=== PATIENT | female | born 1985 | race Caucasian/White ===

== ENCOUNTER 2018-01-21 13:37 | Inpatient (IN) | payer OTHER ==
[2018-01-21 13:52] VITALS: BMI 23.2
--- NOTE | 2018-01-21 16:41 | HP ---
CIWA Score Nausea/Vomitin-Mild Nausea/No Vomiting Muscle Tremors: 3 Anxiety: 2 Agitation: 2 Paroxysmal Sweats: 2 Orientation: 0-Oriented Tacttile Disturbances: 0-None Auditory Disturbances: 0-None Visual Disturbances: 0-None Headache: 2-Mild CIWA-Ar Total Score: 12 - Admission Criteria OASAS Guidelines: Admission for Medically Managed Detox: Requires at least one of the followin. CIWA greater than 12 2. Seizures within the past 24 hours 3. Delirium tremens within the past 24 hours 4. Hallucinations within the past 24 hours 5. Acute intervention needed for co occurring medical disorder 6. Acute intervention needed for co occurring psychiatric disorder 7. Severe withdrawal that cannot be handled at a lower level of care (continued vomiting, continued diarrhea, abnormal vital signs) requiring intravenous medication and/or fluids 8. Admission ROS [facility] Chief Complaint: here for alcohol detox Allergies/Adverse Reactions: Allergies Allergy/AdvReac Type Severity Reaction Status Date / Time amoxicillin Allergy Severe Swelling Verified 01/21/18 16:39 banana Allergy Severe Hives Verified 01/21/18 16:39 History of Present Illness: 32 yo with no medical problems here for treatment of alcohol use. Started using at the age of 17 but started using regularly since age 21. Has been drinking more over the years. But over the last few months has increased drinking to about 9 drinks a day but self decreased to 6 drinks over the last few weeks. Says she gets the shakes. LAst drink of alcohol yesterday. Pt states uses marijuana occasionally. Smokes 20 cigs/day DUR/ISTOP: shows no recent meds URine tox shows THC MAGALY- 0 - Ebola screening Have you traveled outside of the country in the last 21 days: No Have you had contact with anyone from an Ebola affected area: No Have you been sick,other than usual withdrawal symptoms: No Do you have a fever: No Patient History - Patient Medical History Hx Anemia: No Hx Asthma: No Hx Chronic Obstructive Pulmonary Disease (COPD): No Hx Cancer: No Hx Cardiac Disorders: No Hx Congestive Heart Failure: No Hx Hypertension: No Hx Hypercholesterolemia: No Hx Pacemaker: No HX Cerebrovascular Accident: No Hx Seizures: No Hx Dementia: No Hx Diabetes: No Hx Gastrointestinal Disorders: No Hx Liver Disease: No Hx Genitourinary Disorders: No Hx Sexually Transmitted Disorders: No Hx Renal Disease (ESRD): No Hx Thyroid Disease: No - Patient Surgical History Past Surgical History: Yes Hx Neurologic Surgery: No Hx Cataract Extraction: No Hx Cardiac Surgery: No Hx Lung Surgery: No Hx Breast Surgery: No Hx Breast Biopsy: No Hx Abdominal Surgery: No Hx Appendectomy: Yes Hx Cholecystectomy: No Hx Genitourinary Surgery: No Hx Section: No Hx Orthopedic Surgery: No Hx Hysterectomy: No Anesthesia Reaction: No - Reproductive History Last Menstrual Period: 01/21/18 Patient : No - Smoking Cessation Smoking history: Current every day smoker Have you smoked in the past 12 months: Yes Aproximately how many cigarettes per day: 20 Hx Chewing Tobacco Use: No Initiated information on smoking cessation: Yes 'Breaking Loose' booklet given: 01/21/18 - Substance & Tx. History Hx Alcohol Use: Yes Hx Substance Use: No Substance Use Type: Alcohol, Marijuana Hx Substance Use Treatment: No - Substances Abused Alcohol Route: Oral Frequency: Daily Amount used: 6-9 glasses of wine. Age of first use: 21 Date of Last Use: 01/20/18 Marijuana/Hashish Route: Smoking Frequency: 1-2 times per week Amount used: 2-3 puffs Age of first use: 16 Date of Last Use: 01/19/18 Family Disease History - Family Disease History Family History: Unremarkable (pt states she was adopted) Admission Physical Exam [facility] - Vital Signs Vital Signs: Vital Signs - 24 hr 01/21/18 13:43 Temperature 98.8 F Pulse Rate 97 H Respiratory 19 Rate Blood Pressure 157/99 - Physical General Appearance: Yes: Within Normal Limits HEENTM: Yes: Within Normal Limits, EOMI, PARAS Respiratory: Yes: Within Normal Limits, Chest Non-Tender, Lungs Clear, Normal Breath Sounds Neck: Yes: Within Normal Limits Breast: Yes: Breast Exam Deferred Abdominal: Yes: Within Normal Limits, Normal Bowel Sounds, Non Tender, Flat, Soft Genitourinary: Yes: Within Normal Limits Back: Yes: Within Normal Limits Musculoskeletal: Yes: Within Normal Limits Extremities: Yes: Within Normal Limits Neurological: Yes: Within Normal Limits Integumentary: Yes: Within Normal Limits Lymphatic: Yes: Within Normal Limits - Diagnostic (1) Alcohol use disorder Current Visit: Yes Status: Acute (2) Alcohol withdrawal Current Visit: Yes Status: Acute Cleared for Admission [facility] - Detox or Rehab [facility] Level of Care: Medically Managed Detox Regimen/Protocol: Librium BHS Breath Alcohol Content Breath Alcohol Content: 0 Urine Pregancy Test - Result Urine Test Results: Negative- NO Line Present (pt with menses) Urine Drug Screen - Results Drug Screen Negative: No Urine Drug Screen Results: THC-Marijuana
[2018-01-21] MEDS ORDERED: MAGNESIUM CITRATE 300 ML BOTTLE PO PRN (17:17)
[2018-01-21] MEDS ORDERED: MENTHOL/PHENOL 1 EACH UD MM PRN (17:17)
[2018-01-21] MEDS ORDERED: MAG HYDROX/AL HYDROX/SIMETH 30 ML UNIT-DOSE CUP PO PRN (17:17)
[2018-01-21] MEDS ORDERED: P-EPHED 60MG/TRIPROLIDI 2.5MG TABLET PO PRN (17:17)
[2018-01-21] MEDS ORDERED: LOPERAMIDE HCL 2 MG CAPSULE PO PRN (17:17)
[2018-01-21] MEDS ORDERED: MAGNESIUM HYDROX 2400MG/30ML ORAL SUSPENSION 30 ML CUP PO PRN (17:17)
[2018-01-21] MEDS ORDERED: guaiFENesin/D-METHORPHAN HB 10 ML UNIT-DOSE CUPS PO PRN (17:17)
[2018-01-21] MEDS ORDERED: IBUPROFEN 400 MG TABLET (FP) PO PRN (17:17)
[2018-01-21] MEDS ORDERED: ACETAMINOPHEN 325 MG TABLET (FP) PO PRN (17:17)
[2018-01-21] MEDS ORDERED: chlordiazePOXIDE HCL 25 MG CAPSULE PO ONE (17:30)
[2018-01-21] MEDS: THIAMINE HCL 100 MG TABLET (FP) PO SCH (22:10)
[2018-01-21] MEDS: MELATONIN 5 MG TABLETS PO PRN (22:10)
[2018-01-21] MEDS: chlordiazePOXIDE HCL 25 MG CAPSULE PO SCH (22:10)
[2018-01-21] MEDS: NICOTINE POLACRILEX 4 MG GUM BC PRN (22:13)
[2018-01-22] MEDS: chlordiazePOXIDE HCL 25 MG CAPSULE PO SCH ×4 (05:57→22:13)
[2018-01-22] MEDS: NICOTINE POLACRILEX 4 MG GUM BC PRN ×2 (06:24→09:19)
[2018-01-22] MEDS: hydrOXYzine PAMOATE 50 MG CAPSULE (FP) PO PRN ×2 (08:47→22:13)
[2018-01-22 10:13] LABS: HEMOGLOBIN 12.9 GM/dL (10.7-15.3); MEAN PLT VOLUME 9.2 fl (7.5-11.1); PLATELET COUNT 158 K/MM3 (134-434); RDW 12.7 % (11.6-15.6); WHITE BLOOD COUNT 3.9 K/mm3 (4.0-10.0)
[2018-01-22] MEDS: PRENATAL VITAMINS W/ FOLIC ACID TABLET (FP) PO SCH (10:19)
[2018-01-22] MEDS: NICOTINE 21 MG/24 HOURS TOPICAL PATCH TD SCH (10:19)
--- NOTE | 2018-01-22 10:19 | CONSULT ---
[facility] Psychiatric Consult - Data Date of interview: 01/22/18 Admission source: [facility] Identifying data: This is a 32 years old female with no psychiatric hospitalization history, with no medical problems is here for treatment of alcohol use. Reports Vistarill 50mg po prn q4 for anxiety. Denies psychiatric hospitalization historty, seeking for detoxc reporting withdrawal synptoms. Substance Abuse History: Smoking history: Current every day smoker. Have you smoked in the past 12 months: Yes. Aproximately how many cigarettes per day: 20. Hx Chewing Tobacco Use: No. Initiated information on smoking cessation: Yes. 'Breaking Loose' booklet given: 01/21/18. - Substance & Tx. History. Hx Alcohol Use: Yes. Hx Substance Use: No. Substance Use Type: Alcohol, Marijuana. Hx Substance Use Treatment: No. - Substances Abused. Alcohol. Route: Oral. Frequency: Daily. Amount used: 6-9 glasses of wine. Age of first use: 21. Date of Last Use: 01/20/18. Marijuana/Hashish. Route: Smoking. Frequency: 1-2 times per week. Amount used: 2-3 puffs. Age of first use: 16. Date of Last Use: 01/19/18 Medical History: Denies any significant medical issues Psychiatric History: Patient reportws nompsychiatric hospitalization history, denies suicidal anmd homicidal history, reports anxiety and agitation and asking for medications aid. Physical/Sexual Abuse/Trauma History: Denies Additional Comment: Vistarill 50mg po prn q4 for anxiety Mental Status Exam - Mental Status Exam Alert and Oriented to: Person Cognitive Function: Fair Patient Appearance: Unkempt Mood: Anxious Affect: Normal Range Patient Behavior: Cooperative Speech Pattern: Appropriate Voice Loudness: Mildly Loud Thought Process: Goal Oriented Thought Disorder: Being Controlled Hallucinations: Denies Suicidal Ideation: Denies Homicidal Ideation: Denies Insight/Judgement: Fair Sleep: Difficulty falling asleep Appetite: Weight loss Muscle strength/Tone: Mild Hypotonicity Gait/Station: Normal Additional Comments: Vistarill 50mg po prn q4 for anxiety Psychiatric Findings - Problem List ([place] 1, 2,3) (1) Alcohol-induced anxiety disorder Current Visit: Yes Status: Acute (2) Cannabis dependence Current Visit: Yes Status: Acute (3) Nicotine dependence Current Visit: Yes Status: Acute (4) Alcohol use disorder Current Visit: Yes Status: Acute (5) Alcohol withdrawal Current Visit: Yes Status: Acute - Initial Treatment Plan Initial Treatment Plan: Vistarill 50mg po prn q4 for anxiety
[2018-01-22 10:20] LABS: ALK PHOS 88 U/L (45-117); ANION GAP 12 MMOL/L (8-16); BILIRUBIN,TOTAL 0.7 mg/dL (0.2-1); BLOOD UREA NITROGEN 5 mg/dL (7-18); CALCIUM 9.5 mg/dL (8.5-10.1); CHLORIDE 98 mmol/L (98-107); CO2 28 mmol/L (21-32); CREATININE 0.5 mg/dL (0.55-1.3); GLUCOSE,RANDOM 109 mg/dL (74-106); SGOT/AST 61 U/L (15-37); SGPT/ALT 56 U/L (13-61); SODIUM 138 mmol/L (136-145); TOT PROT 7.8 g/dl (6.4-8.2)
[2018-01-22 10:20] LABS: URINE APPEARANCE SLCLOUDY; URINE BILIRUBIN NEGATIVE (<2.0 mg/dL); URINE COLOR YELLOW; URINE GLUCOSE (UA) NEGATIVE (NEGATIVE); URINE KETONE NEGATIVE (NEGATIVE); URINE LEUK ESTERASE TRACE (NEGATIVE); URINE NITRITE NEGATIVE (NEGATIVE); URINE PROTEIN NEGATIVE (NEGATIVE); URINE UROBILINOGEN NEGATIVE mg/dL (0.2-1.0)
[2018-01-22 10:33] LABS: EPI CELLS FEW /HPF (FEW); URINE BACTERIA RARE /hpf (NONE SEEN); URINE MUCUS RARE
--- NOTE | 2018-01-22 10:37 | CONSULT ---
[facility] Psychiatric Consult - Data Date of interview: 01/22/18 Admission source: [facility] Identifying data: This is Psychiatric Findings - Problem List ([place] 1, 2,3) (1) Alcohol-induced anxiety disorder Current Visit: Yes Status: Acute (2) Cannabis dependence Current Visit: Yes Status: Acute (3) Nicotine dependence Current Visit: Yes Status: Acute (4) Alcohol use disorder Current Visit: Yes Status: Acute (5) Alcohol withdrawal Current Visit: Yes Status: Acute
--- NOTE | 2018-01-22 11:37 | EKG ---
Test Reason : Blood Pressure : / mmHG Vent. Rate : 089 BPM Atrial Rate : 089 BPM P-R Int : 098 ms QRS Dur : 092 ms QT Int : 366 ms P-R-T Axes : 012 016 020 degrees QTc Int : 445 ms SINUS RHYTHM WITH SHORT DC NONSPECIFIC T WAVE ABNORMALITY ABNORMAL ECG NO PREVIOUS ECGS AVAILABLE Confirmed by DAIANA GROVER MD ([id number]) on 01/22/2018 11:37:06 AM Referred By: Confirmed By:DAIANA GROVER MD
--- NOTE | 2018-01-22 12:30 | PN ---
S CIWA - CIWA Score Nausea/Vomitin-No Nausea/No Vomiting Muscle Tremors: 3 Anxiety: 3 Agitation: 4-Moderately Restless Paroxysmal Sweats: 3 Orientation: 0-Oriented Tacttile Disturbances: 0-None Auditory Disturbances: 0-None Visual Disturbances: 0-None Headache: 0-None Present CIWA-Ar Total Score: 13 BHS Progress Note (SOAP) Subjective: anxiety sweats irritable agitation body aches Objective: 01/22/18 12:33 Vital Signs Temperature 97.7 F 01/22/18 10:07 Pulse Rate 100 H 01/22/18 10:07 Respiratory Rate 16 01/22/18 10:07 Blood Pressure 125/86 01/22/18 10:07 O2 Sat by Pulse Oximetry (%) Laboratory Tests 01/22/18 01/22/18 01/22/18 07:00 07:00 08:00 WBC 3.9 L RBC 3.90 Hgb 12.9 Hct 39.0 MCV 100.0 H MCH 33.0 MCHC 33.0 RDW 12.7 Plt Count 158 MPV 9.2 Sodium 138 Potassium 3.0 L Chloride 98 Carbon Dioxide 28 Anion Gap 12 BUN 5 L Creatinine 0.5 L Creat Clearance w eGFR > 60 Random Glucose 109 H Calcium 9.5 Total Bilirubin 0.7 AST 61 H ALT 56 Alkaline Phosphatase 88 Total Protein 7.8 Albumin 4.0 Urine Color Yellow Urine Appearance Slcloudy Urine pH 7.0 Ur Specific [place] 1.008 L Urine Protein Negative Urine Glucose (UA) Negative Urine Ketones Negative Urine Blood 3+ H Urine Nitrite Negative Urine Bilirubin Negative Urine Urobilinogen Negative Ur Leukocyte Esterase Trace Urine WBC (Auto) 6 Urine RBC (Auto) None Ur Epithelial Cells Few Urine Bacteria Rare Urine Mucus Rare aaox3 ambulating no acute distress Assessment: 01/22/18 12:33 withdrawal sx Plan: continue detox increase fluids
[2018-01-22] MEDS ORDERED: POTASSIUM CHLORIDE TABS 20 MEQ TABLET.ER (FP) PO ONE (15:50)
[2018-01-22] MEDS: MELATONIN 5 MG TABLETS PO PRN (22:13)
[2018-01-22] MEDS: THIAMINE HCL 100 MG TABLET (FP) PO SCH (22:13)
[2018-01-23] MEDS: chlordiazePOXIDE HCL 25 MG CAPSULE PO PRN ×2 (01:30→13:08)
[2018-01-23] MEDS: chlordiazePOXIDE HCL 25 MG CAPSULE PO SCH ×3 (06:07→17:26)
[2018-01-23] MEDS: NICOTINE POLACRILEX 4 MG GUM BC PRN ×2 (08:54→22:55)
[2018-01-23] MEDS: NICOTINE 21 MG/24 HOURS TOPICAL PATCH TD SCH (10:52)
[2018-01-23] MEDS: PRENATAL VITAMINS W/ FOLIC ACID TABLET (FP) PO SCH (10:52)
[2018-01-23] MEDS: POTASSIUM CHLORIDE TABS 20 MEQ TABLET.ER (FP) PO SCH (10:52)
--- NOTE | 2018-01-23 12:21 | PN ---
[facility] CIWA - CIWA Score Nausea/Vomitin-No Nausea/No Vomiting Muscle Tremors: 3 Anxiety: 3 Agitation: 3 Paroxysmal Sweats: 3 Orientation: 0-Oriented Tacttile Disturbances: 0-None Auditory Disturbances: 0-None Visual Disturbances: 0-None Headache: 0-None Present CIWA-Ar Total Score: 12 S Progress Note (SOAP) Subjective: anxiety shakes sweats irritable interrupted sleep Objective: 01/23/18 12:38 Vital Signs Temperature 97.9 F 01/23/18 09:40 Pulse Rate 134 H 01/23/18 09:40 Respiratory Rate 18 01/23/18 09:40 Blood Pressure 143/93 01/23/18 09:40 O2 Sat by Pulse Oximetry (%) Laboratory Tests 01/22/18 01/22/18 01/22/18 07:00 07:00 07:00 WBC 3.9 L RBC 3.90 Hgb 12.9 Hct 39.0 MCV 100.0 H MCH 33.0 MCHC 33.0 RDW 12.7 Plt Count 158 MPV 9.2 Sodium 138 Potassium 3.0 L Chloride 98 Carbon Dioxide 28 Anion Gap 12 BUN 5 L Creatinine 0.5 L Creat Clearance w eGFR > 60 Random Glucose 109 H Calcium 9.5 Total Bilirubin 0.7 AST 61 H ALT 56 Alkaline Phosphatase 88 Total Protein 7.8 Albumin 4.0 Urine Color Urine Appearance Urine pH Ur Specific [place] Urine Protein Urine Glucose (UA) Urine Ketones Urine Blood Urine Nitrite Urine Bilirubin Urine Urobilinogen Ur Leukocyte Esterase Urine WBC (Auto) Urine RBC (Auto) Ur Epithelial Cells Urine Bacteria Urine Mucus RPR Titer Nonreactive 01/22/18 08:00 WBC RBC Hgb Hct MCV MCH MCHC RDW Plt Count MPV Sodium Potassium Chloride Carbon Dioxide Anion Gap BUN Creatinine Creat Clearance w eGFR Random Glucose Calcium Total Bilirubin AST ALT Alkaline Phosphatase Total Protein Albumin Urine Color Yellow Urine Appearance Slcloudy Urine pH 7.0 Ur Specific [place] 1.008 L Urine Protein Negative Urine Glucose (UA) Negative Urine Ketones Negative Urine Blood 3+ H Urine Nitrite Negative Urine Bilirubin Negative Urine Urobilinogen Negative Ur Leukocyte Esterase Trace Urine WBC (Auto) 6 Urine RBC (Auto) None Ur Epithelial Cells Few Urine Bacteria Rare Urine Mucus Rare RPR Titer aaox3 ambulating no acute distress Assessment: 01/23/18 12:43 withdrawal sx Plan: continue detox increase fluids clonidine 0.1mg x one
[2018-01-23] MEDS ORDERED: cloNIDine HCL 0.1 MG TABLET PO ONE (12:35)
[2018-01-23] MEDS: hydrOXYzine PAMOATE 50 MG CAPSULE (FP) PO PRN ×3 (13:08→22:18)
[2018-01-23] MEDS: THIAMINE HCL 100 MG TABLET (FP) PO SCH (22:18)
[2018-01-23] MEDS: chlordiazePOXIDE 5 MG CAPSULE PO SCH (22:18)
[2018-01-23] MEDS: MELATONIN 5 MG TABLETS PO PRN (22:18)
[2018-01-24] MEDS: chlordiazePOXIDE 5 MG CAPSULE PO SCH ×3 (06:19→18:02)
[2018-01-24] MEDS: hydrOXYzine PAMOATE 50 MG CAPSULE (FP) PO PRN ×2 (09:52→21:10)
[2018-01-24] MEDS: PRENATAL VITAMINS W/ FOLIC ACID TABLET (FP) PO SCH (10:47)
[2018-01-24] MEDS: POTASSIUM CHLORIDE TABS 20 MEQ TABLET.ER (FP) PO SCH (10:47)
[2018-01-24] MEDS: NICOTINE 21 MG/24 HOURS TOPICAL PATCH TD SCH (10:48)
--- NOTE | 2018-01-24 12:37 | PN ---
BHS Progress Note (SOAP) Subjective: feeling much better little anxious i want to leave early tomorrow by 7am Objective: 01/24/18 12:36 Vital Signs Temperature 97.7 F 01/24/18 09:46 Pulse Rate 105 H 01/24/18 09:46 Respiratory Rate 16 01/24/18 09:46 Blood Pressure 120/83 01/24/18 09:46 O2 Sat by Pulse Oximetry (%) aaox3 ambulating no acute distress Assessment: 01/24/18 12:37 mild withdrawal sx Plan: continue detox increase fluids d/c in am at 7am as per pt request.
[2018-01-24] MEDS: NICOTINE POLACRILEX 4 MG GUM BC PRN ×3 (13:49→22:23)
[2018-01-24] MEDS: chlordiazePOXIDE HCL 25 MG CAPSULE PO PRN (15:33)
[2018-01-24] MEDS: chlordiazePOXIDE HCL 10 MG CAPSULE PO SCH (22:22)
[2018-01-24] MEDS: THIAMINE HCL 100 MG TABLET (FP) PO SCH (22:22)
[2018-01-24] MEDS: MELATONIN 5 MG TABLETS PO PRN (22:23)
[2018-01-25] MEDS: chlordiazePOXIDE HCL 10 MG CAPSULE PO SCH (05:29)
[2018-01-25 06:34] VITALS: BP 109/68; PULSE 74; TEMP 97.5
[2018-01-25] MEDS: hydrOXYzine PAMOATE 50 MG CAPSULE (FP) PO PRN (06:41)
== END 2018-01-25 06:53 | disposition home or self-care (01) | DRG 897 ==
LOC: YASAS 13:37 → Y6N 17:18
PROC: HZ2ZZZZ Detoxification Services for Substance Abuse Treatment (ICD-10-PCS; principal; 2018-01-21)
DX: F10.230 Alcohol dependence with withdrawal, uncomplicated (principal); F12.20 Cannabis dependence, uncomplicated; F17.210 Nicotine dependence, cigarettes, uncomplicated; F10.280 Alcohol dependence with alcohol-induced anxiety disorder
CPT/HCPCS: 36415; 80053; 81003; 81015; 85027; 86593; 93005; 93010; J0735

== ENCOUNTER 2018-04-14 14:22 | Inpatient (IN) | payer OTHER ==
--- NOTE | 2018-04-14 16:42 | HP ---
CIWA Score Nausea/Vomitin Muscle Tremors: 3 Anxiety: 3 Agitation: 2 Paroxysmal Sweats: 1-Minimal Palms Moist Orientation: 0-Oriented Tacttile Disturbances: 0-None Auditory Disturbances: 0-None Visual Disturbances: 0-None Headache: 1-Very Mild CIWA-Ar Total Score: 12 - Admission Criteria OASAS Guidelines: Admission for Medically Managed Detox: Requires at least one of the followin. CIWA greater than 12 2. Seizures within the past 24 hours 3. Delirium tremens within the past 24 hours 4. Hallucinations within the past 24 hours 5. Acute intervention needed for co occurring medical disorder 6. Acute intervention needed for co occurring psychiatric disorder 7. Severe withdrawal that cannot be handled at a lower level of care (continued vomiting, continued diarrhea, abnormal vital signs) requiring intravenous medication and/or fluids 8. Patient presents the following: CIWA greater than 12 Admission Criteria Met: Admission criteria met Admission ROS [facility] Chief Complaint: here for alcohol detox 32 yo with recent diagnosis of UTI- taking antibiotic for the last 3 days, and needs to complete the treatment. And no other medical problems here for treatment of alcohol use. Started using alcohol at the age of 17 but started using regularly since age 21. Has been drinking more over the years. Was last here 01/2018, says she relapsed a month of leaving here. Was going to AA meetings alcohol: 1 pint of whiskey day average, no h/p seizures/DT's Pt states uses marijuana occasionally. Smokes 20 cigs/day DUR/ISTOP: shows no recent meds URine tox shows THC, MET, BZO- last use of zanax a couple of weeks ago, denies MET use MAGALY- 0 Allergies/Adverse Reactions: Allergies Allergy/AdvReac Type Severity Reaction Status Date / Time amoxicillin Allergy Severe Swelling Verified 01/21/18 16:39 banana Allergy Severe Hives Verified 01/21/18 16:39 Exam Limitations: No Limitations - Ebola screening Have you traveled outside of the country in the last 21 days: No Have you had contact with anyone from an Ebola affected area: No Do you have a fever: No - Review of Systems Constitutional: No Symptoms Reported EENT: reports: No Symptoms Reported Respiratory: reports: No Symptoms reported Cardiac: reports: No Symptoms Reported GI: reports: No Symptoms Reported : reports: No Symptoms Reported, Testicular Pain Integumentary: reports: No Symptoms Reported Neuro: reports: No Symptoms reported Hematology: reports: No Symptoms Reported Psychiatric: reports: No Sypmtoms Reported Patient History - Patient Medical History Hx Anemia: No Hx Asthma: No Hx Chronic Obstructive Pulmonary Disease (COPD): No Hx Cancer: No Hx Cardiac Disorders: No Hx Congestive Heart Failure: No Hx Hypertension: No Hx Hypercholesterolemia: No Hx Pacemaker: No HX Cerebrovascular Accident: No Hx Seizures: No Hx Dementia: No Hx Diabetes: No Hx Gastrointestinal Disorders: No Hx Liver Disease: No Hx Genitourinary Disorders: No Hx Sexually Transmitted Disorders: No Hx Renal Disease (ESRD): No Hx Thyroid Disease: No Hx Depression: Yes Hx Suicide Attempt: No Hx Schizophrenia: No Other Medical History: anxiety - Patient Surgical History Past Surgical History: Yes Hx Neurologic Surgery: No Hx Cataract Extraction: No Hx Cardiac Surgery: No Hx Lung Surgery: No Hx Breast Surgery: No Hx Breast Biopsy: No Hx Abdominal Surgery: No Hx Appendectomy: Yes Hx Cholecystectomy: No Hx Genitourinary Surgery: No Hx Section: No Hx Orthopedic Surgery: No Hx Hysterectomy: No Anesthesia Reaction: No - PPD History Date: 01/23/18 PPD to be Administered?: No - Reproductive History Last Menstrual Period: 01/21/18 Patient : No - Smoking Cessation Smoking history: Current every day smoker Have you smoked in the past 12 months: Yes Aproximately how many cigarettes per day: 20 Hx Chewing Tobacco Use: No Initiated information on smoking cessation: Yes 'Breaking Loose' booklet given: 04/14/18 Family Disease History - Family Disease History Family History: Denies (pt does not know- she is adopted) Family Disease History: Other: Grandparent (is adopted), Father (is adopted), Mother (is adopted) Admission Physical Exam [facility] - Physical General Appearance: Yes: Within Normal Limits HEENTM: Yes: Within Normal Limits Respiratory: Yes: Within Normal Limits Neck: Yes: Within Normal Limits Cardiology: Yes: Within Normal Limits Abdominal: Yes: Within Normal Limits Genitourinary: Yes: Within Normal Limits Back: Yes: Within Normal Limits Musculoskeletal: Yes: Within Normal Limits Extremities: Yes: Within Normal Limits Neurological: Yes: Within Normal Limits Integumentary: Yes: Within Normal Limits Lymphatic: Yes: Within Normal Limits - Diagnostic (1) UTI (urinary tract infection) Current Visit: Yes Status: Acute (2) Alcohol-induced anxiety disorder Current Visit: No Status: Acute (3) Alcohol dependence with uncomplicated withdrawal Current Visit: No Status: Chronic (4) Cannabis dependence Current Visit: No Status: Chronic (5) Nicotine dependence Current Visit: No Status: Chronic Qualifiers: Nicotine product type: cigarettes Substance use status: uncomplicated Qualified Code(s): F17.210 - Nicotine dependence, cigarettes, uncomplicated BHS Breath Alcohol Content Breath Alcohol Content: 0
[2018-04-14] MEDS ORDERED: MENTHOL/PHENOL 1 EACH UD MM PRN (16:45)
[2018-04-14] MEDS ORDERED: MAG HYDROX/AL HYDROX/SIMETH 30 ML UNIT-DOSE CUP PO PRN (16:45)
[2018-04-14] MEDS ORDERED: MAGNESIUM CITRATE 300 ML BOTTLE PO PRN (16:45)
[2018-04-14] MEDS ORDERED: IBUPROFEN 400 MG TABLET (FP) PO PRN (16:45)
[2018-04-14] MEDS ORDERED: P-EPHED 60MG/TRIPROLIDI 2.5MG TABLET PO PRN (16:45)
[2018-04-14] MEDS ORDERED: MAGNESIUM HYDROX 2400MG/30ML ORAL SUSPENSION 30 ML CUP PO PRN (16:45)
[2018-04-14] MEDS ORDERED: LOPERAMIDE HCL 2 MG CAPSULE PO PRN (16:45)
[2018-04-14] MEDS ORDERED: ACETAMINOPHEN 325 MG TABLET (FP) PO PRN (16:45)
[2018-04-14] MEDS ORDERED: guaiFENesin/D-METHORPHAN HB 10 ML UNIT-DOSE CUPS PO PRN (16:45)
[2018-04-14 17:04] VITALS: BMI 23.0
[2018-04-14] MEDS ORDERED: chlordiazePOXIDE HCL 25 MG CAPSULE PO ONE (18:00)
[2018-04-14] MEDS: cloNIDine HCL 0.1 MG TABLET PO PRN (20:35)
[2018-04-14] MEDS: chlordiazePOXIDE HCL 25 MG CAPSULE PO SCH (22:22)
[2018-04-14] MEDS: SULFAMETHOXAZOLE/TRIMETHOPRIM 800MG/160MG D.S. TABLET PO SCH (22:22)
[2018-04-14] MEDS: MELATONIN 5 MG TABLETS PO PRN (22:22)
[2018-04-14] MEDS: THIAMINE HCL 100 MG TABLET (FP) PO SCH (22:22)
[2018-04-14] MEDS: NICOTINE POLACRILEX 4 MG GUM BC PRN (22:57)
[2018-04-15] MEDS: hydrOXYzine PAMOATE 50 MG CAPSULE (FP) PO PRN ×2 (02:31→17:12)
[2018-04-15] MEDS: chlordiazePOXIDE HCL 25 MG CAPSULE PO SCH ×4 (05:28→22:06)
[2018-04-15] MEDS ORDERED: COLLOIDAL OATMEAL 1 BAR EACH TP PRN (09:18)
--- NOTE | 2018-04-15 09:19 | PN ---
[facility]HS CIWA - CIWA Score Nausea/Vomitin-No Nausea/No Vomiting Muscle Tremors: 2 Anxiety: 4-Mod. Anxious/Guarded Agitation: 1-Slight > Activity Paroxysmal Sweats: 1-Minimal Palms Moist Orientation: 0-Oriented Tacttile Disturbances: 1-Very Mild Itch/Numbness Auditory Disturbances: 0-None Visual Disturbances: 0-None Headache: 1-Very Mild CIWA-Ar Total Score: 10 BHS Progress Note (SOAP) Subjective: tremor sweating anxiety itchy skin headache Objective: 04/15/18 09:23 Vital Signs Temperature 96.9 F L 04/15/18 06:16 Pulse Rate 102 H 04/15/18 06:16 Respiratory Rate 18 04/15/18 06:16 Blood Pressure 107/76 04/15/18 06:16 O2 Sat by Pulse Oximetry (%) lab pending Assessment: 04/15/18 09:24 alcohol withdrawal sx 04/15/18 09:25 dry skin Plan: continue alcohol detox regimen that the patient is doing well at the present time aveeno soap eucerin cream
[2018-04-15 10:17] LABS: ALBUMIN 4.2 g/dl (3.4-5.0); ALK PHOS 118 U/L (45-117); ANION GAP 9 MMOL/L (8-16); BLOOD UREA NITROGEN 8 mg/dL (7-18); CALCIUM 9.8 mg/dL (8.5-10.1); CHLORIDE 94 mmol/L (98-107); CO2 31 mmol/L (21-32); CREATININE 0.8 mg/dL (0.55-1.3); GLUCOSE,RANDOM 96 mg/dL (74-106); POTASSIUM 3.6 mmol/L (3.5-5.1); SGOT/AST 65 U/L (15-37); SGPT/ALT 44 U/L (13-61); SODIUM 133 mmol/L (136-145); TOT PROT 7.8 g/dl (6.4-8.2)
[2018-04-15] MEDS: SULFAMETHOXAZOLE/TRIMETHOPRIM 800MG/160MG D.S. TABLET PO SCH ×2 (10:21→22:06)
[2018-04-15] MEDS: MINERAL OIL/PETROLAT/WATER TOPICAL CREAM 454 GM JAR TP SCH (10:21)
[2018-04-15] MEDS: PRENATAL VITAMINS W/ FOLIC ACID TABLET (FP) PO SCH (10:21)
[2018-04-15] MEDS: NICOTINE POLACRILEX 4 MG GUM BC PRN ×3 (10:22→21:07)
[2018-04-15 10:23] LABS: HEMOGLOBIN 12.9 GM/dL (10.7-15.3); MCH 34.6 pg (25.7-33.7); MCHC 34.7 g/dl (32.0-36.0); MEAN CELL VOLUME 99.7 fl (80-96); MEAN PLT VOLUME 8.3 fl (7.5-11.1); PLATELET COUNT 188 K/MM3 (134-434); RBC 3.71 M/mm3 (3.60-5.2); WHITE BLOOD COUNT 3.9 K/mm3 (4.0-10.0)
[2018-04-15] MEDS: chlordiazePOXIDE HCL 25 MG CAPSULE PO PRN (12:44)
[2018-04-15] MEDS: cloNIDine HCL 0.1 MG TABLET PO PRN (17:12)
[2018-04-15] MEDS: THIAMINE HCL 100 MG TABLET (FP) PO SCH (22:06)
[2018-04-15] MEDS: MELATONIN 5 MG TABLETS PO PRN (22:06)
[2018-04-16] MEDS: chlordiazePOXIDE HCL 25 MG CAPSULE PO SCH ×3 (04:56→17:12)
[2018-04-16 09:49] LABS: URINE APPEARANCE CLEAR; URINE BILIRUBIN NEGATIVE (<2.0 mg/dL); URINE COLOR YELLOW; URINE GLUCOSE (UA) NEGATIVE (NEGATIVE); URINE KETONE NEGATIVE (NEGATIVE); URINE LEUK ESTERASE NEGATIVE (NEGATIVE); URINE NITRITE NEGATIVE (NEGATIVE); URINE PROTEIN NEGATIVE (NEGATIVE)
[2018-04-16] MEDS: SULFAMETHOXAZOLE/TRIMETHOPRIM 800MG/160MG D.S. TABLET PO SCH ×2 (10:12→22:02)
[2018-04-16] MEDS: PRENATAL VITAMINS W/ FOLIC ACID TABLET (FP) PO SCH (10:12)
[2018-04-16] MEDS: MINERAL OIL/PETROLAT/WATER TOPICAL CREAM 454 GM JAR TP SCH (10:13)
[2018-04-16] MEDS: chlordiazePOXIDE HCL 25 MG CAPSULE PO PRN ×2 (13:03→20:25)
[2018-04-16] MEDS: NICOTINE POLACRILEX 4 MG GUM BC PRN ×3 (13:04→22:06)
--- NOTE | 2018-04-16 15:12 | PN ---
S CIWA - CIWA Score Nausea/Vomitin-No Nausea/No Vomiting Muscle Tremors: 3 Anxiety: 1-Mildly Anxious Agitation: 0-Normal Activity Paroxysmal Sweats: 3 Orientation: 0-Oriented Tacttile Disturbances: 0-None Auditory Disturbances: 0-None Visual Disturbances: 3-Moderate Sensitivity Headache: 3-Moderate CIWA-Ar Total Score: 13 BHS Progress Note (SOAP) Subjective: Body Aches, Interrupted Sleep, Sweating, Tremors. Objective: PATIENT A & O X 3, OBSERVED AMBULATING ON UNIT. IN NO ACUTE DISTRESS. 04/16/18 15:13 Vital Signs Temperature 97.1 F L 04/16/18 13:34 Pulse Rate 117 H 04/16/18 13:34 Respiratory Rate 18 04/16/18 13:34 Blood Pressure 108/76 04/16/18 13:34 O2 Sat by Pulse Oximetry (%) Laboratory Tests 04/15/18 04/15/18 04/16/18 07:00 07:00 08:20 WBC 3.9 L RBC 3.71 Hgb 12.9 Hct 37.0 MCV 99.7 H MCH 34.6 H MCHC 34.7 RDW 13.0 Plt Count 188 MPV 8.3 Sodium 133 L Potassium 3.6 Chloride 94 L Carbon Dioxide 31 Anion Gap 9 BUN 8 Creatinine 0.8 Creat Clearance w eGFR > 60 Random Glucose 96 Calcium 9.8 Total Bilirubin 1.0 AST 65 H ALT 44 Alkaline Phosphatase 118 H Total Protein 7.8 Albumin 4.2 Urine Color Yellow Urine Appearance Clear Urine pH 6.0 Ur Specific [place] 1.014 Urine Protein Negative Urine Glucose (UA) Negative Urine Ketones Negative Urine Blood Negative Urine Nitrite Negative Urine Bilirubin Negative Urine Urobilinogen 2.0 H Ur Leukocyte Esterase Negative LABS NOTED. RPR RESULT PENDING. 04/16/18 15:14 Assessment: 04/16/18 15:13 WITHDRAWAL SYMPTOMS. Plan: CONTINUE DETOX. PRN FLEXERIL PO FOR BODY ACHES/ MUSCLE SPASMS.
[2018-04-16] MEDS: ARTIFICIAL TEARS (POLYVINYL ALCOHOL) OPTH DROPS OU PRN ×2 (17:14→22:05)
[2018-04-16] MEDS: CYCLOBENZAPRINE HCL 10 MG TABLET (FP) PO PRN (17:15)
[2018-04-16] MEDS: chlordiazePOXIDE 5 MG CAPSULE PO SCH (22:02)
[2018-04-16] MEDS: THIAMINE HCL 100 MG TABLET (FP) PO SCH (22:02)
[2018-04-16] MEDS: MELATONIN 5 MG TABLETS PO PRN (22:03)
[2018-04-16] MEDS: hydrOXYzine PAMOATE 50 MG CAPSULE (FP) PO PRN (23:46)
[2018-04-17] MEDS: chlordiazePOXIDE 5 MG CAPSULE PO SCH ×3 (06:01→17:44)
[2018-04-17] MEDS: SULFAMETHOXAZOLE/TRIMETHOPRIM 800MG/160MG D.S. TABLET PO SCH ×2 (10:38→22:16)
[2018-04-17] MEDS: PRENATAL VITAMINS W/ FOLIC ACID TABLET (FP) PO SCH (10:38)
--- NOTE | 2018-04-17 13:22 | PN ---
BHS Progress Note (SOAP) Subjective: Sweating, Interrupted Sleep, Fatigue. Objective: 04/17/18 13:25 Vital Signs Temperature 96.8 F L 04/17/18 09:19 Pulse Rate 75 04/17/18 09:19 Respiratory Rate 18 04/17/18 09:19 Blood Pressure 93/60 04/17/18 09:19 O2 Sat by Pulse Oximetry (%) Laboratory Tests 04/15/18 04/15/18 04/15/18 07:00 07:00 07:00 WBC 3.9 L RBC 3.71 Hgb 12.9 Hct 37.0 MCV 99.7 H MCH 34.6 H MCHC 34.7 RDW 13.0 Plt Count 188 MPV 8.3 Sodium 133 L Potassium 3.6 Chloride 94 L Carbon Dioxide 31 Anion Gap 9 BUN 8 Creatinine 0.8 Creat Clearance w eGFR > 60 Random Glucose 96 Calcium 9.8 Total Bilirubin 1.0 AST 65 H ALT 44 Alkaline Phosphatase 118 H Total Protein 7.8 Albumin 4.2 Urine Color Urine Appearance Urine pH Ur Specific [place] Urine Protein Urine Glucose (UA) Urine Ketones Urine Blood Urine Nitrite Urine Bilirubin Urine Urobilinogen Ur Leukocyte Esterase RPR Titer Nonreactive 04/16/18 08:20 WBC RBC Hgb Hct MCV MCH MCHC RDW Plt Count MPV Sodium Potassium Chloride Carbon Dioxide Anion Gap BUN Creatinine Creat Clearance w eGFR Random Glucose Calcium Total Bilirubin AST ALT Alkaline Phosphatase Total Protein Albumin Urine Color Yellow Urine Appearance Clear Urine pH 6.0 Ur Specific [place] 1.014 Urine Protein Negative Urine Glucose (UA) Negative Urine Ketones Negative Urine Blood Negative Urine Nitrite Negative Urine Bilirubin Negative Urine Urobilinogen 2.0 H Ur Leukocyte Esterase Negative RPR Titer LABS NOTED. Assessment: 04/17/18 13:25 WITHDRAWAL SYMPTOMS. Plan: CONTINUE DETOX. INCREASE DAILY PO FLUID INTAKE. PRN FLEXERIL FOR BODY ACHES / MUSCLE SPASMS.
[2018-04-17] MEDS: chlordiazePOXIDE HCL 25 MG CAPSULE PO PRN (13:26)
[2018-04-17] MEDS: MINERAL OIL/PETROLAT/WATER TOPICAL CREAM 454 GM JAR TP SCH (14:11)
[2018-04-17] MEDS: CYCLOBENZAPRINE HCL 10 MG TABLET (FP) PO PRN (17:49)
[2018-04-17] MEDS: hydrOXYzine PAMOATE 50 MG CAPSULE (FP) PO PRN ×2 (18:48→22:49)
[2018-04-17] MEDS: NICOTINE POLACRILEX 4 MG GUM BC PRN ×2 (19:57→22:20)
[2018-04-17] MEDS: THIAMINE HCL 100 MG TABLET (FP) PO SCH (22:16)
[2018-04-17] MEDS: ARTIFICIAL TEARS (POLYVINYL ALCOHOL) OPTH DROPS OU PRN (22:16)
[2018-04-17] MEDS: chlordiazePOXIDE HCL 10 MG CAPSULE PO SCH (22:16)
[2018-04-17] MEDS: MELATONIN 5 MG TABLETS PO PRN (22:17)
[2018-04-18] MEDS: CYCLOBENZAPRINE HCL 10 MG TABLET (FP) PO PRN ×2 (01:27→10:10)
[2018-04-18] MEDS: chlordiazePOXIDE HCL 10 MG CAPSULE PO SCH ×2 (05:28→10:09)
[2018-04-18] MEDS: ARTIFICIAL TEARS (POLYVINYL ALCOHOL) OPTH DROPS OU PRN (09:27)
[2018-04-18] MEDS: PRENATAL VITAMINS W/ FOLIC ACID TABLET (FP) PO SCH (10:09)
[2018-04-18] MEDS: SULFAMETHOXAZOLE/TRIMETHOPRIM 800MG/160MG D.S. TABLET PO SCH (10:09)
[2018-04-18 10:59] VITALS: BP 103/70; PULSE 96; TEMP 96
--- NOTE | 2018-04-18 18:41 | DS ---
[facility] Detox Discharge Summary Admission Date: 04/14/18 Discharge Date: 04/18/18 - History Present History: Alcohol Dependence, Cannabis Dependence Additional Comments: PATIENT WISHES TO ATTEND OUTPATIENT SUPPORT GROUP MEETINGS. REMAINDER OF ANTIBIOTIC (BACTRIM DS) THAT WAS STARTED FOR PATIENT FOR TREATMENT OF UTI PRIOR TO (AND CONTINUED DURING) DETOX ADMISSION GIVEN TO PATIENT TO TAKE WITH AT TIME OF DISCHARGE FROM DETOX UNIT. PATIENT ADVISED TO COMPLETE FULL COURSER OF REMAINDER OF ANTIBIOTIC. PATIENT VERBALIZED UNDERSTANDING OF RECOMMENDATION. PATIENT WAS DISCHARGED FROM DETOX UNIT IN STABLE MEDICAL CONDITION. Pertinent Past History: UTI, Nicotine Dependence, History of Depression, Anxiety. - Physical Exam Results Vital Signs: Vital Signs Temperature 96.0 F L 04/18/18 10:58 Pulse Rate 96 H 04/18/18 10:58 Respiratory Rate 18 04/18/18 10:58 Blood Pressure 103/70 04/18/18 10:58 O2 Sat by Pulse Oximetry (%) Pertinent Admission Physical Exam Findings: WITHDRAWAL SYMPTOMS. Laboratory Tests 04/15/18 04/15/18 04/15/18 07:00 07:00 07:00 WBC 3.9 L RBC 3.71 Hgb 12.9 Hct 37.0 MCV 99.7 H MCH 34.6 H MCHC 34.7 RDW 13.0 Plt Count 188 MPV 8.3 Sodium 133 L Potassium 3.6 Chloride 94 L Carbon Dioxide 31 Anion Gap 9 BUN 8 Creatinine 0.8 Creat Clearance w eGFR > 60 Random Glucose 96 Calcium 9.8 Total Bilirubin 1.0 AST 65 H ALT 44 Alkaline Phosphatase 118 H Total Protein 7.8 Albumin 4.2 Urine Color Urine Appearance Urine pH Ur Specific [place] Urine Protein Urine Glucose (UA) Urine Ketones Urine Blood Urine Nitrite Urine Bilirubin Urine Urobilinogen Ur Leukocyte Esterase RPR Titer Nonreactive 04/16/18 08:20 WBC RBC Hgb Hct MCV MCH MCHC RDW Plt Count MPV Sodium Potassium Chloride Carbon Dioxide Anion Gap BUN Creatinine Creat Clearance w eGFR Random Glucose Calcium Total Bilirubin AST ALT Alkaline Phosphatase Total Protein Albumin Urine Color Yellow Urine Appearance Clear Urine pH 6.0 Ur Specific [place] 1.014 Urine Protein Negative Urine Glucose (UA) Negative Urine Ketones Negative Urine Blood Negative Urine Nitrite Negative Urine Bilirubin Negative Urine Urobilinogen 2.0 H Ur Leukocyte Esterase Negative RPR Titer LABS NOTED. - Treatment Hospital Course: Detox Protocol Followed, Detoxed Safely, Responded well, Discharged Condition Good Patient has Accepted a Rehab Referral to: PATIENT DECLINED, REPORTS THAT SHE WILL ATTEND OUTPATIENT AA MEETINGS. - Medication Discharge Medications: Ambulatory Orders Sulfamethoxazole/Trimethoprim [Bactrim Ds -] 1 tab PO BID 04/14/18 - Diagnosis (1) Alcohol-induced anxiety disorder Status: Acute (2) UTI (urinary tract infection) Status: Acute Qualifiers: Urinary tract infection type: site unspecified Hematuria presence: without hematuria Qualified Code(s): N39.0 - Urinary tract infection, site not specified (3) Alcohol dependence with uncomplicated withdrawal Status: Acute (4) Cannabis dependence Status: Chronic (5) Nicotine dependence Status: Chronic Qualifiers: Nicotine product type: cigarettes Substance use status: uncomplicated Qualified Code(s): F17.210 - Nicotine dependence, cigarettes, uncomplicated - AMA Did Patient Leave Against Medical Advice: No
== END 2018-04-18 10:24 | disposition home or self-care (01) | DRG 775 ==
LOC: YASAS 14:22 → Y3N 17:37
PROVIDERS: ADMIT Neuromusculoskeletal Medicine & OMM; ATTEND Neuromusculoskeletal Medicine & OMM
PROC: HZ2ZZZZ Detoxification Services for Substance Abuse Treatment (ICD-10-PCS; principal; 2018-04-14)
DX: F10.230 Alcohol dependence with withdrawal, uncomplicated (principal); F10.280 Alcohol dependence with alcohol-induced anxiety disorder; F12.20 Cannabis dependence, uncomplicated; F17.210 Nicotine dependence, cigarettes, uncomplicated; N39.0 Urinary tract infection, site not specified; L98.8 Other specified disorders of the skin and subcutaneous tissue; Z88.1 Allergy status to other antibiotic agents
CPT/HCPCS: 36415; 80053; 81003; 85027; 86593; J0735

== ENCOUNTER 2018-08-29 11:59 | Emergency (ER) | payer OTHER ==
[2018-08-29] MEDS ORDERED: SODIUM CHLORIDE 1,000 ML IV STA ×2 (12:09→12:26)
[2018-08-29] MEDS ORDERED: METOCLOPRAMIDE HCL INJECTION 10 MG/2 ML VIAL IVPB ONE (12:09)
--- NOTE | 2018-08-29 12:09 | PDOC ---
History of Present Illness - General Chief Complaint: Nausea/Vomiting Stated Complaint: VOMITING SINCE YESTERDAy Time Seen by Provider: 08/29/18 12:06 History Source: Patient Exam Limitations: No Limitations - History of Present Illness Initial Comments: 08/29/18 12:25 Ms. Schuster is a 32 yo F who presents to the ER with a complaint of nausea and vomiting Pt states she has a h/o alcohol abuse (detox in January 2018 and Apr 2018) and anxiety Pt reports that she binge drank alcohol 3 days ago She awoke feeling well. She noted some epigastric soreness and took a few tums. Subsequent to that, she developed nausea and vomiting. She has been vomiting almost hourly Non bloody. non bilious No fevers or chills Pt had loose stools yesterday (non bloody, non mucoid) No recent antibiotic use no recent international travel no ill contacts The patient states she is unable to tolerate fluids (of note, pt recently dx with bacterial vaginosis, unable to tolerate clindamycin) PT denies abdominal pain except in the epigastrium 2/2 vomiting Pt denies headache PMH: denies PSH: Lap Appy Meds: denies ALL: Amoxicillin Social: h/o alcoholism, intermittent binge drinking, no drug use, occasional marijuanna (4 times in the last 3 months), 1/2 ppd ROS GENERAL/CONSTITUTIONAL: No: fever, chills, weakness, loss of appetite. HEAD, EYES, EARS, NOSE AND THROAT: No: change in vision, ear pain, discharge, sore throat, throat swelling. CARDIOVASCULAR: No: chest pain, lightheadedness, palpitations, syncope RESPIRATORY: No: cough, shortness of breath, wheezing, hemoptysis, stridor. GASTROINTESTINAL: Yes: nausea, vomiting, diarrhea, abdominal pain No:rectal bleeding, constipation. GENITOURINARY: No: dysuria, hematuria, frequency, urgency, flank pain. MUSCULOSKELETAL: No: back pain, neck pain, joint pain, muscle swelling or pain SKIN: No: lesions, pallor, rash or easy bruising. NEUROLOGIC: No: headache, vertigo, paresthesias, weakness ENDOCRINE: No: unexplained weight gain or loss HEMATOLOGIC/LYMPHATIC: No: anemia, easy bleeding, swelling nodes. PE: GENERAL: The patient is in no acute distress. HEAD: Normal EYES: PERRLA, EOMI, sclera anicteric, conjunctiva clear. ENT: Ears normal, nares patent, oropharynx clear without exudates. Dry mucous membranes. NECK: Normal range of motion, supple LUNGS: Breath sounds equal, clear to auscultation bilaterally. No wheezes, and no crackles. HEART: Tachycardiac, regular rhythm, normal S1 and S2 without murmur, rub or gallop. ABDOMEN: Soft, mild epigastric tenderness to palpation, No guarding, no rebound. No abdominal distention EXTREMITIES: Normal range of motion, no edema. Hands are mildly tremulous NEUROLOGICAL: Cranial nerves II through XII grossly intact. Normal speech. No focal neurological deficits. MUSCULOSKELETAL: Back non-tender to palpation, no CVA tenderness SKIN: Warm, Dry, normal turgor, no rashes or lesions noted. 08/29/18 12:34 08/29/18 13:15 Past History - Past Medical History Allergies/Adverse Reactions: Allergies Allergy/AdvReac Type Severity Reaction Status Date / Time amoxicillin Allergy Severe Swelling Verified 08/29/18 12:01 banana Allergy Severe Hives Verified 08/29/18 12:01 Home Medications: Ambulatory Orders Ondansetron HCl [Zofran] 4 mg PO BID PRN #10 tablet 08/29/18 Anemia: No Asthma: No Cancer: No Cardiac Disorders: No CVA: No COPD: No CHF: No Dementia: No Diabetes: No GI Disorders: No Disorders: No HTN: No Hypercholesterolemia: No Kidney Stones: No Liver Disease: No Seizures: No Thyroid Disease: No - Surgical History Abdominal Surgery: No Appendectomy: Yes Cardiac Surgery: No Cholecystectomy: No Lung Surgery: No Neurologic Surgery: No Orthopedic Surgery: No - Reproductive History PID: No - Suicide/Smoking/Psychosocial Hx Smoking History: Current every day smoker Have you smoked in the past 12 months: Yes Number of Cigarettes Smoked Daily: 20 'Breaking Loose' booklet given: 04/14/18 Hx Alcohol Use: Yes Drug/Substance Use Hx: No Substance Use Type: Alcohol, Marijuana Hx Substance Use Treatment: No ED Treatment Course - LABORATORY CBC & Chemistry Diagram: 08/29/18 12:31 08/29/18 12:31 Medical Decision Making - Medical Decision Making 08/29/18 13:14 pt presenting with nausea and now with 1 episode of diarrhea Pt appears dehydrated No fevers DD: gastritis, evolving gastroenteritis, pancreatitis, alcoholic gastrtis Pt is tachycardiac and mildly tremulous She denies h/o withdrawal seizure Does get a little tremulous when not drinking Pt states that she does not want to go to Detox at this time 08/29/18 13:19 Laboratory Tests 08/29/18 08/29/18 08/29/18 12:31 12:31 12:31 WBC 14.0 H Hgb 14.7 Hct 45.1 Plt Count 477 H BUN 17.0 Creatinine 1.4 H Total Bilirubin 2.6 H AST 41 H ALT 20 Alkaline Phosphatase 150 H Urine Nitrite Urine Bilirubin Ur Leukocyte Esterase Urine RBC Urine WBC Ur Transition Epith Cell Urine Bacteria Alcohol, Quantitative < 3.0 08/29/18 12:35 WBC Hgb Hct Plt Count BUN Creatinine Total Bilirubin AST ALT Alkaline Phosphatase Urine Nitrite Negative Urine Bilirubin 3+ H Ur Leukocyte Esterase Negative Urine RBC 40-60 Urine WBC 5-10 Ur Transition Epith Cell Many Urine Bacteria Moderate Alcohol, Quantitative 08/29/18 13:30 Will do US 08/29/18 14:10 Refused Zofran 08/29/18 14:49 Pt tolerating sips of water 08/29/18 15:28 Pt no longer vomiting Will discharge to home Will give Zofran Will give an additional dose of Librium Pt will need to go to [facility] for further management Pt told that Alcohol and Benzo withdrawal are life threatening and must be medically managed Pt understands this *DC/Admit/Observation/Transfer Diagnosis at time of Disposition: Vomiting Qualifiers: Vomiting type: unspecified Vomiting Intractability: non-intractable Nausea presence: without nausea Qualified Code(s): R11.11 - Vomiting without nausea - Discharge Dispostion Disposition: HOME Condition at time of disposition: Stable Decision to Admit order: No - Prescriptions Prescriptions: Ondansetron HCl [Zofran] 4 mg PO BID PRN #10 tablet PRN Reason: Nausea - Referrals Referrals: Kermit Cook MD [Primary Care Provider] - Kristian Hua MD [Staff Physician] - - Patient Instructions Printed Discharge Instructions: DI for Nausea -- Adult, DI for Vomiting -- Adult Additional Instructions: Ms Schuster Thank you for coming in to the ER today Please take anti nausea medications as prescribed Return to the ER for any other concerns or complaints Return to the emergency department immediately with ANY new, persistent or worsening symptoms. Continue any medications as previously prescribed by your physician. You should follow up with your primary doctor as soon as possible regarding today's emergency department visit. Please make sure your doctor reviews the results of your emergency evaluation. Thank you for coming to the [place] today for your care. It was a pleasure to see you today. Please note that your evaluation is INCOMPLETE until you follow-up with your doctor. - Post Discharge Activity
[2018-08-29 12:14] VITALS: BMI 23.3
[2018-08-29] MEDS ORDERED: FAMOTIDINE 20 MG/50 ML IVPB 20 MG/50 ML MG IVPB ONE ×2 (12:33→12:37)
[2018-08-29] MEDS ORDERED: chlordiazePOXIDE HCL 25 MG CAPSULE PO ONE ×2 (12:33→15:41)
[2018-08-29] MEDS ORDERED: METOCLOPRAMIDE HCL INJECTION 10 MG/2 ML VIAL ONE (12:38)
[2018-08-29 12:44] LABS: HCG,QUALITATIVE URINE Negative
[2018-08-29 12:55] LABS: HEMATOCRIT 45.1 % (32.4-45.2); HEMOGLOBIN 14.7 GM/dl (10.7-15.3); MCH 32.9 pg (25.7-33.7); MCHC 32.7 g/dl (32.0-36.0); MEAN CELL VOLUME 100.7 fl (80-96); PLATELET COUNT 477 K/MM3 (134-434); RBC 4.48 M/mm3 (3.60-5.2); RDW 13.4 % (11.6-15.6)
[2018-08-29 12:55] LABS: EPITHELIAL CELLS MANY /hpf
[2018-08-29 13:01] LABS: ALBUMIN 5.2 g/dl (3.4-5.0); BILIRUBIN,TOTAL 2.6 mg/dl (0.2-1); CALCIUM 9.7 mg/dl (8.5-10); CREATININE 1.4 mg/dl (0.55-1.3); POTASSIUM 4.7 mmol/L (3.5-5.1); TOT PROT 9.6 g/dl (6.4-8.2)
[2018-08-29] MEDS ORDERED: ONDANSETRON 4 MG/2 ML VIAL IVPUSH ONE (13:29)
[2018-08-29] MEDS ORDERED: chlordiazePOXIDE HCL 25 MG CAPSULE ONE ×2 (14:42→15:43)
[2018-08-29 14:43] LABS: PLATELET ESTIMATE ADEQUATE
[2018-08-29 15:27] VITALS: BP 128/95; PULSE 103; TEMP 98.4
== END 2018-08-29 15:46 | disposition home or self-care (01) ==
LOC: FER 11:59
PROC: 3E033GC Introduction of Other Therapeutic Substance into Peripheral Vein, Percutaneous Approach (ICD-10-PCS; principal; 2018-08-29)
PROC: 3E0337Z Introduction of Electrolytic and Water Balance Substance into Peripheral Vein, Percutaneous Approach (ICD-10-PCS; 2018-08-29)
PROC: 3E033GC Introduction of Other Therapeutic Substance into Peripheral Vein, Percutaneous Approach (ICD-10-PCS; 2018-08-29)
DX: R11.11 Vomiting without nausea (principal)
CPT/HCPCS: 36415; 80053; 80307; 81003; 81015; 82150; 83690; 84703; 85025; 87086; 96361; 96365; 96375; 99283-25; J7030

== ENCOUNTER 2018-12-26 20:20 | Emergency (ER) | payer OTHER ==
[2018-12-26 20:30] VITALS: TEMP 98.3; BMI 23.3
--- NOTE | 2018-12-26 20:39 | PDOC ---
History of Present Illness - General Chief Complaint: Substance Abuse Stated Complaint: ALCOHOL PROBLEM Time Seen by Provider: 12/26/18 20:38 Past History - Past Medical History Allergies/Adverse Reactions: Allergies Allergy/AdvReac Type Severity Reaction Status Date / Time amoxicillin Allergy Severe Swelling Verified 08/29/18 12:01 banana Allergy Severe Hives Verified 08/29/18 12:01 Home Medications: Ambulatory Orders NK [No Known Home Medication] 12/26/18 Anemia: No Asthma: No Cancer: No Cardiac Disorders: No CVA: No COPD: No CHF: No Dementia: No Diabetes: No GI Disorders: No Disorders: No HTN: No Hypercholesterolemia: No Kidney Stones: No Liver Disease: No Psychiatric Problems: Yes (ANXIETY) Seizures: No Thyroid Disease: No - Surgical History Abdominal Surgery: No Appendectomy: Yes Cardiac Surgery: No Cholecystectomy: No Lung Surgery: No Neurologic Surgery: No Orthopedic Surgery: No - Reproductive History PID: No - Psycho Social/Smoking Cessation Hx Smoking History: Current every day smoker Have you smoked in the past 12 months: Yes Number of Cigarettes Smoked Daily: 10 Information on smoking cessation initiated: Yes 'Breaking Loose' booklet given: 04/14/18 Hx Alcohol Use: Yes Drug/Substance Use Hx: No Substance Use Type: Alcohol, Marijuana Hx Substance Use Treatment: No *Physical Exam - Vital Signs Last Vital Signs Temp Pulse Resp BP Pulse Ox 98.3 F 107 H 16 159/109 H 99 12/26/18 20:24 12/26/18 20:24 12/26/18 20:24 12/26/18 20:24 12/26/18 20:24 Discharge - Discharge Information Condition: Stable - Follow up/Referral Referrals: Kermit Cook MD [Primary Care Provider] - - Patient Discharge Instructions - Post Discharge Activity
[2018-12-26] MEDS ORDERED: chlordiazePOXIDE HCL 25 MG CAPSULE PO ONE (21:02)
[2018-12-26] MEDS ORDERED: SODIUM CHLORIDE 1,000 ML IV STA (21:02)
--- NOTE | 2018-12-26 21:09 | PDOC ---
Documentation entered by Muna Wheat SCRIBE, acting as scribe for Steve Bolton MD. Steve Boateng MD: This documentation has been prepared by the Jarret brennan Nirvannie, SCRIBE, under my direction and personally reviewed by me in its entirety. I confirm that the documentation accurately reflects all work, treatment, procedures, and medical decision making performed by me. History of Present Illness - General Chief Complaint: Substance Abuse Stated Complaint: ALCOHOL PROBLEM Time Seen by Provider: 12/26/18 20:38 History Source: Patient Exam Limitations: No Limitations - History of Present Illness Initial Comments: 12/26/18 21:06 The patient is a 33 year old female, with a significant past medical history of elevated blood pressure (x2 years, not on medications), alcohol abuse (detox x2) and anxiety/depression, who presents to the emergency department with, elevated heart rate. As per patient, she went to a walk in clinic today to request detox and the provider to whom she has visited in the past found that she has elevated heart rate and advised her to report to the ED prior to going to detox. Patients last drink was at approximately 6:30pm, she has needed librium in the past for detox. Patient notes alcohol makes her feel better but , she is aware of how bad it is for her and is aware she has a problem. She denies any recent suicidal or homicidal ideation. She denies recent fevers, chills, headache or dizziness. She denies recent nausea, vomit, diarrhea or constipation. She denies recent dysuria, frequency, urgency or hematuria. She denies recent chest pain or shortness of breath. Allergies: Amoxicillin. Past surgical history: None reported. Social history: Smoker PPD. Alcohol abuse, 1pt/day. Familial History: Noncontributory. Primary Care Physician: Dr. Cook. 12/31/18 10:27 Alert and oriented well-developed malnourished no acute distress cooperative Afebrile, vital signs normal PERRLA 4 mm, fundi benign, ENT clear Neck supple without bruit mass or nodes Chest clear, full breath sounds bilaterally, no wheezes rales or rhonchi CV S1-S2 normal without murmur rub or gallop pulses full and symmetric no JVD or edema no bruits 100 and regular Abdomen nondistended. Bowel sounds normal. Soft without mass tenderness organomegaly. No CVAT Neurological C2 to 12 intact. Strength full and symmetric. No focal sensory or motor deficits. Gait stable and unimpaired. Cerebellar function intact. No asterixis. No palmar erythema. Reflexes 2+ symmetric, not hyperactive Impression: The patient with chronic alcohol abuse, has undergone detox several times in the past, has decided to again try to stop drinking. She plans to apply again to [facility] for admission and treatment. She appears stable at present without underlying medical conditions. Plan: Examination is normal. Baseline labs. Librium. Follow-up as directed detox facility. Signed out to Dr. Ballard at 7 PM pending laboratory results.. Past History - Past Medical History Allergies/Adverse Reactions: Allergies Allergy/AdvReac Type Severity Reaction Status Date / Time amoxicillin Allergy Severe Swelling Verified 08/29/18 12:01 banana Allergy Severe Hives Verified 08/29/18 12:01 Home Medications: Ambulatory Orders Chlordiazepoxide [Librium -] 50 mg PO Q6HPO PRN #8 capsule MDD 8 12/26/18 Anemia: No Asthma: No Cancer: No Cardiac Disorders: No CVA: No COPD: No CHF: No Dementia: No Diabetes: No GI Disorders: No Disorders: No HTN: No Hypercholesterolemia: No Kidney Stones: No Liver Disease: No Psychiatric Problems: Yes (ANXIETY) Seizures: No Thyroid Disease: No - Surgical History Abdominal Surgery: No Appendectomy: Yes Cardiac Surgery: No Cholecystectomy: No Lung Surgery: No Neurologic Surgery: No Orthopedic Surgery: No - Reproductive History PID: No - Psycho Social/Smoking Cessation Hx Smoking History: Current every day smoker Have you smoked in the past 12 months: Yes Number of Cigarettes Smoked Daily: 10 Information on smoking cessation initiated: Yes 'Breaking Loose' booklet given: 04/14/18 Hx Alcohol Use: Yes Drug/Substance Use Hx: No Substance Use Type: Alcohol, Marijuana Hx Substance Use Treatment: No Review of Systems - Review of Systems Able to Perform ROS?: Yes Comments:: 12/26/18 21:06 CONSTITUTIONAL: Absent: fever, no chills, no fatigue EYES: Absent: visual changes ENT: Absent: ear pain, no sore throat CARDIOVASCULAR: Present: Elevated HR. Absent: chest pain, no palpitations RESPIRATORY: Absent: cough, no SOB GI: Absent: abdominal pain, no nausea, no vomiting, no constipation, no diarrhea GENITOURINARY: Absent: dysuria, no frequency, no hematuria MUSKULOSKELETAL: Absent: back pain, no arthralgia, no myalgia SKIN: Absent: rash NEURO: Absent: headache All Other Systems: Reviewed and Negative *Physical Exam - Vital Signs Last Vital Signs Temp Pulse Resp BP Pulse Ox 98.3 F 107 H 16 159/109 H 99 12/26/18 20:24 12/26/18 20:24 12/26/18 20:24 12/26/18 20:24 12/26/18 20:24 ED Treatment Course - LABORATORY CBC & Chemistry Diagram: 12/26/18 21:10 12/26/18 21:10 Discharge - Discharge Information Problems reviewed: Yes Clinical Impression/Diagnosis: Alcohol abuse Condition: Stable Disposition: HOME - Admission No - Additional Discharge Information Prescriptions: Chlordiazepoxide [Librium -] 50 mg PO Q6HPO PRN #8 capsule MDD 8 PRN Reason: Withdrawal(Cont Subst) - Follow up/Referral Referrals: Kermit Cook MD [Primary Care Provider] - - Patient Discharge Instructions Patient Printed Discharge Instructions: DI for Alcohol Abuse Additional Instructions: Librium 50mg every 6 - 12 hours as needed drink plenty of fluids go to [facility] by 7:30-8:00 AM tomorrow(earlier the better ) return to ER as needed - Post Discharge Activity
[2018-12-26] MEDS ORDERED: chlordiazePOXIDE HCL 25 MG CAPSULE ONE (21:12)
--- NOTE | 2018-12-26 21:20 | PDOC ---
*Physical Exam - Vital Signs Last Vital Signs Temp Pulse Resp BP Pulse Ox 98.3 F 107 H 16 159/109 H 99 12/26/18 20:24 12/26/18 20:24 12/26/18 20:24 12/26/18 20:24 12/26/18 20:24 ED Treatment Course - LABORATORY CBC & Chemistry Diagram: 12/26/18 21:10 12/26/18 21:10 - Medications Given in the ED: ED Medications Discontinued Medications Generic Name Dose Route Start Last Admin Trade Name Alexa PRN Reason Stop Dose Admin Chlordiazepoxide HCl 50 mg 12/26/18 21:02 12/26/18 21:13 Librium - PO 12/26/18 21:03 50 mg ONCE ONE Administration ED Progress Note - Progress Note Progress Note: Care of this patient received from Dr Boateng. Laboratory evaluation essentially normal except for slight elevation in MCV and mild elevation of AST as compared to ALT. Blood pressure has modified to 131/92. Patient continues to be interested in inpatient detox at [facility]. Intake UNATTENDED [facility] at [facility] contacted: Currently there are no beds for inpatient admission. However, discharges are anticipated in the morning. If the patient arrives between 7:30 AM and 8 AM tomorrow morning, she can be admitted. Information relayed to the patient. She states that she fully intends to go to the [facility] admitting area within the "next few days" for inpatient admission. Patient asked for a small prescription of Librium to help with withdrawal symptoms until she is seen and admitted. Prescription for Librium 25 mg, 2 caps every 6-12 hours as needed with withdrawal symptoms (#8 dispensed) sent to her pharmacy. She should drink plenty of fluids and return to the ER if she has severe, persistent symptoms Discharge - Discharge Information Problems reviewed: Yes Clinical Impression/Diagnosis: Alcohol abuse Condition: Stable Disposition: HOME - Additional Discharge Information Prescriptions: Chlordiazepoxide [Librium -] 50 mg PO Q6HPO PRN #8 capsule MDD 8 PRN Reason: Withdrawal(Cont Subst) - Follow up/Referral Referrals: Kermit Cook MD [Primary Care Provider] - - Patient Discharge Instructions Patient Printed Discharge Instructions: DI for Alcohol Abuse Additional Instructions: Librium 50mg every 6 - 12 hours as needed drink plenty of fluids go to [facility] by 7:30-8:00 AM tomorrow(earlier the better ) return to ER as needed - Post Discharge Activity
[2018-12-26 21:21] LABS: HEMOGLOBIN 12.9 GM/dl (10.7-15.3)
[2018-12-26 21:30] LABS: HEMATOCRIT 38.9 % (32.4-45.2); MCH 33.6 pg (25.7-33.7); MCHC 33.2 g/dl (32.0-36.0); MEAN PLT VOLUME 7.2 fl (7.5-11.1); PLATELET COUNT 219 K/MM3 (134-434); RBC 3.85 M/mm3 (3.60-5.2); RDW 14.7 % (11.6-15.6); WHITE BLOOD COUNT 4.3 K/mm3 (4.0-10.8)
[2018-12-26 21:39] LABS: ALBUMIN 4.8 g/dl (3.4-5.0); BILIRUBIN,TOTAL 0.9 mg/dl (0.2-1); CREATININE 0.6 mg/dl (0.55-1.3); POTASSIUM 3.6 mmol/L (3.5-5.1); TOT PROT 8.4 g/dl (6.4-8.2)
[2018-12-26 22:14] VITALS: BP 131/92; PULSE 95
[2018-12-26 22:19] LABS: PLATELET ESTIMATE ADEQUATE
== END 2018-12-26 22:27 | disposition home or self-care (01) ==
LOC: FER 20:20
PROC: 3E0337Z Introduction of Electrolytic and Water Balance Substance into Peripheral Vein, Percutaneous Approach (ICD-10-PCS; principal; 2018-12-26)
DX: F10.10 Alcohol abuse, uncomplicated (principal); Z88.8 Allergy status to other drugs, medicaments and biological substances; Z91.018 Allergy to other foods; I10 Essential (primary) hypertension; F41.8 Other specified anxiety disorders; F17.210 Nicotine dependence, cigarettes, uncomplicated
CPT/HCPCS: 36415; 80053; 85025; 99283-25; J7030

== ENCOUNTER 2018-12-27 14:45 | Inpatient (IN) | payer OTHER ==
[2018-12-27 17:48] VITALS: BMI 23.0
--- NOTE | 2018-12-27 19:20 | HP ---
CIWA Score Nausea/Vomitin Muscle Tremors: 3 Anxiety: 2 Agitation: 2 Paroxysmal Sweats: 2 Orientation: 0-Oriented Tacttile Disturbances: 2-Mild Itch/Numbness/Burn Auditory Disturbances: 1-Very Mild Visual Disturbances: 1-Very Mild Sensitivity Headache: 3-Moderate CIWA-Ar Total Score: 18 - Admission Criteria OASAS Guidelines: Admission for Medically Managed Detox: Requires at least one of the followin. CIWA greater than 12 2. Seizures within the past 24 hours 3. Delirium tremens within the past 24 hours 4. Hallucinations within the past 24 hours 5. Acute intervention needed for co occurring medical disorder 6. Acute intervention needed for co occurring psychiatric disorder 7. Severe withdrawal that cannot be handled at a lower level of care (continued vomiting, continued diarrhea, abnormal vital signs) requiring intravenous medication and/or fluids 8. Patient presents the following: CIWA greater than 12 Admission Criteria Met: Admission criteria met Admitting History and Physical - Past Medical History ...LMP: 01/21/18 - Smoking History Smoking history: Current every day smoker Have you smoked in the past 12 months: Yes Aproximately how many cigarettes per day: 10 - Alcohol/Substance Use Hx Alcohol Use: Yes Admission ROS S - HPI Chief Complaint: "I need detox, I'm done drinking and I'm done shaking" Allergies/Adverse Reactions: Allergies Allergy/AdvReac Type Severity Reaction Status Date / Time amoxicillin Allergy Severe Swelling Verified 08/29/18 12:01 banana Allergy Severe Hives Verified 08/29/18 12:01 History of Present Illness: 33 year old female with alcohol dependence presents for detox. She was treated at [place] yesterday for intoxication and discharged to [facility] for detox , she is admitted in stable condition. She denies seizures but reports remote h/ o blackouts. This is her 3rd treatment at [facility]. Exam Limitations: No Limitations - Ebola screening Have you traveled outside of the country in the last 21 days: No Have you had contact with anyone from an Ebola affected area: No Have you been sick,other than usual withdrawal symptoms: No Do you have a fever: No - Review of Systems Constitutional: Chills, Loss of Appetite, Weakness EENT: reports: No Symptoms Reported Respiratory: reports: No Symptoms reported Cardiac: reports: Palpitations GI: reports: Nausea, Vomiting, Abdominal cramping : reports: No Symptoms Reported Musculoskeletal: reports: Back Pain, Muscle Pain, Muscle Weakness Integumentary: reports: Flushing Neuro: reports: Headache Endocrine: reports: No Symptoms Reported Hematology: reports: No Symptoms Reported Psychiatric: reports: Anxious, Depressed Other Systems: Reviewed and Negative Patient History - Patient Medical History Hx Anemia: No Hx Asthma: No Hx Chronic Obstructive Pulmonary Disease (COPD): No Hx Cancer: No Hx Cardiac Disorders: No Hx Congestive Heart Failure: No Hx Hypertension: No Hx Hypercholesterolemia: No Hx Pacemaker: No HX Cerebrovascular Accident: No Hx Seizures: No Hx Dementia: No Hx Diabetes: No Hx Gastrointestinal Disorders: Yes (GERD) Hx Liver Disease: No Hx Genitourinary Disorders: No Hx Sexually Transmitted Disorders: No Hx Renal Disease (ESRD): No Hx Thyroid Disease: No Hx Human Immunodeficiency Virus (HIV): No Hx Depression: Yes Hx Suicide Attempt: No Hx Schizophrenia: No - Patient Surgical History Past Surgical History: Yes Hx Neurologic Surgery: No Hx Cataract Extraction: No Hx Cardiac Surgery: No Hx Lung Surgery: No Hx Breast Surgery: No Hx Breast Biopsy: No Hx Abdominal Surgery: No Hx Appendectomy: Yes Hx Cholecystectomy: No Hx Genitourinary Surgery: No Hx Section: No Hx Orthopedic Surgery: No Hx Hysterectomy: No Anesthesia Reaction: No - PPD History Previous Implant?: Yes Documented Results: Negative w/proof Implanted On Prior [facility] Admission?: Yes Date: 01/23/18 PPD to be Administered?: No - Reproductive History Patient is a Female of Child Bearing Age (11 -55 yrs old): Yes Last Menstrual Period: 12/08/18 Patient : No - Smoking Cessation Smoking history: Current every day smoker Have you smoked in the past 12 months: Yes Aproximately how many cigarettes per day: 10 Hx Chewing Tobacco Use: No Initiated information on smoking cessation: Yes 'Breaking Loose' booklet given: 12/27/18 - Substances abused Alcohol Substance route: Oral Frequency: Daily Amount used: 1 pint of vodka Age of first use: 16 Date of last use: 12/26/18 Admission Physical Exam BHS - Vital Signs Vital Signs: Vital Signs - 24 hr 12/27/18 17:41 Temperature 98.3 F Pulse Rate 118 H Respiratory 18 Rate Blood Pressure 156/110 H - Physical General Appearance: Yes: Within Normal Limits HEENTM: Yes: Hearing grossly Normal, Normocephalic, Normal Voice, Pharynx Normal Respiratory: Yes: Chest Non-Tender, Lungs Clear, Normal Breath Sounds, No Respiratory Distress, No Accessory Muscle Use Neck: Yes: No masses,lesions,Nodules, Supple Breast: Yes: Breast Exam Deferred Cardiology: Yes: Regular Rhythm, Regular Rate, S1, S2 Abdominal: Yes: Normal Bowel Sounds, Non Tender, Soft Genitourinary: Yes: Within Normal Limits Back: Yes: Normal Inspection Musculoskeletal: Yes: full range of Motion, Pelvis Stable, Back pain, Muscle Pain, Muscle weakness Extremities: Yes: Non-Tender, Tremors Neurological: 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: 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 NML intact, Fully Oriented, Alert, Normal Mood/ Affect Integumentary: Yes: Clammy Lymphatic: Yes: Within Normal Limits - Diagnostic (1) Alcohol dependence with uncomplicated withdrawal Current Visit: Yes Status: Acute (2) Alcohol-induced anxiety disorder Current Visit: Yes Status: Acute (3) Cannabis dependence Current Visit: No Status: Chronic (4) Nicotine dependence Current Visit: No Status: Chronic Qualifiers: Nicotine product type: cigarettes Substance use status: uncomplicated Qualified Code(s): F17.210 - Nicotine dependence, cigarettes, uncomplicated (5) GERD (gastroesophageal reflux disease) Current Visit: Yes Status: Acute Cleared for Admission S - Detox or Rehab S Level of Care: Medically Managed Detox Regimen/Protocol: Librium Claeared for Rehab Admission: No Urine Drug Screen - Control Is test valid?: Yes Inpatient Rehab Admission - Rehab Decision to Admit Inpatient rehab admission?: No
[2018-12-27] MEDS ORDERED: MENTHOL/PHENOL 1 EACH UD MM PRN (19:21)
[2018-12-27] MEDS ORDERED: IBUPROFEN 400 MG TABLET (FP) PO PRN (19:21)
[2018-12-27] MEDS ORDERED: ACETAMINOPHEN 325 MG TABLET (FP) PO PRN (19:21)
[2018-12-27] MEDS ORDERED: MAGNESIUM HYDROX 2400MG/30ML ORAL SUSPENSION 30 ML CUP PO PRN (19:21)
[2018-12-27] MEDS ORDERED: MAGNESIUM CITRATE 300 ML BOTTLE PO PRN (19:21)
[2018-12-27] MEDS ORDERED: ONDANSETRON *ODT* 4 MG TABLET SL PRN (19:21)
[2018-12-27] MEDS ORDERED: METHOCARBAMOL 500 MG TABLET PO PRN (19:21)
[2018-12-27] MEDS: NICOTINE 14 MG/24 HOURS TOPICAL PATCH TD SCH (23:09)
[2018-12-27] MEDS: RANITIDINE HCL 150 MG TABLET (FP) PO SCH ×2 (23:17→23:24)
[2018-12-27] MEDS: THIAMINE HCL 100 MG TABLET (FP) PO SCH (23:23)
[2018-12-27] MEDS: chlordiazePOXIDE HCL 25 MG CAPSULE PO SCH (23:23)
[2018-12-28] MEDS: chlordiazePOXIDE HCL 10 MG CAPSULE PO PRN ×3 (01:20→19:39)
[2018-12-28] MEDS: hydrOXYzine PAMOATE 50 MG CAPSULE (FP) PO PRN (01:20)
[2018-12-28] MEDS: MAG HYDROX/AL HYDROX/SIMETH 30 ML UNIT-DOSE CUP PO PRN ×2 (01:20→08:37)
[2018-12-28] MEDS: chlordiazePOXIDE HCL 25 MG CAPSULE PO SCH ×3 (05:59→22:31)
[2018-12-28] MEDS: PRENATAL VITAMINS W/ FOLIC ACID TABLET (FP) PO SCH (09:18)
[2018-12-28] MEDS: NICOTINE 14 MG/24 HOURS TOPICAL PATCH TD SCH (09:18)
[2018-12-28] MEDS: ACETAMINOPHEN 325 MG TABLET (FP) PO PRN (12:06)
[2018-12-28] MEDS: FAMOTIDINE 20 MG TABLET PO SCH ×2 (12:06→22:31)
--- NOTE | 2018-12-28 13:22 | PN ---
S CIWA - CIWA Score Nausea/Vomitin-Mild Nausea/No Vomiting Muscle Tremors: 3 Anxiety: 4-Mod. Anxious/Guarded Agitation: 3 Paroxysmal Sweats: 2 Orientation: 0-Oriented Tacttile Disturbances: 0-None Auditory Disturbances: 0-None Visual Disturbances: 0-None Headache: 1-Very Mild CIWA-Ar Total Score: 14 BHS Progress Note (SOAP) Subjective: 33 years old female admitted to ER on 12/26/18 for alcohol problem medically cleared by the ER provider refer to [facility] for alcohol withdrawal sx management doing well with librium detox regimen less tremor alert speech clearly Objective: 12/28/18 13:26 Vital Signs Temperature 97.9 F 12/28/18 09:30 Pulse Rate 150 H 12/28/18 09:30 Respiratory Rate 20 12/28/18 09:30 Blood Pressure 155/98 12/28/18 09:30 O2 Sat by Pulse Oximetry (%) lab see ER report begin bactrim ds bid x 5 days for uti patient report that she has long history of anxiety with apical pulse around 100 treated with xanax last xanax prescription "a year ago" currently follow up with primary care provider visit once a month "just talk" for 10 minutes so monthly no medication some tmes for uti and treated with antibiotic encourage oral fluid 12/28/18 13:30 ensure bid Assessment: 12/28/18 13:30 alcohol withdrawal sx low grade fever Plan: continue librium detox regimen tylenal prn for fever oral fluid 3-4L daily
[2018-12-28] MEDS: SULFAMETHOXAZOLE/TRIMETHOPRIM 800MG/160MG D.S. TABLET PO SCH ×2 (14:24→22:31)
[2018-12-28] MEDS: BISMUTH SUBSALICYLATE 524 MG/30 ML UD PO PRN (17:13)
[2018-12-28] MEDS: THIAMINE HCL 100 MG TABLET (FP) PO SCH (22:31)
[2018-12-28] MEDS: MELATONIN 5 MG TABLETS PO PRN (22:32)
[2018-12-29] MEDS: MAG HYDROX/AL HYDROX/SIMETH 30 ML UNIT-DOSE CUP PO PRN ×2 (03:49→16:53)
[2018-12-29] MEDS: chlordiazePOXIDE 5 MG CAPSULE PO SCH ×3 (05:22→21:43)
[2018-12-29] MEDS: SULFAMETHOXAZOLE/TRIMETHOPRIM 800MG/160MG D.S. TABLET PO SCH ×2 (10:31→21:44)
[2018-12-29] MEDS: FAMOTIDINE 20 MG TABLET PO SCH ×2 (10:31→21:43)
[2018-12-29] MEDS: NICOTINE 14 MG/24 HOURS TOPICAL PATCH TD SCH (10:31)
[2018-12-29] MEDS: PRENATAL VITAMINS W/ FOLIC ACID TABLET (FP) PO SCH (10:32)
--- NOTE | 2018-12-29 13:41 | PN ---
S CIWA - CIWA Score Nausea/Vomitin-Mild Nausea/No Vomiting Muscle Tremors: 3 Anxiety: 4-Mod. Anxious/Guarded Agitation: 2 Paroxysmal Sweats: 1-Minimal Palms Moist Orientation: 0-Oriented Tacttile Disturbances: 0-None Auditory Disturbances: 0-None Visual Disturbances: 0-None Headache: 0-None Present CIWA-Ar Total Score: 11 BHS Progress Note (SOAP) Subjective: doing well with librium detox regimen sleep better at night report gerd had regular bowel movement today no nausea no vomiting but regurgitate currently taking zantac add carafate Objective: 12/29/18 13:40 Vital Signs Temperature 98.2 F 12/29/18 13:23 Pulse Rate 135 H 12/29/18 13:23 Respiratory Rate 20 12/29/18 13:23 Blood Pressure 130/93 12/29/18 13:23 O2 Sat by Pulse Oximetry (%) 12/29/18 13:41 see 12/26/18 ER lab Assessment: 12/29/18 13:41 alcohol withdrawal sx Plan: continue librium detox regimen
[2018-12-29] MEDS: SUCRALFATE 1 GM TABLET (FP) PO SCH (14:12)
[2018-12-29] MEDS: BENZOYL PEROXIDE 5% 60 GM GEL..GRAM. TP SCH (14:12)
--- NOTE | 2018-12-29 15:58 | EKG ---
Test Reason : Blood Pressure : / mmHG Vent. Rate : 114 BPM Atrial Rate : 114 BPM P-R Int : 130 ms QRS Dur : 084 ms QT Int : 328 ms P-R-T Axes : 029 014 036 degrees QTc Int : 452 ms SINUS TACHYCARDIA NONSPECIFIC ST ABNORMALITY ABNORMAL ECG WHEN COMPARED WITH ECG OF 21-JAN-2018 20:06, IN INTERVAL HAS INCREASED T WAVE VARIATION Confirmed by JOANN MALLOY MD ([id number]) on 12/29/2018 3:58:48 PM Referred By: RAQUEL KIRKLAND Confirmed By:JOANN MALLOY MD
[2018-12-29] MEDS: chlordiazePOXIDE HCL 10 MG CAPSULE PO PRN (16:55)
[2018-12-29] MEDS: ACETAMINOPHEN 325 MG TABLET (FP) PO PRN (17:34)
[2018-12-29] MEDS ORDERED: chlordiazePOXIDE HCL 10 MG CAPSULE PO ONE (19:20)
[2018-12-29] MEDS: NICOTINE POLACRILEX 2 MG GUM BUC PRN (20:06)
[2018-12-29] MEDS: MELATONIN 5 MG TABLETS PO PRN (21:51)
[2018-12-29] MEDS: THIAMINE HCL 100 MG TABLET (FP) PO SCH (21:52)
[2018-12-30] MEDS: MAG HYDROX/AL HYDROX/SIMETH 30 ML UNIT-DOSE CUP PO PRN ×2 (03:54→17:15)
[2018-12-30] MEDS: chlordiazePOXIDE HCL 10 MG CAPSULE PO PRN ×2 (03:54→17:15)
[2018-12-30] MEDS: chlordiazePOXIDE HCL 10 MG CAPSULE PO SCH ×3 (05:24→22:22)
[2018-12-30] MEDS: SULFAMETHOXAZOLE/TRIMETHOPRIM 800MG/160MG D.S. TABLET PO SCH ×2 (10:28→22:22)
[2018-12-30] MEDS: PRENATAL VITAMINS W/ FOLIC ACID TABLET (FP) PO SCH (10:28)
[2018-12-30] MEDS: FAMOTIDINE 20 MG TABLET PO SCH ×2 (10:28→22:23)
[2018-12-30] MEDS: SUCRALFATE 1 GM TABLET (FP) PO SCH (10:29)
[2018-12-30] MEDS: hydrOXYzine PAMOATE 50 MG CAPSULE (FP) PO PRN ×2 (10:30→19:40)
[2018-12-30] MEDS: BENZOYL PEROXIDE 5% 60 GM GEL..GRAM. TP SCH (10:30)
[2018-12-30] MEDS: NICOTINE 14 MG/24 HOURS TOPICAL PATCH TD SCH (10:32)
--- NOTE | 2018-12-30 14:12 | PN ---
S CIWA - CIWA Score Nausea/Vomitin-No Nausea/No Vomiting Muscle Tremors: 2 Anxiety: 2 Agitation: 2 Paroxysmal Sweats: 1-Minimal Palms Moist Orientation: 0-Oriented Tacttile Disturbances: 0-None Auditory Disturbances: 1-Very Mild Visual Disturbances: 0-None Headache: 0-None Present CIWA-Ar Total Score: 8 BHS Progress Note (SOAP) Subjective: doing well with librium detox regimen ambulating on hallway social with peers in day room encourage attend AA for support network Objective: 12/30/18 14:11 Vital Signs Temperature 99.4 F 12/30/18 13:50 Pulse Rate 133 H 12/30/18 13:50 Respiratory Rate 16 12/30/18 13:50 Blood Pressure 113/89 12/30/18 13:50 O2 Sat by Pulse Oximetry (%) Laboratory Last Values POC Urine HCG, Qual Negative 12/27/18 20:37 lab see 12/26/18 ER lab Assessment: 12/30/18 14:11 alcohol withdrawal sx Plan: continue librum detox regimen
[2018-12-30] MEDS: NICOTINE POLACRILEX 2 MG GUM BUC PRN (18:14)
[2018-12-30] MEDS: BISMUTH SUBSALICYLATE 524 MG/30 ML UD PO PRN ×2 (19:42→21:12)
[2018-12-30] MEDS: THIAMINE HCL 100 MG TABLET (FP) PO SCH (22:22)
[2018-12-30] MEDS: MELATONIN 5 MG TABLETS PO PRN (22:23)
[2018-12-31] MEDS: BISMUTH SUBSALICYLATE 524 MG/30 ML UD PO PRN ×3 (00:43→07:26)
[2018-12-31] MEDS ORDERED: chlordiazePOXIDE HCL 10 MG CAPSULE PO ONE (05:00)
[2018-12-31 06:15] VITALS: BP 104/72; PULSE 110; TEMP 97.2
--- NOTE | 2018-12-31 10:23 | DS ---
[facility] Detox Discharge Summary Admission Date: 12/27/18 Discharge Date: 12/31/18 - History Present History: Alcohol Dependence Additional Comments: 33 years old female admitted on 12/27/18 for alcohol withdrawal sx management did well with librium detox regimen no complication through out the detox stay temperature trend indicates low grade fever "my room is very hot" patient is alert oriented x 3 respiratory clear lung bilaterally on auscultation abdomen soft no rebound tenderness extremities full range of motion - Physical Exam Results Vital Signs: Vital Signs Temperature 97.2 F L 12/31/18 06:15 Pulse Rate 110 H 12/31/18 06:15 Respiratory Rate 18 12/31/18 06:15 Blood Pressure 104/72 12/31/18 06:15 O2 Sat by Pulse Oximetry (%) Pertinent Admission Physical Exam Findings: alcohol withdrawal sx - Treatment Hospital Course: Detox Protocol Followed, Detoxed Safely, Responded well, Discharged Condition Good, Rehab Referral Accepted Patient has Accepted a Rehab Referral to: community support approach - Medication Discharge Medications: Ambulatory Orders Chlordiazepoxide [Librium -] 50 mg PO Q6HPO PRN #8 capsule MDD 8 12/26/18 - Diagnosis (1) Alcohol dependence with uncomplicated withdrawal Current Visit: Yes Status: Acute (2) GERD (gastroesophageal reflux disease) Current Visit: Yes Status: Chronic Qualifiers: Esophagitis presence: without esophagitis Qualified Code(s): K21.9 - Gastro -esophageal reflux disease without esophagitis (3) Nicotine dependence Current Visit: Yes Status: Acute Qualifiers: Nicotine product type: cigarettes Substance use status: in withdrawal Qualified Code(s): F17.213 - Nicotine dependence, cigarettes, with withdrawal - AMA Did Patient Leave Against Medical Advice: No CIWA Score - CIWA Score Nausea/Vomitin-No Nausea/No Vomiting Muscle Tremors: 1-None Visible, but [place] Anxiety: 1-Mildly Anxious Agitation: 1-Slight > Activity Paroxysmal Sweats: 1-Minimal Palms Moist Orientation: 0-Oriented Tacttile Disturbances: 0-None Auditory Disturbances: 1-Very Mild Visual Disturbances: 0-None Headache: 0-None Present CIWA-Ar Total Score: 5
== END 2018-12-31 09:24 | disposition home or self-care (01) | DRG 775 ==
LOC: YASAS 14:45 → Y3N 21:56
PROVIDERS: ADMIT Allergy & Immunology; ATTEND Allergy & Immunology
PROC: HZ2ZZZZ Detoxification Services for Substance Abuse Treatment (ICD-10-PCS; principal; 2018-12-27)
DX: F10.230 Alcohol dependence with withdrawal, uncomplicated (principal); F10.280 Alcohol dependence with alcohol-induced anxiety disorder; F12.20 Cannabis dependence, uncomplicated; F17.213 Nicotine dependence, cigarettes, with withdrawal; K21.9 Gastro-esophageal reflux disease without esophagitis; R50.9 Fever, unspecified; Z88.0 Allergy status to penicillin; Z91.018 Allergy to other foods
CPT/HCPCS: 81025; 93005; 93010; Q0162

== ENCOUNTER 2019-01-23 13:15 | Inpatient (IN) | payer OTHER ==
[2019-01-23] MEDS ORDERED: SODIUM CHLORIDE 0.9% 500 ML INFUS.BAG IV ONE ×2 (13:30→14:11)
[2019-01-23] MEDS ORDERED: diazePAM CARPU-JECT 10 MG/2 ML DISP.SYRIN IVPUSH ONE ×2 (13:42→16:07)
--- NOTE | 2019-01-23 13:47 | PDOC ---
Attending Attestation - Resident Resident Name: Asim Kaplan - ED Attending Attestation I have performed the following: I have examined & evaluated the patient, The case was reviewed & discussed with the resident, I agree w/resident's findings & plan, Exceptions are as noted - HPI HPI: 01/23/19 13:56 33y F hx of etoh abuse (hx of witdrawals but never had dts or seizures), presents with vomiting. Pt states she has been drinking, last time was a bit more than 1 pt of vodka yesterday afternoon. Pt states she has been vomiting and unable to tolerate anything by mouth since 4pm, also notse she has been vomiting nbnb contesnts that are clear/dark brown w/o cofee ground emesis. pt notse she has some mild abd pain when she vomits, but otherwise doesnt have any pain. Pt endorses feeling shaky. sdenies any cp, sob headache, neck pain, back pain, diarrhea, melena, bpr, dysuria. pt denies any other drug use. pt was last in detox approx 1 month ago. Allergies: Amoxicillin. Past surgical history: None reported. Social history: Smoker PPD. Alcohol abuse, 1pt/day. Familial History: Noncontributory. Primary Care Physician: Dr. Cook. - Physicial Exam PE: 01/23/19 14:00 GENERAL: The patient is awake, alert, and fully oriented, Nontoxic - in no acute distress. HEAD: Normocephalic, atraumatic. EYES: extraocular movements intact, sclera anicteric, conjunctiva clear. ENT: Normal voice, dry mucous membranes, +tongue fasciulations. NECK: Normal range of motion, supple LUNGS: Breath sounds equal, clear to auscultation bilaterally. No wheezes, no rhonchi, no rales. HEART: tachycardic, no mrg appreciated ABDOMEN: Soft, nontender, No guarding, no rebound. No CVA tenderness EXTREMITIES: Normal range of motion, no edema. +tremulous NEUROLOGICAL: No facial assymetry, Normal speech, moving all4 ext spontaneously and symemtrically PSYCH: Normal mood, normal affect. SKIN: Warm, Dry, normal turgor, - Critical Care Time Total Critical Care Time: 35 Critical Care Statement: The care of this patient involved high complexity decision making to prevent further life threatening deterioration of the patient 's condition and/or to evaluate & treat vital organ system(s) failure or risk of failure. - Medical Decision Making 01/23/19 14:01 ddx - withdrawal from etoh vs pancreatitis vs alcohol ketoacidosis pt noted to be significantly tachy upon arrival to 150s bp is elevated will give fluids, valium for dehdyration and detox will ck labs including vbg/acetones on thermal intelligence analyst will continue to closely monitor anticipate admission 01/23/19 16:06 The patient's labs are reviewed noted for leukocytosis also metabolic acidosis likely from AKA. She is heart rate has improved to the 130s BP is also improved patient still mildly tremulous we will give her another dose of Valium. Patient has received 2 L of normal saline we will switch to D5 NS. Anticipate admission to telemetry versus ICU Heart Score/ECG Review - ECG Impressions Comment:: 01/23/19 14:02 Twelve-lead EKG was performed and reviewed by me. There is normal sinus rhythm with a rate of 138 L atrial enlargement twi in V1-V3, III sinus tach
--- NOTE | 2019-01-23 13:59 | PDOC ---
History of Present Illness <Osmin Grimes - Last Filed: 01/23/19 16:28> - General History Source: Patient Exam Limitations: No Limitations - History of Present Illness Initial Comments: 01/23/19 13:56 Bhumika Schuster is a 33F with history of alcohol use disorder presenting with nausea and vomiting after an episode of binge drinking yesterday. Last in detox 1 month ago, did not drink alcohol in the weeks after. Yesterday, went binge drinking one bottle of vodka from 11AM to 6PM, last drink last night , now complaining of nausea/vomiting, dehydration, abdominal pain with vomiting. Has tremors and diaphoresis with GIBBS, says is consistent with her prior withdrawals but this is the worst she has ever had. Never had DT/ seizures. Denies fevers, chills, chest pain, SOB, urinary sx. Denies tobacco or other drugs used. <Asim Kaplan - Last Filed: 01/25/19 18:56> - General Chief Complaint: Nausea/Vomiting Stated Complaint: VOMITING,S/P DRINKING HEAVILY YESTERDAY Time Seen by Provider: 01/23/19 13:23 Past History <Osmin Grimes - Last Filed: 01/23/19 16:28> - Past Medical History Anemia: No Asthma: No Cancer: No Cardiac Disorders: No CVA: No COPD: No CHF: No Dementia: No Diabetes: No GI Disorders: No Disorders: No HTN: No Hypercholesterolemia: No Kidney Stones: No Liver Disease: No Psychiatric Problems: Yes (ANXIETY) Seizures: No Thyroid Disease: No Other medical history: ALCOHOLISM WAS IN DETOX 1 MONTH AGO - Surgical History Abdominal Surgery: No Appendectomy: Yes Cardiac Surgery: No Cholecystectomy: No Lung Surgery: No Neurologic Surgery: No Orthopedic Surgery: No - Reproductive History PID: No - Psycho Social/Smoking Cessation Hx Smoking History: Never smoked Have you smoked in the past 12 months: Yes Number of Cigarettes Smoked Daily: 10 Information on smoking cessation initiated: No 'Breaking Loose' booklet given: 12/27/18 Hx Alcohol Use: Yes (HAD DRANK HEAVILY YESTERDAY) Drug/Substance Use Hx: No Substance Use Type: Alcohol, Marijuana Hx Substance Use Treatment: No <Asim Kaplan - Last Filed: 01/25/19 18:56> - Past Medical History Allergies/Adverse Reactions: Allergies Allergy/AdvReac Type Severity Reaction Status Date / Time amoxicillin Allergy Severe Swelling Verified 01/23/19 13:16 banana Allergy Severe Hives Verified 01/23/19 13:16 Home Medications: Ambulatory Orders NK [No Known Home Medication] 01/23/19 Review of Systems - Review of Systems Able to Perform ROS?: Yes Constitutional: No: Chills, Fever, Weakness HEENTM: No: Symptoms Reported Respiratory: No: Symptoms reported Cardiac (ROS): No: Symptoms Reported ABD/GI: Yes: Nausea, Poor Appetite, Poor Fluid Intake, Vomiting, Abdominal cramping. No: Constipated, Diarrhea : No: Symptoms Reported Musculoskeletal: Yes: Back Pain Integumentary: No: Symptoms Reported Neurological: Yes: Headache Endocrine: No: Symptoms Reported Hematologic/Lymphatic: No: Symptoms Reported All Other Systems: Reviewed and Negative <Asim Kaplan - Last Filed: 01/25/19 18:56> *Physical Exam - Vital Signs Last Vital Signs Temp Pulse Resp BP Pulse Ox 98 F 130 H 24 H 126/94 100 01/23/19 13:16 01/23/19 16:14 01/23/19 16:14 01/23/19 16:14 01/23/19 16:14 <Osmin Grimes - Last Filed: 01/23/19 16:28> - Vital Signs Last Vital Signs Temp Pulse Resp BP Pulse Ox 98 F 152 H 20 144/106 H 98 01/23/19 13:16 01/23/19 13:16 01/23/19 13:16 01/23/19 13:16 01/23/19 13:16 - Physical Exam General Appearance: Yes: Nourished, Appropriately Dressed, Mild Distress HEENT: positive: EOMI, PARAS, Normal Voice, Symmetrical, Pharynx Normal. negative: Scleral Icterus (R), Scleral Icterus (L), Muffled/Hoarse voice, Pharyngeal Erythema, Tonsillar Exudate, Tonsillar Erythema Neck: positive: Trachea midline, Supple. negative: Tender, Rigid, Lymphadenopathy (R), Lymphadenopathy (L) Respiratory/Chest: positive: Lungs Clear, Normal Breath Sounds. negative: Chest Tender, Respiratory Distress, Accessory Muscle Use, Crackles, Rales, Rhonchi, Stridor, Wheezing, Hyperresonant Cardiovascular: positive: Regular Rhythm, Tachycardia Gastrointestinal/Abdominal: positive: Normal Bowel Sounds, Flat. negative: Tender, Guarding, Rebound, Tenderness, Hernia Musculoskeletal: positive: Normal Inspection. negative: CVA Tenderness Extremity: positive: Normal Capillary Refill, Normal Inspection, Normal Range of Motion, Pelvis Stable. 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, Fully Oriented, Alert, Normal Mood/ Affect, Normal Response, Motor Strength 5/5 <Asim Kaplan - Last Filed: 01/25/19 18:56> ED Treatment Course - LABORATORY CBC & Chemistry Diagram: 01/23/19 13:45 01/23/19 13:45 - ADDITIONAL ORDERS Additional order review: Laboratory Results 01/23/19 01/23/19 01/23/19 14:05 13:45 13:45 VBG pH 7.09 L* POC VBG pCO2 24.7 L POC VBG pO2 94.9 H VBG HCO3 7.1 L VBG O2 Sat (Salvador) 91.8 H VBG Base Excess -23.0 L Sodium Potassium Chloride Carbon Dioxide Anion Gap BUN Creatinine Est GFR (CKD-EPI)AfAm Est GFR (CKD-EPI)NonAf Random Glucose Calcium Phosphorus Magnesium Total Bilirubin AST ALT Alkaline Phosphatase Total Protein Albumin Lipase Beta-Hydroxybutyrate 121.1 H Urine Color Yellow Urine Appearance Clear Urine pH 5.5 Urine Protein 3+ H Urine Glucose (UA) Negative Urine Ketones 4+ H Urine Blood 2+ H Urine Nitrite Negative Urine Bilirubin Negative Urine Urobilinogen 0.2 Ur Leukocyte Esterase Negative Urine RBC 2-5 Urine WBC 0-2 Ur Transition Epith Cell Few Alcohol, Quantitative 01/23/19 01/23/19 01/23/19 13:45 13:45 13:45 VBG pH POC VBG pCO2 POC VBG pO2 VBG HCO3 VBG O2 Sat ([place]) VBG Base Excess Sodium 137 Potassium 4.7 Chloride 104 Carbon Dioxide 7 L Anion Gap 26 H BUN 7.0 Creatinine 0.8 Est GFR (CKD-EPI)AfAm 113.06 Est GFR (CKD-EPI)NonAf 97.55 Random Glucose 112 H Calcium 8.9 Phosphorus 5.9 H Magnesium 2.0 Total Bilirubin 0.9 AST 82 H ALT 30 Alkaline Phosphatase 116 Total Protein 8.4 H Albumin 4.7 Lipase 230 Beta-Hydroxybutyrate Urine Color Urine Appearance Urine pH Urine Protein Urine Glucose (UA) Urine Ketones Urine Blood Urine Nitrite Urine Bilirubin Urine Urobilinogen Ur Leukocyte Esterase Urine RBC Urine WBC Ur Transition Epith Cell Alcohol, Quantitative 29.0 H 01/23/19 13:45 RBC 3.82 MCV 105.3 H MCHC 32.0 RDW 14.6 MPV 7.8 Neutrophils % No Result Required. Lymphocytes % No Result Required. - Medications Given in the ED: ED Medications Discontinued Medications Generic Name Dose Route Start Last Admin Trade Name Freq PRN Reason Stop Dose Admin Acetaminophen 1,000 mg 01/23/19 14:25 01/23/19 14:32 Ofirmev Injection - IVPB 01/23/19 14:26 1,000 mg ONCE ONE Administration Diazepam 10 mg 01/23/19 13:42 01/23/19 14:00 Valium Injection - IVPUSH 01/23/19 13:43 10 mg ONCE ONE Administration Diazepam 10 mg 01/23/19 16:07 01/23/19 16:08 Valium Injection - IVPUSH 01/23/19 16:08 10 mg ONCE ONE Administration Sodium Chloride 1,000 ml 01/23/19 13:30 01/23/19 13:41 Normal Saline - IV 01/23/19 13:31 1,000 ml ONCE ONE Administration Sodium Chloride 1,000 ml 01/23/19 14:11 01/23/19 14:26 Normal Saline - IV 01/23/19 14:12 1,000 ml ONCE ONE Administration <Osmin Grimes - Last Filed: 01/23/19 16:28> - LABORATORY CBC & Chemistry Diagram: 01/25/19 05:50 01/25/19 05:50 - Medications Given in the ED: ED Medications Discontinued Medications Generic Name Dose Route Start Last Admin Trade Name Freq PRN Reason Stop Dose Admin Sodium Chloride 1,000 ml 01/23/19 13:30 01/23/19 13:41 Normal Saline - IV 01/23/19 13:31 1,000 ml ONCE ONE Administration <Asim Kaplan - Last Filed: 01/25/19 18:56> Medical Decision Making - Medical Decision Making 01/23/19 13:56 Bhumika Schuster is a 33F with history of alcohol use disorder presenting with nausea and vomiting after an episode of binge drinking yesterday. Presentation is consistent with withdrawal, but still concerned about other pathologies including pancreatitis, biliary pathology, ketoacisosis 2/2 alcohol. CBC CMP Lipase Alcohol Betahydroxybutyrate VBG ECG HR 150s, BP 144/104 consistent with withdrawal over dehydration 1L NS 10mg IV Valium for withdrawal 1g Ofirmev for headache and back pain from vomiting 01/23/19 15:58 Tremor resolving after 2L IVF and Valium GIBBS resolved after Ofirmev Labs notable for: - pH: 7.09 - HCO3: 7 - AGAP: 25 Presentation consistent with alcoholic ketoacidosis Will give 1L D5/NS for treatment of AKA HR 110-120 despite fluid Satting well on RA 2nd 10mg Valium given Will need ICU-level care for AKA, will transfer to [facility] for further care. Case discussed with alesia Jean to be transferred to [facility] ICU for AKA. <Asim Kaplan - Last Filed: 01/25/19 18:56> Discharge - Discharge Information Problems reviewed: Yes - Admission Yes <Osmin Grimse - Last Filed: 01/23/19 16:28> <Asim Kaplan - Last Filed: 01/25/19 18:56> - Discharge Information Clinical Impression/Diagnosis: Alcoholic ketoacidosis Alcohol withdrawal Qualifiers: Complication of substance-induced condition: with unspecified complication Qualified Code(s): F10.239 - Alcohol dependence with withdrawal, unspecified Condition: Guarded
[2019-01-23] MEDS ORDERED: diazePAM CARPU-JECT 10 MG/2 ML DISP.SYRIN ONE ×2 (14:00→16:06)
[2019-01-23 14:02] LABS: HEMATOCRIT 40.2 % (32.4-45.2); HEMOGLOBIN 12.9 GM/dl (10.7-15.3); MCH 33.7 pg (25.7-33.7); MEAN CELL VOLUME 105.3 fl (80-96); MEAN PLT VOLUME 7.8 fl (7.5-11.1); PLATELET COUNT 283 K/MM3 (134-434); RBC 3.82 M/mm3 (3.60-5.2); RDW 14.6 % (11.6-15.6); WHITE BLOOD COUNT 17.5 K/mm3 (4.0-10.8)
[2019-01-23 14:08] LABS: ALBUMIN 4.7 g/dl (3.4-5.0); BILIRUBIN,TOTAL 0.9 mg/dl (0.2-1); CALCIUM 8.9 mg/dl (8.5-10); CREATININE 0.8 mg/dl (0.55-1.3); POTASSIUM 4.7 mmol/L (3.5-5.1); TOT PROT 8.4 g/dl (6.4-8.2)
[2019-01-23 14:10] LABS: PHOSPHOROUS 5.9 mg/dl (2.5-4.9)
[2019-01-23] MEDS ORDERED: ACETAMINOPHEN 1000 MG/100 ML VIAL (NON FORMULARY) IVPB ONE (14:25)
[2019-01-23 14:27] LABS: EPITHELIAL CELLS FEW /hpf
[2019-01-23] MEDS ORDERED: ACETAMINOPHEN INJECTION 100 ML IVPB ONE (14:28)
[2019-01-23 14:55] LABS: MACROCYTOSIS FEW; PLATELET ESTIMATE ADEQUATE
[2019-01-23 15:37] LABS: VENOUS PC02 24.7 mmHg (38-52)
[2019-01-23 15:39] LABS: VENOUS PO2 94.9 mmHg (28-48)
[2019-01-23 15:43] LABS: VENOUS PH 7.09 (7.31-7.41)
[2019-01-23] MEDS ORDERED: DEXTROSE 5%-NORMAL SALINE 1,000 ML IV ONE (15:57)
--- NOTE | 2019-01-23 16:10 | HP ---
CHIEF COMPLAINT: Vomiting PCP: Dr. Cook HISTORY OF PRESENT ILLNESS: 33y F hx of etoh abuse (hx of witdrawals but never had dts or seizures), presents with vomiting. Pt states she has been drinking, last time was a bit more than 1 pt of vodka yesterday afternoon. Pt states she has been vomiting and unable to tolerate anything by mouth since 4pm, also notse she has been vomiting nbnb contesnts that are clear/dark brown w/o cofee ground emesis. pt notse she has some mild abd pain when she vomits, but otherwise doesnt have any pain. Pt endorses feeling shaky. sdenies any cp, sob headache, neck pain, back pain, diarrhea, melena, bpr, dysuria. Patient has been through detox at [facility] three times: 01/2018, 04/2018, 2018 (discharged 3 weeks ago). Last drink 01/22 in afternoon. ER course was notable for: (1) p140, RR 24, WBC 17.5k (2) Bicarb 7, AG 26, glucose 112, phos 5.9 (3) beta-hydroxybutyrate elevated (4) Lipase wnl (5) serum alcohol 29.0 (6) ECG: sinus tach @ 138, TWI III, V1, V2, V3; QTc 460 Recent Travel: No PAST MEDICAL HISTORY: Chronic alcohol abuse PAST SURGICAL HISTORY: Appendectomy Social History: lives in [place], works in [employer] Smoking: current every day Alcohol: drinks a liter of whiskey or vodka almost every day Drugs: marijuana Allergies amoxicillin Allergy (Severe, Verified 01/23/19 13:16) Swelling banana Allergy (Severe, Verified 01/23/19 13:16) Hives HOME MEDICATIONS: Home Medications Medication Instructions Recorded NK [No Known Home Medication] 01/23/19 REVIEW OF SYSTEMS CONSTITUTIONAL: Absent: fever, chills, diaphoresis, generalized weakness, malaise, loss of appetite, weight change HEENT: Absent: rhinorrhea, nasal congestion, throat pain, throat swelling, difficulty swallowing, mouth swelling, ear pain, eye pain, visual changes CARDIOVASCULAR: Absent: chest pain, syncope, palpitations, irregular heart rate, lightheadedness , peripheral edema RESPIRATORY: Absent: cough, shortness of breath, dyspnea with exertion, orthopnea, wheezing, stridor, hemoptysis GASTROINTESTINAL: +nausea, vomiting, abdominal pain Absent: abdominal distension, diarrhea, constipation, melena, hematochezia GENITOURINARY: Absent: dysuria, frequency, urgency, hesitancy, hematuria, flank pain, genital pain MUSCULOSKELETAL: Absent: myalgia, arthralgia, joint swelling, back pain, neck pain SKIN: Absent: rash, itching, pallor HEMATOLOGIC/IMMUNOLOGIC: Absent: easy bleeding, easy bruising, lymphadenopathy, frequent infections ENDOCRINE: Absent: unexplained weight gain, unexplained weight loss, heat intolerance, cold intolerance NEUROLOGIC: Absent: headache, focal weakness or paresthesias, dizziness, unsteady gait, seizure, mental status changes, bladder or bowel incontinence PSYCHIATRIC: Absent: anxiety, depression, suicidal or homicidal ideation, hallucinations. PHYSICAL EXAMINATION Vital Signs - 24 hr 01/23/19 01/23/19 01/23/19 13:16 14:01 14:36 Temperature 98 F Pulse Rate 152 H Pulse Rate [ 137 H 140 H Apical] Respiratory 20 24 H 22 H Rate Blood Pressure 144/106 H Blood Pressure 136/86 133/76 [Right Arm] O2 Sat by Pulse 98 100 100 Oximetry (%) 01/23/19 01/23/19 15:11 15:37 Temperature Pulse Rate Pulse Rate [ 120 H 116 H Apical] Respiratory 20 16 Rate Blood Pressure Blood Pressure 106/57 L 125/88 [Right Arm] O2 Sat by Pulse 100 Oximetry (%) GENERAL: Awake, alert, and fully oriented, in no acute distress. HEAD: Normal with no signs of trauma. EYES: Pupils equal, round and reactive to light, extraocular movements intact, sclera anicteric, conjunctiva clear. EARS, NOSE, THROAT: Ears normal, nares patent, oropharynx clear without exudates. Dry mucous membranes. NECK: Normal range of motion, supple without lymphadenopathy, JVD, or masses. LUNGS: Breath sounds equal, clear to auscultation bilaterally. No wheezes, and no crackles. No accessory muscle use. HEART: Regular rate and rhythm, normal S1 and S2 ABDOMEN: Soft, nontender, not distended, normoactive bowel sounds, no guarding, no rebound, MUSCULOSKELETAL: Normal range of motion at all joints. No bony deformities or tenderness. No CVA tenderness. UPPER EXTREMITIES: 2+ pulses, warm, well-perfused. No cyanosis. No clubbing. No peripheral edema. LOWER EXTREMITIES: 2+ pulses, warm, well-perfused. No calf tenderness. No peripheral edema. NEUROLOGICAL: Cranial nerves II-XII intact. Normal speech. No tremors. No asterixis. No anxiety. SKIN: warm, dry Laboratory Results - last 24 hr 01/23/19 01/23/19 01/23/19 13:45 13:45 13:45 WBC 17.5 H RBC 3.82 Hgb 12.9 Hct 40.2 MCV 105.3 H MCH 33.7 MCHC 32.0 RDW 14.6 Plt Count 283 MPV 7.8 Neutrophils % No Result Required. Neutrophils % (Manual) 93.0 H* Lymphocytes % No Result Required. Lymphocytes % (Manual) 5.0 L Monocytes % (Manual) 2 L Platelet Estimate Adequate Macrocytosis Few VBG pH POC VBG pCO2 POC VBG pO2 VBG HCO3 VBG O2 Sat ([place]) VBG Base Excess Sodium 137 Potassium 4.7 Chloride 104 Carbon Dioxide 7 L Anion Gap 26 H BUN 7.0 Creatinine 0.8 Est GFR (CKD-EPI)AfAm 113.06 Est GFR (CKD-EPI)NonAf 97.55 Random Glucose 112 H Calcium 8.9 Phosphorus 5.9 H Magnesium 2.0 Total Bilirubin 0.9 AST 82 H ALT 30 Alkaline Phosphatase 116 Total Protein 8.4 H Albumin 4.7 Lipase Beta-Hydroxybutyrate Urine Color Urine Appearance Urine pH Urine Protein Urine Glucose (UA) Urine Ketones Urine Blood Urine Nitrite Urine Bilirubin Urine Urobilinogen Ur Leukocyte Esterase Urine RBC Urine WBC Ur Transition Epith Cell Alcohol, Quantitative 29.0 H 01/23/19 01/23/19 01/23/19 13:45 13:45 13:45 WBC RBC Hgb Hct MCV MCH MCHC RDW Plt Count MPV Neutrophils % Neutrophils % (Manual) Lymphocytes % Lymphocytes % (Manual) Monocytes % (Manual) Platelet Estimate Macrocytosis VBG pH 7.09 L* POC VBG pCO2 24.7 L POC VBG pO2 94.9 H VBG HCO3 7.1 L VBG O2 Sat ([place]) 91.8 H VBG Base Excess -23.0 L Sodium Potassium Chloride Carbon Dioxide Anion Gap BUN Creatinine Est GFR (CKD-EPI)AfAm Est GFR (CKD-EPI)NonAf Random Glucose Calcium Phosphorus Magnesium Total Bilirubin AST ALT Alkaline Phosphatase Total Protein Albumin Lipase 230 Beta-Hydroxybutyrate 121.1 H Urine Color Urine Appearance Urine pH Urine Protein Urine Glucose (UA) Urine Ketones Urine Blood Urine Nitrite Urine Bilirubin Urine Urobilinogen Ur Leukocyte Esterase Urine RBC Urine WBC Ur Transition Epith Cell Alcohol, Quantitative 01/23/19 14:05 WBC RBC Hgb Hct MCV MCH MCHC RDW Plt Count MPV Neutrophils % Neutrophils % (Manual) Lymphocytes % Lymphocytes % (Manual) Monocytes % (Manual) Platelet Estimate Macrocytosis VBG pH POC VBG pCO2 POC VBG pO2 VBG HCO3 VBG O2 Sat ([place]) VBG Base Excess Sodium Potassium Chloride Carbon Dioxide Anion Gap BUN Creatinine Est GFR (CKD-EPI)AfAm Est GFR (CKD-EPI)NonAf Random Glucose Calcium Phosphorus Magnesium Total Bilirubin AST ALT Alkaline Phosphatase Total Protein Albumin Lipase Beta-Hydroxybutyrate Urine Color Yellow Urine Appearance Clear Urine pH 5.5 Urine Protein 3+ H Urine Glucose (UA) Negative Urine Ketones 4+ H Urine Blood 2+ H Urine Nitrite Negative Urine Bilirubin Negative Urine Urobilinogen 0.2 Ur Leukocyte Esterase Negative Urine RBC 2-5 Urine WBC 0-2 Ur Transition Epith Cell Few Alcohol, Quantitative ASSESSMENT/PLAN: 33 year-old female with a PMH significant for alcohol abuse, admitted for alcoholic ketoacidosis. Alcoholic ketoacidosis --last drink afternoon of 01/22 --3L IV fluids, thiamine, valium given in ED --continue IV fluids --start librium protocol --protonix --tachycardic to 140, requires telemetry monitoring --monitor electrolytes q4h tonight, next blood draw 6:00pm --changes on ECG; keep K>4, Mg>2 FEN Fluids: D5NS@125mL/hr Electrolytes: replete as indicated Nutrition: NPO DVT prophylaxis: oob, ambulation; hold chemical prophylaxis due to risk of GI bleed Dispo: accepted to [facility] ICU, awaiting transport. Full code. Visit type - Emergency Visit Emergency Visit: Yes Care time: The patient presented to the Emergency Department on the above date and was hospitalized for further evaluation of their emergent condition. - New Patient This patient is new to me today: Yes Date on this admission: 01/23/19 - Critical Care Critical Care patient: Yes Total Critical Care Time (in minutes): 60 Critical Care Statement: The care of this patient involved high complexity decision making to prevent further life threatening deterioration of the patient 's condition and/or to evaluate & treat vital organ system(s) failure or risk of failure.
[2019-01-23] MEDS ORDERED: THIAMINE HCL 200 MG/2 ML VIAL IVPB ONE (16:25)
[2019-01-23] MEDS ORDERED: chlordiazePOXIDE HCL 25 MG CAPSULE ONE (17:07)
[2019-01-23] MEDS: chlordiazePOXIDE HCL 25 MG CAPSULE PO SCH ×2 (17:08→23:36)
[2019-01-23] MEDS ORDERED: DEXTROSE 5%-NORMAL SALINE 1,000 ML IV SCH (17:15)
[2019-01-23] MEDS ORDERED: FOLIC ACID 5 MG/1 ML SQ SCH (18:00)
[2019-01-23] MEDS ORDERED: FOLIC ACID 1 MG TABLET (FP) PO ONE ×2 (18:22→18:35)
[2019-01-23] MEDS ORDERED: PANTOPRAZOLE SODIUM 40 MG VIAL ONE (18:26)
[2019-01-23] MEDS: PANTOPRAZOLE SODIUM 40 MG VIAL IVPUSH SCH (18:27)
[2019-01-23 18:53] LABS: ALBUMIN 4.2 g/dl (3.4-5.0); BILIRUBIN,TOTAL 1.2 mg/dl (0.2-1); CALCIUM 7.9 mg/dl (8.5-10); CREATININE 0.7 mg/dl (0.55-1.3); MAGNESIUM 1.6 mg/dL (1.8-2.4); PHOSPHOROUS 1.5 mg/dl (2.5-4.9); TOT PROT 7.7 g/dl (6.4-8.2)
[2019-01-23 18:54] LABS: POTASSIUM 5.2 mmol/L (3.5-5.1)
[2019-01-23 19:00] LABS: HEMATOCRIT 35.8 % (32.4-45.2); HEMOGLOBIN 11.5 GM/dl (10.7-15.3); MCH 33.4 pg (25.7-33.7); MEAN CELL VOLUME 104.2 fl (80-96); PLATELET COUNT 191 K/MM3 (134-434); RBC 3.43 M/mm3 (3.60-5.2); RDW 14.1 % (11.6-15.6); WHITE BLOOD COUNT 14.9 K/mm3 (4.0-10.8)
[2019-01-23] MEDS ORDERED: ONDANSETRON 4 MG/2 ML VIAL IVPUSH ONE ×2 (19:13→23:15)
[2019-01-23] MEDS ORDERED: ONDANSETRON 4 MG/2 ML VIAL ONE (19:56)
--- NOTE | 2019-01-23 21:05 | CONSULT ---
Consultation: REQUESTING PROVIDER: Dr. Macdonald CONSULT REQUEST: We have been asked to medically evaluate this patient for ICU admission HISTORY OF PRESENT ILLNESS: Patient is a 33 year old female with history of alcohol use disorder (drinks 1 pint vodka/ several beers per day; completed detox x3 times), anxiety, presents with complaint of nausea, vomiting. States she last drank one pint of vodka yesterday afternoon, and endorses nonbloody, nonbillious vomiting since 4am this morning. Patient states she has been unable to tolerate any diet, or drink water without vomiting. She denies any palliative features. Patient denies suicidal, homicidal ideation. In ED, VBG revealed anion gap metabolic acidosis, with beta hydroxybutyrate of 121. Serum alcohol level 29. Elevated serum osmolality to 320, with calculated osmolal gap. Lactic acid 0.8. Upon arrival to [facility] patient in no apparent distress, saturating well on room air. Medical history: Anxiety, alcohol use disorder. Surgical histroy: Appendectomy Family history: Patient unable to provide as she is adopted; does not know history of parents. 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 She admits smoking 1/2 pack per day since teenager. Admits only smoking marijuana. Patient admits she has completed rehab for alcohol use three times (most recently this year). REVIEW OF SYSTEMS: CONSTITUTIONAL: Absent: fever, chills, diaphoresis, generalized weakness, malaise, loss of appetite, weight change HEENT: Absent: rhinorrhea, nasal congestion, throat pain, throat swelling, difficulty swallowing, mouth swelling, ear pain, eye pain, visual changes CARDIOVASCULAR: Absent: chest pain, syncope, palpitations, irregular heart rate, lightheadedness , peripheral edema RESPIRATORY: Absent: cough, shortness of breath, dyspnea with exertion, orthopnea, wheezing, stridor, hemoptysis GASTROINTESTINAL: Admits: nausea, vomiting, abdominal pain. Absent: abdominal distension, diarrhea , constipation, melena, hematochezia GENITOURINARY: Absent: dysuria, frequency, urgency, hesitancy, hematuria, flank pain, genital pain MUSCULOSKELETAL: Absent: myalgia, arthralgia, joint swelling, back pain, neck pain SKIN: Absent: rash, itching, pallor HEMATOLOGIC/IMMUNOLOGIC: Absent: easy bleeding, easy bruising, lymphadenopathy, frequent infections ENDOCRINE: Absent: unexplained weight gain, unexplained weight loss, heat intolerance, cold intolerance NEUROLOGIC: Admits: headache. Absent: focal weakness or paresthesias, dizziness, unsteady gait, seizure, mental status changes, bladder or bowel incontinence PSYCHIATRIC: Absent: anxiety, depression, suicidal or homicidal ideation, hallucinations. PHYSICAL EXAMINATION Vital Signs - 24 hr 01/23/19 01/23/19 01/23/19 13:16 14:01 14:36 Temperature 98 F Pulse Rate 152 H Pulse Rate [ 137 H 140 H Apical] Respiratory 20 24 H 22 H Rate Blood Pressure 144/106 H Blood Pressure 136/86 133/76 [Right Arm] O2 Sat by Pulse 98 100 100 Oximetry (%) 01/23/19 01/23/19 01/23/19 15:11 15:37 16:14 Temperature Pulse Rate Pulse Rate [ 120 H 116 H 130 H Apical] Respiratory 20 16 24 H Rate Blood Pressure Blood Pressure 106/57 L 125/88 126/94 [Right Arm] O2 Sat by Pulse 100 100 Oximetry (%) 01/23/19 01/23/19 17:00 18:18 Temperature Pulse Rate Pulse Rate [ 120 H 120 H Apical] Respiratory 20 20 Rate Blood Pressure Blood Pressure 139/97 132/104 H [Right Arm] O2 Sat by Pulse 100 100 Oximetry (%) GENERAL: The patient is awake, alert, and fully oriented, in mild distress. HEAD: Normocephalic, atraumatic. EYES: PERRL, extraocular movements intact, sclera anicteric, conjunctiva clear. ENT: Oropharynx clear, without erythema or exudates. Moist mucous membranes. NECK: Trachea midline, full range of motion. Supple without lymphadenopathy. LUNGS: Breath sounds equal, clear to auscultation bilaterally, no wheezes, no crackles. No accessory muscle use. HEART: Regular rate and rhythm, S1, S2 without murmur, rub or gallop. ABDOMEN: Soft, nondistended, mild tenderness to deep palpation x4 quadrants. No rebound tenderness. No guarding. Normoactive bowel sounds x4 quadrants. No hepatosplenomegaly appreciated. EXTREMITIES: 2+ radial, dorsalis pedis pulses bilaterally. Warm, well-perfused. No lower extremity edema bilaterally. NEUROLOGICAL: Cranial nerves II through XII grossly intact. Normal speech. Patient mildly tremulous with outstretched arms bilaterally PSYCH: Normal mood, normal affect upon my encounter. SKIN: Warm, dry. Laboratory Results - last 24 hr 01/23/19 01/23/19 01/23/19 13:45 13:45 13:45 WBC 17.5 H RBC 3.82 Hgb 12.9 Hct 40.2 MCV 105.3 H MCH 33.7 MCHC 32.0 RDW 14.6 Plt Count 283 MPV 7.8 Neutrophils % No Result Required. Neutrophils % (Manual) 93.0 H* Lymphocytes % No Result Required. Lymphocytes % (Manual) 5.0 L Monocytes % (Manual) 2 L Platelet Estimate Adequate Macrocytosis Few VBG pH POC VBG pCO2 POC VBG pO2 VBG HCO3 VBG O2 Sat ([place]) VBG Base Excess Sodium 137 Potassium 4.7 Chloride 104 Carbon Dioxide 7 L Anion Gap 26 H BUN 7.0 Creatinine 0.8 Est GFR (CKD-EPI)AfAm 113.06 Est GFR (CKD-EPI)NonAf 97.55 Random Glucose 112 H Hemoglobin A1c % Serum Osmolality Calcium 8.9 Phosphorus 5.9 H Magnesium 2.0 Total Bilirubin 0.9 AST 82 H ALT 30 Alkaline Phosphatase 116 Total Protein 8.4 H Albumin 4.7 Lipase Beta-Hydroxybutyrate Serum , Qual Urine Color Urine Appearance Urine pH Urine Protein Urine Glucose (UA) Urine Ketones Urine Blood Urine Nitrite Urine Bilirubin Urine Urobilinogen Ur Leukocyte Esterase Urine RBC Urine WBC Ur Transition Epith Cell Alcohol, Quantitative 29.0 H 01/23/19 01/23/19 01/23/19 13:45 13:45 13:45 WBC RBC Hgb Hct MCV MCH MCHC RDW Plt Count MPV Neutrophils % Neutrophils % (Manual) Lymphocytes % Lymphocytes % (Manual) Monocytes % (Manual) Platelet Estimate Macrocytosis VBG pH 7.09 L* POC VBG pCO2 24.7 L POC VBG pO2 94.9 H VBG HCO3 7.1 L VBG O2 Sat ([place]) 91.8 H VBG Base Excess -23.0 L Sodium Potassium Chloride Carbon Dioxide Anion Gap BUN Creatinine Est GFR (CKD-EPI)AfAm Est GFR (CKD-EPI)NonAf Random Glucose Hemoglobin A1c % Serum Osmolality Calcium Phosphorus Magnesium Total Bilirubin AST ALT Alkaline Phosphatase Total Protein Albumin Lipase 230 Beta-Hydroxybutyrate Serum , Qual Negative Urine Color Urine Appearance Urine pH Urine Protein Urine Glucose (UA) Urine Ketones Urine Blood Urine Nitrite Urine Bilirubin Urine Urobilinogen Ur Leukocyte Esterase Urine RBC Urine WBC Ur Transition Epith Cell Alcohol, Quantitative 01/23/19 01/23/19 01/23/19 13:45 13:45 13:45 WBC RBC Hgb Hct MCV MCH MCHC RDW Plt Count MPV Neutrophils % Neutrophils % (Manual) Lymphocytes % Lymphocytes % (Manual) Monocytes % (Manual) Platelet Estimate Macrocytosis VBG pH POC VBG pCO2 POC VBG pO2 VBG HCO3 VBG O2 Sat ([place]) VBG Base Excess Sodium Potassium Chloride Carbon Dioxide Anion Gap BUN Creatinine Est GFR (CKD-EPI)AfAm Est GFR (CKD-EPI)NonAf Random Glucose Hemoglobin A1c % 4.4 Serum Osmolality 320 H Calcium Phosphorus Magnesium Total Bilirubin AST ALT Alkaline Phosphatase Total Protein Albumin Lipase Beta-Hydroxybutyrate 121.1 H Serum , Qual Urine Color Urine Appearance Urine pH Urine Protein Urine Glucose (UA) Urine Ketones Urine Blood Urine Nitrite Urine Bilirubin Urine Urobilinogen Ur Leukocyte Esterase Urine RBC Urine WBC Ur Transition Epith Cell Alcohol, Quantitative 01/23/19 01/23/19 01/23/19 14:05 18:30 18:30 WBC 14.9 H RBC 3.43 L Hgb 11.5 Hct 35.8 MCV 104.2 H MCH 33.4 MCHC 32.0 RDW 14.1 Plt Count 191 MPV 8.0 Neutrophils % No Result Required. Neutrophils % (Manual) Lymphocytes % No Result Required. Lymphocytes % (Manual) Monocytes % (Manual) Platelet Estimate Macrocytosis VBG pH POC VBG pCO2 POC VBG pO2 VBG HCO3 VBG O2 Sat ([place]) VBG Base Excess Sodium 130 L Potassium 5.2 H Chloride 106 Carbon Dioxide 10 L Anion Gap 14 BUN 5.0 L Creatinine 0.7 Est GFR (CKD-EPI)AfAm 132.87 Est GFR (CKD-EPI)NonAf 114.64 Random Glucose 256 H Hemoglobin A1c % Serum Osmolality Calcium 7.9 L Phosphorus 1.5 L Magnesium 1.6 L Total Bilirubin 1.2 H AST 63 H ALT 27 Alkaline Phosphatase 99 D Total Protein 7.7 Albumin 4.2 Lipase Beta-Hydroxybutyrate Serum , Qual Urine Color Yellow Urine Appearance Clear Urine pH 5.5 Urine Protein 3+ H Urine Glucose (UA) Negative Urine Ketones 4+ H Urine Blood 2+ H Urine Nitrite Negative Urine Bilirubin Negative Urine Urobilinogen 0.2 Ur Leukocyte Esterase Negative Urine RBC 2-5 Urine WBC 0-2 Ur Transition Epith Cell Few Alcohol, Quantitative Active Medications Generic Name Dose Route Start Last Admin Trade Name Freq PRN Reason Stop Dose Admin Chlordiazepoxide HCl 10 mg 01/26/19 05:00 Librium - PO 01/26/19 23:01 [id number] ANDREEA Chlordiazepoxide HCl 10 mg 01/27/19 05:00 Librium - PO 01/27/19 17:01 Q12H ANDREEA Chlordiazepoxide HCl 10 mg 01/26/19 00:00 Librium - PO 01/27/19 00:00 Q4H PRN WITHDRAWAL(CONT SUBST) Chlordiazepoxide HCl 10 mg 01/28/19 05:00 Librium - PO 01/28/19 05:01 ONCE@0500 ONE Chlordiazepoxide HCl 50 mg 01/23/19 17:00 01/23/19 17:08 Librium - PO 01/24/19 23:01 50 mg [id number] ANDREEA Administration Chlordiazepoxide HCl 25 mg 01/25/19 05:00 Librium - PO 01/25/19 23:01 [id number] ANDREEA Chlordiazepoxide HCl 25 mg 01/23/19 16:57 Librium - PO 01/25/19 23:59 Q4H PRN WITHDRAWAL(CONT SUBST) Chlorhexidine Gluconate 1 applic 01/23/19 22:00 Hibiclens For Decolonization - TP HS ANDREEA Folic Acid 1 mg 01/24/19 10:00 Folic Acid - PO DAILY ANDREEA Dextrose/Sodium Chloride 1,000 mls @ 125 mls/hr 01/23/19 17:15 01/23/19 17:35 D5-Ns - IV 125 mls/hr ASDIR ANDREEA Administration Sodium Chloride 1,000 mls @ 125 mls/hr 01/23/19 21:00 Normal Saline - IV ASDIR ANDREEA Sodium Phosphate 30 mm/ 260 mls @ 62.5 mls/hr 01/23/19 21:03 Dextrose IVPB 01/24/19 01:12 ONCE ONE Magnesium Sulfate 2 gm 01/23/19 21:04 Magnesium Sulfate IVPB 01/23/19 21:05 ONCE ONE Mupirocin 1 applic 01/23/19 22:00 Bactroban Ointment (For Decolonization) - NS 01/28/19 21:59 BID ANDREEA Pantoprazole Sodium 40 mg 01/23/19 18:00 01/23/19 18:27 Protonix Iv IVPUSH 40 mg DAILY ANDREEA Administration Thiamine HCl 200 mg 01/24/19 10:00 Vitamin B1 Injection - IVPB DAILY ANDREEA ASSESSMENT/PLAN: Alcoholic ketoacidosis Alcohol withdrawal Anxiety Neurologic -Patient is alert, oriented X3. No acute distress -CIWA 6; Continue Librium protocol -Folic Acid -Thiamine -Monitor for signs of mental status changes -Fall precautions Metabolic -VBG concerning for anion gap metabolic acidosis -Elevated osmolal gap; follow Methanol, Ethylene Glycol -Follow Acetaminophen, Salicylates -Urine toxicology -Lactic acid -IV fluid resuscitation with normal saline at 125mL/ hour Pulmonary -Currently saturating well on room air. -Maintain oxygen saturation greater than 90% Cardiac -EKG reveals sinus tachycardia. Troponin 0.02 -Tachycardia likely secondary to ETOH withdrawal, dehydration. -Cardiac monitoring while in ICU Gastrointestinal -Transaminitis with AST: ALT ratio 2:1 suggestive of alcoholic etiology. Hyperbilirubinemia to 1.2 -Follow right upper quadrant US -NPO, except for medications, with small sips of water, ice chips -Counselled regarding alcohol cessation. FEN -IV normal saline at 125mL/ hour -Hypomagnesemia, Hypophosphatemia. Follow BMP. -NPO Prophylaxis -Lovenox 40mg subq daily Disposition We will continue to follow the patient. Thank you for this consultative opportunity. Visit type - Emergency Visit Emergency Visit: Yes ED Registration Date: 01/23/19 Care time: The patient presented to the Emergency Department on the above date and was hospitalized for further evaluation of their emergent condition. - New Patient This patient is new to me today: Yes Date on this admission: 01/23/19 - Critical Care Critical Care patient: Yes Total Critical Care Time (in minutes): 36 Critical Care Statement: The care of this patient involved high complexity decision making to prevent further life threatening deterioration of the patient 's condition and/or to evaluate & treat vital organ system(s) failure or risk of failure. ATTENDING PHYSICIAN STATEMENT I saw and evaluated the patient. I reviewed the resident's note and discussed the case with the resident. I agree with the resident's findings and plan as documented. SUBJECTIVE: OBJECTIVE: ASSESSMENT AND PLAN:
[2019-01-23] MEDS ORDERED: MAGNESIUM SULF 50% (8.12 MEQ/2 ML-1 GM VIAL) IVPB ONE (21:15)
[2019-01-23] MEDS ORDERED: SODIUM PHOSPHATE - 30 MM in DEXTROSE 5%-WATER - 250 ML IVPB ONE (21:30)
[2019-01-23 22:48] LABS: ALLENS TEST POSITIVE; ARTERIAL BLD GAS O2 SATURATION 97.4 % (95-98); ARTERIAL BLOOD GAS BASE EXCESS -13.5 meq/l (-2-2); ARTERIAL BLOOD GAS PCO2 22.8 mmHg (35-45); ARTERIAL BLOOD GAS PO2 102 mmHg (80-100); ARTERIAL BLOOD GAS pH 7.31 (7.35-7.45)
[2019-01-23] MEDS: SODIUM CHLORIDE 1,000 ML IV SCH (23:27)
[2019-01-23] MEDS: MUPIROCIN 2% TOPICAL OINTMENT FOR DECOLONIZATION NS SCH (23:36)
[2019-01-23] MEDS: CHLORHEXIDINE GLUCONATE 4% CLEANSER FOR DECOLONIZATION TP SCH (23:37)
[2019-01-24 00:54] LABS: COCAINE, UR NEGATIVE ng/ml (CUTOFF=300); METHADONE, UR NEGATIVE ng/ml (CUTOFF=300); OPIATES, URI NEGATIVE ng/ml (CUTOFF=300); PHENCYCLIDINE,URINE NEGATIVE ng/ml (CUTOFF=25); URINE AMPHETAMINES NEGATIVE ng/ml (CUTOFF=500); URINE BARBITURATES NEGATIVE ng/ml (CUTOFF=200)
[2019-01-24 00:57] LABS: URINE BENZODIAZEPINES POSITIVE ng/ml (CUTOFF=200)
[2019-01-24 01:37] LABS: ALBUMIN 3.8 g/dl (3.4-5.0); BILIRUBIN,TOTAL 1.3 mg/dL (0.2-1); BLOOD UREA NITROGEN 4.1 mg/dL (7-18); CALCIUM 8.5 mg/dL (8.5-10.1); CREATININE 0.7 mg/dL (0.55-1.3); MAGNESIUM 1.8 mg/dL (1.8-2.4); PHOSPHOROUS 1.2 mg/dL (2.5-4.9); TOT PROT 7.4 g/dl (6.4-8.2)
[2019-01-24 01:57] LABS: PHOSPHOROUS 1.7 mg/dL (2.5-4.9)
[2019-01-24] MEDS: chlordiazePOXIDE HCL 25 MG CAPSULE PO SCH ×4 (06:44→22:29)
[2019-01-24 07:14] LABS: HEMATOCRIT 33.5 % (32.4-45.2); HEMOGLOBIN 11.2 GM/dL (10.7-15.3); MCH 34.3 pg (25.7-33.7); MCHC 33.5 g/dl (32.0-36.0); MEAN CELL VOLUME 102.6 fl (80-96); RBC 3.26 M/mm3 (3.60-5.2); RDW 14.5 % (11.6-15.6); WHITE BLOOD COUNT 8.4 K/mm3 (4.0-10.0)
[2019-01-24 07:15] LABS: ALBUMIN 3.6 g/dl (3.4-5.0); BILIRUBIN,TOTAL 1.2 mg/dL (0.2-1); BLOOD UREA NITROGEN 5.5 mg/dL (7-18); CALCIUM 8.4 mg/dL (8.5-10.1); CREATININE 0.7 mg/dL (0.55-1.3); LYMPH % 5.7 % (8-40); MAGNESIUM 2.1 mg/dL (1.8-2.4); MEAN PLT VOLUME 8.1 fl (7.5-11.1); MONO % 8.2 % (3.8-10.2); NEUT % 85.9 % (42.8-82.8); PHOSPHOROUS 3.2 mg/dL (2.5-4.9); PLATELET COUNT 151 K/MM3 (134-434); POTASSIUM 3.5 mmol/L (3.5-5.1); TOT PROT 7.2 g/dl (6.4-8.2)
--- NOTE | 2019-01-24 09:03 | PN ---
Physical Exam: SUBJECTIVE: Patient seen and examined at the bedside. patient asked that her confidentially be kept regarding her drinking, not to be discussed with visitors/family/friends who are visiting. OBJECTIVE: patient is a 33 year old female with a significant past medical history of etoh abuse who presents to [facility] with vomiting. She was transferred to [facility] to the ICU for alcoholic keto acidosis. Patient reports drinking vodka daily and unable to tolerate anything to eat since yesterday. She was vomiting nbnb accompanied by abdominal pain. She has been detoxed in the past at [facility] and her last drink was on 01/22/19. On admission her anion gap was 26 which is now closed. Her BGMs are low and she is not on insulin. On admission her pulse was noted to be in the 140s regular st, with an elevated WBC of 17.5k She is now having fevers of 101, and therefore will culture including a lactic acid. Vital Signs Period Temp Pulse Resp BP Sys/[place] Pulse Ox Last 24 Hr 97.9 F-98.2 F 106-152 16-24 106-144/57-106 98-100 GENERAL: Awake, alert, and fully oriented, in no acute distress. HEAD: Normal with no signs of trauma. multiple body pearcings EYES: Pupils equal, round and reactive to light, extraocular movements intact, sclera anicteric, conjunctiva clear. EARS, NOSE, THROAT: Ears normal, nares patent, oropharynx clear without exudates. Dry mucous membranes. NECK: Normal range of motion, supple without lymphadenopathy, JVD, or masses. LUNGS: Breath sounds equal, clear to auscultation bilaterally. HEART: sinus tachycardia 140s ABDOMEN: Soft, nontender, not distended, normoactive bowel sounds, no guarding, no rebound, MUSCULOSKELETAL: Normal range of motion at all joints. No bony deformities or tenderness. No CVA tenderness. UPPER EXTREMITIES: No peripheral edema. LOWER EXTREMITIES: No peripheral edema. NEUROLOGICAL: Normal speech. No tremors. mild anxiety SKIN: warm, dry Laboratory Results - last 24 hr 01/23/19 01/23/19 01/23/19 13:45 13:45 13:45 WBC 17.5 H RBC 3.82 Hgb 12.9 Hct 40.2 MCV 105.3 H MCH 33.7 MCHC 32.0 RDW 14.6 Plt Count 283 MPV 7.8 Neutrophils % No Result Required. Neutrophils % (Manual) 93.0 H* Lymphocytes % No Result Required. Lymphocytes % (Manual) 5.0 L Monocytes % Monocytes % (Manual) 2 L Eosinophils % Platelet Estimate Adequate Macrocytosis Few Anticoagulation Therapy Puncture Site ABG pH ABG pCO2 at Pt Temp ABG pO2 at Pt Temp ABG HCO3 ABG O2 Sat (Measured) ABG O2 Content ABG Base Excess Kiran Test VBG pH POC VBG pCO2 POC VBG pO2 VBG HCO3 VBG O2 Sat ([place]) VBG Base Excess O2 Delivery Device Oxygen Flow Rate Vent Mode Vent Rate Mechanical Rate Pressure Support Vent Sodium 137 Potassium 4.7 Chloride 104 Carbon Dioxide 7 L Anion Gap 26 H BUN 7.0 Creatinine 0.8 Est GFR (CKD-EPI)AfAm 113.06 Est GFR (CKD-EPI)NonAf 97.55 Random Glucose 112 H Hemoglobin A1c % Serum Osmolality Lactic Acid Calcium 8.9 Phosphorus 5.9 H Magnesium 2.0 Total Bilirubin 0.9 AST 82 H ALT 30 Alkaline Phosphatase 116 Troponin I Total Protein 8.4 H Albumin 4.7 Lipase Beta-Hydroxybutyrate Serum , Qual Urine Color Urine Appearance Urine pH Urine Protein Urine Glucose (UA) Urine Ketones Urine Blood Urine Nitrite Urine Bilirubin Urine Urobilinogen Ur Leukocyte Esterase Urine RBC Urine WBC Ur Transition Epith Cell Salicylates Opiates Screen Methadone Screen Acetaminophen Barbiturate Screen Phencyclidine Screen Ur Amphetamines Screen MDMA (Ecstasy) Screen Benzodiazepines Screen Cocaine Screen U Marijuana (THC) Screen Alcohol, Quantitative 29.0 H 01/23/19 01/23/19 01/23/19 13:45 13:45 13:45 WBC RBC Hgb Hct MCV MCH MCHC RDW Plt Count MPV Neutrophils % Neutrophils % (Manual) Lymphocytes % Lymphocytes % (Manual) Monocytes % Monocytes % (Manual) Eosinophils % Platelet Estimate Macrocytosis Anticoagulation Therapy Puncture Site ABG pH ABG pCO2 at Pt Temp ABG pO2 at Pt Temp ABG HCO3 ABG O2 Sat (Measured) ABG O2 Content ABG Base Excess Kiran Test VBG pH 7.09 L* POC VBG pCO2 24.7 L POC VBG pO2 94.9 H VBG HCO3 7.1 L VBG O2 Sat ([place]) 91.8 H VBG Base Excess -23.0 L O2 Delivery Device Oxygen Flow Rate Vent Mode Vent Rate Mechanical Rate Pressure Support Vent Sodium Potassium Chloride Carbon Dioxide Anion Gap BUN Creatinine Est GFR (CKD-EPI)AfAm Est GFR (CKD-EPI)NonAf Random Glucose Hemoglobin A1c % Serum Osmolality Lactic Acid Calcium Phosphorus Magnesium Total Bilirubin AST ALT Alkaline Phosphatase Troponin I Total Protein Albumin Lipase 230 Beta-Hydroxybutyrate Serum , Qual Negative Urine Color Urine Appearance Urine pH Urine Protein Urine Glucose (UA) Urine Ketones Urine Blood Urine Nitrite Urine Bilirubin Urine Urobilinogen Ur Leukocyte Esterase Urine RBC Urine WBC Ur Transition Epith Cell Salicylates Opiates Screen Methadone Screen Acetaminophen Barbiturate Screen Phencyclidine Screen Ur Amphetamines Screen MDMA (Ecstasy) Screen Benzodiazepines Screen Cocaine Screen U Marijuana (THC) Screen Alcohol, Quantitative 01/23/19 01/23/19 01/23/19 13:45 13:45 13:45 WBC RBC Hgb Hct MCV MCH MCHC RDW Plt Count MPV Neutrophils % Neutrophils % (Manual) Lymphocytes % Lymphocytes % (Manual) Monocytes % Monocytes % (Manual) Eosinophils % Platelet Estimate Macrocytosis Anticoagulation Therapy Puncture Site ABG pH ABG pCO2 at Pt Temp ABG pO2 at Pt Temp ABG HCO3 ABG O2 Sat (Measured) ABG O2 Content ABG Base Excess Kiran Test VBG pH POC VBG pCO2 POC VBG pO2 VBG HCO3 VBG O2 Sat ([place]) VBG Base Excess O2 Delivery Device Oxygen Flow Rate Vent Mode Vent Rate Mechanical Rate Pressure Support Vent Sodium Potassium Chloride Carbon Dioxide Anion Gap BUN Creatinine Est GFR (CKD-EPI)AfAm Est GFR (CKD-EPI)NonAf Random Glucose Hemoglobin A1c % 4.4 Serum Osmolality 320 H Lactic Acid Calcium Phosphorus Magnesium Total Bilirubin AST ALT Alkaline Phosphatase Troponin I Total Protein Albumin Lipase Beta-Hydroxybutyrate 121.1 H Serum , Qual Urine Color Urine Appearance Urine pH Urine Protein Urine Glucose (UA) Urine Ketones Urine Blood Urine Nitrite Urine Bilirubin Urine Urobilinogen Ur Leukocyte Esterase Urine RBC Urine WBC Ur Transition Epith Cell Salicylates Opiates Screen Methadone Screen Acetaminophen Barbiturate Screen Phencyclidine Screen Ur Amphetamines Screen MDMA (Ecstasy) Screen Benzodiazepines Screen Cocaine Screen U Marijuana (THC) Screen Alcohol, Quantitative 01/23/19 01/23/19 01/23/19 14:05 18:30 18:30 WBC 14.9 H RBC 3.43 L Hgb 11.5 Hct 35.8 MCV 104.2 H MCH 33.4 MCHC 32.0 RDW 14.1 Plt Count 191 MPV 8.0 Neutrophils % No Result Required. Neutrophils % (Manual) Lymphocytes % No Result Required. Lymphocytes % (Manual) Monocytes % Monocytes % (Manual) Eosinophils % Platelet Estimate Macrocytosis Anticoagulation Therapy Puncture Site ABG pH ABG pCO2 at Pt Temp ABG pO2 at Pt Temp ABG HCO3 ABG O2 Sat (Measured) ABG O2 Content ABG Base Excess Kiran Test VBG pH POC VBG pCO2 POC VBG pO2 VBG HCO3 VBG O2 Sat ([place]) VBG Base Excess O2 Delivery Device Oxygen Flow Rate Vent Mode Vent Rate Mechanical Rate Pressure Support Vent Sodium 130 L Potassium 5.2 H Chloride 106 Carbon Dioxide 10 L Anion Gap 14 BUN 5.0 L Creatinine 0.7 Est GFR (CKD-EPI)AfAm 132.87 Est GFR (CKD-EPI)NonAf 114.64 Random Glucose 256 H Hemoglobin A1c % Serum Osmolality Lactic Acid Calcium 7.9 L Phosphorus 1.5 L Magnesium 1.6 L Total Bilirubin 1.2 H AST 63 H ALT 27 Alkaline Phosphatase 99 D Troponin I Total Protein 7.7 Albumin 4.2 Lipase Beta-Hydroxybutyrate Serum , Qual Urine Color Yellow Urine Appearance Clear Urine pH 5.5 Urine Protein 3+ H Urine Glucose (UA) Negative Urine Ketones 4+ H Urine Blood 2+ H Urine Nitrite Negative Urine Bilirubin Negative Urine Urobilinogen 0.2 Ur Leukocyte Esterase Negative Urine RBC 2-5 Urine WBC 0-2 Ur Transition Epith Cell Few Salicylates Opiates Screen Methadone Screen Acetaminophen Barbiturate Screen Phencyclidine Screen Ur Amphetamines Screen MDMA (Ecstasy) Screen Benzodiazepines Screen Cocaine Screen U Marijuana (THC) Screen Alcohol, Quantitative 01/23/19 01/23/19 01/24/19 22:15 22:43 00:25 WBC RBC Hgb Hct MCV MCH MCHC RDW Plt Count MPV Neutrophils % Neutrophils % (Manual) Lymphocytes % Lymphocytes % (Manual) Monocytes % Monocytes % (Manual) Eosinophils % Platelet Estimate Macrocytosis Anticoagulation Therapy No Result Required. Puncture Site Right radial ABG pH 7.31 L ABG pCO2 at Pt Temp 22.8 L ABG pO2 at Pt Temp 102 H ABG HCO3 11.1 L ABG O2 Sat (Measured) 97.4 ABG O2 Content 14.8 ABG Base Excess -13.5 L Kiran Test Positive VBG pH POC VBG pCO2 POC VBG pO2 VBG HCO3 VBG O2 Sat ([place]) VBG Base Excess O2 Delivery Device Room air Oxygen Flow Rate 21% Vent Mode No Result Required. Vent Rate No Result Required. Mechanical Rate No Result Required. Pressure Support Vent No Result Required. Sodium Potassium Chloride Carbon Dioxide Anion Gap BUN Creatinine Est GFR (CKD-EPI)AfAm Est GFR (CKD-EPI)NonAf Random Glucose Hemoglobin A1c % Serum Osmolality Lactic Acid 0.8 Calcium Phosphorus Magnesium Total Bilirubin AST ALT Alkaline Phosphatase Troponin I Total Protein Albumin Lipase Beta-Hydroxybutyrate Serum , Qual Urine Color Urine Appearance Urine pH Urine Protein Urine Glucose (UA) Urine Ketones Urine Blood Urine Nitrite Urine Bilirubin Urine Urobilinogen Ur Leukocyte Esterase Urine RBC Urine WBC Ur Transition Epith Cell Salicylates Opiates Screen Negative Methadone Screen Negative Acetaminophen Barbiturate Screen Negative Phencyclidine Screen Negative Ur Amphetamines Screen Negative MDMA (Ecstasy) Screen Negative Benzodiazepines Screen Positive A* Cocaine Screen Negative U Marijuana (THC) Screen Negative Alcohol, Quantitative 01/24/19 01/24/19 01/24/19 00:30 00:56 01:00 WBC RBC Hgb Hct MCV MCH MCHC RDW Plt Count MPV Neutrophils % Neutrophils % (Manual) Lymphocytes % Lymphocytes % (Manual) Monocytes % Monocytes % (Manual) Eosinophils % Platelet Estimate Macrocytosis Anticoagulation Therapy Puncture Site ABG pH ABG pCO2 at Pt Temp ABG pO2 at Pt Temp ABG HCO3 ABG O2 Sat (Measured) ABG O2 Content ABG Base Excess Kiran Test VBG pH POC VBG pCO2 POC VBG pO2 VBG HCO3 VBG O2 Sat ([place]) VBG Base Excess O2 Delivery Device Oxygen Flow Rate Vent Mode Vent Rate Mechanical Rate Pressure Support Vent Sodium 137 Potassium 4.0 Chloride 107 Carbon Dioxide 15 L Anion Gap 15 BUN 4.1 L Creatinine 0.7 Est GFR (CKD-EPI)AfAm 132.87 Est GFR (CKD-EPI)NonAf 114.64 Random Glucose 99 Hemoglobin A1c % Serum Osmolality Lactic Acid Calcium 8.5 Phosphorus 1.2 L 1.7 L Magnesium 1.8 3.0 H Total Bilirubin 1.3 H AST 56 H ALT 30 Alkaline Phosphatase 109 Troponin I < 0.02 Total Protein 7.4 Albumin 3.8 Lipase Beta-Hydroxybutyrate Serum , Qual Urine Color Urine Appearance Urine pH Urine Protein Urine Glucose (UA) Urine Ketones Urine Blood Urine Nitrite Urine Bilirubin Urine Urobilinogen Ur Leukocyte Esterase Urine RBC Urine WBC Ur Transition Epith Cell Salicylates Opiates Screen Methadone Screen Acetaminophen <2.0 Barbiturate Screen Phencyclidine Screen Ur Amphetamines Screen MDMA (Ecstasy) Screen Benzodiazepines Screen Cocaine Screen U Marijuana (THC) Screen Alcohol, Quantitative 01/24/19 01/24/19 01/24/19 02:10 05:50 05:50 WBC 8.4 RBC 3.26 L Hgb 11.2 Hct 33.5 MCV 102.6 H MCH 34.3 H MCHC 33.5 RDW 14.5 D Plt Count 151 MPV 8.1 Neutrophils % 85.9 H Neutrophils % (Manual) Lymphocytes % 5.7 L Lymphocytes % (Manual) Monocytes % 8.2 Monocytes % (Manual) Eosinophils % 0.0 Platelet Estimate Macrocytosis Anticoagulation Therapy Puncture Site ABG pH ABG pCO2 at Pt Temp ABG pO2 at Pt Temp ABG HCO3 ABG O2 Sat (Measured) ABG O2 Content ABG Base Excess Kiran Test VBG pH POC VBG pCO2 POC VBG pO2 VBG HCO3 VBG O2 Sat ([place]) VBG Base Excess O2 Delivery Device Oxygen Flow Rate Vent Mode Vent Rate Mechanical Rate Pressure Support Vent Sodium 135 L Potassium 3.5 Chloride 102 Carbon Dioxide 17 L Anion Gap 16 BUN 5.5 L Creatinine 0.7 Est GFR (CKD-EPI)AfAm 132.87 Est GFR (CKD-EPI)NonAf 114.64 Random Glucose 88 Hemoglobin A1c % Serum Osmolality Lactic Acid Calcium 8.4 L Phosphorus 3.2 Magnesium 2.1 Total Bilirubin 1.2 H AST 47 H ALT 27 Alkaline Phosphatase 111 Troponin I Total Protein 7.2 Albumin 3.6 Lipase Beta-Hydroxybutyrate Serum , Qual Urine Color Urine Appearance Urine pH Urine Protein Urine Glucose (UA) Urine Ketones Urine Blood Urine Nitrite Urine Bilirubin Urine Urobilinogen Ur Leukocyte Esterase Urine RBC Urine WBC Ur Transition Epith Cell Salicylates < 1.7 L Opiates Screen Methadone Screen Acetaminophen Barbiturate Screen Phencyclidine Screen Ur Amphetamines Screen MDMA (Ecstasy) Screen Benzodiazepines Screen Cocaine Screen U Marijuana (THC) Screen Alcohol, Quantitative Active Medications Generic Name Dose Route Start Last Admin Trade Name Freq PRN Reason Stop Dose Admin Chlordiazepoxide HCl 10 mg 01/26/19 05:00 Librium - PO 01/26/19 23:01 [id number] ANDREEA Chlordiazepoxide HCl 10 mg 01/27/19 05:00 Librium - PO 01/27/19 17:01 Q12H ANDREEA Chlordiazepoxide HCl 10 mg 01/26/19 00:00 Librium - PO 01/27/19 00:00 Q4H PRN WITHDRAWAL(CONT SUBST) Chlordiazepoxide HCl 10 mg 01/28/19 05:00 Librium - PO 01/28/19 05:01 ONCE@0500 ONE Chlordiazepoxide HCl 50 mg 01/23/19 17:00 01/24/19 06:44 Librium - PO 01/24/19 23:01 50 mg [id number] ANDREEA Administration Chlordiazepoxide HCl 25 mg 01/25/19 05:00 Librium - PO 01/25/19 23:01 [id number] ANDREEA Chlordiazepoxide HCl 25 mg 01/23/19 16:57 Librium - PO 01/25/19 23:59 Q4H PRN WITHDRAWAL(CONT SUBST) Chlorhexidine Gluconate 1 applic 01/23/19 22:00 01/23/19 23:37 Hibiclens For Decolonization - TP 1 applic HS ANDREEA Administration Enoxaparin Sodium 40 mg 01/24/19 10:00 Lovenox - SQ DAILY ANDREEA Folic Acid 1 mg 01/24/19 10:00 Folic Acid - PO DAILY ANDREEA Sodium Chloride 1,000 mls @ 125 mls/hr 01/23/19 21:00 01/23/19 23:27 Normal Saline - IV 125 mls/hr ASDIR ANDREEA Administration Mupirocin 1 applic 01/23/19 22:00 01/23/19 23:36 Bactroban Ointment (For Decolonization) - NS 01/28/19 21:59 1 applic BID ANDREEA Administration Pantoprazole Sodium 40 mg 01/23/19 18:00 01/23/19 18:27 Protonix Iv IVPUSH 40 mg DAILY ANDREEA Administration Thiamine HCl 200 mg 01/24/19 10:00 Vitamin B1 Injection - IVPB DAILY ANDREEA ASSESSMENT/PLAN: Problem List - Problems (1) Leukocytosis Assessment/Plan: leukocytosis on admission, now resolved, but spiked fever of 101F today will send: lactic acid, ua, uc, blood cultures, chest xray monitor on tele give tylenol prn monitor heart rate repeat labs in a.m. monitor off antibiotics ID consult if worsening wbc and if fevers persist. Code(s): D72.829 - ELEVATED WHITE BLOOD CELL COUNT, UNSPECIFIED (2) Alcohol withdrawal Assessment/Plan: on libirum taper. see ciwa score. Code(s): F10.239 - ALCOHOL DEPENDENCE WITH WITHDRAWAL, UNSPECIFIED Qualifiers: Complication of substance-induced condition: with unspecified complication Qualified Code(s): F10.239 - Alcohol dependence with withdrawal, unspecified (3) Alcoholic ketoacidosis Assessment/Plan: VBG concerning for anion gap metabolic acidosis. anion gap now closed continue fluid resusitation with NS @ 125cc/hr monitor labs urine toxicology Code(s): E87.2 - ACIDOSIS (4) Vomiting Assessment/Plan: resolved on clears Code(s): R11.10 - VOMITING, UNSPECIFIED Qualifiers: Vomiting type: unspecified Vomiting Intractability: non-intractable Nausea presence: without nausea Qualified Code(s): R11.11 - Vomiting without nausea Visit type - Emergency Visit Emergency Visit: Yes ED Registration Date: 01/23/19 Care time: The patient presented to the Emergency Department on the above date and was hospitalized for further evaluation of their emergent condition. - New Patient This patient is new to me today: No - Critical Care Critical Care patient: Yes Total Critical Care Time (in minutes): 45 Critical Care Statement: The care of this patient involved high complexity decision making to prevent further life threatening deterioration of the patient 's condition and/or to evaluate & treat vital organ system(s) failure or risk of failure.
[2019-01-24] MEDS ORDERED: PT OWN MED DRAWER 7, Y5N ONE ×2 (09:55→09:56)
[2019-01-24] MEDS: PANTOPRAZOLE SODIUM 40 MG VIAL IVPUSH SCH (10:07)
[2019-01-24] MEDS: FOLIC ACID 1 MG TABLET (FP) PO SCH (10:07)
[2019-01-24] MEDS: ENOXAPARIN NA (PORCINE) 40 MG/0.4 ML DISP.SYRIN SQ SCH (10:07)
[2019-01-24] MEDS ORDERED: chlordiazePOXIDE 5 MG CAPSULE PO ONE (10:19)
[2019-01-24] MEDS: THIAMINE HCL 200 MG/2 ML VIAL IVPB SCH (10:54)
[2019-01-24] MEDS: MUPIROCIN 2% TOPICAL OINTMENT FOR DECOLONIZATION NS SCH ×2 (11:35→22:30)
[2019-01-24] MEDS: MAG HYDROX/AL HYDROX/SIMETH 30 ML UNIT-DOSE CUP PO PRN ×2 (12:02→18:01)
[2019-01-24] MEDS: chlordiazePOXIDE HCL 25 MG CAPSULE PO PRN (15:34)
[2019-01-24 18:25] LABS: EPI CELLS 1.2 /HPF (0-5/HPF); HYALINE CASTS 3 /lpf (0-8); PH,URINE 5.5 (5.0-8.0); URINE APPEARANCE CLEAR; URINE BACTERIA 34.6 /hpf (NEGATIVE); URINE BILIRUBIN NEGATIVE (NEGATIVE); URINE COLOR ORANGE; URINE GLUCOSE (UA) NEGATIVE (NEGATIVE); URINE KETONE 3+ (NEGATIVE); URINE LEUK ESTERASE NEGATIVE (NEGATIVE); URINE NITRITE NEGATIVE (NEGATIVE); URINE PROTEIN 1+ (NEGATIVE); URINE RBC 92 /hpf (0-4); URINE UROBILINOGEN 0.2 mg/dL (0.2-1.0); URINE WBC 2 /hpf (0-5)
[2019-01-24] MEDS ORDERED: ACETAMINOPHEN 325 MG TABLET (FP) PO PRN (19:27)
[2019-01-24] MEDS: SODIUM CHLORIDE 1,000 ML IV SCH (21:00)
--- NOTE | 2019-01-24 21:18 | CONSULT ---
Consult Consult Specialty:: Pulm/CCM Reason for Consultation:: etoh ketosis, Etoh detox - History of Present Illness Chief Complaint: nausea, vomiting History of Present Illness: This is a 33 yo woman w/ active EtOH abuse who presented to the ED w/ nausea and vomiting found to have EtOH ketosis and was transferred to the ICU for continued care Briefly, pt report drinking ~1pint of vodka and several beers per day. 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 She reports her last drink was on 01/22/19. In the ED he labs were notable for AGMA (26), leukocytosis (WBC 17.5) and EtOH 26. Venous pH: 7.0. ASA and APAP we negative. She denies illicit drugs, or suicidal ideation. She was started on librium protocol for EtOH withdrawal given IVF and admitted to the ICU. - History Source History Provided By: Patient, Medical Record Limitations to Obtaining History: No Limitations - Past Medical History ...LMP: 12/08/18 Psych: Yes: Other (EtOH abuse) - Alcohol/Substance Use Hx Alcohol Use: Yes (HAD DRANK HEAVILY YESTERDAY) - Smoking History Smoking history: Never smoked Have you smoked in the past 12 months: Yes Aproximately how many cigarettes per day: 10 Home Medications - Allergies Allergies/Adverse Reactions: Allergies Allergy/AdvReac Type Severity Reaction Status Date / Time amoxicillin Allergy Severe Swelling Verified 01/23/19 13:16 banana Allergy Severe Hives Verified 01/23/19 13:16 - Home Medications Home Medications: Ambulatory Orders NK [No Known Home Medication] 01/23/19 Family Medical History Family History: Unremarkable Review of Systems - Review of Systems Gastrointestinal: reports: Nausea, Vomiting Neurological: reports: Headache Physical Exam Vital Signs: Vital Signs Temperature 100.5 F H 01/24/19 19:00 Pulse Rate 115 H 01/24/19 19:00 Respiratory Rate 18 01/24/19 20:34 Blood Pressure 131/94 01/24/19 19:00 O2 Sat by Pulse Oximetry (%) 100 01/24/19 20:34 Constitutional: Yes: Well Nourished, No Distress, Calm Eyes: Yes: EOM Intact HENT: Yes: Normocephalic Cardiovascular: Yes: Regular Rate and Rhythm, S1, S2 Respiratory: Yes: CTA Bilaterally Gastrointestinal: Yes: Normal Bowel Sounds, Soft Musculoskeletal: Yes: WNL Extremities: Yes: WNL Edema: No Neurological: Yes: Alert, Oriented, Tremors Psychiatric: Yes: Alert, Oriented Labs: CBC, BMP 01/24/19 05:50 01/24/19 05:50 Imaging - Results Chest X-ray: Report Reviewed, Image Reviewed Problem List - Problems (1) Alcohol withdrawal Code(s): F10.239 - ALCOHOL DEPENDENCE WITH WITHDRAWAL, UNSPECIFIED Qualifiers: Complication of substance-induced condition: with unspecified complication Qualified Code(s): F10.239 - Alcohol dependence with withdrawal, unspecified (2) Alcoholic ketoacidosis Code(s): E87.2 - ACIDOSIS (3) Alcohol abuse Code(s): F10.10 - ALCOHOL ABUSE, UNCOMPLICATED Assessment/Plan 24 yo woman w/ EtOH abuse c/b ketosis and withdrawal -EtOH symptome triggered withdrawal protocol w/ librium -Thiamin and folic acid -IV fluid resuscitation with normal saline at 125mL/ hour -advance diet as tolerated -incentive spirometry -Counselled regarding alcohol cessation. -DVT ppx w/ LMWH Stable for floor transfer Herman ACNP Pulm/CCM CCT: 35m
[2019-01-24] MEDS: CHLORHEXIDINE GLUCONATE 4% CLEANSER FOR DECOLONIZATION TP SCH (22:30)
[2019-01-25] MEDS: chlordiazePOXIDE HCL 25 MG CAPSULE PO SCH ×4 (05:30→23:25)
[2019-01-25 06:43] LABS: BASO % 0.7 % (0-2.0); EOS % 1.8 % (0-4.5); HEMATOCRIT 34.2 % (32.4-45.2); HEMOGLOBIN 11.4 GM/dL (10.7-15.3); MCH 33.8 pg (25.7-33.7); MCHC 33.2 g/dl (32.0-36.0); MEAN CELL VOLUME 101.7 fl (80-96); MEAN PLT VOLUME 8.3 fl (7.5-11.1); MONO % 9.5 % (3.8-10.2); PLATELET COUNT 123 K/MM3 (134-434); RBC 3.36 M/mm3 (3.60-5.2); RDW 14.2 % (11.6-15.6); WHITE BLOOD COUNT 3.6 K/mm3 (4.0-10.0)
[2019-01-25 07:09] LABS: ALBUMIN 3.4 g/dl (3.4-5.0); BILIRUBIN,TOTAL 0.7 mg/dL (0.2-1); CALCIUM 8.3 mg/dL (8.5-10.1); CREATININE 0.5 mg/dL (0.55-1.3); MAGNESIUM 1.7 mg/dL (1.8-2.4); TOT PROT 6.6 g/dl (6.4-8.2)
[2019-01-25] MEDS ORDERED: POTASSIUM CHLORIDE TABS 20 MEQ TABLET.ER (FP) PO ONE ×2 (07:13→08:45)
[2019-01-25 07:58] LABS: BLOOD UREA NITROGEN 2.4 mg/dL (7-18); POTASSIUM 2.7 mmol/L (3.5-5.1)
[2019-01-25] MEDS: KCL 10 MEQ IVPB 10 MEQ/100 ML INFUS.BAG IVPB SCH ×3 (08:39→12:52)
[2019-01-25] MEDS ORDERED: SODIUM CHLORIDE 1,000 ML IV SCH (09:20)
--- NOTE | 2019-01-25 09:21 | PN ---
Physical Exam: SUBJECTIVE: Patient seen and examined at the bedside. in no acute distress, wants to go home today or tomorrow, has to go back to work. advised her that the reason she is here is for acute alcohol withdrawal and that she is being treated with librium that will not complete until 01/28/19. she is thinking about staying until tomorrow and is willing to sign out AMA. OBJECTIVE: patient is a 33 year old female with a significant past medical history of etoh abuse who presents to [facility] with vomiting. She was transferred to [facility] to the ICU for alcoholic keto acidosis. Patient reports drinking vodka daily and unable to tolerate anything to eat with acute nausea and vomiting on admission. She has been detoxed in the past at [facility] and her last drink was on 01/22. On admission her anion gap was 26 which is now closed. Her BGMs are low and she is not on insulin. On admission her pulse was noted to be in the 140s regular st, with an elevated WBC of 17.5k She had fevers yesterday and was cultured. blood and urine cultures pending, lactic acid within normal limits. chest xray shows left atelectasis. she denies any malaise, chills or chest pain. Vital Signs Period Temp Pulse Resp BP Sys/[place] Pulse Ox Last 24 Hr 97.5 F-101.2 F 80-132 16-25 90-131/62-95 100-100 GENERAL: Awake, alert, and fully oriented, in no acute distress. HEAD: Normal with no signs of trauma. multiple body pearcings EYES: Pupils equal, round and reactive to light, extraocular movements intact, sclera anicteric, conjunctiva clear. EARS, NOSE, THROAT: Ears normal, nares patent, oropharynx clear without exudates. Dry mucous membranes. NECK: Normal range of motion, supple without lymphadenopathy, JVD, or masses. LUNGS: Breath sounds equal, clear to auscultation bilaterally. HEART: nsr 90s ABDOMEN: Soft, nontender, not distended, normoactive bowel sounds, no guarding, no rebound, MUSCULOSKELETAL: Normal range of motion at all joints. No bony deformities or tenderness. No CVA tenderness. UPPER EXTREMITIES: No peripheral edema. LOWER EXTREMITIES: No peripheral edema. NEUROLOGICAL: Normal speech. No tremors. mild anxiety SKIN: warm, dry Laboratory Results - last 24 hr 01/24/19 01/24/19 01/25/19 18:17 20:15 05:50 WBC 3.6 L RBC 3.36 L Hgb 11.4 Hct 34.2 MCV 101.7 H MCH 33.8 H MCHC 33.2 RDW 14.2 Plt Count 123 L MPV 8.3 Absolute Neuts (auto) 2.5 Neutrophils % 68.0 D Lymphocytes % 20.0 D Monocytes % 9.5 Eosinophils % 1.8 D Basophils % 0.7 Nucleated RBC % 0 Sodium Potassium Chloride Carbon Dioxide Anion Gap BUN Creatinine Est GFR (CKD-EPI)AfAm Est GFR (CKD-EPI)NonAf Random Glucose Lactic Acid 0.6 Calcium Magnesium Total Bilirubin AST ALT Alkaline Phosphatase Total Protein Albumin Urine Color [place] Urine Appearance Clear Urine pH 5.5 Ur Specific [place] 1.019 Urine Protein 1+ H Urine Glucose (UA) Negative Urine Ketones 3+ H Urine Blood 3+ H Urine Nitrite Negative Urine Bilirubin Negative Urine Urobilinogen 0.2 Ur Leukocyte Esterase Negative Urine WBC (Auto) 2 Urine RBC (Auto) 92 Urine Casts (Auto) 3 U Epithel Cells (Auto) 1.2 Urine Bacteria (Auto) 34.6 01/25/19 05:50 WBC RBC Hgb Hct MCV MCH MCHC RDW Plt Count MPV Absolute Neuts (auto) Neutrophils % Lymphocytes % Monocytes % Eosinophils % Basophils % Nucleated RBC % Sodium 137 Potassium 2.7 L* Chloride 104 Carbon Dioxide 22 Anion Gap 11 BUN 2.4 L* Creatinine 0.5 L Est GFR (CKD-EPI)AfAm 148.42 Est GFR (CKD-EPI)NonAf 128.06 Random Glucose 83 Lactic Acid Calcium 8.3 L Magnesium 1.7 L Total Bilirubin 0.7 AST 28 ALT 20 Alkaline Phosphatase 95 Total Protein 6.6 Albumin 3.4 Urine Color Urine Appearance Urine pH Ur Specific [place] Urine Protein Urine Glucose (UA) Urine Ketones Urine Blood Urine Nitrite Urine Bilirubin Urine Urobilinogen Ur Leukocyte Esterase Urine WBC (Auto) Urine RBC (Auto) Urine Casts (Auto) U Epithel Cells (Auto) Urine Bacteria (Auto) Active Medications Generic Name Dose Route Start Last Admin Trade Name Freq PRN Reason Stop Dose Admin Acetaminophen 650 mg 01/24/19 19:27 01/24/19 20:00 Tylenol - PO 650 mg Q6H PRN Administration FEVER Al Hydroxide/Mg Hydroxide 30 ml 01/24/19 10:18 01/24/19 18:01 Mylanta Oral Suspension - PO 30 ml Q6H PRN Administration DYSPEPSIA Chlordiazepoxide HCl 10 mg 01/26/19 05:00 Librium - PO 01/26/19 23:01 [id number] ANDEREA Chlordiazepoxide HCl 10 mg 01/27/19 05:00 Librium - PO 01/27/19 17:01 Q12H ANDREEA Chlordiazepoxide HCl 10 mg 01/26/19 00:00 Librium - PO 01/27/19 00:00 Q4H PRN WITHDRAWAL(CONT SUBST) Chlordiazepoxide HCl 10 mg 01/28/19 05:00 Librium - PO 01/28/19 05:01 ONCE@0500 ONE Chlordiazepoxide HCl 25 mg 01/25/19 05:00 01/25/19 05:30 Librium - PO 01/25/19 23:01 25 mg [id number] ANDREEA Administration Chlordiazepoxide HCl 25 mg 01/23/19 16:57 01/24/19 15:34 Librium - PO 01/25/19 23:59 25 mg Q4H PRN Administration WITHDRAWAL(CONT SUBST) Chlorhexidine Gluconate 1 applic 01/23/19 22:00 01/24/19 22:30 Hibiclens For Decolonization - TP 1 applic HS ANDREEA Administration Enoxaparin Sodium 40 mg 01/24/19 10:00 01/24/19 10:07 Lovenox - SQ 40 mg DAILY ANDREEA Administration Folic Acid 1 mg 01/24/19 10:00 01/24/19 10:07 Folic Acid - PO 1 mg DAILY ANDREEA Administration Potassium Chloride 10 meq in 100 mls @ 100 mls/hr 01/25/19 08:30 01/25/19 08: 39 Potassium Chloride 10 Meq Premix Ivpb - IVPB 01/25/19 11:29 100 mls/hr Q60M ANDREEA Administration Sodium Chloride 1,000 mls @ 75 mls/hr 01/25/19 09:20 Normal Saline - IV ASDIR ANDREEA Mupirocin 1 applic 01/23/19 22:00 01/24/19 22:30 Bactroban Ointment (For Decolonization) - NS 01/28/19 21:59 1 applic BID ANDREEA Administration Pantoprazole Sodium 40 mg 01/23/19 18:00 01/24/19 10:07 Protonix Iv IVPUSH 40 mg DAILY ANDREEA Administration Thiamine HCl 200 mg 01/24/19 10:00 01/24/19 10:54 Vitamin B1 Injection - IVPB 200 mg DAILY ANDREEA Administration ASSESSMENT/PLAN: Problem List - Problems (1) Leukocytosis Assessment/Plan: leukocytosis on admission, now resolved, but spiked fever of 101F yesterday lactic acid within normal limits, blood and urine cultures pending. chest xray with left lung atelectasis give tylenol prn monitor heart rate repeat labs in a.m. monitor off antibiotics ID consult if worsening wbc and if fevers persist. Code(s): D72.829 - ELEVATED WHITE BLOOD CELL COUNT, UNSPECIFIED (2) Alcohol withdrawal Assessment/Plan: on libirum taper. states she wants to follow outpatient with AA, refusing referrals to [facility]. Code(s): F10.239 - ALCOHOL DEPENDENCE WITH WITHDRAWAL, UNSPECIFIED Qualifiers: Complication of substance-induced condition: with unspecified complication Qualified Code(s): F10.239 - Alcohol dependence with withdrawal, unspecified (3) Alcoholic ketoacidosis Assessment/Plan: VBG concerning for anion gap metabolic acidosis. anion gap now closed encourage PO intake, started on regular diet monitor labs Code(s): E87.2 - ACIDOSIS (4) Vomiting Assessment/Plan: resolved, diet advanced Code(s): R11.10 - VOMITING, UNSPECIFIED Qualifiers: Vomiting type: unspecified Vomiting Intractability: non-intractable Nausea presence: without nausea Qualified Code(s): R11.11 - Vomiting without nausea Visit type - Emergency Visit Emergency Visit: Yes ED Registration Date: 01/23/19 Care time: The patient presented to the Emergency Department on the above date and was hospitalized for further evaluation of their emergent condition. - New Patient This patient is new to me today: No - Critical Care Critical Care patient: No - Discharge Referral Referred to [facility] Med P.C[facility] No
[2019-01-25] MEDS: ENOXAPARIN NA (PORCINE) 40 MG/0.4 ML DISP.SYRIN SQ SCH (10:32)
[2019-01-25] MEDS: FOLIC ACID 1 MG TABLET (FP) PO SCH (10:32)
[2019-01-25] MEDS: PANTOPRAZOLE SODIUM 40 MG VIAL IVPUSH SCH (10:33)
[2019-01-25] MEDS: THIAMINE HCL 200 MG/2 ML VIAL IVPB SCH (10:33)
[2019-01-25] MEDS ORDERED: PT OWN MED DRAWER 7, Y5N ONE (11:26)
[2019-01-25] MEDS: MUPIROCIN 2% TOPICAL OINTMENT FOR DECOLONIZATION NS SCH ×2 (12:07→21:38)
--- NOTE | 2019-01-25 12:54 | PN ---
Progress Note (short form) - Note Progress Note: Progress Note Pulm/CCM I have seen and examined the patient in the ICU. Tolerating Librium taper. Still with some tachycardia. Electrolytes repleted. Active Medications Acetaminophen (Tylenol -) 650 mg PO Q6H PRN PRN Reason: FEVER Last Admin: 01/24/19 20:00 Dose: 650 mg Al Hydroxide/Mg Hydroxide (Mylanta Oral Suspension -) 30 ml PO Q6H PRN PRN Reason: DYSPEPSIA Last Admin: 01/24/19 18:01 Dose: 30 ml Chlordiazepoxide HCl (Librium -) 10 mg PO [id number] ANDREEA Stop: 01/26/19 23:01 Chlordiazepoxide HCl (Librium -) 10 mg PO Q12H ANDREEA Stop: 01/27/19 17:01 Chlordiazepoxide HCl (Librium -) 10 mg PO Q4H PRN PRN Reason: WITHDRAWAL(CONT SUBST) Stop: 01/27/19 00:00 Chlordiazepoxide HCl (Librium -) 10 mg PO ONCE@0500 ONE Stop: 01/28/19 05:01 Chlordiazepoxide HCl (Librium -) 25 mg PO [id number] ANDREEA Stop: 01/25/19 23:01 Last Admin: 01/25/19 11:28 Dose: 25 mg Chlordiazepoxide HCl (Librium -) 25 mg PO Q4H PRN PRN Reason: WITHDRAWAL(CONT SUBST) Stop: 01/25/19 23:59 Last Admin: 01/24/19 15:34 Dose: 25 mg Chlorhexidine Gluconate (Hibiclens For Decolonization -) 1 applic TP HS [facility] Last Admin: 01/24/19 22:30 Dose: 1 applic Enoxaparin Sodium (Lovenox -) 40 mg SQ DAILY [facility] Last Admin: 01/25/19 10:32 Dose: 40 mg Folic Acid (Folic Acid -) 1 mg PO DAILY [facility] Last Admin: 01/25/19 10:32 Dose: 1 mg Sodium Chloride (Normal Saline -) 1,000 mls @ 75 mls/hr IV ASDIR [facility] Last Admin: 01/25/19 09:50 Dose: 75 mls/hr Mupirocin (Bactroban Ointment (For Decolonization) -) 1 applic NS BID [facility] Stop: 01/28/19 21:59 Last Admin: 01/25/19 12:07 Dose: 1 applic Pantoprazole Sodium (Protonix Iv) 40 mg IVPUSH DAILY [facility] Last Admin: 01/25/19 10:33 Dose: 40 mg Thiamine HCl (Vitamin B1 Injection -) 200 mg IVPB DAILY [facility] Last Admin: 01/25/19 10:33 Dose: 200 mg Vital Signs Period Temp Pulse Resp BP Sys/[place] Pulse Ox Last 24 Hr 97.5 F-101.2 F 80-132 16-25 90-131/62-95 100-100 Intake & Output 01/22/19 01/23/19 01/24/19 01/25/19 23:59 23:59 23:59 23:59 Intake Total 3895 3370 Balance 3895 3370 Weight 58.06 kg 58.06 kg Gen: Well Nourished, No Distress, Calm HEENT: Sclera clear, MMM CV: Regular Rate and Rhythm, S1, S2 Resp: CTA Bilaterally Abd: Soft, NT EXT: WWP, no edema, + pulses Neuro: Alert, Oriented, Tremors CBC, BMP 01/25/19 05:50 01/25/19 05:50 Problem List - Problems (1) Alcohol withdrawal Code(s): F10.239 - ALCOHOL DEPENDENCE WITH WITHDRAWAL, UNSPECIFIED Qualifiers: Complication of substance-induced condition: with unspecified complication Qualified Code(s): F10.239 - Alcohol dependence with withdrawal, unspecified (2) Alcoholic ketoacidosis Code(s): E87.2 - ACIDOSIS (3) Alcohol abuse Code(s): F10.10 - ALCOHOL ABUSE, UNCOMPLICATED Assessment/Plan 24 yo woman w/ EtOH abuse c/b ketosis and withdrawal -EtOH symptom triggered withdrawal protocol w/ librium -Thiamine and folic acid -IV fluid resuscitation with normal saline at 125mL/ hour -advance diet as tolerated -incentive spirometry -Counselled regarding alcohol cessation. -DVT ppx w/ LMWH Stable for floor transfer EDDIE Chaudhari Pulm/CCM CCT: 35m
[2019-01-25 14:35] VITALS: BMI 23.3
[2019-01-25 19:45] LABS: ALBUMIN 3.5 g/dl (3.4-5.0); BILIRUBIN,TOTAL 0.4 mg/dL (0.2-1); CALCIUM 8.7 mg/dL (8.5-10.1); CREATININE 0.4 mg/dL (0.55-1.3); POTASSIUM 3.5 mmol/L (3.5-5.1); TOT PROT 6.8 g/dl (6.4-8.2)
--- NOTE | 2019-01-25 20:12 | EKG ---
Test Reason : Blood Pressure : / mmHG Vent. Rate : 104 BPM Atrial Rate : 104 BPM P-R Int : 112 ms QRS Dur : 092 ms QT Int : 374 ms P-R-T Axes : 023 000 019 degrees QTc Int : 491 ms SINUS TACHYCARDIA MINIMAL VOLTAGE CRITERIA FOR LVH, MAY BE NORMAL VARIANT T WAVE ABNORMALITY, CONSIDER ANTERIOR ISCHEMIA ABNORMAL ECG WHEN COMPARED WITH ECG OF 23-JAN-2019 14:02, NO SIGNIFICANT CHANGE WAS FOUND Confirmed by DERIC SANTO MD ([id number]) on 01/25/2019 8:11:50 PM Referred By: Confirmed By:DERIC SANTO MD
--- NOTE | 2019-01-25 20:24 | EKG ---
Test Reason : Blood Pressure : / mmHG Vent. Rate : 138 BPM Atrial Rate : 138 BPM P-R Int : 122 ms QRS Dur : 086 ms QT Int : 304 ms P-R-T Axes : 060 001 022 degrees QTc Int : 460 ms SINUS TACHYCARDIA LEFT ATRIAL ENLARGEMENT ABNORMAL ECG WHEN COMPARED WITH ECG OF 28-DEC-2018 14:53, T WAVE INVERSION NOW EVIDENT IN ANTERIOR LEADS Confirmed by DERIC SANTO MD ([id number]) on 01/25/2019 8:24:06 PM Referred By: Confirmed By:DERIC SANTO MD
[2019-01-25] MEDS: chlordiazePOXIDE HCL 25 MG CAPSULE PO PRN (20:34)
[2019-01-25] MEDS: CHLORHEXIDINE GLUCONATE 4% CLEANSER FOR DECOLONIZATION TP SCH (21:39)
[2019-01-26] MEDS ORDERED: MELATONIN 5 MG TABLETS PO ONE ×2 (02:35→23:58)
[2019-01-26] MEDS ORDERED: chlordiazePOXIDE 5 MG CAPSULE ONE ×3 (05:41→16:46)
[2019-01-26] MEDS: chlordiazePOXIDE HCL 10 MG CAPSULE PO SCH ×2 (05:45→10:23)
--- NOTE | 2019-01-26 08:22 | PN ---
Physical Exam: SUBJECTIVE: Patient seen and examined by the bedside. She is seated comfortably , AOx3, and cooperative. OBJECTIVE: Vital Signs Period Temp Pulse Resp BP Sys/[place] Pulse Ox Last 24 Hr 98.0 F-99.0 F 104-121 17-24 95-138/79-111 100-100 GENERAL: AOx3 HEAD: Normal with no signs of trauma. EYES: PERRL, EOMI ENT: Ears normal, nares patent, oropharynx clear without exudates, moist mucous membranes LUNGS: Clear B/L HEART: RRR, no murmurs ABDOMEN: Soft, nontender, nondistended EXTREMITIES: 2+ pulses, warm, well-perfused, no edema. NEUROLOGICAL: Motor 5/5, snesations intact PSYCH: Normal mood, normal affect. SKIN: Warm, dry, normal turgor, no rashes or lesions noted Laboratory Results - last 24 hr 01/25/19 18:30 Sodium 138 Potassium 3.5 Chloride 105 Carbon Dioxide 21 Anion Gap 11 BUN 2.0 L* Creatinine 0.4 L Est GFR (CKD-EPI)AfAm 159.73 Est GFR (CKD-EPI)NonAf 137.82 Random Glucose 104 Calcium 8.7 Total Bilirubin 0.4 AST 26 ALT 18 Alkaline Phosphatase 91 Total Protein 6.8 Albumin 3.5 Active Medications Generic Name Dose Route Start Last Admin Trade Name Freq PRN Reason Stop Dose Admin Acetaminophen 650 mg 01/24/19 19:27 01/24/19 20:00 Tylenol - PO 650 mg Q6H PRN Administration FEVER Al Hydroxide/Mg Hydroxide 30 ml 01/24/19 10:18 01/24/19 18:01 Mylanta Oral Suspension - PO 30 ml Q6H PRN Administration DYSPEPSIA Chlordiazepoxide HCl 10 mg 01/26/19 05:00 01/26/19 05:45 Librium - PO 01/26/19 23:01 10 mg [id number] ANDREEA Administration Chlordiazepoxide HCl 10 mg 01/27/19 05:00 Librium - PO 01/27/19 17:01 Q12H ANDREEA Chlordiazepoxide HCl 10 mg 01/26/19 00:00 Librium - PO 01/27/19 00:00 Q4H PRN WITHDRAWAL(CONT SUBST) Chlordiazepoxide HCl 10 mg 01/28/19 05:00 Librium - PO 01/28/19 05:01 ONCE@0500 ONE Chlorhexidine Gluconate 1 applic 01/23/19 22:00 01/25/19 21:39 Hibiclens For Decolonization - TP 1 applic HS ANDREEA Administration Enoxaparin Sodium 40 mg 01/24/19 10:00 01/25/19 10:32 Lovenox - SQ 40 mg DAILY ANDREEA Administration Folic Acid 1 mg 01/24/19 10:00 01/25/19 10:32 Folic Acid - PO 1 mg DAILY ANDREEA Administration Mupirocin 1 applic 01/23/19 22:00 01/25/19 21:38 Bactroban Ointment (For Decolonization) - NS 01/28/19 21:59 1 applic BID ANDREEA Administration Pantoprazole Sodium 40 mg 01/26/19 10:00 Protonix - PO DAILY ANDREEA Thiamine HCl 200 mg 01/24/19 10:00 01/25/19 10:33 Vitamin B1 Injection - IVPB 200 mg DAILY ANDREEA Administration ASSESSMENT/PLAN: 33F with PMH of alcohol abuse, anxiety, presented on 01/23 with nausea and nbnb vomiting. VBG revealed anion gap metabolic acidosis, with beta hydroxybutyrate of 121. Serum alcohol level 29, admitted for alcoholic ketoacidosis #Neurologic - Librium taper - Thiamine, Folic Acid - Fall precautions #Metabolic - VBG concerning for anion gap metabolic acidosis - Elevated osmolal gap; follow Methanol, Ethylene Glycol, U Tox pending - Follow Acetaminophen, Salicylates 1.7 (L) #Pulmonary - Currently saturating well on room air. - Maintain oxygen saturation greater than 90% #Cardiac - EKG reveals sinus tachycardia. Troponin 0.02 - Tachycardia likely secondary to ETOH withdrawal, dehydration. #Gastrointestinal - Transaminitis with AST: ALT ratio 2:1 suggestive of alcoholic etiology. Hyperbilirubinemia to 1.2 - F/U RUQ US report - Counselled regarding alcohol cessation. #FEN - Regular diet #Prophylaxis - Lovenox 40mg subq daily #Dispo - Stable for transfer to /S Visit type - Emergency Visit Emergency Visit: Yes ED Registration Date: 01/23/19 Care time: The patient presented to the Emergency Department on the above date and was hospitalized for further evaluation of their emergent condition. - New Patient This patient is new to me today: Yes Date on this admission: 02/18/19 - Critical Care Critical Care patient: Yes Total Critical Care Time (in minutes): 38 Critical Care Statement: The care of this patient involved high complexity decision making to prevent further life threatening deterioration of the patient 's condition and/or to evaluate & treat vital organ system(s) failure or risk of failure. ATTENDING PHYSICIAN STATEMENT I saw and evaluated the patient. I reviewed the resident's note and discussed the case with the resident. I agree with the resident's findings and plan as documented. SUBJECTIVE: OBJECTIVE: ASSESSMENT AND PLAN:
[2019-01-26 09:07] LABS: BASO % 0.5 % (0-2.0); EOS % 1.5 % (0-4.5); HEMATOCRIT 33.9 % (32.4-45.2); HEMOGLOBIN 11.4 GM/dL (10.7-15.3); LYMPH % 12.5 % (8-40); MCH 33.9 pg (25.7-33.7); MCHC 33.7 g/dl (32.0-36.0); MEAN CELL VOLUME 100.7 fl (80-96); MEAN PLT VOLUME 8.7 fl (7.5-11.1); MONO % 9.7 % (3.8-10.2); NEUT % 75.8 % (42.8-82.8); PLATELET COUNT 126 K/MM3 (134-434); RBC 3.36 M/mm3 (3.60-5.2)
[2019-01-26] MEDS: FOLIC ACID 1 MG TABLET (FP) PO SCH (09:28)
[2019-01-26] MEDS: THIAMINE HCL 200 MG/2 ML VIAL IVPB SCH (09:29)
[2019-01-26] MEDS: ENOXAPARIN NA (PORCINE) 40 MG/0.4 ML DISP.SYRIN SQ SCH (09:29)
[2019-01-26 09:36] LABS: ALBUMIN 3.3 g/dl (3.4-5.0); BILIRUBIN,TOTAL 0.4 mg/dL (0.2-1); CALCIUM 9.2 mg/dL (8.5-10.1); CREATININE 0.5 mg/dL (0.55-1.3); MAGNESIUM 1.9 mg/dL (1.8-2.4); TOT PROT 6.7 g/dl (6.4-8.2)
[2019-01-26] MEDS: MUPIROCIN 2% TOPICAL OINTMENT FOR DECOLONIZATION NS SCH (09:42)
[2019-01-26 09:45] LABS: BLOOD UREA NITROGEN 2.3 mg/dL (7-18)
[2019-01-26] MEDS ORDERED: POTASSIUM CHLORIDE TABS 20 MEQ TABLET.ER (FP) PO ONE (10:00)
[2019-01-26] MEDS ORDERED: POTASSIUM CHLORIDE TABS 20 MEQ TABLET.ER (FP) PO SCH (10:00)
[2019-01-26] MEDS: PANTOPRAZOLE 40 MG TABLET (FP) PO SCH (11:23)
--- NOTE | 2019-01-26 11:52 | PN ---
Teaching Attending Note Name of Resident: Alejandro Calderon ATTENDING PHYSICIAN STATEMENT I saw and evaluated the patient. I reviewed the resident's note and discussed the case with the resident. I agree with the resident's findings and plan as documented. SUBJECTIVE: Reports feeling better. Labs improving. Intake & Output 01/23/19 01/24/19 01/25/19 01/26/19 23:59 23:59 23:59 23:59 Intake Total 3895 3370 1750 400 Balance 3895 3370 1750 400 Weight 128 lb 128 lb 128 lb Last Vital Signs Temp Pulse Resp BP Pulse Ox 98.7 F 116 H 20 97/70 100 01/26/19 02:09 01/26/19 10:00 01/26/19 10:00 01/26/19 10:00 01/26/19 09:00 Active Medications Acetaminophen (Tylenol -) 650 mg PO Q6H PRN PRN Reason: FEVER Last Admin: 01/24/19 20:00 Dose: 650 mg Al Hydroxide/Mg Hydroxide (Mylanta Oral Suspension -) 30 ml PO Q6H PRN PRN Reason: DYSPEPSIA Last Admin: 01/24/19 18:01 Dose: 30 ml Chlordiazepoxide HCl (Librium -) 10 mg PO [id number] [facility] Stop: 01/26/19 23:01 Last Admin: 01/26/19 10:23 Dose: 10 mg Chlordiazepoxide HCl (Librium -) 10 mg PO Q12H [facility] Stop: 01/27/19 17:01 Chlordiazepoxide HCl (Librium -) 10 mg PO Q4H PRN PRN Reason: WITHDRAWAL(CONT SUBST) Stop: 01/27/19 00:00 Chlordiazepoxide HCl (Librium -) 10 mg PO ONCE@0500 ONE Stop: 01/28/19 05:01 Chlorhexidine Gluconate (Hibiclens For Decolonization -) 1 applic TP HS [facility] Last Admin: 01/25/19 21:39 Dose: 1 applic Enoxaparin Sodium (Lovenox -) 40 mg SQ DAILY [facility] Last Admin: 01/26/19 09:29 Dose: 40 mg Folic Acid (Folic Acid -) 1 mg PO DAILY [facility] Last Admin: 01/26/19 09:28 Dose: 1 mg Mupirocin (Bactroban Ointment (For Decolonization) -) 1 applic NS BID [facility] Stop: 01/28/19 21:59 Last Admin: 01/26/19 09:42 Dose: 1 applic Pantoprazole Sodium (Protonix -) 40 mg PO DAILY [facility] Last Admin: 01/26/19 11:23 Dose: 40 mg Potassium Chloride (K-Dur -) 20 meq PO BID [facility] Thiamine HCl (Vitamin B1 Injection -) 200 mg IVPB DAILY [facility] Last Admin: 01/26/19 09:29 Dose: 200 mg Gen: Awake and alert, No Distress HEENT: Sclera clear, MMM CV: Regular Rate and Rhythm, S1, S2 Resp: CTA Bilaterally Abd: Soft, NT EXT: WWP, no edema, + pulses Neuro: Alert, Oriented, non-focal Laboratory Results - last 24 hr 01/25/19 01/26/19 01/26/19 18:30 08:30 08:30 WBC 5.0 RBC 3.36 L Hgb 11.4 Hct 33.9 MCV 100.7 H MCH 33.9 H MCHC 33.7 RDW 14.0 Plt Count 126 L MPV 8.7 Absolute Neuts (auto) 3.8 Neutrophils % 75.8 Lymphocytes % 12.5 D Monocytes % 9.7 Eosinophils % 1.5 Basophils % 0.5 Nucleated RBC % 0 Sodium 138 137 Potassium 3.5 3.0 L Chloride 105 100 Carbon Dioxide 21 27 Anion Gap 11 11 BUN 2.0 L* 2.3 L* Creatinine 0.4 L 0.5 L Est GFR (CKD-EPI)AfAm 159.73 148.42 Est GFR (CKD-EPI)NonAf 137.82 128.06 Random Glucose 104 100 Calcium 8.7 9.2 Magnesium 1.9 Total Bilirubin 0.4 0.4 AST 26 25 ALT 18 18 Alkaline Phosphatase 91 90 Total Protein 6.8 6.7 Albumin 3.5 3.3 L Problem List - Problems (1) Alcohol withdrawal Code(s): F10.239 - ALCOHOL DEPENDENCE WITH WITHDRAWAL, UNSPECIFIED Qualifiers: Complication of substance-induced condition: with unspecified complication Qualified Code(s): F10.239 - Alcohol dependence with withdrawal, unspecified (2) Alcoholic ketoacidosis Code(s): E87.2 - ACIDOSIS (3) Alcohol abuse Code(s): F10.10 - ALCOHOL ABUSE, UNCOMPLICATED Assessment/Plan IVF PO as tolerated Librium protocol Thiamine and folic acid DC planning Counselled regarding alcohol cessation. Floor Dr Early
[2019-01-26] MEDS ORDERED: chlordiazePOXIDE HCL 10 MG CAPSULE PO PRN ×2 (13:58)
--- NOTE | 2019-01-26 16:18 | PN ---
Physical Exam: SUBJECTIVE: Patient seen and examined at the bedside. wants to go home early saturday morning after her last librium. needs to go back to work. OBJECTIVE: patient is a 33 year old female with a significant past medical history of etoh abuse who presents to [facility] with vomiting. She was transferred to [facility] to the ICU for alcoholic keto acidosis. Patient reports drinking vodka daily and unable to tolerate anything to eat with acute nausea and vomiting on admission. She has been detoxed in the past at [facility] and her last drink was on 01/22. On admission her anion gap was 26 which is now closed. Her BGMs are low and she is not on insulin. On admission her pulse was noted to be in the 140s regular st, with an elevated WBC of 17.5k She had fevers yesterday and was cultured. blood and urine cultures pending, lactic acid within normal limits. chest xray shows left atelectasis. she denies any malaise, chills or chest pain. Vital Signs Period Temp Pulse Resp BP Sys/Montague Pulse Ox Last 24 Hr 98.0 F-99.0 F 104-121 19-24 95-138/70-111 98-100 GENERAL: Awake, alert, and fully oriented, in no acute distress. HEAD: Normal with no signs of trauma. multiple body pearcings EYES: Pupils equal, round and reactive to light, extraocular movements intact, sclera anicteric, conjunctiva clear. EARS, NOSE, THROAT: Ears normal, nares patent, oropharynx clear without exudates. Dry mucous membranes. NECK: Normal range of motion, supple without lymphadenopathy, JVD, or masses. LUNGS: Breath sounds equal, clear to auscultation bilaterally. HEART: nsr 90s ABDOMEN: Soft, nontender, not distended, normoactive bowel sounds, no guarding, no rebound, MUSCULOSKELETAL: Normal range of motion at all joints. No bony deformities or tenderness. No CVA tenderness. UPPER EXTREMITIES: No peripheral edema. LOWER EXTREMITIES: No peripheral edema. NEUROLOGICAL: Normal speech. No tremors. mild anxiety SKIN: warm, dry Laboratory Results - last 24 hr 01/25/19 01/26/19 01/26/19 18:30 08:30 08:30 WBC 5.0 RBC 3.36 L Hgb 11.4 Hct 33.9 MCV 100.7 H MCH 33.9 H MCHC 33.7 RDW 14.0 Plt Count 126 L MPV 8.7 Absolute Neuts (auto) 3.8 Neutrophils % 75.8 Lymphocytes % 12.5 D Monocytes % 9.7 Eosinophils % 1.5 Basophils % 0.5 Nucleated RBC % 0 Sodium 138 137 Potassium 3.5 3.0 L Chloride 105 100 Carbon Dioxide 21 27 Anion Gap 11 11 BUN 2.0 L* 2.3 L* Creatinine 0.4 L 0.5 L Est GFR (CKD-EPI)AfAm 159.73 148.42 Est GFR (CKD-EPI)NonAf 137.82 128.06 Random Glucose 104 100 Calcium 8.7 9.2 Magnesium 1.9 Total Bilirubin 0.4 0.4 AST 26 25 ALT 18 18 Alkaline Phosphatase 91 90 Total Protein 6.8 6.7 Albumin 3.5 3.3 L Active Medications Generic Name Dose Route Start Last Admin Trade Name Freq PRN Reason Stop Dose Admin Acetaminophen 650 mg 01/24/19 19:27 01/24/19 20:00 Tylenol - PO 650 mg Q6H PRN Administration FEVER Al Hydroxide/Mg Hydroxide 30 ml 01/24/19 10:18 01/24/19 18:01 Mylanta Oral Suspension - PO 30 ml Q6H PRN Administration DYSPEPSIA Chlordiazepoxide HCl 10 mg 01/28/19 05:00 Librium - PO 01/28/19 05:01 ONCE@0500 ONE Chlordiazepoxide HCl 10 mg 01/26/19 13:58 Librium - PO 01/27/19 00:00 Q4H PRN WITHDRAWAL(CONT SUBST) Chlordiazepoxide HCl 10 mg 01/26/19 17:00 Librium - PO 01/26/19 23:01 [id number] ANDREEA Chlordiazepoxide HCl 10 mg 01/27/19 05:00 Librium - PO 01/27/19 17:01 Q12H ANDREEA Chlorhexidine Gluconate 1 applic 01/23/19 22:00 01/25/19 21:39 Hibiclens For Decolonization - TP 1 applic HS ANDREEA Administration Enoxaparin Sodium 40 mg 01/24/19 10:00 01/26/19 09:29 Lovenox - SQ 40 mg DAILY ANDREEA Administration Folic Acid 1 mg 01/24/19 10:00 11/18/19 09:28 Folic Acid - PO 1 mg DAILY ANDREEA Administration Mupirocin 1 applic 01/23/19 22:00 01/26/19 09:42 Bactroban Ointment (For Decolonization) - NS 01/28/19 21:59 1 applic BID ANDREEA Administration Pantoprazole Sodium 40 mg 01/26/19 10:00 01/26/19 11:23 Protonix - PO 40 mg DAILY ANDREEA Administration Potassium Chloride 20 meq 01/26/19 22:00 K-Dur - PO BID ANDREEA Thiamine HCl 200 mg 01/24/19 10:00 01/26/19 09:29 Vitamin B1 Injection - IVPB 200 mg DAILY ANDREEA Administration ASSESSMENT/PLAN: Problem List - Problems (1) Leukocytosis Assessment/Plan: leukocytosis on admission, now resolved, but spiked fever of 101F yesterday lactic acid within normal limits, blood and urine cultures pending. chest xray with left lung atelectasis, encouraged to use incentive spirometer, stable oxygen on room air. give tylenol prn monitor heart rate repeat labs in a.m. monitor off antibiotics ID consult if worsening wbc and if fevers persist. Code(s): D72.829 - ELEVATED WHITE BLOOD CELL COUNT, UNSPECIFIED (2) Alcohol withdrawal Assessment/Plan: on libirum taper. states she wants to follow outpatient with AA, refusing referrals to [facility]. last dose 01/28, then can be discharged home Code(s): F10.239 - ALCOHOL DEPENDENCE WITH WITHDRAWAL, UNSPECIFIED Qualifiers: Complication of substance-induced condition: with unspecified complication Qualified Code(s): F10.239 - Alcohol dependence with withdrawal, unspecified (3) Alcoholic ketoacidosis Assessment/Plan: VBG concerning for anion gap metabolic acidosis. anion gap now closed encourage PO intake, started on regular diet monitor labs Code(s): E87.2 - ACIDOSIS (4) Vomiting Assessment/Plan: resolved, diet advanced Code(s): R11.10 - VOMITING, UNSPECIFIED Qualifiers: Vomiting type: unspecified Vomiting Intractability: non-intractable Nausea presence: without nausea Qualified Code(s): R11.11 - Vomiting without nausea Visit type - Emergency Visit Emergency Visit: Yes ED Registration Date: 01/23/19 Care time: The patient presented to the Emergency Department on the above date and was hospitalized for further evaluation of their emergent condition. - New Patient This patient is new to me today: No - Critical Care Critical Care patient: No - Discharge Referral Referred to [facility] Med P.C.: No
[2019-01-26] MEDS ORDERED: chlordiazePOXIDE HCL 10 MG CAPSULE PO SCH (17:00)
[2019-01-26] MEDS ORDERED: chlordiazePOXIDE 5 MG CAPSULE PO PRN (17:03)
[2019-01-26] MEDS: chlordiazePOXIDE 5 MG CAPSULE PO SCH ×3 (17:05→23:50)
[2019-01-26] MEDS: POTASSIUM CHLORIDE TABS 20 MEQ TABLET.ER (FP) PO SCH (21:25)
[2019-01-27] MEDS: CHLORHEXIDINE GLUCONATE 4% CLEANSER FOR DECOLONIZATION TP SCH ×2 (00:32→22:08)
[2019-01-27] MEDS: MUPIROCIN 2% TOPICAL OINTMENT FOR DECOLONIZATION NS SCH ×3 (00:32→22:07)
[2019-01-27] MEDS ORDERED: chlordiazePOXIDE HCL 10 MG CAPSULE PO SCH (05:00)
[2019-01-27] MEDS: chlordiazePOXIDE 5 MG CAPSULE PO SCH ×2 (05:36→17:09)
--- NOTE | 2019-01-27 08:56 | PN ---
Progress Note, Physician Chief Complaint: no complaints offered. Librium taper to be completed tomorrow at 5am History of Present Illness: 33 year old female with a significant past medical history of etoh abuse who presents to [facility] with vomiting. She was transferred to [facility] to the ICU for alcoholic keto acidosis. Patient reports drinking vodka daily and unable to tolerate anything to eat with acute nausea and vomiting on admission. She has been detoxed in the past at [facility] and her last drink was on 01/22/19. On admission her anion gap was 26 which is now closed. Her BGMs are low and she is not on insulin. On admission her pulse was noted to be in the 140s regular st, with an elevated WBC of 17.5k She had fevers yesterday and was cultured. blood and urine cultures pending, lactic acid within normal limits. chest xray shows left atelectasis. she denies any malaise, chills or chest pain. - Current Medication List Current Medications: Active Medications Acetaminophen (Tylenol -) 650 mg PO Q6H PRN PRN Reason: FEVER Last Admin: 01/24/19 20:00 Dose: 650 mg Al Hydroxide/Mg Hydroxide (Mylanta Oral Suspension -) 30 ml PO Q6H PRN PRN Reason: DYSPEPSIA Last Admin: 01/24/19 18:01 Dose: 30 ml Chlordiazepoxide HCl (Librium -) 10 mg PO ONCE@0500 ONE Stop: 01/28/19 05:01 Chlordiazepoxide HCl (Librium -) 10 mg PO Q12H ANDREEA Stop: 01/27/19 17:01 Last Admin: 01/27/19 05:36 Dose: 10 mg Chlorhexidine Gluconate (Hibiclens For Decolonization -) 1 applic TP HS [facility] Last Admin: 01/27/19 00:32 Dose: Not Given Enoxaparin Sodium (Lovenox -) 40 mg SQ DAILY [facility] Last Admin: 01/26/19 09:29 Dose: 40 mg Folic Acid (Folic Acid -) 1 mg PO DAILY [facility] Last Admin: 01/26/19 09:28 Dose: 1 mg Mupirocin (Bactroban Ointment (For Decolonization) -) 1 applic NS BID [facility] Stop: 01/28/19 21:59 Last Admin: 01/27/19 00:32 Dose: Not Given Pantoprazole Sodium (Protonix -) 40 mg PO DAILY [facility] Last Admin: 01/26/19 11:23 Dose: 40 mg Potassium Chloride (K-Dur -) 20 meq PO BID [facility] Last Admin: 01/26/19 21:25 Dose: 20 meq Thiamine HCl (Vitamin B1 Injection -) 200 mg IVPB DAILY [facility] Last Admin: 01/26/19 09:29 Dose: 200 mg - Objective Vital Signs: Vital Signs Temperature 98.2 F 01/27/19 06:00 Pulse Rate 93 H 01/27/19 06:00 Respiratory Rate 20 01/27/19 06:00 Blood Pressure 107/67 01/27/19 06:00 O2 Sat by Pulse Oximetry (%) 100 01/26/19 21:00 Constitutional: Yes: No Distress, Calm, Thin Eyes: Yes: WNL, Conjunctiva Clear HENT: Yes: WNL, Atraumatic, Normocephalic Neck: Yes: WNL, Supple, Trachea Midline Cardiovascular: Yes: WNL, Regular Rate and Rhythm Respiratory: Yes: WNL, Regular, CTA Bilaterally Gastrointestinal: Yes: WNL, Normal Bowel Sounds ...Rectal Exam: Yes: Deferred Genitourinary: Yes: WNL Breast(s): Yes: WNL Musculoskeletal: Yes: WNL Extremities: Yes: WNL Edema: No Peripheral Pulses: Left Radial: 2+, Right Radial: 2+, Left Doralis Pedis: 2+, Right Dorsalis Pedis: 2+, Left Femoral: 2+, Right Femoral: 2+ Integumentary: Yes: WNL Neurological: Yes: WNL, Alert, Oriented ...Motor Strength: WNL Psychiatric: Yes: WNL Labs: CBC, BMP 01/26/19 08:30 01/26/19 08:30 Problem List - Problems (1) Prophylactic measure Assessment/Plan: FEN no further n/v tolerating regualr diet monitor electrolytes DVT ambulatory Dispo maintain as inpatient until librium taper is complete full code discharge planning Code(s): Z29.9 - ENCOUNTER FOR PROPHYLACTIC MEASURES, UNSPECIFIED (2) Alcohol withdrawal Assessment/Plan: librium taper complete at 5am tmorrow no s/s of DTs or withdrawal-can be dc in am Code(s): F10.239 - ALCOHOL DEPENDENCE WITH WITHDRAWAL, UNSPECIFIED Qualifiers: Complication of substance-induced condition: with unspecified complication Qualified Code(s): F10.239 - Alcohol dependence with withdrawal, unspecified (3) Alcoholic ketoacidosis Assessment/Plan: resolved AG closed Code(s): E87.2 - ACIDOSIS (4) Leukocytosis Assessment/Plan: leukocytosis on admission, now resolved afebrile overnight lactic acid within normal limits, blood ngtd and urine cultures with step A- asymptomatic with negative ua most likely contaminant chest xray with left lung atelectasis, encouraged to use incentive spirometer, stable oxygen on room air. give tylenol prn appreciate ID consultation Code(s): D72.829 - ELEVATED WHITE BLOOD CELL COUNT, UNSPECIFIED (5) Vomiting Assessment/Plan: resolved with IV hydration Code(s): R11.10 - VOMITING, UNSPECIFIED Qualifiers: Vomiting type: unspecified Vomiting Intractability: non-intractable Nausea presence: without nausea Qualified Code(s): R11.11 - Vomiting without nausea Visit type - Emergency Visit Emergency Visit: Yes ED Registration Date: 01/23/19 Care time: The patient presented to the Emergency Department on the above date and was hospitalized for further evaluation of their emergent condition. - New Patient This patient is new to me today: Yes Date on this admission: 01/27/19 - Critical Care Critical Care patient: No - Discharge Referral Referred to [facility] Med P.C.: No
[2019-01-27] MEDS: POTASSIUM CHLORIDE TABS 20 MEQ TABLET.ER (FP) PO SCH ×2 (10:22→22:07)
[2019-01-27] MEDS: PANTOPRAZOLE 40 MG TABLET (FP) PO SCH (10:22)
[2019-01-27] MEDS: FOLIC ACID 1 MG TABLET (FP) PO SCH (10:23)
[2019-01-27] MEDS: ENOXAPARIN NA (PORCINE) 40 MG/0.4 ML DISP.SYRIN SQ SCH (10:23)
[2019-01-27] MEDS: THIAMINE HCL 200 MG/2 ML VIAL IVPB SCH (10:31)
[2019-01-27 13:15] LABS: BASO % 0.8 % (0-2.0); EOS % 1.4 % (0-4.5); HEMATOCRIT 33.1 % (32.4-45.2); LYMPH % 16.9 % (8-40); MCH 33.4 pg (25.7-33.7); MCHC 33.2 g/dl (32.0-36.0); MEAN CELL VOLUME 100.8 fl (80-96); MEAN PLT VOLUME 8.8 fl (7.5-11.1); MONO % 12.7 % (3.8-10.2); NEUT % 68.2 % (42.8-82.8); PLATELET COUNT 165 K/MM3 (134-434); RBC 3.28 M/mm3 (3.60-5.2); RDW 14.2 % (11.6-15.6); WHITE BLOOD COUNT 5.9 K/mm3 (4.0-10.0)
[2019-01-27 13:40] LABS: ALBUMIN 3.5 g/dl (3.4-5.0); BILIRUBIN,TOTAL 0.3 mg/dL (0.2-1); BLOOD UREA NITROGEN 6.2 mg/dL (7-18); CALCIUM 9.7 mg/dL (8.5-10.1); CREATININE 0.5 mg/dL (0.55-1.3); MAGNESIUM 1.9 mg/dL (1.8-2.4); POTASSIUM 3.9 mmol/L (3.5-5.1); TOT PROT 6.9 g/dl (6.4-8.2)
[2019-01-27 15:10] LABS: METHANOL, BLOOD Negative % (0.000-0.010)
[2019-01-27] MEDS ORDERED: ZOLPIDEM TARTRATE 5 MG TABLET PO PRN (20:49)
[2019-01-27] MEDS ORDERED: THIAMINE HCL 100 MG TABLET (FP) PO SCH (22:00)
[2019-01-28] MEDS ORDERED: chlordiazePOXIDE HCL 10 MG CAPSULE PO ONE (05:00)
[2019-01-28] MEDS ORDERED: chlordiazePOXIDE 5 MG CAPSULE PO ONE (05:00)
[2019-01-28 06:03] VITALS: BP 108/60; PULSE 95; TEMP 98
--- NOTE | 2019-01-28 07:33 | DS ---
Physical Exam: SUBJECTIVE: Patient seen and examined Completed librium taper and is medically stable for discharge to home OBJECTIVE: 33 year old female with a significant past medical history of etoh abuse who presents to [facility] with vomiting. She was transferred to [facility] to the ICU for alcoholic keto acidosis. Patient reports drinking vodka daily and unable to tolerate anything to eat with acute nausea and vomiting on admission. She has been detoxed in the past at [facility] and her last drink was on 01/22/19. On admission her anion gap was 26 which is now closed. Her BGMs are low and she is not on insulin. On admission her pulse was noted to be in the 140s regular st, with an elevated WBC of 17.5k She had fevers yesterday and was cultured. blood and urine cultures pending, lactic acid within normal limits. chest xray shows left atelectasis. she denies any malaise, chills or chest pain. Vital Signs Period Temp Pulse Resp BP Sys/Montague Pulse Ox Last 24 Hr 98 F-98.6 F 95-116 16-20 101-115/60-85 99-100 PHYSICAL EXAM Constitutional: Yes: No Distress, Calm, Thin Eyes: Yes: WNL, Conjunctiva Clear HENT: Yes: WNL, Atraumatic, Normocephalic Neck: Yes: WNL, Supple, Trachea Midline Cardiovascular: Yes: WNL, Regular Rate and Rhythm Respiratory: Yes: WNL, Regular, CTA Bilaterally Gastrointestinal: Yes: WNL, Normal Bowel Sounds ...Rectal Exam: Yes: Deferred Genitourinary: Yes: WNL Breast(s): Yes: WNL Musculoskeletal: Yes: WNL Extremities: Yes: WNL Edema: No Peripheral Pulses: Left Radial: 2+, Right Radial: 2+, Left Doralis Pedis: 2+, Right Dorsalis Pedis: 2+, Left Femoral: 2+, Right Femoral: 2+ Integumentary: Yes: WNL Neurological: Yes: WNL, Alert, Oriented ...Motor Strength: WNL Psychiatric: Yes: WNL LABS Laboratory Results - last 24 hr 01/24/19 01/27/19 01/27/19 16:24 12:43 12:43 WBC 5.9 RBC 3.28 L Hgb 11.0 Hct 33.1 MCV 100.8 H MCH 33.4 MCHC 33.2 RDW 14.2 Plt Count 165 D MPV 8.8 Absolute Neuts (auto) 4.0 Neutrophils % 68.2 Lymphocytes % 16.9 D Monocytes % 12.7 H Eosinophils % 1.4 Basophils % 0.8 Nucleated RBC % 0 Sodium 137 Potassium 3.9 Chloride 103 Carbon Dioxide 26 Anion Gap 8 BUN 6.2 L Creatinine 0.5 L Est GFR (CKD-EPI)AfAm 148.42 Est GFR (CKD-EPI)NonAf 128.06 Random Glucose 96 Calcium 9.7 Magnesium 1.9 Total Bilirubin 0.3 AST 21 ALT 16 Alkaline Phosphatase 91 Total Protein 6.9 Albumin 3.5 Ethylene Glycol <5 Methyl Alcohol Level Negative HOSPITAL COURSE: Date of Admission:01/23/19 Date of Discharge: 01/28/19 Problem List - Problems (1) Prophylactic measure Assessment/Plan: FEN tolerating regular diet DVT ambulatory Dispo discharge to home Code(s): Z29.9 - ENCOUNTER FOR PROPHYLACTIC MEASURES, UNSPECIFIED (2) Alcohol withdrawal Assessment/Plan: librium taper complete at 5am no s/s of DTs or withdrawal-can be dc in am Code(s): F10.239 - ALCOHOL DEPENDENCE WITH WITHDRAWAL, UNSPECIFIED Qualifiers: Complication of substance-induced condition: with unspecified complication Qualified Code(s): F10.239 - Alcohol dependence with withdrawal, unspecified (3) Alcoholic ketoacidosis Assessment/Plan: resolved AG closed with hydration Code(s): E87.2 - ACIDOSIS (4) Leukocytosis Assessment/Plan: leukocytosis on admission, now resolved afebrile overnight lactic acid within normal limits, blood ngtd and urine cultures with step A- asymptomatic with negative ua most likely contaminant chest xray with left lung atelectasis, encouraged to use incentive spirometer, stable oxygen on room air. Code(s): D72.829 - ELEVATED WHITE BLOOD CELL COUNT, UNSPECIFIED (5) Vomiting Assessment/Plan: resolved with IV hydration Code(s): R11.10 - VOMITING, UNSPECIFIED Qualifiers: Vomiting type: unspecified Vomiting Intractability: non-intractable Nausea presence: without nausea Qualified Code(s): R11.11 - Vomiting without nausea medically stable for discharge to home Minutes to complete discharge: 60 Discharge Summary Problems reviewed: Yes Reason For Visit: Annabel De Luna Current Active Problems Alcohol withdrawal (Acute) Alcoholic ketoacidosis (Acute) Leukocytosis (Acute) Prophylactic measure (Acute) Hospital Course: HOSPITAL COURSE: Date of Admission:01/23/19 Date of Discharge: 01/28/19 Problem List - Problems (1) Prophylactic measure Assessment/Plan: FEN tolerating regular diet DVT ambulatory Dispo discharge to home Code(s): Z29.9 - ENCOUNTER FOR PROPHYLACTIC MEASURES, UNSPECIFIED (2) Alcohol withdrawal Assessment/Plan: librium taper complete at 5am no s/s of DTs or withdrawal-can be dc in am Code(s): F10.239 - ALCOHOL DEPENDENCE WITH WITHDRAWAL, UNSPECIFIED Qualifiers: Complication of substance-induced condition: with unspecified complication Qualified Code(s): F10.239 - Alcohol dependence with withdrawal, unspecified (3) Alcoholic ketoacidosis Assessment/Plan: resolved AG closed with hydration Code(s): E87.2 - ACIDOSIS (4) Leukocytosis Assessment/Plan: leukocytosis on admission, now resolved afebrile overnight lactic acid within normal limits, blood ngtd and urine cultures with step A- asymptomatic with negative ua most likely contaminant chest xray with left lung atelectasis, encouraged to use incentive spirometer, stable oxygen on room air. Code(s): D72.829 - ELEVATED WHITE BLOOD CELL COUNT, UNSPECIFIED (5) Vomiting Assessment/Plan: resolved with IV hydration Code(s): R11.10 - VOMITING, UNSPECIFIED Qualifiers: Vomiting type: unspecified Vomiting Intractability: non-intractable Nausea presence: without nausea Qualified Code(s): R11.11 - Vomiting without nausea medically stable for discharge to home Condition: Improved - Instructions - Home Medications Comprehensive Discharge Medication List: Ambulatory Orders Folic Acid - 1 mg PO DAILY tablet 01/27/19 Pantoprazole Sodium [Protonix -] 40 mg PO DAILY tablet.ec 01/27/19 Thiamine HCl [Vitamin B1 -] 100 mg PO BID tablet 01/27/19 Problem List - Problems (1) Prophylactic measure Code(s): Z29.9 - ENCOUNTER FOR PROPHYLACTIC MEASURES, UNSPECIFIED (2) Alcohol withdrawal Code(s): F10.239 - ALCOHOL DEPENDENCE WITH WITHDRAWAL, UNSPECIFIED Qualifiers: Complication of substance-induced condition: with unspecified complication Qualified Code(s): F10.239 - Alcohol dependence with withdrawal, unspecified (3) Alcoholic ketoacidosis Code(s): E87.2 - ACIDOSIS (4) Leukocytosis Code(s): D72.829 - ELEVATED WHITE BLOOD CELL COUNT, UNSPECIFIED (5) Vomiting Code(s): R11.10 - VOMITING, UNSPECIFIED Qualifiers: Vomiting type: unspecified Vomiting Intractability: non-intractable Nausea presence: without nausea Qualified Code(s): R11.11 - Vomiting without nausea This patient is new to me today: No Emergency Visit: Yes ED Registration Date: 01/23/19 Care time: The patient presented to the Emergency Department on the above date and was hospitalized for further evaluation of their emergent condition. Critical Care patient: No - Discharge Referral Referred to [facility] Med P.C.: No
== END 2019-01-28 08:13 | disposition home or self-care (01) | DRG 775 ==
LOC: FER 13:15 → UNDOADMIN 19:05 → JICU 19:05 → J8W 01-26 13:14
PROVIDERS: ADMIT Internal Medicine; ATTEND Nurse Practitioner Acute Care
PROC: HZ2ZZZZ Detoxification Services for Substance Abuse Treatment (ICD-10-PCS; principal; 2019-01-23)
DX: F10.239 Alcohol dependence with withdrawal, unspecified (principal); F12.220 Cannabis dependence with intoxication, uncomplicated; R00.0 Tachycardia, unspecified; E80.6 Other disorders of bilirubin metabolism; E87.2 Acidosis; E83.42 Hypomagnesemia; E86.0 Dehydration; E83.39 Other disorders of phosphorus metabolism; F17.210 Nicotine dependence, cigarettes, uncomplicated; F41.9 Anxiety disorder, unspecified; D72.829 Elevated white blood cell count, unspecified; R11.2 Nausea with vomiting, unspecified
CPT/HCPCS: 36415; 36600; 71045-TC-FY; 76705-TC; 80053; 80307; 81003; 81015; 82010; 82693; 82803; 83036; 83605; 83690; 83735; 83930; 84100; 84484; 84703; 85025; 87040; 87077; 87086; 93005; 93010; 94010; 99284-25; J0131; J7030

== ENCOUNTER 2019-02-21 06:08 | Inpatient (IN) | payer OTHER ==
[2019-02-21] MEDS ORDERED: ONDANSETRON 4 MG/2 ML VIAL IVPB ONE (06:49)
[2019-02-21] MEDS ORDERED: SODIUM CHLORIDE 1,000 ML IV ONE (06:49)
--- NOTE | 2019-02-21 06:53 | PDOC ---
History of Present Illness - General Chief Complaint: Nausea/Vomiting Stated Complaint: NAUSEA/VOMITING Time Seen by Provider: 02/21/19 06:48 History Source: Patient Exam Limitations: No Limitations - History of Present Illness Initial Comments: 02/21/19 06:50 This is a 33-year-old female who comes in complaining of nausea and vomiting x2- day. Patient says she is an alcoholic and her last drink was on . Patient was unclear as to whether or not she was trying to stop drinking or had just gotten sick and was vomiting. However patient does have positive alcohol on her breath and she attributes it to she dumped a bottle of vodka prior to coming to the ED and spilled it on herself. Patient denies any fevers or chills cough, congestion diarrhea or abdominal pain. Patient states she was admitted about a month ago for alcoholic ketoacidosis Allergies: as per nursing notes Past Medical History: none Social history: alcoholic, tobaacco and marajuana Surgical history: None General: No fevers or chills, no weakness, no weight loss HEENT: No change in vision. No sore throat,. No ear pain CardioVascular: no chest discomfort. No shortness of breath Respiratory:No cough, or wheezing. Gastrointestinal: + nausea, + vomiting, no diarrhea or constipation, No rectal bleeding Genitourinary: No dysuria, hematuria, or frequency Musculoskeletal: No joint or muscle pain or swelling Neurologic: No headache, vertigo, dizziness or loss of consciousness Psychiatric: nor depression Skin: No rashes or easy bruising Endocrine: no increased thirst or abnormal weight change Allergic: no skin or latex allergy All other systems reviewed and normal Exam: General: Well-nourished well-developed individual, no acute distress, positive AOB HEENT: Throat: Normal, tonsils normal, no erythema or exudate Neck: Supple, no meningeal signs, no lymphadenopathy Eyes::Pupils equal reactive and round, extraocular motion intact Chest: Nontender to palpation Cardiac: S1-S2 normal, regular rate and rhythm, no murmurs rubs or gallops Respiratory: Lungs clear to auscultation bilateral Abdomen: Soft, nondistended, normal bowel sounds, there is no tenderness on palpation diffusely Extremities: Warm, dry, no cyanosis, clubbing, or edema Skin: No rashes Neuro: Alert and oriented x3, CN II - XII intact, nonfocal exam with normal strength, normal sensation, normal reflexes, normal gait, Psych: Normal mood and affect 02/21/19 06:54 Assessment and plan: This is a 33-year-old female who comes in saying she is in alcoholic withdrawal however does have strong odor of alcohol on her will send off labs including CBC, comp, alcohol level. Will hydrate with IV fluids and give antiemetics. Care of patient transferred to Dr. Guerra at 7 AM. Past History - Past Medical History Allergies/Adverse Reactions: Allergies Allergy/AdvReac Type Severity Reaction Status Date / Time amoxicillin Allergy Severe Swelling Verified 01/23/19 13:16 banana Allergy Severe Hives Verified 01/23/19 13:16 Home Medications: Ambulatory Orders NK [No Known Home Medication] 02/21/19 Anemia: No Asthma: No Cancer: No Cardiac Disorders: No CVA: No COPD: No CHF: No Dementia: No Diabetes: No GI Disorders: No Disorders: No HTN: No Hypercholesterolemia: No Kidney Stones: No Liver Disease: No Psychiatric Problems: Yes (ANXIETY) Seizures: No Thyroid Disease: No Other medical history: ETOH ABUSE - Surgical History Abdominal Surgery: No Appendectomy: Yes Cardiac Surgery: No Cholecystectomy: No Lung Surgery: No Neurologic Surgery: No Orthopedic Surgery: No - Reproductive History PID: No - Psycho Social/Smoking Cessation Hx Smoking History: Unknown if ever smoked Have you smoked in the past 12 months: Yes Number of Cigarettes Smoked Daily: 10 Information on smoking cessation initiated: Yes 'Breaking Loose' booklet given: 12/27/18 Hx Alcohol Use: Yes Drug/Substance Use Hx: Yes Substance Use Type: Alcohol, Marijuana Hx Substance Use Treatment: No Abd/GI Specific PMHX - Complaint Specific PMHX Hepatitis: No Pancreatitis: No *Physical Exam - Vital Signs Last Vital Signs Temp Pulse Resp BP Pulse Ox 99.6 F 134 H 16 153/113 H 99 02/21/19 06:24 02/21/19 06:24 02/21/19 06:24 02/21/19 06:24 02/21/19 06:24 ED Treatment Course - LABORATORY CBC & Chemistry Diagram: 02/22/19 06:30 02/24/19 07:29 Discharge - Discharge Information Problems reviewed: Yes Clinical Impression/Diagnosis: Nausea and vomiting, Alcohol abuse, Alcoholic ketoacidosis Condition: Stable - Follow up/Referral - Patient Discharge Instructions - Post Discharge Activity
[2019-02-21] MEDS ORDERED: ONDANSETRON 4 MG/2 ML VIAL ONE (07:03)
[2019-02-21] MEDS ORDERED: FAMOTIDINE 20 MG/50 ML IVPB 50 ML IVPB ONE (07:20)
[2019-02-21] MEDS ORDERED: FAMOTIDINE 20 MG/50 ML IVPB 20 MG/50 ML MG IVPB ONE ×2 (07:33→08:30)
[2019-02-21 09:25] LABS: BASO % 0.6 % (0-2.0); HEMATOCRIT 37.1 % (32.4-45.2); HEMOGLOBIN 12.1 GM/dL (10.7-15.3); LYMPH % 5.2 % (8-40); MCH 32.9 pg (25.7-33.7); MCHC 32.7 g/dl (32.0-36.0); MEAN CELL VOLUME 100.6 fl (80-96); MONO % 6.6 % (3.8-10.2); NEUT % 87.6 % (42.8-82.8); PLATELET COUNT 173 K/MM3 (134-434); RBC 3.69 M/mm3 (3.60-5.2); RDW 14.3 % (11.6-15.6); WHITE BLOOD COUNT 9.7 K/mm3 (4.0-10.0)
[2019-02-21] MEDS ORDERED: SODIUM CHLORIDE 1,000 ML IV STA (09:29)
[2019-02-21] MEDS ORDERED: chlordiazePOXIDE HCL 25 MG CAPSULE PO ONE (09:29)
[2019-02-21] MEDS ORDERED: chlordiazePOXIDE HCL 25 MG CAPSULE ONE (09:33)
[2019-02-21 10:03] LABS: ALBUMIN 4.3 g/dl (3.4-5.0); ALK PHOS 157 U/L (45-117); ANION GAP 24 MMOL/L (8-16); BLOOD UREA NITROGEN 8.9 mg/dL (7-18); CALCIUM 9.3 mg/dL (8.5-10.1); CHLORIDE 97 mmol/L (98-107); CO2 14 mmol/L (21-32); CREATININE 0.8 mg/dL (0.55-1.3); GLUCOSE,RANDOM 150 mg/dL (74-106); POTASSIUM 4.4 mmol/L (3.5-5.1); SGOT/AST 47 U/L (15-37); SGPT/ALT 22 U/L (13-61); SODIUM 135 mmol/L (136-145); TOT PROT 8.9 g/dl (6.4-8.2)
[2019-02-21] MEDS ORDERED: FOLIC ACID INJECTION - 1 MG, THIAMINE HCL 100 MG, MULTIVIT INJECTION ADULT 10 ML in SOD... IVPB ONE (10:12)
[2019-02-21] MEDS ORDERED: DEXTROSE 50%-WATER - 25 GM/50 ML VIAL IVPUSH ONE (10:13)
--- NOTE | 2019-02-21 10:19 | PDOC ---
*Physical Exam - Vital Signs Last Vital Signs Temp Pulse Resp BP Pulse Ox 99.0 F 99 H 18 130/93 98 02/21/19 09:43 02/21/19 10:01 02/21/19 10:01 02/21/19 09:43 02/21/19 10:01 ED Treatment Course - LABORATORY CBC & Chemistry Diagram: 02/21/19 06:55 02/21/19 06:55 - ADDITIONAL ORDERS Additional order review: Laboratory Results 02/21/19 02/21/19 02/21/19 06:55 06:55 06:55 Sodium 135 L Potassium 4.4 Chloride 97 L Carbon Dioxide 14 L Anion Gap 24 H BUN 8.9 Creatinine 0.8 Est GFR (CKD-EPI)AfAm 113.06 Est GFR (CKD-EPI)NonAf 97.55 Random Glucose 150 H Lactic Acid 3.3 H* Calcium 9.3 Total Bilirubin 1.0 AST 47 H ALT 22 Alkaline Phosphatase 157 H Total Protein 8.9 H Albumin 4.3 Lipase 141 Beta-Hydroxybutyrate 68.2 H Urine HCG, Qual Alcohol, Quantitative < 3 02/21/19 06:50 Sodium Potassium Chloride Carbon Dioxide Anion Gap BUN Creatinine Est GFR (CKD-EPI)AfAm Est GFR (CKD-EPI)NonAf Random Glucose Lactic Acid Calcium Total Bilirubin AST ALT Alkaline Phosphatase Total Protein Albumin Lipase Beta-Hydroxybutyrate Urine HCG, Qual Negative Alcohol, Quantitative 02/21/19 06:55 RBC 3.69 MCV 100.6 H MCHC 32.7 RDW 14.3 MPV 9.0 Neutrophils % 87.6 H D Lymphocytes % 5.2 L D Monocytes % 6.6 Eosinophils % 0.0 D Basophils % 0.6 - Medications Given in the ED: ED Medications Discontinued Medications Generic Name Dose Route Start Last Admin Trade Name Freq PRN Reason Stop Dose Admin Chlordiazepoxide HCl 100 mg 02/21/19 09:29 02/21/19 09:35 Librium - PO 02/21/19 09:30 100 mg ONCE ONE Administration Sodium Chloride 1,000 mls @ 1,000 mls/hr 02/21/19 06:49 02/21/19 07:03 Normal Saline - IV 02/21/19 07:48 1,000 mls/hr .Q1H ONE Administration Famotidine/Sodium Chloride 20 mg in 50 mls @ 100 mls/hr 02/21/19 08:30 07:40 Pepcid 20 Mg Premixed Ivpb - IVPB 02/21/19 08:59 100 mls/hr ONCE ONE Administration Ondansetron HCl 8 mg 02/21/19 06:49 02/21/19 07:06 Zofran Injection IVPB 02/21/19 06:50 8 mg ONCE ONE Administration Medical Decision Making - Medical Decision Making 02/21/19 10:17 Sign out received at 7am Pt is 33 F with h/o significant ETOH abuse, recently admitted for alcoholic ketoacidosis, presenting today with nausea, vomiting. Pt denies any recent ETOH , states last drink was several days ago. Labs notable for AG >20, + ketones, normal glucose, elevated lactate Serum alcohol negative Consistent with alcoholic ketoacidosis Pt given 2L NS, banana bag, and D50 Also given librium for mild withdrawal Will admit to hospital Discharge - Discharge Information Problems reviewed: Yes Clinical Impression/Diagnosis: Nausea and vomiting, Alcohol abuse, Alcoholic ketoacidosis Condition: Stable - Admission Yes - Follow up/Referral Referrals: Kermit Cook MD [Primary Care Provider] - - Patient Discharge Instructions - Post Discharge Activity
[2019-02-21] MEDS ORDERED: THIAMINE HCL 200 MG/2 ML VIAL ONE (10:38)
[2019-02-21] MEDS ORDERED: DEXTROSE 50%-WATER 25 GM/50 ML DISP.SYRIN ONE (10:38)
[2019-02-21] MEDS ORDERED: FOLIC ACID 5 MG/1 ML ONE (10:39)
[2019-02-21] MEDS ORDERED: MULTIVIT INJ. ADULT COMBO WITH VIT K 1 COMBO 10 ML VIAL IV ONE (10:39)
[2019-02-21] MEDS ORDERED: ONDANSETRON 4 MG/2 ML VIAL IVPUSH PRN (11:39)
[2019-02-21] MEDS ORDERED: THIAMINE HCL 100 MG TABLET (FP) PO ONE (11:41)
[2019-02-21] MEDS ORDERED: D5-1/2NS+10 MEQ KCL - 1,000 ML IV SCH (11:45)
--- NOTE | 2019-02-21 11:52 | HP ---
Admitting History and Physical - Admission Chief Complaint: Nausea vomiting History of Present Illness: 33-year-old female known case of alcoholic abuse, recently discharged from [facility] on January 28, 2019 after treated for a starvation/alcoholic ketoacidosis, patient was admitted in the ICU, today presents with 2 days history of intractable nausea vomiting after binge drinking, as per patient last drink was on , also complained of mild epigastric pain, patient says she is unable to tolerate anything, no complaint of hematemesis or melena, in the ED work-up shows anion gap metabolic acidosis with elevated beta hydroxybutyrate and lactic acid, patient is being admitted for further management of metabolic acidosis. - Past Medical History ...LMP: 12/08/18 Psych: Yes: Other (EtOH abuse) - Smoking History Smoking history: Unknown if ever smoked Have you smoked in the past 12 months: Yes Aproximately how many cigarettes per day: 10 - Alcohol/Substance Use Hx Alcohol Use: Yes - Social History Usual Living Arrangement: Yes: Alone Home Medications - Allergies Allergies/Adverse Reactions: Allergies Allergy/AdvReac Type Severity Reaction Status Date / Time amoxicillin Allergy Severe Swelling Verified 01/23/19 13:16 banana Allergy Severe Hives Verified 01/23/19 13:16 - Home Medications Home Medications: Ambulatory Orders NK [No Known Home Medication] 02/21/19 Family Medical History Family Hx Cancer: Father (Hypertension) Review of Systems - Review of Systems Constitutional: reports: Lethargy, Malaise Eyes: denies: Blind Spots, Blurred Vision HENT: denies: Difficult Swallowing, Ear Discharge, Ear Pain Neck: denies: Decreased ROM, Lumps, Pain on Movement Cardiovascular: denies: Chest Pain, Edema, Palpitations, Shortness of Breath Respiratory: denies: Cough, Exercise Intolerance, Hemoptysis, Orthopnea Gastrointestinal: reports: Abdominal Pain, Nausea, Vomiting Genitourinary: denies: Burning, Discharge Breasts: denies: Breast Implants, Discharge from Nipple Musculoskeletal: denies: Back Pain, Crepitus, Decreased ROM Neurological: denies: Change in Speech, Confusion Endocrine: denies: Excessive Sweating, Flushing, Increased Hunger Psychiatric: reports: Anxiety. denies: Altered Sleep Pattern Physical Examination Vital Signs: Vital Signs Temperature 99.0 F 02/21/19 09:43 Pulse Rate 99 H 02/21/19 10:01 Respiratory Rate 18 02/21/19 10:01 Blood Pressure 130/93 02/21/19 09:43 O2 Sat by Pulse Oximetry (%) 98 02/21/19 10:01 General: Young female, looks anxious, nystagmus Neck: No JVD, supple, no bruit, thyroid palpably normal, normal carotid pulsations. Chest: Non-tender, clear to auscultation . CVS: S1-S2 regular no murmur/gallop/rub Abdomen: Nondistended, soft, bowel sounds present. Extremities: No edema., No cough tenderness, pulses present OPERATIONS REPRESENTATIVE: AO X3 , no gross motor sensory deficit Labs: WBC 9.7 K/mm3 (4.0-10.0) 02/21/19 06:55 RBC 3.69 M/mm3 (3.60-5.2) 02/21/19 06:55 Hgb 12.1 GM/dL (10.7-15.3) 02/21/19 06:55 Hct 37.1 % (32.4-45.2) 02/21/19 06:55 MCV 100.6 fl (80-96) H 02/21/19 06:55 MCH 32.9 pg (25.7-33.7) 02/21/19 06:55 MCHC 32.7 g/dl (32.0-36.0) 02/21/19 06:55 RDW 14.3 % (11.6-15.6) 02/21/19 06:55 Plt Count 173 K/MM3 (134-434) 02/21/19 06:55 MPV 9.0 fl (7.5-11.1) 02/21/19 06:55 Absolute Neuts (auto) 8.5 K/mm3 (1.5-8.0) H 02/21/19 06:55 Neutrophils % 87.6 % (42.8-82.8) H D 02/21/19 06:55 Lymphocytes % 5.2 % (8-40) L D 02/21/19 06:55 Monocytes % 6.6 % (3.8-10.2) 02/21/19 06:55 Eosinophils % 0.0 % (0-4.5) D 02/21/19 06:55 Basophils % 0.6 % (0-2.0) 02/21/19 06:55 Nucleated RBC % 0 % (0-0) 02/21/19 06:55 Sodium 135 mmol/L (136-145) L 02/21/19 06:55 Potassium 4.4 mmol/L (3.5-5.1) 02/21/19 06:55 Chloride 97 mmol/L (98-107) L 02/21/19 06:55 Carbon Dioxide 14 mmol/L (21-32) L 02/21/19 06:55 Anion Gap 24 MMOL/L (8-16) H 02/21/19 06:55 BUN 8.9 mg/dL (7-18) 02/21/19 06:55 Creatinine 0.8 mg/dL (0.55-1.3) 02/21/19 06:55 Est GFR (CKD-EPI)AfAm 113.06 02/21/19 06:55 Est GFR (CKD-EPI)NonAf 97.55 02/21/19 06:55 POC Glucometer 98 UNITS (80-120) 02/21/19 10:31 Random Glucose 150 mg/dL (74-106) H 02/21/19 06:55 Lactic Acid 1.0 mmol/L (0.4-2.0) 02/21/19 10:30 Calcium 9.3 mg/dL (8.5-10.1) 02/21/19 06:55 Total Bilirubin 1.0 mg/dL (0.2-1) 02/21/19 06:55 AST 47 U/L (15-37) H 02/21/19 06:55 ALT 22 U/L (13-61) 02/21/19 06:55 Alkaline Phosphatase 157 U/L (45-117) H 02/21/19 06:55 Total Protein 8.9 g/dl (6.4-8.2) H 02/21/19 06:55 Albumin 4.3 g/dl (3.4-5.0) 02/21/19 06:55 Lipase 141 U/L (73-393) 02/21/19 06:55 Beta-Hydroxybutyrate 68.2 mg/dL (0.2-2.8) H 02/21/19 06:55 Problem List - Problems (1) Alcoholic ketoacidosis Assessment/Plan: Patient presents with alcoholic ketoacidosis with a starvation ketosis, continue D5 half-normal saline with KCl 100 cc/h, follow-up BMP and lactic acid level in the p.m. follow-up VBG. Problems reviewed: Yes Code(s): E87.2 - ACIDOSIS (2) Alcohol withdrawal Assessment/Plan: Continue thiamine, folic acid, Librium protocol, observe closely for DTs/ seizures, follow-up magnesium BMP and phosphate level. Problems reviewed: Yes Code(s): F10.239 - ALCOHOL DEPENDENCE WITH WITHDRAWAL, UNSPECIFIED Qualifiers: Complication of substance-induced condition: with unspecified complication Qualified Code(s): F10.239 - Alcohol dependence with withdrawal, unspecified (3) Nausea and vomiting Assessment/Plan: Continue IV hydration, diet as tolerates, IV Zofran 4 mg every 6 hourly, IV famotidine 20 mg twice daily. Problems reviewed: Yes Code(s): R11.2 - NAUSEA WITH VOMITING, UNSPECIFIED (4) Alcohol abuse Assessment/Plan: Report of alcohol detox/rehab program follow-up with social services technician. Problems reviewed: Yes Code(s): F10.10 - ALCOHOL ABUSE, UNCOMPLICATED
[2019-02-21 12:59] LABS: EPITHELIAL CELLS FEW /hpf
[2019-02-21] MEDS ORDERED: D5-1/2NS+10 MEQ KCL - 10 MEQ/1,000 ML INFUS.BAG IV SCH (13:00)
[2019-02-21 13:12] LABS: VENOUS PC02 32.5 mmHg (38-52); VENOUS PH 7.37 (7.31-7.41); VENOUS PO2 < 49 mmHg (28-48)
[2019-02-21] MEDS: chlordiazePOXIDE HCL 25 MG CAPSULE PO PRN ×2 (16:19→22:05)
[2019-02-21 17:13] LABS: CALCIUM 8.6 mg/dl (8.5-10); CREATININE 0.6 mg/dl (0.55-1.3); POTASSIUM 3.6 mmol/L (3.5-5.1)
[2019-02-21] MEDS: THIAMINE HCL 100 MG TABLET (FP) PO SCH (21:25)
[2019-02-21] MEDS ORDERED: FAMOTIDINE 20 MG/50 ML IVPB 20 MG/50 ML MG IVPB SCH (22:00)
[2019-02-22] MEDS: chlordiazePOXIDE HCL 25 MG CAPSULE PO PRN ×2 (06:33→12:50)
[2019-02-22] MEDS ORDERED: chlordiazePOXIDE HCL 25 MG CAPSULE PO ONE (08:27)
[2019-02-22] MEDS ORDERED: LORazepam 2 MG/ML SDV VIAL IVPUSH PRN (08:29)
[2019-02-22 08:35] LABS: BASO % 0.8 % (0-2.0); EOS % 2.2 % (0-4.5); HEMATOCRIT 34.1 % (32.4-45.2); HEMOGLOBIN 11.4 GM/dl (10.7-15.3); LYMPH % 27.1 % (8-40); MCHC 33.3 g/dl (32.0-36.0); MEAN CELL VOLUME 98.9 fl (80-96); NEUT % 57.9 % (42.8-82.8); PLATELET COUNT 111 K/MM3 (134-434); RBC 3.44 M/mm3 (3.60-5.2); RDW 13.2 % (11.6-15.6); WHITE BLOOD COUNT 3.3 K/mm3 (4.0-10.8)
[2019-02-22 08:39] LABS: ALBUMIN 3.8 g/dl (3.4-5.0); CALCIUM 8.9 mg/dl (8.5-10); CREATININE 0.6 mg/dl (0.55-1.3); MAGNESIUM 1.5 mg/dL (1.8-2.4); POTASSIUM 3.5 mmol/L (3.5-5.1); TOT PROT 6.8 g/dl (6.4-8.2)
[2019-02-22] MEDS: D5-1/2NS+10 MEQ KCL - 10 MEQ/1,000 ML INFUS.BAG IV SCH (10:16)
[2019-02-22] MEDS: THIAMINE HCL 100 MG TABLET (FP) PO SCH ×2 (10:16→21:04)
--- NOTE | 2019-02-22 10:27 | PN ---
Physical Exam: SUBJECTIVE: Patient seen and examined,. Pt reports feeling better, denies cp, sob,palpitations, abdominal pain, N/V, reports multiple small soft stools, no hematochezia. OBJECTIVE: Vital Signs Period Temp Pulse Resp BP Sys/[place] Pulse Ox Last 24 Hr 97.9 F-99.1 F 77-110 17-20 109-155/78-108 98-100 GENERAL: The patient is awake, alert, and fully oriented, in no acute distress. HEAD: Normal with no signs of trauma. EYES: PERRL, extraocular movements intact, sclera anicteric, conjunctiva clear. No ptosis. ENT: Ears normal, nares patent, oropharynx clear without exudates, moist mucous membranes. NECK: Trachea midline, full range of motion, supple. LUNGS: Breath sounds equal, clear to auscultation bilaterally, no wheezes, no crackles, no accessory muscle use. HEART: Regular rate and rhythm, S1, S2 without murmur, rub or gallop. ABDOMEN: Soft, nontender, nondistended, normoactive bowel sounds, no guarding, no rebound, no hepatosplenomegaly, no masses. EXTREMITIES: 2+ pulses, warm, well-perfused, no edema. NEUROLOGICAL: Cranial nerves II through XII grossly intact. Normal speech, gait not observed. PSYCH: Normal mood, normal affect. SKIN: Warm, dry, normal turgor, no rashes or lesions noted Laboratory Results - last 24 hr 02/21/19 02/21/19 02/21/19 06:50 06:50 06:55 WBC RBC Hgb Hct MCV MCH MCHC RDW Plt Count MPV Absolute Neuts (auto) Neutrophils % Lymphocytes % Monocytes % Eosinophils % Basophils % VBG pH POC VBG pCO2 POC VBG pO2 VBG HCO3 VBG O2 Sat ([place]) VBG Base Excess Sodium 135 L Potassium 4.4 Chloride 97 L Carbon Dioxide 14 L Anion Gap 24 H BUN 8.9 Creatinine 0.8 Est GFR (CKD-EPI)AfAm 113.06 Est GFR (CKD-EPI)NonAf 97.55 POC Glucometer Random Glucose 150 H Lactic Acid Calcium 9.3 Magnesium Total Bilirubin 1.0 AST 47 H ALT 22 Alkaline Phosphatase 157 H Total Protein 8.9 H Albumin 4.3 Beta-Hydroxybutyrate 68.2 H Urine Color Yellow Urine Appearance Clear Urine pH 6.0 Urine Protein 3+ H Urine Glucose (UA) Negative Urine Ketones 4+ H Urine Blood 3+ H Urine Nitrite Negative Urine Bilirubin 1+ H Urine Urobilinogen 0.2 Ur Leukocyte Esterase Negative Urine RBC 0-2 Urine WBC None seen Ur Transition Epith Cell Few Urine HCG, Qual Negative Alcohol, Quantitative < 3 02/21/19 02/21/19 02/21/19 10:30 10:31 11:50 WBC RBC Hgb Hct MCV MCH MCHC RDW Plt Count MPV Absolute Neuts (auto) Neutrophils % Lymphocytes % Monocytes % Eosinophils % Basophils % VBG pH 7.37 POC VBG pCO2 32.5 L POC VBG pO2 < 49 H VBG HCO3 18.5 L VBG O2 Sat ([place]) 63.6 L VBG Base Excess -5.3 L Sodium Potassium Chloride Carbon Dioxide Anion Gap BUN Creatinine Est GFR (CKD-EPI)AfAm Est GFR (CKD-EPI)NonAf POC Glucometer 98 Random Glucose Lactic Acid 1.0 Calcium Magnesium Total Bilirubin AST ALT Alkaline Phosphatase Total Protein Albumin Beta-Hydroxybutyrate Urine Color Urine Appearance Urine pH Urine Protein Urine Glucose (UA) Urine Ketones Urine Blood Urine Nitrite Urine Bilirubin Urine Urobilinogen Ur Leukocyte Esterase Urine RBC Urine WBC Ur Transition Epith Cell Urine HCG, Qual Alcohol, Quantitative 02/21/19 02/22/19 02/22/19 16:30 06:30 06:30 WBC 3.3 L RBC 3.44 L Hgb 11.4 Hct 34.1 MCV 98.9 H MCH 33.0 MCHC 33.3 RDW 13.2 Plt Count 111 L MPV 8.0 Absolute Neuts (auto) 1.9 Neutrophils % 57.9 Lymphocytes % 27.1 Monocytes % 12.0 H Eosinophils % 2.2 Basophils % 0.8 VBG pH POC VBG pCO2 POC VBG pO2 VBG HCO3 VBG O2 Sat ([place]) VBG Base Excess Sodium 134 L 136 Potassium 3.6 3.5 Chloride 102 100 Carbon Dioxide 22 24 Anion Gap 10 12 BUN 4.0 L 4.0 L Creatinine 0.6 0.6 Est GFR (CKD-EPI)AfAm 139.78 139.78 Est GFR (CKD-EPI)NonAf 120.61 120.61 POC Glucometer Random Glucose 110 H 100 Lactic Acid Calcium 8.6 8.9 Magnesium 1.5 L Total Bilirubin 1.0 AST 33 ALT 14 Alkaline Phosphatase 86 D Total Protein 6.8 Albumin 3.8 Beta-Hydroxybutyrate Urine Color Urine Appearance Urine pH Urine Protein Urine Glucose (UA) Urine Ketones Urine Blood Urine Nitrite Urine Bilirubin Urine Urobilinogen Ur Leukocyte Esterase Urine RBC Urine WBC Ur Transition Epith Cell Urine HCG, Qual Alcohol, Quantitative Active Medications Generic Name Dose Route Start Last Admin Trade Name Freq PRN Reason Stop Dose Admin Chlordiazepoxide HCl 25 mg 02/21/19 11:40 02/22/19 06:33 Librium - PO 25 mg Q6H PRN Administration WITHDRAWAL(CONT SUBST) Chlordiazepoxide HCl 25 mg 02/22/19 14:00 Librium - PO [id number] ANDREEA Famotidine/Sodium Chloride 20 mg in 50 mls @ 100 mls/hr 02/21/19 22:00 21:25 Pepcid 20 Mg Premixed Ivpb - IVPB 100 mls/hr BID ANDREEA Administration Potassium Chloride/Dextrose/Sod Cl 10 meq in 1,000 mls @ 100 mls/hr 02/21/19 13:00 02/21/19 13:30 D5-1/2ns+10 Meq Kcl - IV 100 mls/hr ASDIR ANDREEA Administration Lorazepam 1 mg 02/22/19 08:29 Ativan Injection - IVPUSH Q6H PRN Anxiety/ DT Ondansetron HCl 4 mg 02/21/19 11:39 Zofran Injection IVPUSH Q6H PRN NAUSEA Thiamine HCl 100 mg 02/21/19 22:00 02/21/19 21:25 Vitamin B1 - PO 100 mg BID ANDREEA Administration ASSESSMENT/PLAN: 33-year-old female known case of alcoholic abuse, recently discharged from [facility] on January 28, 2019 after treated for a starvation/alcoholic ketoacidosis,who presents with 2 days history of intractable nausea vomiting after binge drinking. * Alcoholic ketoacidosis - Urine Ketones 4+,3+ protein - Lactic acid 3.3, Rpt lab 1 - will cont on IVF - ABG reviewed * ETOH dependency - HR 103's this AM - added Librium 25,g Q 6hrs and PRN Ativan - will cont on Librium PRN, Folate and Thiamine - will monitor for DT - SW referral for alcohol detox/rehab program *Nausea and vomiting- resolved - Diet everette well * F/E/N-Regular diet Will cont on IVF Replace electrolytes as needed * VTE Prophylaxis: Lovenox Visit type - Emergency Visit Emergency Visit: Yes ED Registration Date: 02/21/19 Care time: The patient presented to the Emergency Department on the above date and was hospitalized for further evaluation of their emergent condition. - New Patient This patient is new to me today: Yes Date on this admission: 02/22/19 - Critical Care Critical Care patient: No
[2019-02-22] MEDS: ENOXAPARIN NA (PORCINE) 40 MG/0.4 ML DISP.SYRIN SQ SCH (12:16)
[2019-02-22] MEDS: FOLIC ACID 1 MG TABLET (FP) PO SCH (12:16)
[2019-02-22] MEDS: LORazepam 0.5 MG TABLET PO PRN ×2 (13:54→20:36)
[2019-02-22] MEDS: chlordiazePOXIDE HCL 25 MG CAPSULE PO SCH ×3 (16:07→22:20)
[2019-02-22] MEDS: FAMOTIDINE 10 MG TABLET PO SCH (22:30)
[2019-02-23] MEDS: chlordiazePOXIDE HCL 25 MG CAPSULE PO PRN ×3 (02:03→20:43)
[2019-02-23] MEDS: chlordiazePOXIDE HCL 25 MG CAPSULE PO SCH (05:23)
[2019-02-23 07:19] LABS: CALCIUM 8.9 mg/dl (8.5-10); CREATININE 0.6 mg/dl (0.55-1.3); POTASSIUM 3.1 mmol/L (3.5-5.1)
--- NOTE | 2019-02-23 08:31 | PN ---
Physical Exam: SUBJECTIVE: Patient seen and examined at bedside. Came to the ED for vomiting after binge drinking, not eating. Presently feels too sleepy, feels it was due to ativan. Denies anxiety, sweats, tremors. Has been through detox at [facility] 3 times, not interested in going back. OBJECTIVE: Vital Signs Period Temp Pulse Resp BP Sys/[place] Pulse Ox Last 24 Hr 98.0 F-98.6 F 77-98 16-18 105-121/71-90 97-100 GENERAL: The patient is awake, alert, and fully oriented, in no acute distress. HEAD: Normal with no signs of trauma. LUNGS: Breath sounds equal, clear to auscultation bilaterally, no wheezes, no crackles, no accessory muscle use. HEART: Regular rate and rhythm, S1, S2 without murmur, rub or gallop. ABDOMEN: Soft, nontender, nondistended, normoactive bowel sounds, no guarding, no rebound, no hepatosplenomegaly, no masses. EXTREMITIES: 2+ pulses, warm, well-perfused, no edema. NEUROLOGICAL: Cranial nerves II through XII grossly intact. Normal speech. Positions easily in bed. No tremors, no asterixis. Laboratory Results - last 24 hr 02/22/19 02/22/19 02/23/19 06:30 06:30 07:01 WBC 3.3 L RBC 3.44 L Hgb 11.4 Hct 34.1 MCV 98.9 H MCH 33.0 MCHC 33.3 RDW 13.2 Plt Count 111 L MPV 8.0 Absolute Neuts (auto) 1.9 Neutrophils % 57.9 Lymphocytes % 27.1 Monocytes % 12.0 H Eosinophils % 2.2 Basophils % 0.8 Sodium 136 138 Potassium 3.5 3.1 L Chloride 100 104 Carbon Dioxide 24 25 Anion Gap 12 9 BUN 4.0 L 3.0 L Creatinine 0.6 0.6 Est GFR (CKD-EPI)AfAm 139.78 139.78 Est GFR (CKD-EPI)NonAf 120.61 120.61 Random Glucose 100 123 H Calcium 8.9 8.9 Magnesium 1.5 L Total Bilirubin 1.0 AST 33 ALT 14 Alkaline Phosphatase 86 D Total Protein 6.8 Albumin 3.8 Active Medications Generic Name Dose Route Start Last Admin Trade Name Freq PRN Reason Stop Dose Admin Chlordiazepoxide HCl 25 mg 02/21/19 11:40 02/23/19 02:03 Librium - PO 25 mg Q6H PRN Administration WITHDRAWAL(CONT SUBST) Chlordiazepoxide HCl 25 mg 02/22/19 14:00 02/23/19 05:23 Librium - PO 25 mg [id number] ANDREEA Administration Chlordiazepoxide HCl 10 mg 02/23/19 12:00 Librium - PO 02/24/19 05:01 [id number] ANDREEA Chlordiazepoxide HCl 10 mg 02/24/19 11:00 Librium - PO 02/24/19 23:01 Q12H ANDREEA Chlordiazepoxide HCl 10 mg 02/25/19 11:00 Librium - PO 02/25/19 11:01 ONCE ONE Enoxaparin Sodium 40 mg 02/22/19 12:00 02/22/19 12:16 Lovenox - SQ 40 mg DAILY ANDREEA Administration Famotidine 10 mg 02/22/19 22:00 02/22/19 22:30 Acid Career Education Teacher PO 10 mg BID ANDREEA Administration Folic Acid 1 mg 02/22/19 12:00 02/22/19 12:16 Folic Acid - PO 1 mg DAILY ANDREEA Administration Potassium Chloride/Dextrose/Sod Cl 10 meq in 1,000 mls @ 125 mls/hr 02/22/19 10:25 02/22/19 10:16 D5-1/2ns+10 Meq Kcl - IV 125 mls/hr ASDIR ANDREEA Administration Lorazepam 1 mg 02/22/19 13:19 02/22/19 20:36 Ativan - PO 1 mg TID PRN Administration ANXIETY Ondansetron HCl 4 mg 02/21/19 11:39 Zofran Injection IVPUSH Q6H PRN NAUSEA Potassium Chloride 40 meq 02/23/19 08:15 K-Dur - PO 02/23/19 14:16 Q6H ANDREEA Thiamine HCl 100 mg 02/21/19 22:00 02/22/19 21:04 Vitamin B1 - PO 100 mg BID ANDREEA Administration ASSESSMENT/PLAN 33 year-old female with a PHM significant for alcohol abuse. Admitted for acute alcohol withdrawal. Acute alcohol withdrawal Lactic acidosis, resolved --continue librium protocol, monitor for oversedation --thiamine, folic acid daily --d/c ativan Hypokalemia Hypomagnesemia --replete FEN Fluids: PO intake adequate Electrolytes: replete as indicated Nutrition: regular DVT prophylaxis: subq lovenox Dispo: continues to require inpatient care. Full code. Visit type - Emergency Visit Emergency Visit: Yes ED Registration Date: 02/21/19 Care time: The patient presented to the Emergency Department on the above date and was hospitalized for further evaluation of their emergent condition. - New Patient This patient is new to me today: Yes Date on this admission: 02/23/19 - Critical Care Critical Care patient: No
[2019-02-23] MEDS: THIAMINE HCL 100 MG TABLET (FP) PO SCH ×2 (09:32→22:16)
[2019-02-23] MEDS: FOLIC ACID 1 MG TABLET (FP) PO SCH (09:32)
[2019-02-23] MEDS: POTASSIUM CHLORIDE TABS 20 MEQ TABLET.ER (FP) PO SCH ×2 (09:32→14:23)
[2019-02-23] MEDS: ENOXAPARIN NA (PORCINE) 40 MG/0.4 ML DISP.SYRIN SQ SCH (09:36)
[2019-02-23] MEDS: D5-1/2NS+10 MEQ KCL - 10 MEQ/1,000 ML INFUS.BAG IV SCH (11:24)
[2019-02-23] MEDS ORDERED: PT OWN MED DRAWER 7, Y5N ONE ×2 (12:10→20:40)
[2019-02-23] MEDS ORDERED: MAGNESIUM 2GM/50ML STERILE WATER IVPB IVPB ONE (12:15)
[2019-02-23] MEDS: FAMOTIDINE 10 MG TABLET PO SCH ×2 (12:28→22:16)
[2019-02-23] MEDS: chlordiazePOXIDE HCL 10 MG CAPSULE PO SCH ×3 (12:29→22:51)
[2019-02-23] MEDS ORDERED: LORazepam 0.5 MG TABLET PO ONE (14:06)
[2019-02-23 17:42] VITALS: BMI 21.4
[2019-02-24] MEDS: chlordiazePOXIDE HCL 25 MG CAPSULE PO PRN ×3 (02:22→23:04)
[2019-02-24] MEDS: chlordiazePOXIDE HCL 10 MG CAPSULE PO SCH ×3 (04:19→22:00)
--- NOTE | 2019-02-24 05:52 | PN ---
Physical Exam: SUBJECTIVE: Patient seen and examined at bedside. Feeling better, calmer, no tremors. Some lip twitching and teeth grinding but thinks these may be chronic symtpoms of her anxiety. OBJECTIVE: Vital Signs Period Temp Pulse Resp BP Sys/[place] Pulse Ox Last 24 Hr 97.9 F-98.8 F 79-108 17-18 104-124/73-93 97-100 GENERAL: The patient is awake, alert, and fully oriented, in no acute distress. HEAD: Normal with no signs of trauma. LUNGS: Breath sounds equal, clear to auscultation bilaterally, no wheezes, no crackles, no accessory muscle use. HEART: Regular rate and rhythm, S1, S2 without murmur, rub or gallop. ABDOMEN: Soft, nontender, nondistended, normoactive bowel sounds, no guarding, no rebound, no hepatosplenomegaly, no masses. EXTREMITIES: 2+ pulses, warm, well-perfused, no edema. NEUROLOGICAL: Cranial nerves II through XII grossly intact. Normal speech. Positions easily in bed. No tremors, no asterixis. Laboratory Results - last 24 hr 02/21/19 02/21/19 02/23/19 06:50 16:30 06:45 Sodium 134 L Potassium 3.6 Chloride 102 Carbon Dioxide 22 Anion Gap 10 BUN 4.0 L Creatinine 0.6 Est GFR (CKD-EPI)AfAm 139.78 Est GFR (CKD-EPI)NonAf 120.61 Random Glucose 110 H Calcium 8.6 Phosphorus Cancelled Magnesium Cancelled 1.2 L Urine RBC Cancelled Urine WBC Cancelled Ur Transition Epith Cell Cancelled Urine Crystals Cancelled Calcium Oxalate Crystal Cancelled Uric Acid Crystals Cancelled Triple Phos Crystals Cancelled Amorphous Phosphates Cancelled Amorphous Urates Cancelled Amorphous Sediment Cancelled Urine Bacteria Cancelled Urine Casts Cancelled Hyaline Casts Cancelled Granular Casts Cancelled Waxy Casts Cancelled RBC Casts Cancelled WBC Casts Cancelled Urine Mucus Cancelled Urine Other Cancelled Urine Trichomonas Cancelled Urine Yeast Cancelled 02/23/19 02/23/19 07:01 12:13 Sodium 138 Potassium 3.1 L Chloride 104 Carbon Dioxide 25 Anion Gap 9 BUN 3.0 L Creatinine 0.6 Est GFR (CKD-EPI)AfAm 139.78 Est GFR (CKD-EPI)NonAf 120.61 Random Glucose 123 H Calcium 8.9 Phosphorus Magnesium 1.2 L Urine RBC Urine WBC Ur Transition Epith Cell Urine Crystals Calcium Oxalate Crystal Uric Acid Crystals Triple Phos Crystals Amorphous Phosphates Amorphous Urates Amorphous Sediment Urine Bacteria Urine Casts Hyaline Casts Granular Casts Waxy Casts RBC Casts WBC Casts Urine Mucus Urine Other Urine Trichomonas Urine Yeast Active Medications Generic Name Dose Route Start Last Admin Trade Name Freq PRN Reason Stop Dose Admin Chlordiazepoxide HCl 25 mg 02/21/19 11:40 02/24/19 02:22 Librium - PO 25 mg Q6H PRN Administration WITHDRAWAL(CONT SUBST) Chlordiazepoxide HCl 10 mg 02/24/19 11:00 Librium - PO 02/24/19 23:01 Q12H ANDREEA Chlordiazepoxide HCl 10 mg 02/25/19 11:00 Librium - PO 02/25/19 11:01 ONCE ONE Enoxaparin Sodium 40 mg 02/22/19 12:00 02/23/19 09:36 Lovenox - SQ 40 mg DAILY ANDREEA Administration Famotidine 10 mg 02/22/19 22:00 02/23/19 22:16 Acid Fruit Canner PO 10 mg BID ANDREEA Administration Folic Acid 1 mg 02/22/19 12:00 02/23/19 09:32 Folic Acid - PO 1 mg DAILY ANDREEA Administration Ondansetron HCl 4 mg 02/21/19 11:39 Zofran Injection IVPUSH Q6H PRN NAUSEA Thiamine HCl 100 mg 02/21/19 22:00 02/23/19 22:16 Vitamin B1 - PO 100 mg BID ANDREEA Administration ASSESSMENT/PLAN 33 year-old female with a PHM significant for alcohol abuse. Admitted for acute alcohol withdrawal. Acute alcohol withdrawal Lactic acidosis, resolved --yesterday had episode of anxiety, crying, gave one dose lorazepam 0.5 mg to good effect; avoid standing dose of benzos as it led to oversedation --mildly tachycardic to 100s, continue to monitor, defer start BB --continue librium protocol --thiamine, folic acid daily Hypomagnesemia --replete FEN Fluids: PO intake adequate Electrolytes: replete as indicated Nutrition: regular DVT prophylaxis: subq lovenox Dispo: continues to require inpatient care. Full code. Visit type - Emergency Visit Emergency Visit: Yes ED Registration Date: 02/21/19 Care time: The patient presented to the Emergency Department on the above date and was hospitalized for further evaluation of their emergent condition. - New Patient This patient is new to me today: No - Critical Care Critical Care patient: No
[2019-02-24 08:12] LABS: ALBUMIN 3.8 g/dl (3.4-5.0); BILIRUBIN,TOTAL 0.7 mg/dl (0.2-1); CALCIUM 9.5 mg/dl (8.5-10); CREATININE 0.6 mg/dl (0.55-1.3); MAGNESIUM 1.7 mg/dL (1.8-2.4); POTASSIUM 3.8 mmol/L (3.5-5.1); TOT PROT 6.9 g/dl (6.4-8.2)
[2019-02-24] MEDS ORDERED: PT OWN MED DRAWER 7, Y5N ONE ×2 (09:33→20:59)
[2019-02-24] MEDS: THIAMINE HCL 100 MG TABLET (FP) PO SCH ×2 (10:00→21:29)
[2019-02-24] MEDS: FOLIC ACID 1 MG TABLET (FP) PO SCH (10:00)
[2019-02-24] MEDS ORDERED: MAGNESIUM OXIDE 400 MG TABLET (FP) PO ONE (10:15)
[2019-02-24] MEDS: ENOXAPARIN NA (PORCINE) 40 MG/0.4 ML DISP.SYRIN SQ SCH (10:30)
[2019-02-24] MEDS: FAMOTIDINE 10 MG TABLET PO SCH ×2 (11:00→21:29)
[2019-02-25 06:37] VITALS: BP 117/83; PULSE 88; TEMP 98.2
[2019-02-25] MEDS: chlordiazePOXIDE HCL 25 MG CAPSULE PO PRN (06:43)
[2019-02-25 08:09] LABS: CALCIUM 9.6 mg/dl (8.5-10); CREATININE 0.6 mg/dl (0.55-1.3); MAGNESIUM 1.9 mg/dL (1.8-2.4); POTASSIUM 3.7 mmol/L (3.5-5.1)
[2019-02-25 09:01] LABS: PHOSPHOROUS 1.6 mg/dl (2.5-4.9)
[2019-02-25] MEDS ORDERED: PT OWN MED DRAWER 7, Y5N ONE (09:31)
[2019-02-25] MEDS: FAMOTIDINE 10 MG TABLET PO SCH (09:59)
[2019-02-25] MEDS: FOLIC ACID 1 MG TABLET (FP) PO SCH (10:00)
[2019-02-25] MEDS: ENOXAPARIN NA (PORCINE) 40 MG/0.4 ML DISP.SYRIN SQ SCH (10:00)
[2019-02-25] MEDS: THIAMINE HCL 100 MG TABLET (FP) PO SCH (10:02)
[2019-02-25] MEDS ORDERED: chlordiazePOXIDE HCL 10 MG CAPSULE PO ONE (11:00)
== END 2019-02-25 10:10 | disposition home or self-care (01) | DRG 775 ==
LOC: FER 06:08 → FM/S 11:26
PROVIDERS: ADMIT Internal Medicine; ATTEND Nurse Practitioner Acute Care
DX: F10.230 Alcohol dependence with withdrawal, uncomplicated (principal); E87.2 Acidosis; E83.42 Hypomagnesemia; R11.2 Nausea with vomiting, unspecified; E87.6 Hypokalemia
CPT/HCPCS: 36415; 74150-TC; 80048; 80053; 80307; 81003; 81015; 82010; 82803; 82962; 83605; 83690; 83735; 84100; 84703; 85025; 99285-25; J7030

== ENCOUNTER 2019-04-10 09:14 | Inpatient (IN) | payer OTHER ==
[2019-04-10] MEDS ORDERED: ONDANSETRON 4 MG/2 ML VIAL IVPUSH ONE (09:53)
[2019-04-10] MEDS ORDERED: SODIUM CHLORIDE 0.9% 1000 ML INFUS.BAG IV ONE ×3 (09:53→12:18)
[2019-04-10] MEDS ORDERED: PANTOPRAZOLE SODIUM 40 MG VIAL IVPUSH ONE (09:54)
[2019-04-10] MEDS ORDERED: ONDANSETRON 4 MG/2 ML VIAL ONE (10:00)
[2019-04-10] MEDS ORDERED: PANTOPRAZOLE SODIUM 40 MG VIAL ONE (10:00)
[2019-04-10 10:19] LABS: ALBUMIN 5.1 g/dl (3.4-5.0); CALCIUM 9.1 mg/dl (8.5-10); CREATININE 0.8 mg/dl (0.55-1.3); POTASSIUM 4.6 mmol/L (3.5-5.1); TOT PROT 9.3 g/dl (6.4-8.2)
[2019-04-10 10:31] LABS: RDW 13.8 % (11.6-15.6)
[2019-04-10 10:37] LABS: HEMATOCRIT 40.7 % (32.4-45.2); HEMOGLOBIN 12.9 GM/dl (10.7-15.3); MCHC 31.6 g/dl (32.0-36.0); MEAN CELL VOLUME 98.1 fl (80-96); MEAN PLT VOLUME 8.3 fl (7.5-11.1); PLATELET COUNT 332 K/MM3 (134-434); RBC 4.15 M/mm3 (3.60-5.2); WHITE BLOOD COUNT 16.2 K/mm3 (4.0-10.8)
[2019-04-10 10:49] LABS: ADD RBC MORPHOLOGY YES
[2019-04-10] MEDS ORDERED: LORazepam 2 MG/ML SDV VIAL ONE ×2 (10:51→11:43)
[2019-04-10 11:17] LABS: EPITHELIAL CELLS FEW /hpf; URINE HYALINE CAST 0-2 /lpf
[2019-04-10 11:20] LABS: ANISOCYTOSIS FEW; PLATELET ESTIMATE ADEQUATE
--- NOTE | 2019-04-10 11:23 | PDOC ---
History of Present Illness - General Chief Complaint: Nausea/Vomiting Stated Complaint: NAUSEA, VOMITING History Source: Patient, Unavil. due to pt. cond. - History of Present Illness Initial Comments: 04/10/19 11:20 33-year-old female history of alcohol abuse here today complaining of nausea vomiting and epigastric pain. Patient states her vomiting started last evening her last drink was yesterday around 3 PM. She does have a history of severe alcohol withdrawal and alcoholic ketoacidosis in the past. When asked whether not she wants a detox she is uncertain at this point. States that the emesis has been streaked with coffee-ground or blood-tinged material. Is uncertain whether the first emesis contained blood or not if she was vomiting in the dark denies any fevers or chills no travel no sick contacts no other drug use no cough no shortness of breath no chest pain Past History - Past Medical History Allergies/Adverse Reactions: Allergies Allergy/AdvReac Type Severity Reaction Status Date / Time amoxicillin Allergy Severe Swelling Verified 04/10/19 09:15 banana Allergy Severe Hives Verified 04/10/19 09:15 Home Medications: Ambulatory Orders NK [No Known Home Medication] 04/10/19 Anemia: No Asthma: No Cancer: No Cardiac Disorders: No CVA: No COPD: No CHF: No Dementia: No Diabetes: No GI Disorders: No Disorders: No HTN: No Hypercholesterolemia: No Kidney Stones: No Liver Disease: No Psychiatric Problems: Yes (ANXIETY) Seizures: No Thyroid Disease: No - Surgical History Abdominal Surgery: No Appendectomy: Yes Cardiac Surgery: No Cholecystectomy: No Lung Surgery: No Neurologic Surgery: No Orthopedic Surgery: No - Reproductive History PID: No - Psycho Social/Smoking Cessation Hx Smoking History: Current every day smoker Have you smoked in the past 12 months: Yes Number of Cigarettes Smoked Daily: 10 Information on smoking cessation initiated: Yes 'Breaking Loose' booklet given: 12/27/18 Hx Alcohol Use: (daily) Drug/Substance Use Hx: Yes Substance Use Type: Alcohol, Marijuana Hx Substance Use Treatment: No Review of Systems - Review of Systems Constitutional: No: Chills, Diaphoresis, Fever HEENTM: No: Eye Pain, Blurred Vision Respiratory: No: Cough Cardiac (ROS): Yes: Palpitations ABD/GI: Yes: Nausea, Vomiting : No: Burning, Dysuria Integumentary: No: Bruising, Change in Color Neurological: Yes: Tremors All Other Systems: Reviewed and Negative *Physical Exam - Vital Signs Last Vital Signs Temp Pulse Resp BP Pulse Ox 99.2 F 150 H 20 153/111 H 100 04/10/19 09:15 04/10/19 09:15 04/10/19 09:15 04/10/19 09:15 04/10/19 09:15 - Physical Exam 04/10/19 11:21 Awake alert no acute distress lungs are clear heart is noted to have regular tachycardia no murmurs rubs or gallops are appreciated. Abdomen is soft nontender extremities are warm and well-perfused. Patient is awake alert and oriented x3 does have a baseline resting tremor on exam otherwise is neurologically intact with good strength speech is clear alert and oriented x3 Heart Score/ECG Review #1 General ECG Interpretation: Sinus Rhythm, Normal Intervals, No acute ischemic changes Compared to previous ECG there are: Other (sinus tachycardia 141) ED Treatment Course - LABORATORY CBC & Chemistry Diagram: 04/10/19 09:50 04/10/19 09:50 - ADDITIONAL ORDERS Additional order review: Laboratory Results 04/10/19 04/10/19 04/10/19 10:15 10:15 09:50 Sodium 133 L Potassium 4.6 Chloride 100 Carbon Dioxide 6 L Anion Gap 27 H BUN 9.0 Creatinine 0.8 Est GFR (CKD-EPI)AfAm 113.06 Est GFR (CKD-EPI)NonAf 97.55 POC Glucometer Random Glucose 121 H Calcium 9.1 Total Bilirubin 1.0 AST 59 H ALT 17 Alkaline Phosphatase 111 Total Protein 9.3 H Albumin 5.1 H Urine Color Yellow Urine Appearance Clear Urine pH 5.5 Urine Protein 3+ H Urine Glucose (UA) Negative Urine Ketones 4+ H Urine Blood 2+ H Urine Nitrite Negative Urine Bilirubin Negative Urine Urobilinogen 0.2 Ur Leukocyte Esterase Negative Urine RBC 2-5 Urine WBC 0-2 Ur Transition Epith Cell Few Hyaline Casts 0-2 Urine HCG, Qual Negative 04/10/19 09:25 Sodium Potassium Chloride Carbon Dioxide Anion Gap BUN Creatinine Est GFR (CKD-EPI)AfAm Est GFR (CKD-EPI)NonAf POC Glucometer 122 Random Glucose Calcium Total Bilirubin AST ALT Alkaline Phosphatase Total Protein Albumin Urine Color Urine Appearance Urine pH Urine Protein Urine Glucose (UA) Urine Ketones Urine Blood Urine Nitrite Urine Bilirubin Urine Urobilinogen Ur Leukocyte Esterase Urine RBC Urine WBC Ur Transition Epith Cell Hyaline Casts Urine HCG, Qual 04/10/19 04/10/19 09:50 09:25 RBC 4.15 MCV 98.1 H MCHC 31.6 L RDW 13.8 MPV 8.3 Neutrophils % No Result Required. Lymphocytes % No Result Required. POC Glucometer 122 - Medications Given in the ED: ED Medications Discontinued Medications Generic Name Dose Route Start Last Admin Trade Name Alexa PRN Reason Stop Dose Admin Lorazepam 2 mg 04/10/19 10:50 04/10/19 10:54 Ativan Injection - IVPUSH 04/10/19 10:51 2 mg ONCE ONE Administration Ondansetron HCl 4 mg 04/10/19 09:53 04/10/19 10:05 Zofran Injection IVPUSH 04/10/19 09:54 4 mg ONCE ONE Administration Pantoprazole Sodium 40 mg 04/10/19 09:54 04/10/19 10:08 Protonix Iv IVPUSH 04/10/19 09:55 40 mg ONCE ONE Administration Sodium Chloride 1,000 ml 04/10/19 09:53 04/10/19 09:50 Normal Saline - IV 04/10/19 09:54 1,000 ml ONCE ONE Administration Sodium Chloride 1,000 ml 04/10/19 10:50 04/10/19 10:54 Normal Saline - IV 04/10/19 10:51 1,000 ml ONCE ONE Administration Medical Decision Making - Medical Decision Making 04/10/19 11:22 33-year-old female here today complaining of severe nausea vomiting epigastric pain and concerns for alcohol withdrawal symptoms. Differential includes pancreatitis, gastritis, ketoacidosis, severe dehydration, other drug intoxication. Plan EKG chest x-ray CBC CMP lipase. Patient was given IV hydration with 1 L normal saline Zofran and Protonix. Concern for [place]upe- Lopez tear chest x-ray was ordered and is pending. Patient states she is not currently is menstruating now. Patient will likely require admission for alcohol withdrawal was given 2 mg Ativan for her withdrawal 04/10/19 12:12 pt heart rate improved slightly with iv hydration and ativan for withdrawal. started on dextrose 1/2ns with 20 kcl at 125 / hr for ketoacidosis. d/w admission , will admit to [facility]. Discharge - Discharge Information Problems reviewed: Yes Clinical Impression/Diagnosis: ETOH abuse, Alcoholic ketoacidosis, Alcohol withdrawal Condition: Guarded - Admission Yes - Follow up/Referral Referrals: Kermit Cook MD [Primary Care Provider] - - Patient Discharge Instructions - Post Discharge Activity
[2019-04-10] MEDS ORDERED: FOLIC ACID 1 MG TABLET (FP) PO ONE (11:24)
[2019-04-10] MEDS ORDERED: THIAMINE HCL 100 MG TABLET (FP) PO ONE (11:25)
[2019-04-10] MEDS ORDERED: D5-1/2NS+20 MEQ KCL - 20 MEQ/1,000 ML INFUS.BAG IV SCH (11:30)
[2019-04-10 11:55] LABS: MAGNESIUM 2.1 mg/dL (1.8-2.4)
[2019-04-10 13:55] VITALS: BMI 21.5
--- NOTE | 2019-04-10 14:32 | HP ---
CHIEF COMPLAINT: Vomiting PCP: Dr. Cook HISTORY OF PRESENT ILLNESS: 33 year-old female, well known to this hospital, with a PMH significant for chronic ETOH abuse who presents with vomiting. Patient has been drinking vodka and whiskey, last drink 24 hours ago. She has been vomiting since yesterday afternoon, >20 episodes, too numerous to count. Some of the vomit has had dark brown fluid, and in ED there was a single episode of a small streak of bright red blood. 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 NK [No Known Home Medication] 04/10/19 REVIEW OF SYSTEMS CONSTITUTIONAL: Absent: fever, chills, diaphoresis, generalized weakness, malaise, loss of appetite, weight change HEENT: Absent: rhinorrhea, nasal congestion, throat pain, throat swelling, difficulty swallowing, mouth swelling, ear pain, eye pain, visual changes CARDIOVASCULAR: Absent: chest pain, syncope, palpitations, irregular heart rate, lightheadedness , peripheral edema RESPIRATORY: Absent: cough, shortness of breath, dyspnea with exertion, orthopnea, wheezing, stridor, hemoptysis GASTROINTESTINAL: +vomiting, heartburn Absent: abdominal pain, abdominal distension, nausea, vomiting, diarrhea, constipation, melena, hematochezia GENITOURINARY: Absent: dysuria, frequency, urgency, hesitancy, hematuria, flank pain, genital pain MUSCULOSKELETAL: Absent: myalgia, arthralgia, joint swelling, back pain, neck pain SKIN: Absent: rash, itching, pallor HEMATOLOGIC/IMMUNOLOGIC: Absent: easy bleeding, easy bruising, lymphadenopathy, frequent infections ENDOCRINE: Absent: unexplained weight gain, unexplained weight loss, heat intolerance, cold intolerance NEUROLOGIC: +tremors, anxiety Absent: headache, focal weakness or paresthesias, dizziness, unsteady gait, seizure, mental status changes, bladder or bowel incontinence PSYCHIATRIC: Absent: anxiety, depression, suicidal or homicidal ideation, hallucinations. PHYSICAL EXAMINATION Vital Signs - 24 hr 04/10/19 04/10/19 04/10/19 09:15 11:29 12:14 Temperature 99.2 F Pulse Rate 150 H Pulse Rate [ 144 H 138 H Left Radial] Respiratory 20 20 Rate Blood Pressure 153/111 H Blood Pressure 156/96 125/78 [Left Arm] O2 Sat by Pulse 100 100 98 Oximetry (%) 04/10/19 04/10/19 13:00 13:47 Temperature 98.7 F 98.1 F Pulse Rate 135 H Pulse Rate [ 129 H Left Radial] Respiratory 20 18 Rate Blood Pressure 132/68 Blood Pressure 132/65 [Left Arm] O2 Sat by Pulse 96 Oximetry (%) GENERAL/NEURO: A&Ox3; tremulous, flushed, +asterixis, anxious. Cranial nerves II -XII intact. Normal speech. EYES: Pupils equal, round and reactive to light, extraocular movements intact, sclera anicteric, conjunctiva clear. LUNGS: CTA HEART: Regular rate and rhythm, S1 and S2 ABDOMEN: Soft, nontender, not distended. MUSCULOSKELETAL: Normal range of motion at all joints. No bony deformities or tenderness. No CVA tenderness. UPPER EXTREMITIES: 2+ pulses, warm, well-perfused. No cyanosis. No clubbing. No peripheral edema. LOWER EXTREMITIES: 2+ pulses, warm, well-perfused. No calf tenderness. No peripheral edema. Laboratory Results - last 24 hr 04/10/19 04/10/19 04/10/19 09:25 09:50 09:50 WBC 16.2 H RBC 4.15 Hgb 12.9 Hct 40.7 D MCV 98.1 H MCH 31.0 MCHC 31.6 L RDW 13.8 Plt Count 332 MPV 8.3 Neutrophils % No Result Required. Neutrophils % (Manual) 90.0 H Band Neutrophils % 2.0 Lymphocytes % No Result Required. Lymphocytes % (Manual) 4.0 L Monocytes % (Manual) 3 L Metamyelocytes 1 Platelet Estimate Adequate Anisocytosis Few Sodium 133 L Potassium 4.6 Chloride 100 Carbon Dioxide 6 L Anion Gap 27 H BUN 9.0 Creatinine 0.8 Est GFR (CKD-EPI)AfAm 113.06 Est GFR (CKD-EPI)NonAf 97.55 POC Glucometer 122 Random Glucose 121 H Calcium 9.1 Magnesium Total Bilirubin 1.0 AST 59 H ALT 17 Alkaline Phosphatase 111 Total Protein 9.3 H Albumin 5.1 H Lipase Urine Color Urine Appearance Urine pH Urine Protein Urine Glucose (UA) Urine Ketones Urine Blood Urine Nitrite Urine Bilirubin Urine Urobilinogen Ur Leukocyte Esterase Urine RBC Urine WBC Ur Transition Epith Cell Hyaline Casts Urine HCG, Qual 04/10/19 04/10/19 04/10/19 09:50 10:15 10:15 WBC RBC Hgb Hct MCV MCH MCHC RDW Plt Count MPV Neutrophils % Neutrophils % (Manual) Band Neutrophils % Lymphocytes % Lymphocytes % (Manual) Monocytes % (Manual) Metamyelocytes Platelet Estimate Anisocytosis Sodium Potassium Chloride Carbon Dioxide Anion Gap BUN Creatinine Est GFR (CKD-EPI)AfAm Est GFR (CKD-EPI)NonAf POC Glucometer Random Glucose Calcium Magnesium 2.1 Total Bilirubin AST ALT Alkaline Phosphatase Total Protein Albumin Lipase 183 Urine Color Yellow Urine Appearance Clear Urine pH 5.5 Urine Protein 3+ H Urine Glucose (UA) Negative Urine Ketones 4+ H Urine Blood 2+ H Urine Nitrite Negative Urine Bilirubin Negative Urine Urobilinogen 0.2 Ur Leukocyte Esterase Negative Urine RBC 2-5 Urine WBC 0-2 Ur Transition Epith Cell Few Hyaline Casts 0-2 Urine HCG, Qual Negative ASSESSMENT/PLAN: 33 year-old female with a PMH significant for alcohol abuse, admitted for alcoholic ketoacidosis. Ketoacidosis --likely alcoholic ketoacidosis, but lactic acid, CPK, beta-hydroxybutyrate pending to r/o other causes --last drink afternoon of 04/09 --3L IV fluids, thiamine, folic acid given --continue IV fluids --start librium protocol --protonix --tachycardic to 140, requires telemetry monitoring --monitor electrolytes q4h; keep K>4, Mg>2 FEN Fluids: D5NS@125mL/hr Electrolytes: replete as indicated Nutrition: NPO DVT prophylaxis: oob, ambulation; hold chemical prophylaxis due to risk of GI bleed Dispo: continues to require inpatient care. Full code. Visit type - Emergency Visit Emergency Visit: Yes ED Registration Date: 04/10/19 Care time: The patient presented to the Emergency Department on the above date and was hospitalized for further evaluation of their emergent condition. - New Patient This patient is new to me today: Yes Date on this admission: 04/10/19 - Critical Care Critical Care patient: Yes Total Critical Care Time (in minutes): 60 Critical Care Statement: The care of this patient involved high complexity decision making to prevent further life threatening deterioration of the patient 's condition and/or to evaluate & treat vital organ system(s) failure or risk of failure.
[2019-04-10] MEDS ORDERED: SODIUM CHLORIDE 1,000 ML IV SCH (15:00)
[2019-04-10] MEDS ORDERED: DEXTROSE 5%-NORMAL SALINE 1,000 ML IV SCH (15:15)
[2019-04-10 16:09] LABS: MAGNESIUM 1.6 mg/dL (1.8-2.4); PHOSPHOROUS 1.9 mg/dl (2.5-4.9)
[2019-04-10] MEDS ORDERED: MAGNESIUM SULF 50% (8.12 MEQ/2 ML-1 GM VIAL) IVPB ONE (16:12)
[2019-04-10] MEDS: PANTOPRAZOLE 40 MG TABLET PO SCH (16:36)
[2019-04-10] MEDS: chlordiazePOXIDE HCL 25 MG CAPSULE PO SCH ×2 (17:42→22:56)
[2019-04-10] MEDS: SUCRALFATE 1 GM/10 ML UNIT DOSE CUPS PO SCH (21:09)
[2019-04-11] MEDS: chlordiazePOXIDE HCL 25 MG CAPSULE PO SCH ×4 (04:58→22:02)
[2019-04-11] MEDS ORDERED: MAG HYDROX/AL HYDROX/SIMETH 30 ML UNIT-DOSE CUP PO ONE (06:33)
[2019-04-11] MEDS: SUCRALFATE 1 GM/10 ML UNIT DOSE CUPS PO SCH ×4 (09:21→21:36)
[2019-04-11 09:22] LABS: HEMATOCRIT 35.3 % (32.4-45.2); HEMOGLOBIN 11.7 GM/dl (10.7-15.3); MCH 31.8 pg (25.7-33.7); MCHC 33.3 g/dl (32.0-36.0); MEAN CELL VOLUME 95.6 fl (80-96); MEAN PLT VOLUME 7.5 fl (7.5-11.1); PLATELET COUNT 192 K/MM3 (134-434); RBC 3.69 M/mm3 (3.60-5.2); RDW 13.7 % (11.6-15.6); WHITE BLOOD COUNT 6.7 K/mm3 (4.0-10.8)
[2019-04-11] MEDS: FOLIC ACID 1 MG TABLET (FP) PO SCH (09:22)
[2019-04-11] MEDS: PANTOPRAZOLE 40 MG TABLET PO SCH (09:22)
[2019-04-11] MEDS: THIAMINE HCL 100 MG TABLET (FP) PO SCH (09:22)
[2019-04-11 09:41] LABS: ALBUMIN 4.5 g/dl (3.4-5.0); BILIRUBIN,DIRECT 0.2 mg/dL (0.0-0.2); BILIRUBIN,TOTAL 1.7 mg/dl (0.2-1); CALCIUM 9.3 mg/dl (8.5-10); CREATININE 0.6 mg/dl (0.55-1.3); MAGNESIUM 2.2 mg/dL (1.8-2.4); POTASSIUM 3.5 mmol/L (3.5-5.1); TOT PROT 8.2 g/dl (6.4-8.2)
[2019-04-11 10:07] LABS: PHOSPHOROUS 0.9 mg/dl (2.5-4.9)
[2019-04-11] MEDS ORDERED: [UNRECOGNIZED DRUG - OTHER] IVPB ONE (10:11)
[2019-04-11] MEDS ORDERED: MAGNESIUM SULF 50% (8.12 MEQ/2 ML-1 GM VIAL) IVPB ONE (10:21)
[2019-04-11 10:34] LABS: PLATELET ESTIMATE ADEQUATE
[2019-04-11] MEDS: NAPH,MB-DB/K PH,MBDB POWDER PACKET PO SCH ×2 (13:39→21:36)
[2019-04-11] MEDS ORDERED: LORazepam 1 MG TABLET PO ONE (14:47)
[2019-04-11] MEDS ORDERED: SODIUM CHLORIDE 1,000 ML IV SCH (15:00)
--- NOTE | 2019-04-11 16:08 | PN ---
Physical Exam: 33 F h/o Etoh abuse, presents with nausea/vomiting, patient admitted for Etoh intoxication and withdrawal. Currently endorses anxiety symptoms, no active nausea/vomiting, tolerating PO liquids. Severe hyphosphatemia noted on labs, repleting around the clock. PE VSS GA sitting up in bed, AAOx3, speaking in full sentences, slightly anxious and tremulous HEENT NC/AT, EOMI, MMM, neck supple, no oral thrush Chest CTAB, no crackles or wheezing Abd Soft, NT, ND, BS+, no guarding Ext No LE edema, moves all 4 extremities Vital Signs - 24 hr 04/10/19 04/10/19 04/10/19 17:00 19:21 21:00 Temperature 98.7 F 99.3 F Pulse Rate 122 H 108 H Respiratory 18 18 20 Rate Blood Pressure 129/83 125/86 O2 Sat by Pulse 100 100 Oximetry (%) 04/10/19 04/11/19 04/11/19 22:47 00:50 05:00 Temperature 98.0 F 98.2 F Pulse Rate 107 H 93 H Respiratory 20 18 Rate Blood Pressure 132/89 124/83 O2 Sat by Pulse 99 100 100 Oximetry (%) 04/11/19 04/11/19 09:00 14:00 Temperature 98.1 F 98.9 F Pulse Rate 102 H 95 H Respiratory 17 18 Rate Blood Pressure 145/106 H 131/91 O2 Sat by Pulse 100 100 Oximetry (%) Laboratory Results - last 24 hr 04/10/19 04/10/19 04/10/19 15:25 15:25 15:25 WBC RBC Hgb Hct MCV MCH MCHC RDW Plt Count MPV Neutrophils % Neutrophils % (Manual) Lymphocytes % Lymphocytes % (Manual) Monocytes % (Manual) Platelet Estimate Sodium Potassium Chloride Carbon Dioxide Anion Gap BUN Creatinine Est GFR (CKD-EPI)AfAm Est GFR (CKD-EPI)NonAf Random Glucose Lactic Acid 1.2 Calcium Phosphorus 1.9 L Magnesium 1.6 L Total Bilirubin Direct Bilirubin AST ALT Alkaline Phosphatase Creatine Kinase Creatine Kinase Index CK-MB (CK-2) Total Protein Albumin Beta-Hydroxybutyrate Alcohol, Quantitative < 3 04/10/19 04/10/19 04/11/19 15:25 15:25 09:08 WBC 6.7 RBC 3.69 Hgb 11.7 Hct 35.3 MCV 95.6 MCH 31.8 MCHC 33.3 RDW 13.7 Plt Count 192 MPV 7.5 Neutrophils % No Result Required. Neutrophils % (Manual) 73.0 Lymphocytes % No Result Required. Lymphocytes % (Manual) 18.0 Monocytes % (Manual) 9 Platelet Estimate Adequate Sodium Potassium Chloride Carbon Dioxide Anion Gap BUN Creatinine Est GFR (CKD-EPI)AfAm Est GFR (CKD-EPI)NonAf Random Glucose Lactic Acid Calcium Phosphorus Magnesium Total Bilirubin Direct Bilirubin AST ALT Alkaline Phosphatase Creatine Kinase 173 Creatine Kinase Index 1.6 CK-MB (CK-2) 2.8 Total Protein Albumin Beta-Hydroxybutyrate 60.6 H Alcohol, Quantitative 04/11/19 09:08 WBC RBC Hgb Hct MCV MCH MCHC RDW Plt Count MPV Neutrophils % Neutrophils % (Manual) Lymphocytes % Lymphocytes % (Manual) Monocytes % (Manual) Platelet Estimate Sodium 130 L Potassium 3.5 Chloride 102 Carbon Dioxide 18 L Anion Gap 10 BUN 5.0 L Creatinine 0.6 Est GFR (CKD-EPI)AfAm 139.78 Est GFR (CKD-EPI)NonAf 120.61 Random Glucose 96 Lactic Acid Calcium 9.3 Phosphorus 0.9 L* Magnesium 2.2 Total Bilirubin 1.7 H Direct Bilirubin 0.2 AST 36 ALT 15 Alkaline Phosphatase 90 D Creatine Kinase Creatine Kinase Index CK-MB (CK-2) Total Protein 8.2 Albumin 4.5 Beta-Hydroxybutyrate Alcohol, Quantitative Home Medications Medication Instructions Recorded NK [No Known Home Medication] 04/10/19 Current Medications Generic Name Dose Route Start Last Admin Trade Name Freq PRN Reason Stop Dose Admin Chlordiazepoxide HCl 10 mg 04/13/19 05:00 Librium - PO 04/13/19 23:01 [id number] ANDREEA Chlordiazepoxide HCl 10 mg 04/14/19 05:00 Librium - PO 04/14/19 17:01 Q12H ANDREEA Chlordiazepoxide HCl 10 mg 04/15/19 05:00 Librium - PO 04/15/19 05:01 ONCE@0500 ONE Chlordiazepoxide HCl 50 mg 04/10/19 17:00 04/11/19 11:15 Librium - PO 04/11/19 23:01 50 mg [id number] ANDREEA Administration Chlordiazepoxide HCl 25 mg 04/12/19 05:00 Librium - PO 04/12/19 23:01 [id number] ANDREEA Folic Acid 1 mg 04/11/19 10:00 04/11/19 09:22 Folic Acid - PO 1 mg DAILY ANDREEA Administration Sodium Chloride 1,000 mls @ 100 mls/hr 04/11/19 15:00 04/11/19 15:08 Normal Saline - IV 100 mls/hr ASDIR ANDREEA Administration Pantoprazole Sodium 40 mg 04/10/19 16:15 04/11/19 09:22 Protonix - PO 40 mg DAILY ANDREEA Administration Potassium Phos/Sodium Phos 1 packet 04/11/19 14:00 04/11/19 13:39 Phos-Nak Packet - PO 1 packet TID ANDREEA Administration Sucralfate 1 gm 04/10/19 22:00 04/11/19 13:39 Carafate Oral Suspension - PO 1 gm QID ANDREEA Administration Thiamine HCl 100 mg 04/11/19 10:00 04/11/19 09:22 Vitamin B1 - PO 100 mg DAILY ANDREEA Administration A/p: 33 F h/o Etoh abuse with acute intoxication and withdrawal, presents for Etoh withdrawal with Etoh induced ketoacidosis. Etoh induced ketoacidosis Etoh induced, cont. Librium protocol, Ativan PRn for breakthrough anxiety/ withdrawal, aggressive IVF w/ NS, aggressive electrolyte replacement, supplement PPI, counseled pt. on Etoh abstinence, watch closely for DTs. FEN Fluids: NS IVF Electrolytes: replete as indicated Nutrition: clears as tolerated DVT prophylaxis: SCD/TEDs for now Dispo: continues to require inpatient care. Full code. Visit type - Emergency Visit Emergency Visit: Yes ED Registration Date: 04/10/19 Care time: The patient presented to the Emergency Department on the above date and was hospitalized for further evaluation of their emergent condition. - New Patient This patient is new to me today: Yes Date on this admission: 04/11/19 - Critical Care Critical Care patient: No - Discharge Referral Referred to [facility] Med [facility].C.: No
--- NOTE | 2019-04-11 16:21 | EKG ---
Test Reason : Blood Pressure : / mmHG Vent. Rate : 090 BPM Atrial Rate : 090 BPM P-R Int : 114 ms QRS Dur : 090 ms QT Int : 404 ms P-R-T Axes : 010 004 020 degrees QTc Int : 494 ms NORMAL SINUS RHYTHM MINIMAL VOLTAGE CRITERIA FOR LVH, MAY BE NORMAL VARIANT NONSPECIFIC T WAVE ABNORMALITY PROLONGED QT ABNORMAL ECG Confirmed by MD CABRERA MOYSES ([id number]) on 04/11/2019 4:21:00 PM Referred By: NIKKI CUEVAS Confirmed By:YARY CABRERA MD
--- NOTE | 2019-04-11 16:24 | EKG ---
Test Reason : Blood Pressure : / mmHG Vent. Rate : 141 BPM Atrial Rate : 141 BPM P-R Int : 126 ms QRS Dur : 078 ms QT Int : 328 ms P-R-T Axes : 059 008 040 degrees QTc Int : 502 ms SINUS TACHYCARDIA LEFT ATRIAL ENLARGEMENT INCOMPLETE RIGHT BUNDLE BRANCH BLOCK NONSPECIFIC ST AND T WAVE ABNORMALITY ABNORMAL ECG Confirmed by MD DEBORAH, YARY ([id number]) on 04/11/2019 4:23:48 PM Referred By: MARIA LUISA LUIS Confirmed By:YARY CABRERA MD
[2019-04-11 17:44] LABS: ANION GAP 14 MMOL/L (8-16); CALCIUM 9.5 mg/dl (8.5-10); CHLORIDE 99 mmol/L (98-107); CO2 18 mmol/L (21-32); CREATININE 0.6 mg/dl (0.55-1.3); GLUCOSE,RANDOM 91 mg/dl (74-106); PHOSPHOROUS 1.6 mg/dl (2.5-4.9); POTASSIUM 3.7 mmol/L (3.5-5.1); SODIUM 131 mmol/L (136-145)
[2019-04-11 17:45] LABS: BLOOD UREA NITROGEN < 5.0 mg/dl (7-18)
[2019-04-11 22:01] LABS: VENOUS PC02 33.5 mmHg (38-52); VENOUS PH 7.43 (7.31-7.41); VENOUS PO2 50.4 mmHg (28-48)
[2019-04-11] MEDS ORDERED: MELATONIN 5 MG TABLETS PO ONE (23:46)
[2019-04-12 01:40] LABS: COCAINE, UR NEGATIVE ng/ml (CUTOFF=300); METHADONE, UR NEGATIVE ng/ml (CUTOFF=300); OPIATES, URI NEGATIVE ng/ml (CUTOFF=300); PHENCYCLIDINE,URINE NEGATIVE ng/ml (CUTOFF=25); URINE AMPHETAMINES NEGATIVE ng/ml (CUTOFF=500); URINE BARBITURATES NEGATIVE ng/ml (CUTOFF=200)
[2019-04-12 01:48] LABS: URINE BENZODIAZEPINES POSITIVE ng/ml (CUTOFF=200)
[2019-04-12] MEDS ORDERED: MAG HYDROX/AL HYDROX/SIMETH 30 ML UNIT-DOSE CUP PO ONE (04:20)
[2019-04-12] MEDS: chlordiazePOXIDE HCL 25 MG CAPSULE PO SCH ×4 (05:15→22:59)
[2019-04-12] MEDS: NAPH,MB-DB/K PH,MBDB POWDER PACKET PO SCH ×3 (05:15→21:25)
[2019-04-12 08:54] LABS: MEAN PLT VOLUME 8.4 fl (7.5-11.1)
[2019-04-12 09:01] LABS: ALBUMIN 3.7 g/dl (3.4-5.0); BILIRUBIN,TOTAL 1.1 mg/dl (0.2-1); CALCIUM 8.9 mg/dl (8.5-10); CREATININE 0.5 mg/dl (0.55-1.3); POTASSIUM 3.1 mmol/L (3.5-5.1); TOT PROT 6.8 g/dl (6.4-8.2)
[2019-04-12 09:05] LABS: HEMATOCRIT 31.8 % (32.4-45.2); HEMOGLOBIN 10.7 GM/dl (10.7-15.3); MCH 32.2 pg (25.7-33.7); MCHC 33.5 g/dl (32.0-36.0); MEAN CELL VOLUME 96.1 fl (80-96); PLATELET COUNT 136 K/MM3 (134-434); RBC 3.31 M/mm3 (3.60-5.2); RDW 13.7 % (11.6-15.6); WHITE BLOOD COUNT 4.5 K/mm3 (4.0-10.8)
[2019-04-12 09:16] LABS: ADD RBC MORPHOLOGY YES
[2019-04-12] MEDS: SUCRALFATE 1 GM/10 ML UNIT DOSE CUPS PO SCH ×4 (09:30→21:25)
[2019-04-12] MEDS: THIAMINE HCL 100 MG TABLET (FP) PO SCH (09:30)
[2019-04-12] MEDS: FOLIC ACID 1 MG TABLET (FP) PO SCH (09:30)
[2019-04-12] MEDS: PANTOPRAZOLE 40 MG TABLET PO SCH (09:30)
--- NOTE | 2019-04-12 09:41 | PN ---
Progress Note, Physician Chief Complaint: c/o heart burn History of Present Illness: 33 F h/o ETOH abuse, presents with nausea/vomiting, patient admitted for Etoh intoxication and withdrawal. Currently endorses anxiety symptoms, no active nausea/vomiting, tolerating PO liquids. Severe hyphosphatemia noted on admission labs, - Current Medication List Current Medications: Active Medications Chlordiazepoxide HCl (Librium -) 10 mg PO [id number] [facility] Stop: 04/13/19 23:01 Chlordiazepoxide HCl (Librium -) 10 mg PO Q12H ANDREEA Stop: 04/14/19 17:01 Chlordiazepoxide HCl (Librium -) 10 mg PO ONCE@0500 ONE Stop: 04/15/19 05:01 Chlordiazepoxide HCl (Librium -) 25 mg PO [id number] [facility] Stop: 04/12/19 23:01 Last Admin: 04/12/19 05:15 Dose: 25 mg Folic Acid (Folic Acid -) 1 mg PO DAILY [facility] Last Admin: 04/12/19 09:30 Dose: 1 mg Sodium Chloride (Normal Saline -) 1,000 mls @ 100 mls/hr IV ASDIR [facility] Last Admin: 04/11/19 15:08 Dose: 100 mls/hr Pantoprazole Sodium (Protonix -) 40 mg PO DAILY [facility] Last Admin: 04/12/19 09:30 Dose: 40 mg Potassium Phos/Sodium Phos (Phos-Nak Packet -) 1 packet PO TID [facility] Last Admin: 04/12/19 05:15 Dose: 1 packet Sucralfate (Carafate Oral Suspension -) 1 gm PO QID [facility] Last Admin: 04/12/19 09:30 Dose: 1 gm Thiamine HCl (Vitamin B1 -) 100 mg PO DAILY [facility] Last Admin: 04/12/19 09:30 Dose: 100 mg - Objective Vital Signs: Vital Signs Temperature 98.2 F 04/12/19 09:34 Pulse Rate 103 H 04/12/19 09:34 Respiratory Rate 17 04/12/19 09:34 Blood Pressure 123/82 04/12/19 09:34 O2 Sat by Pulse Oximetry (%) 100 04/12/19 09:34 Young F feels comfortable HEENTL Mm moist, no anemia, PERRLA, EOMI NECK: No JVd No Bruit CHEST: CTA B/L CVS: S1S2 R ABD: No distention, non tender Bs + EXT: No tremors, no edema, no calf tenderness YARN MAN: AOX3 non focal Labs: CBC, BMP 04/12/19 06:00 04/12/19 06:00 Problem List - Problems (1) Alcohol withdrawal Assessment/Plan: Improving cont Thiamine , labium protocol, refused rehab Code(s): F10.239 - ALCOHOL DEPENDENCE WITH WITHDRAWAL, UNSPECIFIED Qualifiers: (2) Hypokalemia Assessment/Plan: K 3.1Corrected 40 meq PO F/U BMP, Mag 1.8 on PO Suplement Problems reviewed: Yes Code(s): E87.6 - HYPOKALEMIA (3) Hypophosphatemia Assessment/Plan: Corrected Problems reviewed: Yes Code(s): E83.39 - OTHER DISORDERS OF PHOSPHORUS METABOLISM (4) GERD (gastroesophageal reflux disease) Assessment/Plan: On PPI and sucralfate Problems reviewed: Yes Code(s): K21.9 - GASTRO-ESOPHAGEAL REFLUX DISEASE WITHOUT ESOPHAGITIS
[2019-04-12] MEDS ORDERED: POTASSIUM CHLORIDE ORAL LIQUID 20 MEQ/15 ML PO ONE (10:15)
[2019-04-12 10:23] LABS: PLATELET ESTIMATE ADEQUATE
[2019-04-12] MEDS ORDERED: chlordiazePOXIDE HCL 25 MG CAPSULE PO ONE (15:45)
[2019-04-13] MEDS ORDERED: LORazepam 0.5 MG TABLET PO ONE (01:27)
[2019-04-13] MEDS: NAPH,MB-DB/K PH,MBDB POWDER PACKET PO SCH ×2 (05:16→13:36)
[2019-04-13] MEDS: chlordiazePOXIDE HCL 10 MG CAPSULE PO SCH ×3 (05:17→16:11)
[2019-04-13 07:46] LABS: CALCIUM 9.3 mg/dl (8.5-10); CREATININE 0.5 mg/dl (0.55-1.3); MAGNESIUM 1.8 mg/dL (1.8-2.4); POTASSIUM 3.5 mmol/L (3.5-5.1)
--- NOTE | 2019-04-13 07:48 | DS ---
Physical Exam: SUBJECTIVE: Patient seen and examined. No s/s of withdrawal. OBJECTIVE: Vital Signs Period Temp Pulse Resp BP Sys/[place] Pulse Ox Last 24 Hr 98.2 F-98.6 F 97-110 17-19 115-130/80-97 100-100 PHYSICAL EXAM GENERAL: The patient is awake, alert, and fully oriented, in no acute distress. LUNGS: Breath sounds equal, clear to auscultation bilaterally, no wheezes, no crackles, no accessory muscle use. HEART: Regular rate and rhythm, S1, S2 ABDOMEN: Soft, nontender, nondistended EXTREMITIES: 2+ pulses, warm, well-perfused, no edema. NEUROLOGICAL: Cranial nerves II through XII grossly intact. Normal speech, steady gait. No tremors. SKIN: Warm, dry, normal turgor LABS Laboratory Results - last 24 hr 04/12/19 04/12/19 04/12/19 06:00 06:00 06:00 WBC 4.5 RBC 3.31 L Hgb 10.7 Hct 31.8 L MCV 96.1 H MCH 32.2 MCHC 33.5 RDW 13.7 Plt Count 136 MPV 8.4 Neutrophils % No Result Required. Neutrophils % (Manual) 60.0 Lymphocytes % No Result Required. Lymphocytes % (Manual) 31.0 Monocytes % (Manual) 8 Eosinophils % (Manual) 1.0 Hypochromia 1+ Platelet Estimate Adequate Sodium 136 Potassium 3.1 L Chloride 105 Carbon Dioxide 20 L Anion Gap 11 BUN 7.0 Creatinine 0.5 L Est GFR (CKD-EPI)AfAm 148.42 Est GFR (CKD-EPI)NonAf 128.06 Random Glucose 80 Calcium 8.9 Magnesium 1.8 Total Bilirubin 1.1 H AST 24 ALT 10 L Alkaline Phosphatase 67 D Total Protein 6.8 Albumin 3.7 HOSPITAL COURSE: Date of Admission:04/10/19 Date of Discharge: 04/13/19 Pre hospital course 33 year-old female, well known to this hospital, with a PMH significant for chronic ETOH abuse who presents with vomiting. Patient has been drinking vodka and whiskey, last drink 24 hours ago. She has been vomiting since yesterday afternoon, >20 episodes, too numerous to count. Some of the vomit has had dark brown fluid, and in ED there was a single episode of a small streak of bright red blood. ER course (1) WBC 16.2k, HCO3 6, anion gap 27 (2) +urine ketones Subsequent hospital course 33 year-old female with a PMH significant for alcohol abuse, admitted for alcoholic ketoacidosis. Alcoholic ketoacidosis --treated with aggressive IV fluid hydration, thiamine, folic acid, librium protocol --remained in sinuss tach seen on prevous admissions --patient expresses no interest in rehab/counseling Minutes to complete discharge: 35 Discharge Summary Problems reviewed: Yes Reason For Visit: ALCOHOL WITHDRAWAL SYNDROME,ALCOHOLIC KETOACIDOSIS Current Active Problems Alcohol abuse (Acute) Alcohol withdrawal (Acute) Alcoholic ketoacidosis (Acute) GERD (gastroesophageal reflux disease) (Acute) Hypokalemia (Acute) Hypophosphatemia (Acute) Condition: Stable - Instructions Diet, Activity, Other Instructions: Three prescriptions have been sent to your pharmacy. Take these medications as directed. It is strongly recommended you follow up with your primary care provider within one week of your discharge. Return to the emergency department for any new or worsening symptoms. Referrals: Kermit Cook MD [Primary Care Provider] - Disposition: HOME - Home Medications Comprehensive Discharge Medication List: Ambulatory Orders NK [No Known Home Medication] 04/10/19 This patient is new to me today: No Emergency Visit: Yes ED Registration Date: 04/10/19 Care time: The patient presented to the Emergency Department on the above date and was hospitalized for further evaluation of their emergent condition. Critical Care patient: No - Discharge Referral Referred to [facility] Med P.C.: No
[2019-04-13] MEDS: PANTOPRAZOLE 40 MG TABLET PO SCH (09:09)
[2019-04-13] MEDS: SUCRALFATE 1 GM/10 ML UNIT DOSE CUPS PO SCH ×2 (09:09→13:36)
[2019-04-13] MEDS: THIAMINE HCL 100 MG TABLET (FP) PO SCH (09:09)
[2019-04-13] MEDS: FOLIC ACID 1 MG TABLET (FP) PO SCH (09:09)
[2019-04-13 13:51] VITALS: BP 113/78; PULSE 119; TEMP 99.2
[2019-04-14] MEDS ORDERED: chlordiazePOXIDE HCL 10 MG CAPSULE PO SCH (05:00)
[2019-04-15] MEDS ORDERED: chlordiazePOXIDE HCL 10 MG CAPSULE PO ONE (05:00)
== END 2019-04-13 16:21 | disposition home or self-care (01) | DRG 775 ==
LOC: FER 09:14 → FM/S 12:13
PROVIDERS: ADMIT Internal Medicine; ATTEND Nurse Practitioner Acute Care
PROC: HZ2ZZZZ Detoxification Services for Substance Abuse Treatment (ICD-10-PCS; principal; 2019-04-10)
DX: F10.239 Alcohol dependence with withdrawal, unspecified (principal); E87.2 Acidosis; K21.9 Gastro-esophageal reflux disease without esophagitis; E87.6 Hypokalemia; E83.39 Other disorders of phosphorus metabolism; F17.210 Nicotine dependence, cigarettes, uncomplicated; F10.229 Alcohol dependence with intoxication, unspecified; F41.9 Anxiety disorder, unspecified
CPT/HCPCS: 36415; 71045-TC-FY; 80048; 80053; 80076; 80307; 81003; 81015; 82010; 82550; 82553; 82803; 82962; 83605; 83690; 83735; 84100; 84703; 85025; 93005; 93308; 99284-25; J7030

== ENCOUNTER 2019-05-08 14:36 | Emergency (ER) | payer OTHER ==
[2019-05-08 14:44] VITALS: TEMP 98.9; BMI 21.5
[2019-05-08] MEDS ORDERED: diazePAM CARPU-JECT 10 MG/2 ML DISP.SYRIN IVPUSH ONE (15:09)
[2019-05-08] MEDS ORDERED: ONDANSETRON 4 MG/2 ML VIAL IVPUSH ONE (15:09)
[2019-05-08] MEDS ORDERED: SODIUM CHLORIDE 1,000 ML IV STA (15:09)
[2019-05-08] MEDS ORDERED: FAMOTIDINE 20 MG/50 ML IVPB 20 MG/50 ML MG IVPB ONE ×2 (15:09→15:43)
[2019-05-08] MEDS ORDERED: chlordiazePOXIDE HCL 25 MG CAPSULE PO ONE (15:09)
--- NOTE | 2019-05-08 15:34 | PDOC ---
Documentation entered by Teri Chairez SCRIBE, acting as scribe for Radha Crowe MD. Radha Crowe MD: This documentation has been prepared by the Contreras brennan Brenda, SCRIBE, under my direction and personally reviewed by me in its entirety. I confirm that the documentation accurately reflects all work, treatment, procedures, and medical decision making performed by me. History of Present Illness - General Chief Complaint: Nausea/Vomiting Stated Complaint: vomiting History Source: Patient Exam Limitations: No Limitations - History of Present Illness Initial Comments: 05/08/19 15:08 The patient is a 33-year-old female with a significant history of alcohol abuse , alcoholic ketoacidosis (3 times in last 3.5 months), anxiety and GERD here today complaining of nausea/ non-bloody vomiting, epigastric pain and tremors. Patient states that she has experienced these same symptoms when she detoxes alcohol. Patient states that she had 2 drinks of whisky/vodka yesterday, her usual is 5 drinks. She notes that she has thrown up this morning every 20 minutes, about 4 times, when she then took a shot of scotch to help and brought herself into the ED. She notes that last night was her first meal in 3 days. Patient notes that emesis is yellow in color. The patient denies chest pain, shortness of breath, headache and dizziness. Denies constipation. Denies any urinary symptoms. Allergies: NKA Past surgical history: Appendectomy Social history: Alcohol abuse Past History - Past Medical History Allergies/Adverse Reactions: Allergies Allergy/AdvReac Type Severity Reaction Status Date / Time amoxicillin Allergy Severe Swelling Verified 05/08/19 14:38 banana Allergy Severe Hives Verified 05/08/19 14:38 Home Medications: Ambulatory Orders Chlordiazepoxide [Librium -] 50 mg PO Q6HPO #40 capsule MDD 8 tabs 05/08/19 Anemia: No Asthma: No Cancer: No Cardiac Disorders: No CVA: No COPD: No CHF: No Dementia: No Diabetes: No GI Disorders: Yes (GERD) Disorders: No HTN: No Hypercholesterolemia: No Kidney Stones: No Liver Disease: No Psychiatric Problems: Yes (ANXIETY) Seizures: No Thyroid Disease: No - Surgical History Abdominal Surgery: No Appendectomy: Yes Cardiac Surgery: No Cholecystectomy: No Lung Surgery: No Neurologic Surgery: No Orthopedic Surgery: No - Reproductive History PID: No - Psycho Social/Smoking Cessation Hx Smoking History: Current every day smoker Have you smoked in the past 12 months: Yes Number of Cigarettes Smoked Daily: 10 'Breaking Loose' booklet given: 12/27/18 Hx Alcohol Use: (daily) Drug/Substance Use Hx: Yes Substance Use Type: Alcohol, Marijuana Hx Substance Use Treatment: No Review of Systems - Review of Systems Able to Perform ROS?: Yes Comments:: 05/08/19 14:42 GENERAL/CONSTITUTIONAL: + tremors. No fever or chills. No weakness. HEAD, EYES, EARS, NOSE AND THROAT: No change in vision. No ear pain or discharge. No sore throat. CARDIOVASCULAR: No chest pain or shortness of breath. RESPIRATORY: No cough, wheezing, or hemoptysis. GASTROINTESTINAL: +nausea +vomiting + epigastric pain. No diarrhea or constipation. GENITOURINARY: No dysuria, frequency, or change in urination. MUSCULOSKELETAL: No joint or muscle swelling or pain. No neck or back pain. SKIN: No rash NEUROLOGIC: No headache, vertigo, loss of consciousness, or change in strength/ sensation. ENDOCRINE: No increased thirst. No abnormal weight change. HEMATOLOGIC/LYMPHATIC: No anemia, easy bleeding, or history of blood clots. ALLERGIC/IMMUNOLOGIC: No hives or skin allergy. *Physical Exam - Vital Signs Last Vital Signs Temp Pulse Resp BP Pulse Ox 98.9 F 106 H 20 137/99 100 05/08/19 14:37 05/08/19 14:37 05/08/19 14:37 05/08/19 14:37 05/08/19 14:37 - Physical Exam GENERAL: Awake, alert, and fully oriented. Appears anxious. +AOB HEAD: No signs of trauma EYES: PERRLA, EOMI, sclera anicteric, conjunctiva clear ENT: Auricles normal inspection, hearing grossly normal, nares patent, oropharynx clear without exudates. Dry mucosa. +Tongue fasciculations NECK: Normal ROM, supple, no lymphadenopathy, JVD, or masses LUNGS: Breath sounds equal, clear to auscultation bilaterally. No wheezes, and no crackles HEART: Tachycardic with regular rhythm, normal S1 and S2, no murmurs, rubs or gallops ABDOMEN: Soft, nontender, normoactive bowel sounds. No guarding, no rebound. No masses EXTREMITIES: Normal range of motion, no edema. No clubbing or cyanosis. No cords, erythema, or tenderness. +Tremors to the hands B/L NEUROLOGICAL: Cranial nerves II through XII grossly intact. Normal speech, normal gait. Motor and sensation intact SKIN: Warm, dry, normal turgor, no rashes or lesions noted. ED Treatment Course - LABORATORY CBC & Chemistry Diagram: 05/08/19 16:18 05/08/19 16:18 Medical Decision Making - Medical Decision Making 05/08/19 15:07 Pt with history of alcoholic ketoacidosis in the past due to attempting to taper herself off alcohol on her own. Presents with vomiting, tremors. Will give IV fluids, valium, librium, zofran. Will plan for admission, however, location will depend on lab findings. 05/08/19 17:41 Pt states she feels better s/p meds. Normal AG on labs. She declines admission to [facility]. 05/08/19 19:20 Pt states she was going to go to an outpatient rehab program on Saturday. She has contacted them and they have a bed available for detox on Saturday. Will give rx for librium. Discharge - Discharge Information Problems reviewed: Yes Clinical Impression/Diagnosis: Alcohol withdrawal Qualifiers: Complication of substance-induced condition: uncomplicated Qualified Code(s): F10.230 - Alcohol dependence with withdrawal, uncomplicated Condition: Improved Disposition: HOME - Admission No - Additional Discharge Information Prescriptions: Chlordiazepoxide [Librium -] 50 mg PO Q6HPO #40 capsule MDD 8 tabs - Follow up/Referral - Patient Discharge Instructions Patient Printed Discharge Instructions: DI for Alcohol Abuse, DI for Drug or Alcohol Withdrawal - Post Discharge Activity
[2019-05-08] MEDS ORDERED: chlordiazePOXIDE HCL 25 MG CAPSULE ONE (15:43)
[2019-05-08] MEDS ORDERED: diazePAM CARPU-JECT 10 MG/2 ML DISP.SYRIN ONE (15:43)
[2019-05-08] MEDS ORDERED: ONDANSETRON 4 MG/2 ML VIAL ONE (15:44)
[2019-05-08 16:49] LABS: INR 1.04 (0.82-1.09); PROTHROMBIN TIME (PATIENT) 11.6 SEC (10.2-13.0)
[2019-05-08 16:50] LABS: RDW 15.1 % (11.6-15.6)
[2019-05-08 16:54] LABS: BILIRUBIN,TOTAL 0.5 mg/dl (0.2-1); CALCIUM 9.2 mg/dl (8.5-10); CREATININE 0.5 mg/dl (0.55-1.3); HEMATOCRIT 33.4 % (32.4-45.2); HEMOGLOBIN 11.1 GM/dl (10.7-15.3); MCH 31.8 pg (25.7-33.7); MCHC 33.1 g/dl (32.0-36.0); MEAN CELL VOLUME 96.1 fl (80-96); MEAN PLT VOLUME 8.5 fl (7.5-11.1); PLATELET COUNT 145 K/MM3 (134-434); POTASSIUM 3.5 mmol/L (3.5-5.1); RBC 3.47 M/mm3 (3.60-5.2); TOT PROT 7.3 g/dl (6.4-8.2); WHITE BLOOD COUNT 4.4 K/mm3 (4.0-10.8)
[2019-05-08 17:07] LABS: MAGNESIUM 1.5 mg/dL (1.8-2.4); PHOSPHOROUS 3.1 mg/dl (2.5-4.9)
[2019-05-08 18:37] LABS: PLATELET ESTIMATE ADEQUATE
[2019-05-08 18:39] VITALS: BP 107/87; PULSE 90
== END 2019-05-08 18:38 | disposition home or self-care (01) ==
LOC: FER 14:36
PROC: 3E033NZ Introduction of Analgesics, Hypnotics, Sedatives into Peripheral Vein, Percutaneous Approach (ICD-10-PCS; principal; 2019-05-08)
PROC: 3E033GC Introduction of Other Therapeutic Substance into Peripheral Vein, Percutaneous Approach (ICD-10-PCS; 2019-05-08)
DX: F10.230 Alcohol dependence with withdrawal, uncomplicated (principal); Z88.8 Allergy status to other drugs, medicaments and biological substances; K21.9 Gastro-esophageal reflux disease without esophagitis; F41.9 Anxiety disorder, unspecified; Z91.018 Allergy to other foods
CPT/HCPCS: 36415; 80053; 80307; 82010; 83690; 83735; 84100; 85025; 85610; 99284-25; J7030

== ENCOUNTER 2019-11-30 20:12 | Emergency (ER) | payer OTHER ==
--- NOTE | 2019-11-30 20:22 | PDOC ---
History of Present Illness - General Chief Complaint: Substance Abuse Stated Complaint: ALCOHOL WITHDRAWL Time Seen by Provider: 11/30/19 20:21 - History of Present Illness Initial Comments: This 33-year-old woman with a history of alcohol abuse and anxiety, admitted several times before during alcohol withdrawal presents with 24 hour history of alcohol cessation with development of mild tremors during the last several hours. Patient states that she drank her most recent alcohol at approximately 8 PM last night. She had one episode of nausea but no vomiting during the evening last night. Today, she has had no nausea/vomiting/abdominal pain. She has noted an increase in tremors over the last several hours. In the past, the patient presented in much later stages of withdrawal with alcoholic ketoacidosis. She has participated in rehab several times in the past, most recently approximately 8 months ago but began drinking again in the last few months, stating this was likely secondary to stress and anxiety related to COVID-19. She states that her current alcohol usage is a pint of vodka daily. Patient is actively pursuing rehab and has been told that she will likely be able to start program at [facility] later this week Daily medications Vistaril (used as needed for sedation; currently needs renewal by PMD) PMD: Past History - Medical History Allergies/Adverse Reactions: Allergies Allergy/AdvReac Type Severity Reaction Status Date / Time amoxicillin Allergy Severe Swelling Verified 11/30/19 20:14 banana Allergy Severe Hives Verified 11/30/19 20:14 Home Medications: Ambulatory Orders Chlordiazepoxide [Librium -] 25 mg PO Q6HPO PRN #12 capsule MDD 4 caps 11/30/19 hydrOXYzine PAMOATE [Vistaril -] 25 mg PO TID 11/30/19 Anemia: No Asthma: No Cancer: No Cardiac Disorders: No CVA: No COPD: No CHF: No Dementia: No Diabetes: No GI Disorders: Yes (GERD) Disorders: No HTN: No Hypercholesterolemia: No Kidney Stones: No Liver Disease: No Psychiatric Problems: Yes (ANXIETY) Seizures: No Thyroid Disease: No Other medical history: ALCOHOLISM - Surgical History Abdominal Surgery: No Appendectomy: Yes Cardiac Surgery: No Cholecystectomy: No Lung Surgery: No Neurologic Surgery: No Orthopedic Surgery: No - Reproductive History Is Patient Now?: No PID: No - Psycho-Social/Smoking History Smoking History: Current every day smoker Have you smoked in the past 12 months: Yes Number of Cigarettes Smoked Daily: 5 Information on smoking cessation initiated: Yes 'Breaking Loose' booklet given: 12/27/18 - Substance Abuse Hx (Audit-C & DAST Scrn) How often the patient has a drink containing alcohol: 4 0r more times/wk Number of drinks the patient has on a typical day: 3 or 4 How often the patient has six or more drinks on one occasion: Daily or almost daily Score: In Men: 4 or > Positive; In Women: 3 or > Positive: 9 Screen Result (Pos requires Nsg. Audit-10AR): Positive In the last yr the pt used illegal drug/Rx for NonMed reason: No Score: Yes response is considered Positive: 0 Screen Result (Positive result requires Nsg. DAST-10): Negative Review of Systems - Review of Systems Able to Perform ROS?: Yes Comments:: 12 point review of systems is negative except for what is noted in the history of present illness *Physical Exam - Vital Signs Last Vital Signs Temp Pulse Resp BP Pulse Ox 100 F H 118 H 18 130/107 H 100 11/30/19 20:15 11/30/19 20:15 11/30/19 20:15 11/30/19 20:15 11/30/19 20:15 - Physical Exam GENERAL: Adult female, alert and oriented x3, calm and cooperative; in no acute distress BP 130/107; HR 118/minute, 100 F (oral) pulse ox sat 100%RA HEAD: Normal with no signs of trauma. EYES: PERRLA, EOMI, sclera anicteric, conjunctiva clear. ENT: Ears normal, nares patent, oropharynx clear without exudates. Dry mucous membranes. Minimal tongue fasciculations NECK: Normal range of motion, supple without lymphadenopathy, JVD, or masses. LUNGS: Breath sounds equal, clear to auscultation bilaterally. No wheezes, and no crackles. HEART:Regular rate and rhythm, normal S1 and S2 without murmur, rub or gallop. ABDOMEN:.normal bowel sounds No guarding,tenderness or rebound.No masses No distention. EXTREMITIES: Normal range of motion, no edema. No clubbing or cyanosis. No erythema, or tenderness. NEUROLOGICAL: Cranial nerves II through XII grossly intact. Normal speech. No focal neurological deficits. Moderate resting tremor seen in bilateral upper extremities on arm extension MUSCULOSKELETAL: Back non-tender to palpation, no CVA tenderness SKIN: Warm, Dry, normal turgor, no rashes or lesions noted. ED Treatment Course - LABORATORY CBC & Chemistry Diagram: 11/30/19 20:35 11/30/19 20:32 Medical Decision Making - Medical Decision Making As noted above, this 33-year-old woman with a strong history of alcohol abuse presents with symptoms of early alcohol withdrawal (last drink 24 hours prior to presentation). Of note, she has no pain, nausea/vomiting and presents with a clear sensorium. She has been pursuing inpatient alcohol rehab and has been told she can be admitted to inpatient program in [place] later this week. Exam as noted above with mild hyperdynamic vital signs, dry mucous membranes and minimal fasciculations of the tongue/tremors in the extremities. IV access obtained and normal saline 1 L hydration started. CBC, chemistry profile, alcohol level sent as well as UA/PGU. Librium 50 mg p.o. administered. Laboratory evaluation without markedly abnormal values: Potassium 3.1 (supplemented with 20 mEq K Dur p.o.); remainder of the chemistry profile is essentially normal. CBC shows abnormal RBC indices but no evidence of anemia. The remainder of the CBC is essentially normal. PGU was negative quantitative alcohol <3 Urinalysis dip 2+ LE with micro showing greater than 100 WBCs, 02 RBCs few bacteria; likely contaminated we will send for C&S to rule out UTI Patient's CIWA is less than 10, consistent with very mild withdrawal. Patient feels significantly better after Librium 50 mg by mouth and a liter of normal saline IV. She remains comfortable without nausea or pain. Patient is a candidate for ambulatory detox at home. She has been prescribed Librium to be used on an "as needed" basis during detox in the past. She has follow-up scheduled for , December 02 with her PMD, Prescription for Librium 25 mg to be used every 6 hours as needed for withdrawal symptoms sent to her pharmacy Meanwhile, she should rest and drink plenty of water. She should return to the ER if she develops nausea/vomiting, pain, agitation or severe tremors Discharge - Discharge Information Problems reviewed: Yes Clinical Impression/Diagnosis: Alcohol withdrawal Qualifiers: Complication of substance-induced condition: uncomplicated Qualified Code(s): F10.230 - Alcohol dependence with withdrawal, uncomplicated Condition: Stable Disposition: HOME - Additional Discharge Information Prescriptions: Chlordiazepoxide [Librium -] 25 mg PO Q6HPO PRN #12 capsule MDD 4 caps PRN Reason: Agitation - Follow up/Referral Referrals: Kermit Cook MD [Primary Care Provider] - - Patient Discharge Instructions Patient Printed Discharge Instructions: DI for Drug or Alcohol Withdrawal Additional Instructions: Rest; drink plenty of water Try to eat regular meals Librium 25 mg every 6 hours as needed for agitation/tremors Return to ER immediately if you have nausea/vomiting/pain or severe tremors Follow-up with Dr. Cook as scheduled on December 02 Enter rehab facility later this week as planned - Post Discharge Activity
[2019-11-30] MEDS ORDERED: SODIUM CHLORIDE 1,000 ML IV STA (20:26)
[2019-11-30 20:39] VITALS: TEMP 100; BMI 20.1
[2019-11-30 20:45] LABS: HEMATOCRIT 35.1 % (32.4-45.2); HEMOGLOBIN 11.6 GM/dl (10.7-15.3); MCH 35.6 pg (25.7-33.7); MCHC 32.9 g/dl (32.0-36.0); MEAN CELL VOLUME 108.2 fl (80-96); PLATELET COUNT 220 K/MM3 (134-434); RBC 3.25 M/mm3 (3.60-5.2); RDW 15.9 % (11.6-15.6); WHITE BLOOD COUNT 5.3 K/mm3 (4.0-10.8)
[2019-11-30 20:50] LABS: HCG,QUALITATIVE URINE Negative
[2019-11-30 21:01] LABS: ALBUMIN 4.8 g/dl (3.4-5.0); BILIRUBIN,TOTAL 1.2 mg/dl (0.2-1); CALCIUM 9.2 mg/dl (8.5-10); CREATININE 0.6 mg/dl (0.55-1.3); POTASSIUM 3.1 mmol/L (3.5-5.1); TOT PROT 8.3 g/dl (6.4-8.2)
[2019-11-30] MEDS ORDERED: chlordiazePOXIDE HCL 25 MG CAPSULE PO ONE (21:19)
[2019-11-30] MEDS ORDERED: chlordiazePOXIDE HCL 25 MG CAPSULE ONE ×2 (21:21→22:21)
[2019-11-30 21:26] LABS: ANISOCYTOSIS 1+; PLATELET ESTIMATE ADEQUATE
[2019-11-30] MEDS ORDERED: POTASSIUM CHLORIDE TABS 20 MEQ TABLET.ER (FP) PO ONE ×2 (22:17→22:18)
[2019-11-30 22:19] VITALS: BP 149/92; PULSE 88
== END 2019-11-30 22:22 | disposition home or self-care (01) ==
LOC: FER 20:12
PROC: 3E0337Z Introduction of Electrolytic and Water Balance Substance into Peripheral Vein, Percutaneous Approach (ICD-10-PCS; principal; 2019-11-30)
DX: F10.230 Alcohol dependence with withdrawal, uncomplicated (principal)
CPT/HCPCS: 36415; 80053; 80307; 81003; 81015; 84703; 85025; 87086; 99284-25

== ENCOUNTER 2020-03-04 16:57 | Inpatient (IN) | payer OTHER ==
[2020-03-04] MEDS ORDERED: ONDANSETRON 4 MG/2 ML VIAL IVPUSH ONE (17:49)
[2020-03-04] MEDS ORDERED: FOLIC ACID INJECTION - 1 MG, THIAMINE HCL 100 MG, MULTIVIT INJECTION ADULT 10 ML in SOD... IVPB ONE (17:49)
[2020-03-04] MEDS ORDERED: LORazepam 2 MG/ML SDV VIAL IVPUSH ONE ×2 (17:50→20:45)
[2020-03-04] MEDS ORDERED: SODIUM CHLORIDE 0.9% 500 ML INFUS.BAG IV ONE ×2 (18:13→19:53)
[2020-03-04 18:16] LABS: HEMATOCRIT 39.9 % (32.4-45.2); HEMOGLOBIN 12.6 GM/dl (10.7-15.3); LYMPH % 3.3 % (8-40); MCH 35.2 pg (25.7-33.7); MCHC 31.6 g/dl (32.0-36.0); MEAN PLT VOLUME 7.2 fl (7.5-11.1); NEUT % 88.7 % (42.8-82.8); PLATELET COUNT 402 K/MM3 (134-434); RBC 3.59 M/mm3 (3.60-5.2); WHITE BLOOD COUNT 12.7 K/mm3 (4.0-10.8)
[2020-03-04] MEDS ORDERED: THIAMINE HCL 200 MG/2 ML VIAL IVPB ONE (18:17)
[2020-03-04] MEDS ORDERED: FOLIC ACID 5 MG/1 ML IVPB ONE (18:17)
[2020-03-04] MEDS ORDERED: MULTIVIT INJ. ADULT COMBO WITH VIT K 1 COMBO 10 ML VIAL IV ONE ×2 (18:22→18:27)
[2020-03-04] MEDS ORDERED: LORazepam 2 MG/ML SDV VIAL ONE ×2 (18:23→20:33)
[2020-03-04 18:24] LABS: ADD RBC MORPHOLOGY YES
[2020-03-04] MEDS ORDERED: ONDANSETRON 4 MG/2 ML VIAL ONE (18:25)
[2020-03-04] MEDS ORDERED: PANTOPRAZOLE SODIUM 40 MG VIAL IVPUSH ONE (18:25)
[2020-03-04] MEDS ORDERED: FOLIC ACID 5 MG/1 ML ONE (18:27)
[2020-03-04] MEDS ORDERED: THIAMINE HCL 200 MG/2 ML VIAL ONE (18:27)
[2020-03-04 18:47] LABS: MEAN CELL VOLUME 111.3 fl (80-96)
[2020-03-04] MEDS ORDERED: PANTOPRAZOLE SODIUM 40 MG VIAL ONE (18:47)
[2020-03-04 18:48] LABS: ANISOCYTOSIS 1+; MACROCYTOSIS 2+
[2020-03-04 20:06] LABS: ALBUMIN 4.7 g/dl (3.4-5.0); BILIRUBIN,TOTAL 1.2 mg/dl (0.2-1); CALCIUM 8.1 mg/dl (8.5-10); CREATININE 0.7 mg/dl (0.55-1.3); TOT PROT 8.4 g/dl (6.4-8.2)
[2020-03-04 20:08] LABS: INR 1.05 (0.82-1.09)
[2020-03-04 20:10] LABS: VENOUS BASE EXCESS -20.4 mmol/L (-2-2); VENOUS O2 SATURATION 40.6 % (70-80); VENOUS PCO2 42.5 mmHg (38-52)
[2020-03-04 20:10] LABS: PROTHROMBIN TIME (PATIENT) 11.7 SEC (10.2-13.0)
[2020-03-04 20:11] LABS: VENOUS PH 7.004 (7.310-7.410)
[2020-03-04 20:12] LABS: POTASSIUM 4.9 mmol/L (3.5-5.1)
[2020-03-04] MEDS ORDERED: chlordiazePOXIDE HCL 25 MG CAPSULE ONE (20:17)
[2020-03-04] MEDS ORDERED: chlordiazePOXIDE HCL 25 MG CAPSULE PO ONE (20:28)
[2020-03-04 20:33] LABS: EPITHELIAL CELLS FEW /hpf
[2020-03-04] MEDS ORDERED: LIDOCAINE 5% TOPICAL PATCH ONE (20:33)
[2020-03-04] MEDS ORDERED: SODIUM BICARBONATE 8.4% 50 MEQ/50 ML VIAL ONE (20:58)
[2020-03-04] MEDS ORDERED: SODIUM BICARBONATE 8.4% 50 MEQ/50 ML VIAL IVPB ONE (21:00)
[2020-03-04] MEDS ORDERED: DEXTROSE 5%-NORMAL SALINE 1,000 ML IV SCH (21:00)
[2020-03-04 21:26] LABS: METHADONE, UR NEGATIVE ng/ml (CUTOFF=300); URINE AMPHETAMINES NEGATIVE ng/ml (CUTOFF=500); URINE BARBITURATES NEGATIVE ng/ml (CUTOFF=200); URINE BENZODIAZEPINES NEGATIVE ng/ml (CUTOFF=200)
[2020-03-04 21:27] LABS: OPIATES, URI NEGATIVE ng/ml (CUTOFF=300); PHENCYCLIDINE,URINE NEGATIVE ng/ml (CUTOFF=25)
[2020-03-04 21:28] LABS: COCAINE, UR NEGATIVE ng/ml (CUTOFF=300)
[2020-03-04 22:11] LABS: CALCIUM 7.1 mg/dl (8.5-10); CREATININE 0.8 mg/dl (0.55-1.3); MAGNESIUM 1.6 mg/dL (1.8-2.4); POTASSIUM 5.7 mmol/L (3.5-5.1)
[2020-03-04] MEDS ORDERED: MAGNESIUM 1GM/D5W - 1 GM/100 ML IVPB IVPB ONE (22:28)
[2020-03-04] MEDS: DEXTROSE 5%-NORMAL SALINE 1,000 ML IV SCH (22:44)
[2020-03-04] MEDS ORDERED: PROCHLORPERAZINE MALEATE 5 MG TABLET PO PRN (23:14)
[2020-03-04] MEDS ORDERED: MAG HYDROX/AL HYDROX/SIMETH 30 ML UNIT-DOSE CUP PO PRN (23:15)
[2020-03-04] MEDS: LORazepam 1 MG TABLET PO SCH (23:55)
[2020-03-05 00:28] VITALS: BMI 20.9
[2020-03-05 00:56] LABS: VENOUS BASE EXCESS -17.6 mmol/L (-2-2); VENOUS O2 SATURATION 27.9 % (70-80); VENOUS PCO2 30.1 mmHg (38-52)
[2020-03-05 01:05] LABS: VENOUS PH 7.141 (7.310-7.410)
[2020-03-05] MEDS: LORazepam 1 MG TABLET PO SCH ×4 (05:17→22:28)
[2020-03-05 08:21] LABS: HEMATOCRIT 32.1 % (32.4-45.2); HEMOGLOBIN 10.3 GM/dl (10.7-15.3); MCH 34.4 pg (25.7-33.7); MEAN CELL VOLUME 107.5 fl (80-96); MEAN PLT VOLUME 6.8 fl (7.5-11.1); PLATELET COUNT 249 K/MM3 (134-434); RBC 2.99 M/mm3 (3.60-5.2); RDW 17.1 % (11.6-15.6); WHITE BLOOD COUNT 7.3 K/mm3 (4.0-10.8)
[2020-03-05 08:30] LABS: ALBUMIN 4.2 g/dl (3.4-5.0); BILIRUBIN,TOTAL 2.2 mg/dl (0.2-1); CALCIUM 8.8 mg/dl (8.5-10); CREATININE 0.6 mg/dl (0.55-1.3); POTASSIUM 3.9 mmol/L (3.5-5.1); TOT PROT 7.6 g/dl (6.4-8.2)
[2020-03-05 09:07] LABS: MAGNESIUM 2.2 mg/dL (1.8-2.4)
[2020-03-05] MEDS: FOLIC ACID 1 MG TABLET (FP) PO SCH (09:15)
[2020-03-05] MEDS: THIAMINE HCL 100 MG TABLET (FP) PO SCH (09:15)
[2020-03-05] MEDS: NICOTINE 7 MG/24 HOURS TOPICAL PATCH TD SCH (09:15)
[2020-03-05] MEDS: ENOXAPARIN NA (PORCINE) 40 MG/0.4 ML DISP.SYRIN SQ SCH (09:15)
[2020-03-05] MEDS: NAPH,MB-DB/K PH,MBDB POWDER PACKET PO SCH ×3 (10:17→22:23)
[2020-03-05] MEDS ORDERED: MULTIVIT INJ. ADULT COMBO WITH VIT K 1 COMBO 10 ML VIAL IV ONE (18:19)
[2020-03-05] MEDS: PANTOPRAZOLE 40 MG TABLET PO SCH (22:23)
[2020-03-05] MEDS ORDERED: chlordiazePOXIDE HCL 25 MG CAPSULE PO ONE (22:32)
[2020-03-05] MEDS: DEXTROSE 5%-NORMAL SALINE 1,000 ML IV SCH (22:35)
[2020-03-06] MEDS: LORazepam 1 MG TABLET PO SCH ×2 (06:30→11:35)
[2020-03-06] MEDS: NAPH,MB-DB/K PH,MBDB POWDER PACKET PO SCH ×3 (06:30→21:08)
[2020-03-06] MEDS: DEXTROSE 5%-NORMAL SALINE 1,000 ML IV SCH (06:31)
[2020-03-06] MEDS ORDERED: LORazepam 0.5 MG TABLET ONE ×4 (07:35→20:22)
[2020-03-06] MEDS: LORazepam 1 MG TABLET PO PRN ×3 (07:40→20:38)
[2020-03-06 09:09] LABS: BASO % 3.5 % (0-2.0); EOS % 0.2 % (0-4.5); HEMATOCRIT 34.7 % (32.4-45.2); HEMOGLOBIN 11.4 GM/dl (10.7-15.3); LYMPH % 23.4 % (8-40); MCH 34.7 pg (25.7-33.7); MCHC 32.8 g/dl (32.0-36.0); MEAN CELL VOLUME 105.7 fl (80-96); MEAN PLT VOLUME 7.2 fl (7.5-11.1); MONO % 13.2 % (3.8-10.2); NEUT % 59.7 % (42.8-82.8); PLATELET COUNT 207 K/MM3 (134-434); RBC 3.28 M/mm3 (3.60-5.2); RDW 16.5 % (11.6-15.6); WHITE BLOOD COUNT 4.8 K/mm3 (4.0-10.8)
[2020-03-06 09:49] LABS: BILIRUBIN,TOTAL 1.3 mg/dl (0.2-1); CALCIUM 8.7 mg/dl (8.5-10); CREATININE 0.4 mg/dl (0.55-1.3); MAGNESIUM 1.7 mg/dL (1.8-2.4); PHOSPHOROUS 1.7 mg/dl (2.5-4.9); POTASSIUM 2.7 mmol/L (3.5-5.1); TOT PROT 7.4 g/dl (6.4-8.2)
[2020-03-06] MEDS ORDERED: MAGNESIUM SULF 50% (8.12 MEQ/2 ML-1 GM VIAL) IVPB ONE (09:53)
[2020-03-06] MEDS ORDERED: POTASSIUM CHLORIDE TABS 20 MEQ TABLET.ER (FP) PO ONE ×2 (09:54→18:12)
[2020-03-06] MEDS: KCL 10 MEQ IVPB 10 MEQ/100 ML INFUS.BAG IVPB SCH ×3 (10:05→13:55)
[2020-03-06] MEDS: ENOXAPARIN NA (PORCINE) 40 MG/0.4 ML DISP.SYRIN SQ SCH (10:35)
[2020-03-06] MEDS: FOLIC ACID 1 MG TABLET (FP) PO SCH (10:35)
[2020-03-06] MEDS: PANTOPRAZOLE 40 MG TABLET PO SCH ×2 (10:39→21:06)
[2020-03-06] MEDS: NICOTINE 7 MG/24 HOURS TOPICAL PATCH TD SCH (11:38)
[2020-03-06] MEDS: THIAMINE HCL 100 MG TABLET (FP) PO SCH (11:39)
[2020-03-06] MEDS ORDERED: DEXTROSE 5%-NORMAL SALINE 1,000 ML IV SCH (11:57)
[2020-03-06] MEDS: SUCRALFATE 1 GM/10 ML UNIT DOSE CUPS PO SCH ×2 (12:27→21:06)
[2020-03-06] MEDS: chlordiazePOXIDE HCL 25 MG CAPSULE PO SCH ×2 (12:27→17:19)
[2020-03-06] MEDS ORDERED: metoPROLOL SUCCINATE 25 MG TAB.SR.24H (FP) PO ONE (14:41)
[2020-03-06] MEDS ORDERED: METOPROLOL TARTRATE 5 MG/5 ML VIAL IVPUSH ONE (15:44)
[2020-03-06 17:35] LABS: POTASSIUM 3.1 mmol/L (3.5-5.1)
[2020-03-07] MEDS ORDERED: LORazepam 0.5 MG TABLET PO PRN
[2020-03-07] MEDS: chlordiazePOXIDE HCL 25 MG CAPSULE PO SCH ×2 (00:03→06:09)
[2020-03-07] MEDS ORDERED: LORazepam 0.5 MG TABLET PO SCH (05:00)
[2020-03-07 08:11] LABS: BASO % 4.2 % (0-2.0); EOS % 0.6 % (0-4.5); HEMATOCRIT 37.3 % (32.4-45.2); HEMOGLOBIN 11.6 GM/dl (10.7-15.3); LYMPH % 22.9 % (8-40); MCH 33.7 pg (25.7-33.7); MEAN CELL VOLUME 108.8 fl (80-96); MEAN PLT VOLUME 7.8 fl (7.5-11.1); MONO % 11.2 % (3.8-10.2); NEUT % 61.1 % (42.8-82.8); PLATELET COUNT 261 K/MM3 (134-434); RBC 3.43 M/mm3 (3.60-5.2); RDW 16.9 % (11.6-15.6); WHITE BLOOD COUNT 5.2 K/mm3 (4.0-10.8)
[2020-03-07 08:42] LABS: ALBUMIN 4.1 g/dl (3.4-5.0); ALK PHOS 71 U/L (45-117); ANION GAP 11 MMOL/L (8-16); CHLORIDE 104 mmol/L (98-107); CO2 23 mmol/L (21-32); CREATININE 0.5 mg/dl (0.55-1.3); GLUCOSE,RANDOM 112 mg/dl (74-106); MAGNESIUM 2.1 mg/dL (1.8-2.4); PHOSPHOROUS 2.3 mg/dl (2.5-4.9); POTASSIUM 3.6 mmol/L (3.5-5.1); SGOT/AST 41 U/L (15-37); SGPT/ALT 17 U/L (13-61); SODIUM 138 mmol/L (136-145); TOT PROT 7.4 g/dl (6.4-8.2)
[2020-03-07 08:52] LABS: BLOOD UREA NITROGEN < 5.7 mg/dl (7-18)
[2020-03-07 09:32] VITALS: BP 118/78; PULSE 102; TEMP 98.3
[2020-03-07] MEDS: SUCRALFATE 1 GM/10 ML UNIT DOSE CUPS PO SCH (09:41)
[2020-03-07] MEDS: PANTOPRAZOLE 40 MG TABLET PO SCH (09:42)
[2020-03-07] MEDS: NAPH,MB-DB/K PH,MBDB POWDER PACKET PO SCH (09:42)
[2020-03-07] MEDS: THIAMINE HCL 100 MG TABLET (FP) PO SCH (09:42)
[2020-03-07] MEDS: NICOTINE 7 MG/24 HOURS TOPICAL PATCH TD SCH (09:42)
[2020-03-07] MEDS: FOLIC ACID 1 MG TABLET (FP) PO SCH (09:43)
[2020-03-07] MEDS: ENOXAPARIN NA (PORCINE) 40 MG/0.4 ML DISP.SYRIN SQ SCH (09:43)
[2020-03-08] MEDS ORDERED: LORazepam 0.5 MG TABLET PO ONE (05:00)
== END 2020-03-07 10:35 | disposition home or self-care (01) | DRG 775 ==
LOC: FER 16:57 → FM/S 20:34
PROVIDERS: ADMIT Hospitalist; ATTEND Nurse Practitioner Acute Care
DX: F10.288 Alcohol dependence with other alcohol-induced disorder (principal); E87.2 Acidosis; F17.210 Nicotine dependence, cigarettes, uncomplicated; R10.13 Epigastric pain; F10.239 Alcohol dependence with withdrawal, unspecified; K21.9 Gastro-esophageal reflux disease without esophagitis; F41.9 Anxiety disorder, unspecified; E83.39 Other disorders of phosphorus metabolism; E87.6 Hypokalemia
CPT/HCPCS: 36415; 71045-TC-FY; 80048; 80053; 80307; 81003; 81015; 82010; 82803; 82947; 83690; 83735; 84100; 84132; 84443; 84703; 85025; 85027; 85610; 85730; 93005; 99285-25; C9803; U0003

== ENCOUNTER 2020-05-18 10:20 | Emergency (ER) | payer OTHER | END 2020-05-18 10:49 | disposition home or self-care (01) | LOC: JVIRT 10:20 | DX: Z20.822 Contact with and (suspected) exposure to COVID-19 (principal) | CPT/HCPCS: C9803; G2251-GT; Q3014-GT; U0003 ==

== ENCOUNTER 2020-07-07 14:32 | Emergency (ER) | payer OTHER | END 2020-07-07 14:57 | disposition home or self-care (01) | LOC: JVIRT 14:32 | DX: Z20.822 Contact with and (suspected) exposure to COVID-19 (principal) | CPT/HCPCS: G2251-GT ==

== ENCOUNTER 2020-08-26 10:45 | Inpatient (IN) | payer OTHER ==
[2020-08-26] MEDS ORDERED: FOLIC ACID INJECTION - 1 MG, THIAMINE HCL 100 MG, MULTIVIT INJECTION ADULT 10 ML in SOD... IVPB ONE (10:53)
[2020-08-26] MEDS ORDERED: ONDANSETRON 4 MG/2 ML VIAL IVPUSH ONE ×2 (11:12→11:20)
[2020-08-26 11:19] LABS: HEMOGLOBIN 12.9 GM/dl (10.7-15.3); MCH 34.1 pg (25.7-33.7); MCHC 33.8 g/dl (32.0-36.0); MEAN CELL VOLUME 100.9 fl (80-96); MEAN PLT VOLUME 7.7 fl (7.5-11.1); PLATELET COUNT 217 10^3/uL (134-434); RBC 3.77 M/mm3 (3.60-5.2); RDW 13.2 % (11.6-15.6); WHITE BLOOD COUNT 10.1 K/mm3 (4.0-10.8)
[2020-08-26] MEDS ORDERED: ONDANSETRON 4 MG/2 ML VIAL ONE (11:24)
[2020-08-26 11:28] LABS: INR 1.11 (0.82-1.09); PROTHROMBIN TIME (PATIENT) 12.3 SEC (10.2-13.0)
[2020-08-26 11:29] LABS: ALBUMIN 4.7 g/dl (3.4-5.0); BILIRUBIN,TOTAL 1.4 mg/dl (0.2-1); CALCIUM 8.6 mg/dl (8.5-10); CREATININE 0.7 mg/dl (0.55-1.3); MAGNESIUM 1.7 mg/dL (1.8-2.4); TOT PROT 8.6 g/dl (6.4-8.2)
[2020-08-26] MEDS ORDERED: chlordiazePOXIDE HCL 25 MG CAPSULE PO ONE (11:31)
[2020-08-26] MEDS ORDERED: chlordiazePOXIDE HCL 25 MG CAPSULE ONE (11:33)
[2020-08-26 11:46] LABS: EPITHELIAL CELLS MANY /hpf
[2020-08-26 11:52] LABS: PLATELET ESTIMATE ADEQUATE
[2020-08-26] MEDS ORDERED: MAGNESIUM SULF 50% (8.12 MEQ/2 ML-1 GM VIAL) IVPB ONE (12:27)
[2020-08-26] MEDS ORDERED: MAGNESIUM 1GM/D5W - 1 GM/100 ML IVPB IVPB ONE (12:31)
[2020-08-26 13:37] LABS: ARTERIAL BLD GAS O2 SATURATION 96.9 mmHg (95-98); ARTERIAL BLOOD GAS BASE EXCESS -15.6 mmol/L (-2-2); ARTERIAL BLOOD GAS PO2 106.3 mmHg (80-100); ARTERIAL BLOOD GAS pH 7.209 (7.350-7.450)
[2020-08-26] MEDS ORDERED: KETOROLAC TROMETHAMINE 15 MG/ML VIAL ONE (13:39)
[2020-08-26] MEDS ORDERED: FAMOTIDINE 20 MG/50 ML IVPB 20 MG/50 ML MG IVPB ONE ×2 (14:26→22:56)
[2020-08-26] MEDS ORDERED: KETOROLAC TROMETHAMINE 30 MG/1 ML VIAL IVPUSH ONE (14:26)
[2020-08-26] MEDS ORDERED: LORazepam 2 MG/ML SDV VIAL ONE (15:37)
[2020-08-26] MEDS ORDERED: LORazepam 2 MG/ML SDV VIAL IVPUSH ONE (15:45)
[2020-08-26 16:53] VITALS: BMI 10.2
[2020-08-26] MEDS: chlordiazePOXIDE HCL 25 MG CAPSULE PO SCH ×2 (17:12→23:01)
[2020-08-26] MEDS: chlordiazePOXIDE HCL 25 MG CAPSULE PO PRN (20:38)
[2020-08-26 21:58] LABS: CREATININE 0.7 mg/dl (0.55-1.3)
[2020-08-26 21:59] LABS: BILIRUBIN,TOTAL 1.9 mg/dl (0.2-1); CALCIUM 8.3 mg/dl (8.5-10); TOT PROT 7.5 g/dl (6.4-8.2)
[2020-08-26] MEDS ORDERED: ONDANSETRON 4 MG/2 ML VIAL IVPUSH PRN (22:37)
[2020-08-26] MEDS ORDERED: FAMOTIDINE 20 MG/50 ML IVPB 20 MG/50 ML MG IVPB SCH (22:45)
[2020-08-26] MEDS: SODIUM CHLORIDE 0.45% 1,000 ML IV SCH (22:55)
[2020-08-27] MEDS: chlordiazePOXIDE HCL 25 MG CAPSULE PO SCH ×4 (05:13→23:25)
[2020-08-27 08:16] LABS: BASO % 0.6 % (0-2.0); EOS % 0.2 % (0-4.5); HEMATOCRIT 38.3 % (32.4-45.2); HEMOGLOBIN 12.6 GM/dl (10.7-15.3); LYMPH % 14.4 % (8-40); MCH 32.9 pg (25.7-33.7); MCHC 32.8 g/dl (32.0-36.0); MEAN CELL VOLUME 100.3 fl (80-96); MEAN PLT VOLUME 7.9 fl (7.5-11.1); MONO % 11.6 % (3.8-10.2); NEUT % 73.2 % (42.8-82.8); PLATELET COUNT 176 10^3/uL (134-434); RBC 3.82 M/mm3 (3.60-5.2); RDW 13.1 % (11.6-15.6); WHITE BLOOD COUNT 5.1 K/mm3 (4.0-10.8)
[2020-08-27 08:28] LABS: BILIRUBIN,TOTAL 1.7 mg/dl (0.2-1); CREATININE 0.6 mg/dl (0.55-1.3); MAGNESIUM 2.1 mg/dL (1.8-2.4); TOT PROT 7.5 g/dl (6.4-8.2)
[2020-08-27] MEDS ORDERED: FAMOTIDINE 20 MG/50 ML IVPB 20 MG/50 ML MG IVPB ONE (10:00)
[2020-08-27] MEDS: chlordiazePOXIDE HCL 25 MG CAPSULE PO PRN (21:24)
[2020-08-27] MEDS: SODIUM CHLORIDE 0.45% 1,000 ML IV SCH (23:30)
[2020-08-28] MEDS ORDERED: MELATONIN 5 MG TABLETS PO PRN (01:00)
[2020-08-28] MEDS: SODIUM CHLORIDE 0.45% 1,000 ML IV SCH (05:09)
[2020-08-28] MEDS: chlordiazePOXIDE HCL 25 MG CAPSULE PO SCH ×2 (05:21→11:28)
[2020-08-28 05:55] VITALS: TEMP 98.3
[2020-08-28 08:09] LABS: WHITE BLOOD COUNT 4.1 K/mm3 (4.0-10.8)
[2020-08-28 08:19] LABS: BASO % 0.9 % (0-2.0); HEMATOCRIT 36.5 % (32.4-45.2); HEMOGLOBIN 12.1 GM/dl (10.7-15.3); LYMPH % 21.1 % (8-40); MCHC 33.2 g/dl (32.0-36.0); MEAN CELL VOLUME 99.4 fl (80-96); MEAN PLT VOLUME 7.9 fl (7.5-11.1); MONO % 13.4 % (3.8-10.2); NEUT % 63.6 % (42.8-82.8); PLATELET COUNT 170 10^3/uL (134-434); RBC 3.67 M/mm3 (3.60-5.2); RDW 12.8 % (11.6-15.6)
[2020-08-28 08:26] LABS: ALBUMIN 3.6 g/dl (3.4-5.0); BILIRUBIN,TOTAL 0.7 mg/dl (0.2-1); CALCIUM 8.8 mg/dl (8.5-10); CREATININE 0.5 mg/dl (0.55-1.3); TOT PROT 6.6 g/dl (6.4-8.2)
[2020-08-28 09:09] VITALS: BP 129/91; PULSE 110
[2020-08-28] MEDS ORDERED: POTASSIUM CHLORIDE TABS 20 MEQ TABLET.ER (FP) PO ONE (09:16)
[2020-08-28] MEDS ORDERED: PRESCRIPTION PAD 1 EACH EACH NR ONE (12:33)
[2020-08-29] MEDS ORDERED: chlordiazePOXIDE HCL 10 MG CAPSULE PO PRN
[2020-08-29] MEDS ORDERED: chlordiazePOXIDE HCL 10 MG CAPSULE PO SCH (05:00)
[2020-08-30] MEDS ORDERED: chlordiazePOXIDE HCL 10 MG CAPSULE PO SCH (05:00)
[2020-08-31] MEDS ORDERED: chlordiazePOXIDE HCL 10 MG CAPSULE PO ONE (05:00)
== END 2020-08-28 12:45 | disposition home or self-care (01) | DRG 775 ==
LOC: FER 10:45 → FM/S 15:31
PROVIDERS: ADMIT Internal Medicine; ATTEND Internal Medicine
PROC: HZ2ZZZZ Detoxification Services for Substance Abuse Treatment (ICD-10-PCS; principal; 2020-08-26)
DX: F10.239 Alcohol dependence with withdrawal, unspecified (principal); R11.2 Nausea with vomiting, unspecified; F10.288 Alcohol dependence with other alcohol-induced disorder; K21.9 Gastro-esophageal reflux disease without esophagitis; E83.42 Hypomagnesemia; F12.20 Cannabis dependence, uncomplicated; E87.2 Acidosis; F41.9 Anxiety disorder, unspecified; R63.0 Anorexia; Z68.21 Body mass index [BMI] 21.0-21.9, adult
CPT/HCPCS: 36415; 36600; 80053; 81003; 81015; 82010; 82803; 82962; 83690; 83735; 84100; 84703; 85025; 85610; 87086; 93005; 99285-25; C9803; U0003; U0005

== ENCOUNTER 2020-10-01 06:44 | Inpatient (IN) | payer OTHER ==
[2020-10-01] MEDS ORDERED: ONDANSETRON 4 MG/2 ML VIAL IVPUSH ONE (06:46)
[2020-10-01] MEDS ORDERED: LACTATED RINGERS SOLUTION 1,000 ML/1,000 ML INFUS.BAG IV STA ×2 (06:46→09:20)
[2020-10-01] MEDS ORDERED: FOLIC ACID INJECTION - 1 MG, THIAMINE HCL 100 MG, MULTIVIT INJECTION ADULT 10 ML in SOD... IVPB ONE (06:46)
[2020-10-01 06:52] VITALS: BMI 22.8
[2020-10-01] MEDS ORDERED: ONDANSETRON 4 MG/2 ML VIAL ONE (06:54)
[2020-10-01] MEDS ORDERED: FOLIC ACID 5 MG/1 ML ONE (06:55)
[2020-10-01] MEDS ORDERED: chlordiazePOXIDE HCL 25 MG CAPSULE PO ONE (08:27)
[2020-10-01] MEDS ORDERED: METOCLOPRAMIDE HCL INJECTION 10 MG/2 ML VIAL IVPUSH ONE (08:27)
[2020-10-01 08:30] LABS: HEMATOCRIT 37.6 % (32.4-45.2); HEMOGLOBIN 12.5 GM/dl (10.7-15.3); MCH 32.9 pg (25.7-33.7); MCHC 33.3 g/dl (32.0-36.0); MEAN CELL VOLUME 98.9 fl (80-96); PLATELET COUNT 283 10^3/uL (134-434); RDW 14.8 % (11.6-15.6); WHITE BLOOD COUNT 9.6 K/mm3 (4.0-10.8)
[2020-10-01 09:01] LABS: ALBUMIN 4.5 g/dl (3.4-5.0); BILIRUBIN,TOTAL 0.9 mg/dl (0.2-1); CALCIUM 8.5 mg/dl (8.5-10); CREATININE 0.5 mg/dl (0.55-1.3); MAGNESIUM 1.6 mg/dL (1.8-2.4); TOT PROT 7.9 g/dl (6.4-8.2)
[2020-10-01 09:02] LABS: EPITHELIAL CELLS FEW /hpf
[2020-10-01] MEDS ORDERED: chlordiazePOXIDE HCL 25 MG CAPSULE ONE (09:15)
[2020-10-01 09:16] LABS: VENOUS BASE EXCESS -16.8 mmol/L (-2-2); VENOUS O2 SATURATION 87.1 % (70-80); VENOUS PCO2 32.5 mmHg (38-52)
[2020-10-01] MEDS ORDERED: METOCLOPRAMIDE HCL INJECTION 10 MG/2 ML VIAL ONE (09:16)
[2020-10-01 09:18] LABS: VENOUS PH 7.146 (7.310-7.410)
[2020-10-01] MEDS ORDERED: MAGNESIUM 1GM/D5W - 2 GM/200 ML IVPB IVPB ONE (09:25)
[2020-10-01] MEDS ORDERED: ACETAMINOPHEN 325 MG TABLET (FP) PO ONE (10:06)
[2020-10-01] MEDS ORDERED: ACETAMINOPHEN 325 MG TABLET (FP) ONE (10:10)
[2020-10-01] MEDS ORDERED: chlordiazePOXIDE HCL 25 MG CAPSULE PO SCH ×4 (11:00→17:00)
[2020-10-01] MEDS ORDERED: chlordiazePOXIDE HCL 25 MG CAPSULE PO PRN ×4 (12:26→19:02)
[2020-10-01] MEDS ORDERED: ONDANSETRON 4 MG/2 ML VIAL IM PRN (12:32)
[2020-10-01] MEDS ORDERED: ACETAMINOPHEN 1000 MG/100 ML VIAL (NON FORMULARY) IVPB PRN ×2 (12:32→12:56)
[2020-10-01] MEDS ORDERED: chlordiazePOXIDE HCL 10 MG CAPSULE PO SCH ×2 (13:00→17:00)
[2020-10-01] MEDS ORDERED: chlordiazePOXIDE HCL 10 MG CAPSULE PO PRN (13:08)
[2020-10-01] MEDS ORDERED: chlordiazePOXIDE 5 MG CAPSULE ONE ×2 (13:38→14:36)
[2020-10-01] MEDS: PANTOPRAZOLE SODIUM 40 MG VIAL IVPUSH SCH (14:53)
[2020-10-01] MEDS: SODIUM CHLORIDE 1,000 ML IV SCH (14:54)
[2020-10-01] MEDS: chlordiazePOXIDE HCL 25 MG CAPSULE PO SCH (23:03)
[2020-10-01] MEDS ORDERED: MAG HYDROX/AL HYDROX/SIMETH 30 ML UNIT-DOSE CUP PO PRN (23:32)
[2020-10-02] MEDS ORDERED: chlordiazePOXIDE HCL 10 MG CAPSULE PO ONE (05:00)
[2020-10-02] MEDS: chlordiazePOXIDE HCL 25 MG CAPSULE PO SCH ×4 (05:02→22:52)
[2020-10-02 08:59] LABS: BASO % 0.5 % (0-2.0); EOS % 0.2 % (0-4.5); HEMOGLOBIN 11.6 GM/dl (10.7-15.3); LYMPH % 14.3 % (8-40); MCH 31.6 pg (25.7-33.7); MCHC 32.3 g/dl (32.0-36.0); MEAN CELL VOLUME 97.9 fl (80-96); MEAN PLT VOLUME 7.8 fl (7.5-11.1); MONO % 12.2 % (3.8-10.2); NEUT % 72.8 % (42.8-82.8); PLATELET COUNT 187 10^3/uL (134-434); RBC 3.68 M/mm3 (3.60-5.2); RDW 14.1 % (11.6-15.6); WHITE BLOOD COUNT 5.2 K/mm3 (4.0-10.8)
[2020-10-02 09:22] LABS: ALBUMIN 4.3 g/dl (3.4-5.0); BILIRUBIN,TOTAL 2.1 mg/dl (0.2-1); CALCIUM 8.9 mg/dl (8.5-10); CREATININE 0.6 mg/dl (0.55-1.3); MAGNESIUM 2.1 mg/dL (1.8-2.4); PHOSPHOROUS 1.5 mg/dl (2.5-4.9); TOT PROT 7.5 g/dl (6.4-8.2)
[2020-10-02] MEDS: PANTOPRAZOLE SODIUM 40 MG VIAL IVPUSH SCH (09:40)
[2020-10-02] MEDS: ENOXAPARIN NA (PORCINE) 40 MG/0.4 ML DISP.SYRIN SQ SCH (09:41)
[2020-10-02] MEDS: FOLIC ACID 1 MG TABLET (FP) PO SCH (09:41)
[2020-10-02] MEDS: MULTIVITAMINS (DAILY MVI) TABLET (FP) PO SCH (09:41)
[2020-10-02] MEDS: THIAMINE HCL 100 MG TABLET (FP) PO SCH (09:41)
[2020-10-02] MEDS ORDERED: NAPH,MB-DB/K PH,MBDB POWDER PACKET PO ONE (10:30)
[2020-10-02] MEDS: SODIUM CHLORIDE 1,000 ML IV SCH (13:20)
[2020-10-02] MEDS ORDERED: DEXTROSE 5%-NORMAL SALINE 1,000 ML IV SCH (19:45)
[2020-10-02 20:52] LABS: CALCIUM 8.7 mg/dl (8.5-10); CREATININE 0.5 mg/dl (0.55-1.3)
[2020-10-02] MEDS ORDERED: POTASSIUM PHOSPHATE 30 MM in DEXTROSE 5%-WATER - 500 ML IVPB ONE (21:11)
[2020-10-03] MEDS ORDERED: chlordiazePOXIDE HCL 25 MG CAPSULE PO SCH (05:00)
[2020-10-03] MEDS: chlordiazePOXIDE HCL 25 MG CAPSULE PO SCH ×2 (05:44→11:07)
[2020-10-03 08:22] LABS: BASO % 1.1 % (0-2.0); EOS % 1.1 % (0-4.5); HEMATOCRIT 36.8 % (32.4-45.2); LYMPH % 21.2 % (8-40); MCH 31.2 pg (25.7-33.7); MCHC 32.6 g/dl (32.0-36.0); MEAN CELL VOLUME 95.8 fl (80-96); MEAN PLT VOLUME 7.7 fl (7.5-11.1); MONO % 11.4 % (3.8-10.2); NEUT % 65.2 % (42.8-82.8); PLATELET COUNT 186 10^3/uL (134-434); RBC 3.84 M/mm3 (3.60-5.2); RDW 13.8 % (11.6-15.6); WHITE BLOOD COUNT 3.7 K/mm3 (4.0-10.8)
[2020-10-03 08:25] LABS: ALBUMIN 4.1 g/dl (3.4-5.0); CREATININE 0.5 mg/dl (0.55-1.3); MAGNESIUM 1.5 mg/dL (1.8-2.4); TOT PROT 7.1 g/dl (6.4-8.2)
[2020-10-03] MEDS ORDERED: POTASSIUM CHLORIDE TABS 20 MEQ TABLET.ER (FP) PO ONE (09:45)
[2020-10-03 10:02] VITALS: BP 119/88; PULSE 93; TEMP 98.1
[2020-10-03] MEDS: MULTIVITAMINS (DAILY MVI) TABLET (FP) PO SCH (10:18)
[2020-10-03] MEDS: ENOXAPARIN NA (PORCINE) 40 MG/0.4 ML DISP.SYRIN SQ SCH (10:18)
[2020-10-03] MEDS: THIAMINE HCL 100 MG TABLET (FP) PO SCH (10:18)
[2020-10-03] MEDS: FOLIC ACID 1 MG TABLET (FP) PO SCH (10:18)
[2020-10-03] MEDS: PANTOPRAZOLE SODIUM 40 MG VIAL IVPUSH SCH (10:18)
[2020-10-04] MEDS ORDERED: chlordiazePOXIDE HCL 10 MG CAPSULE PO PRN
[2020-10-04] MEDS ORDERED: chlordiazePOXIDE 5 MG CAPSULE PO PRN
[2020-10-04] MEDS ORDERED: chlordiazePOXIDE 5 MG CAPSULE PO SCH (05:00)
[2020-10-04] MEDS ORDERED: chlordiazePOXIDE HCL 10 MG CAPSULE PO SCH (05:00)
[2020-10-05] MEDS ORDERED: chlordiazePOXIDE 5 MG CAPSULE PO SCH (05:00)
[2020-10-05] MEDS ORDERED: chlordiazePOXIDE HCL 10 MG CAPSULE PO SCH (05:00)
[2020-10-06] MEDS ORDERED: chlordiazePOXIDE 5 MG CAPSULE PO ONE (05:00)
[2020-10-06] MEDS ORDERED: chlordiazePOXIDE HCL 10 MG CAPSULE PO ONE (05:00)
== END 2020-10-03 11:30 | disposition home or self-care (01) | DRG 775 ==
LOC: FER 06:44 → UNDOADMOB 12:32 → FM/S 12:32 → OBSVTOIN 13:40 → FM/S 13:40
PROVIDERS: ADMIT Family Medicine; ATTEND Nurse Practitioner Acute Care
PROC: HZ2ZZZZ Detoxification Services for Substance Abuse Treatment (ICD-10-PCS; principal; 2020-10-01)
DX: F10.239 Alcohol dependence with withdrawal, unspecified (principal); K21.9 Gastro-esophageal reflux disease without esophagitis; R11.2 Nausea with vomiting, unspecified; F17.210 Nicotine dependence, cigarettes, uncomplicated; F12.20 Cannabis dependence, uncomplicated; F41.9 Anxiety disorder, unspecified; E87.2 Acidosis
CPT/HCPCS: 36415; 80048; 80053; 81003; 81015; 82010; 82803; 82962; 83735; 84100; 84703; 85025; 87086; 93005; 99285-25; C9803; U0003; U0005

== ENCOUNTER 2020-10-25 20:09 | Inpatient (IN) | payer OTHER ==
[2020-10-25] MEDS ORDERED: ONDANSETRON 4 MG/2 ML VIAL IVPB ONE (20:15)
[2020-10-25] MEDS ORDERED: SODIUM CHLORIDE 1,000 ML IV ONE (20:16)
[2020-10-25] MEDS ORDERED: FOLIC ACID INJECTION - 1 MG, THIAMINE HCL 100 MG, MULTIVIT INJECTION ADULT 10 ML in SOD... IVPB ONE (20:43)
[2020-10-25] MEDS ORDERED: ONDANSETRON 4 MG/2 ML VIAL ONE (20:54)
[2020-10-25 21:09] LABS: INR 0.98 (0.82-1.09)
[2020-10-25 21:11] LABS: HEMATOCRIT 36.1 % (32.4-45.2); HEMOGLOBIN 11.4 GM/dl (10.7-15.3); MCHC 31.6 g/dl (32.0-36.0); MEAN PLT VOLUME 7.7 fl (7.5-11.1); PLATELET COUNT 241 10^3/uL (134-434); RBC 3.68 M/mm3 (3.60-5.2); RDW 14.9 % (11.6-15.6); WHITE BLOOD COUNT 14.9 K/mm3 (4.0-10.8)
[2020-10-25 21:13] LABS: ALBUMIN 4.8 g/dl (3.4-5.0); BILIRUBIN,TOTAL 1.2 mg/dl (0.2-1); CALCIUM 8.4 mg/dl (8.5-10); CREATININE 0.6 mg/dl (0.55-1.3); TOT PROT 8.5 g/dl (6.4-8.2)
[2020-10-25] MEDS ORDERED: LORazepam 2 MG/ML SDV VIAL IVPB STA ×2 (21:20→21:35)
[2020-10-25 21:22] LABS: EPITHELIAL CELLS FEW /hpf
[2020-10-25] MEDS ORDERED: FAMOTIDINE 20 MG/50 ML IVPB 20 MG/50 ML MG IVPB ONE ×2 (21:24→21:37)
[2020-10-25 21:28] LABS: PLATELET ESTIMATE ADEQUATE
[2020-10-25] MEDS ORDERED: LORazepam 2 MG/ML SDV VIAL IVPUSH STA (21:29)
[2020-10-25] MEDS ORDERED: LORazepam 2 MG/ML SDV VIAL ONE (21:36)
[2020-10-25] MEDS ORDERED: THIAMINE HCL 200 MG/2 ML VIAL ONE (21:37)
[2020-10-25] MEDS ORDERED: MULTIVIT INJ. ADULT COMBO WITH VIT K 1 COMBO 10 ML VIAL IV ONE (21:39)
[2020-10-25] MEDS ORDERED: FOLIC ACID 5 MG/1 ML ONE (21:39)
[2020-10-25 22:41] LABS: LACTIC ACID 4.5 mmol/L (0.4-2.0)
[2020-10-25] MEDS ORDERED: SODIUM CHLORIDE 1,000 ML IV STA (23:15)
[2020-10-25] MEDS ORDERED: LORazepam 1 MG TABLET PO PRN (23:37)
[2020-10-25] MEDS ORDERED: ONDANSETRON 4 MG/2 ML VIAL IVPUSH PRN (23:41)
[2020-10-26 03:24] VITALS: BMI 21.2
[2020-10-26] MEDS ORDERED: LORazepam 2 MG TABLET PO SCH (05:00)
[2020-10-26] MEDS: LORazepam 1 MG TABLET PO SCH ×4 (05:11→23:28)
[2020-10-26] MEDS ORDERED: SODIUM CHLORIDE 1,000 ML IV SCH (06:15)
[2020-10-26 08:24] LABS: ALBUMIN 4.2 g/dl (3.4-5.0); CALCIUM 7.7 mg/dl (8.5-10); CREATININE 0.6 mg/dl (0.55-1.3); MAGNESIUM 1.3 mg/dL (1.8-2.4); TOT PROT 7.4 g/dl (6.4-8.2)
[2020-10-26 08:30] LABS: HEMATOCRIT 31.4 % (32.4-45.2); HEMOGLOBIN 10.5 GM/dl (10.7-15.3); MCH 32.6 pg (25.7-33.7); MCHC 33.4 g/dl (32.0-36.0); MEAN CELL VOLUME 97.4 fl (80-96); MEAN PLT VOLUME 7.9 fl (7.5-11.1); PLATELET COUNT 199 10^3/uL (134-434); RBC 3.23 M/mm3 (3.60-5.2); RDW 15.1 % (11.6-15.6)
[2020-10-26] MEDS: FOLIC ACID 1 MG TABLET (FP) PO SCH (09:29)
[2020-10-26] MEDS: MULTIVITAMINS (DAILY MVI) TABLET (FP) PO SCH (09:29)
[2020-10-26] MEDS: DEXTROSE 5%-NORMAL SALINE 1,000 ML IV SCH (09:29)
[2020-10-26] MEDS ORDERED: MAGNESIUM SULF 50% (8.12 MEQ/2 ML-1 GM VIAL) IVPB ONE (09:48)
[2020-10-26] MEDS: PANTOPRAZOLE 40 MG TABLET PO SCH (15:48)
[2020-10-26] MEDS: THIAMINE HCL 100 MG TABLET (FP) PO SCH (21:36)
[2020-10-26] MEDS ORDERED: FAMOTIDINE 20 MG/50 ML IVPB 20 MG/50 ML MG IVPB ONE (22:45)
[2020-10-27] MEDS ORDERED: MELATONIN 5 MG TABLETS PO ONE (01:22)
[2020-10-27] MEDS: LORazepam 1 MG TABLET PO SCH ×4 (05:00→23:27)
[2020-10-27] MEDS: LORazepam 0.5 MG TABLET PO PRN ×2 (08:33→20:24)
[2020-10-27 09:13] LABS: HEMOGLOBIN 10.1 GM/dl (10.7-15.3)
[2020-10-27 09:24] LABS: HEMATOCRIT 30.1 % (32.4-45.2); MCH 32.1 pg (25.7-33.7); MCHC 33.4 g/dl (32.0-36.0); PLATELET COUNT 179 10^3/uL (134-434); RBC 3.13 M/mm3 (3.60-5.2); RDW 14.7 % (11.6-15.6); WHITE BLOOD COUNT 4.4 K/mm3 (4.0-10.8)
[2020-10-27 09:26] LABS: ALBUMIN 3.8 g/dl (3.4-5.0); CALCIUM 8.2 mg/dl (8.5-10); CREATININE 0.5 mg/dl (0.55-1.3); MAGNESIUM 1.4 mg/dL (1.8-2.4); TOT PROT 6.7 g/dl (6.4-8.2)
[2020-10-27] MEDS: MULTIVITAMINS (DAILY MVI) TABLET (FP) PO SCH (09:57)
[2020-10-27] MEDS: ENOXAPARIN NA (PORCINE) 40 MG/0.4 ML DISP.SYRIN SQ SCH (09:57)
[2020-10-27] MEDS: PANTOPRAZOLE 40 MG TABLET PO SCH (09:57)
[2020-10-27] MEDS: FOLIC ACID 1 MG TABLET (FP) PO SCH (09:57)
[2020-10-27] MEDS: DEXTROSE 5%-NORMAL SALINE 1,000 ML IV SCH (10:02)
[2020-10-27] MEDS ORDERED: MAGNESIUM 2GM/50ML STERILE WATER IVPB IVPB ONE (11:00)
[2020-10-27] MEDS: POTASSIUM CHLORIDE TABS 20 MEQ TABLET.ER (FP) PO SCH ×2 (12:16→16:58)
[2020-10-27] MEDS: METOPROLOL TARTRATE 50 MG TABLET (FP) PO SCH ×2 (12:36→21:40)
[2020-10-27] MEDS: THIAMINE HCL 100 MG TABLET (FP) PO SCH (21:38)
[2020-10-27] MEDS ORDERED: MELATONIN 1 MG TABLET PO ONE (23:30)
[2020-10-28] MEDS ORDERED: ACETAMINOPHEN 325 MG TABLET (FP) PO ONE (00:08)
[2020-10-28] MEDS ORDERED: LORazepam 0.5 MG TABLET PO ONE (03:28)
[2020-10-28] MEDS: LORazepam 0.5 MG TABLET PO SCH ×4 (05:24→23:21)
[2020-10-28 07:48] LABS: CALCIUM 8.6 mg/dl (8.5-10); CREATININE 0.5 mg/dl (0.55-1.3); MAGNESIUM 1.8 mg/dL (1.8-2.4)
[2020-10-28] MEDS: PANTOPRAZOLE 40 MG TABLET PO SCH (09:41)
[2020-10-28] MEDS: MULTIVITAMINS (DAILY MVI) TABLET (FP) PO SCH (09:41)
[2020-10-28] MEDS: FOLIC ACID 1 MG TABLET (FP) PO SCH (09:41)
[2020-10-28] MEDS: METOPROLOL TARTRATE 50 MG TABLET (FP) PO SCH ×2 (09:41→21:17)
[2020-10-28] MEDS: POTASSIUM CHLORIDE TABS 20 MEQ TABLET.ER (FP) PO SCH ×2 (11:03→16:45)
[2020-10-28] MEDS: ENOXAPARIN NA (PORCINE) 40 MG/0.4 ML DISP.SYRIN SQ SCH (11:05)
[2020-10-28] MEDS: THIAMINE HCL 100 MG TABLET (FP) PO SCH (21:17)
[2020-10-29] MEDS ORDERED: LORazepam 0.5 MG TABLET PO ONE (05:00)
[2020-10-29 08:40] LABS: CALCIUM 9.4 mg/dl (8.5-10); CREATININE 0.4 mg/dl (0.55-1.3); MAGNESIUM 1.6 mg/dL (1.8-2.4)
[2020-10-29] MEDS ORDERED: MAGNESIUM SULF 50% (8.12 MEQ/2 ML-1 GM VIAL) IVPB ONE (09:01)
[2020-10-29] MEDS ORDERED: POTASSIUM CHLORIDE TABS 20 MEQ TABLET.ER (FP) PO ONE ×2 (09:02→13:01)
[2020-10-29 09:04] VITALS: BP 112/74; PULSE 86; TEMP 98.2
[2020-10-29] MEDS: ENOXAPARIN NA (PORCINE) 40 MG/0.4 ML DISP.SYRIN SQ SCH (09:12)
[2020-10-29] MEDS: MULTIVITAMINS (DAILY MVI) TABLET (FP) PO SCH (09:12)
[2020-10-29] MEDS: FOLIC ACID 1 MG TABLET (FP) PO SCH (09:12)
[2020-10-29] MEDS: METOPROLOL TARTRATE 50 MG TABLET (FP) PO SCH (09:13)
[2020-10-29] MEDS: DEXTROSE 5%-NORMAL SALINE 1,000 ML IV SCH (09:15)
[2020-10-29] MEDS: PANTOPRAZOLE 40 MG TABLET PO SCH (09:15)
[2020-10-29 12:49] LABS: MAGNESIUM 2.3 mg/dL (1.8-2.4)
== END 2020-10-29 14:01 | disposition home or self-care (01) | DRG 775 ==
LOC: FER 20:09 → FM/S 21:43 → UNDOADMIN 10-26 00:07 → FM/S 10-26 00:07
PROVIDERS: ADMIT Internal Medicine; ATTEND Nurse Practitioner Acute Care
PROC: HZ2ZZZZ Detoxification Services for Substance Abuse Treatment (ICD-10-PCS; principal; 2020-10-25)
DX: F10.288 Alcohol dependence with other alcohol-induced disorder (principal); E83.42 Hypomagnesemia; F41.9 Anxiety disorder, unspecified; K21.9 Gastro-esophageal reflux disease without esophagitis; F12.20 Cannabis dependence, uncomplicated; R11.2 Nausea with vomiting, unspecified; F10.229 Alcohol dependence with intoxication, unspecified; E87.2 Acidosis; F10.239 Alcohol dependence with withdrawal, unspecified; E87.6 Hypokalemia; R00.0 Tachycardia, unspecified
CPT/HCPCS: 36415; 71045-TC-FY; 80048; 80053; 80307; 81003; 81015; 82010; 82962; 83605; 83735; 84132; 84703; 85025; 85610; 93005; 93306-TC; 99285-25; C9803; U0003; U0005

== ENCOUNTER 2021-01-15 14:48 | Inpatient (IN) | payer OTHER ==
[2021-01-15] MEDS ORDERED: FOLIC ACID INJECTION - 1 MG, THIAMINE HCL 100 MG, MULTIVIT INJECTION ADULT 10 ML in SOD... IVPB ONE (14:57)
[2021-01-15] MEDS ORDERED: THIAMINE HCL 200 MG/2 ML VIAL ONE (15:15)
[2021-01-15] MEDS ORDERED: FOLIC ACID 5 MG/1 ML ONE (15:17)
[2021-01-15] MEDS ORDERED: MULTIVIT INJ. ADULT COMBO WITH VIT K 1 COMBO 10 ML VIAL IV ONE (15:17)
[2021-01-15] MEDS ORDERED: LORazepam 2 MG/ML SDV VIAL ONE (15:25)
[2021-01-15] MEDS ORDERED: LORazepam 2 MG/ML SDV VIAL IVPUSH ONE (15:30)
[2021-01-15 15:47] LABS: HEMOGLOBIN 11.6 GM/dl (10.7-15.3)
[2021-01-15 15:51] LABS: HEMATOCRIT 36.2 % (32.4-45.2); MCH 29.8 pg (25.7-33.7); MCHC 32.1 g/dl (32.0-36.0); MEAN CELL VOLUME 92.7 fl (80-96); MEAN PLT VOLUME 7.5 fl (7.5-11.1); PLATELET COUNT 133 10^3/uL (134-434); WHITE BLOOD COUNT 6.3 K/mm3 (4.0-10.8)
[2021-01-15 16:07] LABS: ADD RBC MORPHOLOGY NO
[2021-01-15 16:10] LABS: ALBUMIN 4.8 g/dl (3.4-5.0); BILIRUBIN,TOTAL 1.3 mg/dl (0.2-1); CALCIUM 8.9 mg/dl (8.5-10); CREATININE 0.6 mg/dl (0.55-1.3); MAGNESIUM 1.4 mg/dL (1.8-2.4); PHOSPHOROUS 4.5 mg/dl (2.5-4.9); TOT PROT 8.3 g/dl (6.4-8.2)
[2021-01-15 16:11] LABS: ACTIVATED PTT 30.7 SECONDS (25.2-36.5)
[2021-01-15] MEDS ORDERED: diazePAM CARPU-JECT 10 MG/2 ML DISP.SYRIN IVPUSH ONE ×2 (16:11→19:04)
[2021-01-15] MEDS ORDERED: diazePAM CARPU-JECT 10 MG/2 ML DISP.SYRIN ONE ×2 (16:13→19:05)
[2021-01-15 16:15] LABS: INR 1.09 (0.82-1.09); PROTHROMBIN TIME (PATIENT) 12.1 SEC (10.2-13.0)
[2021-01-15 16:35] LABS: ANISOCYTOSIS 1+
[2021-01-15 16:43] LABS: VENOUS BASE EXCESS -12.6 mmol/L (-2-2); VENOUS O2 SATURATION 98.7 % (70-80); VENOUS PCO2 35.6 mmHg (38-52); VENOUS PH 7.218 (7.310-7.410)
[2021-01-15] MEDS ORDERED: MAGNESIUM SULF 50% (8.12 MEQ/2 ML-1 GM VIAL) IVPB ONE (16:45)
[2021-01-15] MEDS ORDERED: ONDANSETRON 4 MG/2 ML VIAL IVPUSH ONE (16:45)
[2021-01-15] MEDS ORDERED: KCL 10 MEQ IVPB 10 MEQ/100 ML INFUS.BAG IVPB SCH (16:45)
[2021-01-15] MEDS ORDERED: SODIUM CHLORIDE 0.9% 500 ML INFUS.BAG IV ONE (16:46)
[2021-01-15] MEDS ORDERED: MAGNESIUM 1GM/D5W - 1 GM/100 ML IVPB IVPB ONE (16:47)
[2021-01-15] MEDS ORDERED: ONDANSETRON 4 MG/2 ML VIAL ONE (16:47)
[2021-01-15] MEDS ORDERED: KCL 10 MEQ IVPB 10 MEQ/100 ML INFUS.BAG IVPB ONE (18:09)
[2021-01-15] MEDS ORDERED: levETIRAcetam 500 MG/5 ML INJECTION VIAL IVPB ONE (19:05)
[2021-01-15 19:35] LABS: EPITHELIAL CELLS FEW /hpf
[2021-01-15 19:36] LABS: AMORP PHOS 2+ /hpf (NONE SEEN)
[2021-01-15] MEDS ORDERED: SODIUM CHLORIDE 1,000 ML IV SCH ×2 (20:45)
[2021-01-15 20:55] VITALS: BMI 20.2
[2021-01-15 21:09] LABS: COCAINE, UR NEGATIVE (NEGATIVE); METHADONE, UR NEGATIVE (NEGATIVE); URINE BARBITURATES NEGATIVE (NEGATIVE)
[2021-01-15 21:11] LABS: PHENCYCLIDINE,URINE NEGATIVE (NEGATIVE)
[2021-01-15 21:15] LABS: OPIATES, URI NEGATIVE (NEGATIVE); URINE AMPHETAMINES NEGATIVE (NEGATIVE); URINE BENZODIAZEPINES POSITIVE (NEGATIVE)
[2021-01-15] MEDS ORDERED: LORazepam 1 MG TABLET PO PRN (21:26)
[2021-01-15] MEDS: MUPIROCIN 2% TOPICAL OINTMENT FOR DECOLONIZATION NS SCH (21:34)
[2021-01-15] MEDS: ENOXAPARIN NA (PORCINE) 40 MG/0.4 ML DISP.SYRIN SQ SCH (21:34)
[2021-01-15] MEDS ORDERED: CHLORHEXIDINE GLUCONATE 4% CLEANSER FOR DECOLONIZATION TP SCH (22:00)
[2021-01-15 22:13] LABS: CALCIUM 9.1 mg/dL (8.5-10.1)
[2021-01-15 22:14] LABS: ALBUMIN 3.9 g/dl (3.4-5.0); BLOOD UREA NITROGEN 6.3 mg/dL (7-18)
[2021-01-15 22:17] LABS: CREATININE 0.5 mg/dL (0.55-1.3); PHOSPHOROUS 2.8 mg/dL (2.5-4.9)
[2021-01-15 22:18] LABS: BILIRUBIN,TOTAL 1.2 mg/dL (0.2-1); MAGNESIUM 2.4 mg/dL (1.8-2.4); TOT PROT 7.6 g/dl (6.4-8.2)
[2021-01-15] MEDS: LORazepam 1 MG TABLET PO SCH (22:56)
[2021-01-16] MEDS: LORazepam 1 MG TABLET PO SCH ×3 (05:55→16:01)
[2021-01-16 07:46] LABS: BLOOD UREA NITROGEN 3.8 mg/dL (7-18); CALCIUM 8.9 mg/dL (8.5-10.1)
[2021-01-16 07:49] LABS: CREATININE 0.5 mg/dL (0.55-1.3); PHOSPHOROUS 3.6 mg/dL (2.5-4.9)
[2021-01-16 07:50] LABS: MAGNESIUM 2.2 mg/dL (1.8-2.4)
[2021-01-16 08:14] LABS: VENOUS BASE EXCESS -5.2 mmol/L (-2-2); VENOUS O2 SATURATION 96.8 % (70-80); VENOUS PCO2 43.4 mmHg (38-52); VENOUS PH 7.303 (7.310-7.410)
[2021-01-16] MEDS ORDERED: POTASSIUM CHLORIDE TABS 20 MEQ TABLET.ER (FP) PO ONE (08:53)
[2021-01-16] MEDS ORDERED: KCL 10 MEQ IVPB 10 MEQ/100 ML INFUS.BAG IVPB SCH (09:00)
[2021-01-16] MEDS: ENOXAPARIN NA (PORCINE) 40 MG/0.4 ML DISP.SYRIN SQ SCH (09:49)
[2021-01-16] MEDS ORDERED: THIAMINE HCL 100 MG TABLET (FP) PO SCH (10:00)
[2021-01-16] MEDS ORDERED: MULTIVITAMINS (DAILY MVI) TABLET (FP) PO SCH (10:00)
[2021-01-16] MEDS ORDERED: ENOXAPARIN NA (PORCINE) 40 MG/0.4 ML DISP.SYRIN SQ SCH (10:00)
[2021-01-16] MEDS ORDERED: FOLIC ACID 1 MG TABLET (FP) PO SCH (10:00)
[2021-01-16] MEDS ORDERED: PT OWN MED DRAWER 7, Y5N ONE (16:04)
[2021-01-16] MEDS: MUPIROCIN 2% TOPICAL OINTMENT FOR DECOLONIZATION NS SCH (16:05)
[2021-01-16] MEDS ORDERED: SODIUM CHLORIDE 0.9% 500 ML INFUS.BAG IV ONE (20:04)
[2021-01-16] MEDS ORDERED: LORazepam 1 MG TABLET PO PRN (20:04)
[2021-01-16] MEDS ORDERED: MUPIROCIN 2% TOPICAL OINTMENT FOR DECOLONIZATION NS SCH (22:00)
[2021-01-16] MEDS ORDERED: CHLORHEXIDINE GLUCONATE 4% CLEANSER FOR DECOLONIZATION TP SCH (22:00)
[2021-01-16] MEDS ORDERED: MELATONIN 5 MG TABLETS PO ONE (22:59)
[2021-01-16] MEDS ORDERED: LORazepam 1 MG TABLET PO SCH (23:00)
[2021-01-17] MEDS ORDERED: LORazepam 1 MG TABLET PO SCH (05:00)
[2021-01-17] MEDS: LORazepam 1 MG TABLET PO SCH ×2 (06:22→10:38)
[2021-01-17 09:43] LABS: BASO % 1.2 % (0-2.0); EOS % 1.2 % (0-4.5); HEMATOCRIT 34.1 % (32.4-45.2); HEMOGLOBIN 11.4 GM/dL (10.7-15.3); MCH 30.6 pg (25.7-33.7); MCHC 33.4 g/dl (32.0-36.0); MEAN CELL VOLUME 91.4 fl (80-96); MEAN PLT VOLUME 8.9 fl (7.5-11.1); MONO % 15.3 % (3.8-10.2); NEUT % 63.3 % (42.8-82.8); PLATELET COUNT 125 10^3/uL (134-434); RBC 3.73 M/mm3 (3.60-5.2); RDW 17.4 % (11.6-15.6); WHITE BLOOD COUNT 4.4 K/mm3 (4.0-10.0)
[2021-01-17] MEDS ORDERED: THIAMINE HCL 100 MG TABLET (FP) PO SCH (10:00)
[2021-01-17] MEDS ORDERED: ENOXAPARIN NA (PORCINE) 40 MG/0.4 ML DISP.SYRIN SQ SCH (10:00)
[2021-01-17] MEDS ORDERED: levETIRAcetam 500 MG TABLET (FP) PO SCH (10:00)
[2021-01-17] MEDS ORDERED: FOLIC ACID 1 MG TABLET (FP) PO SCH (10:00)
[2021-01-17] MEDS ORDERED: MULTIVITAMINS (DAILY MVI) TABLET (FP) PO SCH (10:00)
[2021-01-17 10:12] LABS: BLOOD UREA NITROGEN 5.8 mg/dL (7-18); CALCIUM 9.5 mg/dL (8.5-10.1)
[2021-01-17 10:15] LABS: CREATININE 0.4 mg/dL (0.55-1.3)
[2021-01-17 10:16] LABS: BILIRUBIN,TOTAL 0.9 mg/dL (0.2-1); PHOSPHOROUS 3.8 mg/dL (2.5-4.9)
[2021-01-17 10:17] LABS: TOT PROT 7.5 g/dl (6.4-8.2)
[2021-01-17] MEDS ORDERED: POTASSIUM CHLORIDE TABS 20 MEQ TABLET.ER (FP) PO ONE (11:15)
[2021-01-17 13:55] VITALS: BP 117/85; PULSE 111; TEMP 98.7
[2021-01-18] MEDS ORDERED: LORazepam 0.5 MG TABLET PO PRN ×2
[2021-01-18] MEDS ORDERED: LORazepam 0.5 MG TABLET PO SCH ×2 (05:00)
[2021-01-19] MEDS ORDERED: LORazepam 0.5 MG TABLET PO ONE ×2 (05:00)
== END 2021-01-17 15:52 | disposition left against medical advice (07) | DRG 770 ==
LOC: FER 14:48 → JICU 20:05 → J5S 01-16 19:56
PROVIDERS: ADMIT Internal Medicine Pulmonary Disease; ATTEND Nurse Practitioner Acute Care
DX: F10.231 Alcohol dependence with withdrawal delirium (principal); K21.9 Gastro-esophageal reflux disease without esophagitis; F41.9 Anxiety disorder, unspecified; R00.0 Tachycardia, unspecified; E87.2 Acidosis; D69.6 Thrombocytopenia, unspecified; Z53.29 Procedure and treatment not carried out because of patient's decision for other reasons; E87.1 Hypo-osmolality and hyponatremia; R56.9 Unspecified convulsions
CPT/HCPCS: 36415; 70450-TC; 76705-TC; 80048; 80053; 80061; 80307; 81003; 81015; 82010; 82803; 82962; 83690; 83735; 83930; 84100; 85025; 85610; 85730; 93005; 93010; 99285-25; C9803; U0003; U0005

== ENCOUNTER 2021-02-27 03:35 | Inpatient (IN) | payer OTHER ==
[2021-02-27 03:43] VITALS: BMI 21.0
[2021-02-27] MEDS ORDERED: SODIUM CHLORIDE 1,000 ML IV STA ×2 (04:02→05:37)
[2021-02-27] MEDS ORDERED: ONDANSETRON 4 MG/2 ML VIAL IVPB ONE (04:25)
[2021-02-27] MEDS ORDERED: ONDANSETRON 4 MG/2 ML VIAL ONE (04:33)
[2021-02-27] MEDS ORDERED: LORazepam 2 MG/ML SDV VIAL IVPUSH ONE (04:40)
[2021-02-27] MEDS ORDERED: LORazepam 2 MG/ML SDV VIAL ONE (04:40)
[2021-02-27] MEDS ORDERED: LORazepam 2 MG/ML SDV VIAL IVPB ONE (04:45)
[2021-02-27 04:53] LABS: EOS % 0.1 % (0-4.5); HEMATOCRIT 34.8 % (32.4-45.2); HEMOGLOBIN 11.5 GM/dL (10.7-15.3); MCH 30.4 pg (25.7-33.7); MCHC 33.1 g/dl (32.0-36.0); MEAN CELL VOLUME 91.7 fl (80-96); MEAN PLT VOLUME 7.4 fl (7.5-11.1); MONO % 7.3 % (3.8-10.2); NEUT % 79.6 % (42.8-82.8); PLATELET COUNT 110 10^3/uL (134-434); RBC 3.79 M/mm3 (3.60-5.2); RDW 18.3 % (11.6-15.6); WHITE BLOOD COUNT 4.8 K/mm3 (4.0-10.0)
[2021-02-27 04:56] LABS: EPI CELLS >36 /uL (0-25.1); HYALINE CASTS 28 /uL (0-3.1); PH,URINE 6.5 (5.0-8.0); URINE APPEARANCE CLOUDY; URINE BACTERIA 6074 /uL (0-1359); URINE BILIRUBIN NEGATIVE (NEGATIVE); URINE COLOR DK YELLOW; URINE GLUCOSE (UA) NEGATIVE (NEGATIVE); URINE KETONE 3+ (NEGATIVE); URINE LEUK ESTERASE 1+ (NEGATIVE); URINE NITRITE NEGATIVE (NEGATIVE); URINE PROTEIN 4+ (NEGATIVE); URINE RBC 173 /uL (0-23.9); URINE WBC 525 /uL (0-25.8)
[2021-02-27 05:15] LABS: ALBUMIN 4.2 g/dl (3.4-5.0); BLOOD UREA NITROGEN 12.6 mg/dL (7-18)
[2021-02-27 05:19] LABS: BILIRUBIN,TOTAL 0.7 mg/dL (0.2-1); TOT PROT 8.3 g/dl (6.4-8.2)
[2021-02-27 05:30] LABS: CREATININE 0.6 mg/dL (0.55-1.3)
[2021-02-27 05:35] LABS: LACTIC ACID 3.7 mmol/L (0.4-2.0)
[2021-02-27] MEDS ORDERED: LACTATED RINGERS SOLUTION 1000 ML INFUS.BAG IV ONE (07:30)
[2021-02-27 08:08] LABS: LACTIC ACID 2.5 mmol/L (0.4-2.0)
[2021-02-27] MEDS ORDERED: POTASSIUM CHLORIDE TABS 20 MEQ TABLET.ER (FP) PO ONE (10:30)
[2021-02-27] MEDS ORDERED: cefTRIAXone SODIUM 1 GM VIAL ONE (10:50)
[2021-02-27] MEDS ORDERED: DEXTROSE 5%-WATER - 50 ML IVPB ONE (10:50)
[2021-02-27] MEDS: LORazepam 1 MG TABLET PO SCH ×3 (10:54→22:53)
[2021-02-27] MEDS: FOLIC ACID 1 MG TABLET (FP) PO SCH (10:56)
[2021-02-27] MEDS: levETIRAcetam 500 MG TABLET (FP) PO SCH ×2 (10:56→21:17)
[2021-02-27] MEDS: THIAMINE HCL 100 MG TABLET (FP) PO SCH (10:56)
[2021-02-27] MEDS: CEFTRIAXONE 1 GM in DEXTROSE 5%-WATER - 50 ML IVPB SCH (10:56)
[2021-02-27] MEDS: metoPROLOL SUCCINATE 25 MG TAB.SR.24H (FP) PO SCH (10:56)
[2021-02-27] MEDS: ENOXAPARIN NA (PORCINE) 40 MG/0.4 ML DISP.SYRIN SQ SCH (11:00)
[2021-02-27] MEDS: LORazepam 1 MG TABLET PO PRN ×2 (13:09→20:22)
[2021-02-27] MEDS: SODIUM CHLORIDE 1,000 ML IV SCH (13:10)
[2021-02-27] MEDS ORDERED: LORazepam 1 MG TABLET PO STA (13:21)
[2021-02-28] MEDS: LORazepam 1 MG TABLET PO SCH ×4 (04:17→22:46)
[2021-02-28] MEDS: LORazepam 1 MG TABLET PO PRN (07:45)
[2021-02-28] MEDS ORDERED: cefTRIAXone SODIUM 1 GM VIAL ONE (09:51)
[2021-02-28] MEDS ORDERED: DEXTROSE 5%-WATER - 50 ML IVPB ONE (09:51)
[2021-02-28] MEDS: SODIUM CHLORIDE 1,000 ML IV SCH (09:57)
[2021-02-28] MEDS: ENOXAPARIN NA (PORCINE) 40 MG/0.4 ML DISP.SYRIN SQ SCH (09:58)
[2021-02-28] MEDS: FOLIC ACID 1 MG TABLET (FP) PO SCH (09:58)
[2021-02-28] MEDS: levETIRAcetam 500 MG TABLET (FP) PO SCH ×2 (09:58→21:14)
[2021-02-28] MEDS: THIAMINE HCL 100 MG TABLET (FP) PO SCH (09:58)
[2021-02-28] MEDS: metoPROLOL SUCCINATE 25 MG TAB.SR.24H (FP) PO SCH (09:58)
[2021-02-28] MEDS: CEFTRIAXONE 1 GM in DEXTROSE 5%-WATER - 50 ML IVPB SCH (09:59)
[2021-02-28] MEDS ORDERED: LORazepam 0.5 MG TABLET ONE ×2 (11:21→11:28)
[2021-02-28 14:20] LABS: ALBUMIN 3.9 g/dl (3.4-5.0); BILIRUBIN,TOTAL 1.1 mg/dl (0.2-1); CALCIUM 9.3 mg/dl (8.5-10); CREATININE 0.6 mg/dl (0.55-1.3); MAGNESIUM 1.1 mg/dL (1.8-2.4)
[2021-02-28] MEDS ORDERED: MAGNESIUM SULF 50% (8.12 MEQ/2 ML-1 GM VIAL) IVPB ONE (14:24)
[2021-02-28] MEDS ORDERED: MAGNESIUM SULFATE IN WATER 2 GM/50 ML IVPB IVPB ONE (14:45)
[2021-02-28 15:26] LABS: BASO % 1.8 % (0-2.0); EOS % 0.4 % (0-4.5); HEMATOCRIT 35.7 % (32.4-45.2); HEMOGLOBIN 11.5 GM/dL (10.7-15.3); LYMPH % 20.4 % (8-40); MCH 30.2 pg (25.7-33.7); MCHC 32.3 g/dl (32.0-36.0); MEAN CELL VOLUME 93.2 fl (80-96); MEAN PLT VOLUME 8.4 fl (7.5-11.1); MONO % 16.3 % (3.8-10.2); NEUT % 61.1 % (42.8-82.8); PLATELET COUNT 85 10^3/uL (134-434); RBC 3.83 M/mm3 (3.60-5.2); RDW 17.3 % (11.6-15.6); WHITE BLOOD COUNT 3.6 K/mm3 (4.0-10.0)
[2021-02-28] MEDS ORDERED: metoPROLOL SUCCINATE 25 MG TAB.SR.24H (FP) PO SCH (22:00)
[2021-03-01] MEDS: LORazepam 1 MG TABLET PO PRN (01:21)
[2021-03-01] MEDS ORDERED: LORazepam 1 MG TABLET PO SCH (05:00)
[2021-03-01 06:08] VITALS: BP 122/92; PULSE 107; TEMP 98.9
[2021-03-02] MEDS ORDERED: LORazepam 0.5 MG TABLET PO PRN
[2021-03-02] MEDS ORDERED: LORazepam 0.5 MG TABLET PO SCH (05:00)
[2021-03-03] MEDS ORDERED: LORazepam 0.5 MG TABLET PO ONE (05:00)
== END 2021-03-01 07:15 | disposition left against medical advice (07) | DRG 770 ==
LOC: FER 03:35 → FM/S 09:32
PROVIDERS: ADMIT Internal Medicine; ATTEND Nurse Practitioner Acute Care
PROC: HZ2ZZZZ Detoxification Services for Substance Abuse Treatment (ICD-10-PCS; principal; 2021-02-27)
DX: F10.239 Alcohol dependence with withdrawal, unspecified (principal); F12.90 Cannabis use, unspecified, uncomplicated; K21.9 Gastro-esophageal reflux disease without esophagitis; N39.0 Urinary tract infection, site not specified; R11.2 Nausea with vomiting, unspecified; R25.1 Tremor, unspecified; E87.2 Acidosis; E87.6 Hypokalemia; F17.200 Nicotine dependence, unspecified, uncomplicated; R04.0 Epistaxis; F41.9 Anxiety disorder, unspecified; R00.0 Tachycardia, unspecified; E83.42 Hypomagnesemia
CPT/HCPCS: 36415; 80053; 80307; 81003; 82010; 82962; 83605; 83735; 84703; 85025; 87086; 87186; 99285-25; C9803; U0003; U0005

== ENCOUNTER 2021-03-18 19:39 | Emergency (ER) | payer OTHER ==
[2021-03-18 20:16] VITALS: TEMP 97.8; BMI 20.9
[2021-03-18] MEDS ORDERED: NITROFURANTOIN MACROCRYSTAL 50 MG CAPSULE (FP) PO SCH (23:00)
[2021-03-18 23:08] LABS: EPITHELIAL CELLS FEW /hpf
[2021-03-18] MEDS ORDERED: NITROFURANTOIN MACROCRYSTAL 50 MG CAPSULE (FP) ONE (23:17)
[2021-03-18 23:18] VITALS: BP 108/63
[2021-03-18] MEDS ORDERED: chlordiazePOXIDE HCL 25 MG CAPSULE PO ONE (23:19)
[2021-03-18] MEDS ORDERED: chlordiazePOXIDE HCL 25 MG CAPSULE ONE (23:24)
[2021-03-18 23:31] VITALS: PULSE 110
== END 2021-03-18 23:33 | disposition home or self-care (01) ==
LOC: FER 19:39
DX: N30.01 Acute cystitis with hematuria (principal)
CPT/HCPCS: 81003; 81015; 99283-25

== ENCOUNTER 2021-04-24 13:40 | Emergency (ER) | payer OTHER ==
[2021-04-24 13:47] VITALS: BP 104/76; PULSE 87; TEMP 98.4; BMI 22.0
== END 2021-04-24 17:41 | disposition home or self-care (01) ==
LOC: FER 13:40
DX: F10.929 Alcohol use, unspecified with intoxication, unspecified (principal); S00.12XA Contusion of left eyelid and periocular area, initial encounter; Y99.9 Unspecified external cause status
CPT/HCPCS: 70450-TC; 70486-TC; 99284-25

== ENCOUNTER 2021-07-25 18:43 | Inpatient (IN) | payer OTHER ==
[~2021-07-25 18:43] MED LIST: LORazepam 2 MG TABLET PO SCH
[2021-07-25 19:14] VITALS: BMI 20.5
[2021-07-25] MEDS ORDERED: ONDANSETRON 4 MG/2 ML VIAL IVPUSH ONE (20:01)
[2021-07-25] MEDS ORDERED: SODIUM CHLORIDE 0.9% 500 ML INFUS.BAG IV ONE (20:01)
[2021-07-25] MEDS ORDERED: diazePAM CARPU-JECT 10 MG/2 ML DISP.SYRIN IVPUSH ONE ×3 (20:01→21:42)
[2021-07-25] MEDS ORDERED: ONDANSETRON 4 MG/2 ML VIAL ONE (20:17)
[2021-07-25] MEDS ORDERED: diazePAM CARPU-JECT 10 MG/2 ML DISP.SYRIN ONE ×2 (20:17→22:31)
[2021-07-25 20:21] LABS: VENOUS BASE EXCESS -7.7 mmol/L (-2-2); VENOUS O2 SATURATION 49.2 % (70-80); VENOUS PCO2 42.6 mmHg (38-52); VENOUS PH 7.266 (7.310-7.410)
[2021-07-25 20:23] LABS: HEMOGLOBIN 12.5 GM/dL (10.7-15.3); MCHC 32.9 g/dl (32.0-36.0); MEAN CELL VOLUME 88.1 fl (80-96); MEAN PLT VOLUME 7.3 fl (7.5-11.1); PLATELET COUNT 246 10^3/uL (134-434); RBC 4.32 M/mm3 (3.60-5.2); RDW 20.1 % (11.6-15.6); WHITE BLOOD COUNT 10.7 K/mm3 (4.0-10.0)
[2021-07-25 20:42] LABS: CALCIUM 9.8 mg/dL (8.5-10.1)
[2021-07-25 20:43] LABS: BLOOD UREA NITROGEN 13.3 mg/dL (7-18); MAGNESIUM 1.8 mg/dL (1.8-2.4)
[2021-07-25 20:46] LABS: CREATININE 0.7 mg/dL (0.55-1.3)
[2021-07-25 20:48] LABS: BILIRUBIN,TOTAL 1.5 mg/dL (0.2-1); TOT PROT 9.3 g/dl (6.4-8.2)
[2021-07-25] MEDS ORDERED: MAGNESIUM 1GM/D5W - 1 GM/100 ML IVPB IVPB ONE (20:56)
[2021-07-25] MEDS ORDERED: FOLIC ACID INJECTION - 1 MG, THIAMINE HCL 100 MG, MULTIVIT INJECTION ADULT 10 ML in SOD... IVPB ONE (21:01)
[2021-07-25 21:08] LABS: ANISOCYTOSIS 1+; MACROCYTOSIS 0
[2021-07-25 21:27] LABS: EPI CELLS 23 /uL (0-25.1); HYALINE CASTS 2 /uL (0-3.1); URINE APPEARANCE CLEAR; URINE BACTERIA 245 /uL (0-1359); URINE BILIRUBIN NEGATIVE (NEGATIVE); URINE COLOR YELLOW; URINE GLUCOSE (UA) NEGATIVE (NEGATIVE); URINE KETONE 4+ (NEGATIVE); URINE LEUK ESTERASE NEGATIVE (NEGATIVE); URINE NITRITE NEGATIVE (NEGATIVE); URINE PROTEIN 4+ (NEGATIVE); URINE RBC 126 /uL (0-23.9); URINE UROBILINOGEN 0.2 mg/dL (0.2-1.0); URINE WBC 23 /uL (0-25.8)
[2021-07-25] MEDS ORDERED: LORazepam 1 MG TABLET PO PRN (23:44)
[2021-07-25] MEDS: SODIUM CHLORIDE 1,000 ML IV SCH (23:50)
[2021-07-25] MEDS: levETIRAcetam 500 MG TABLET (FP) PO SCH (23:55)
[2021-07-26] MEDS ORDERED: diazePAM CARPU-JECT 10 MG/2 ML DISP.SYRIN ONE (01:29)
[2021-07-26 01:47] LABS: INR 1.06 (0.83-1.09); PROTHROMBIN TIME (PATIENT) 12.2 SEC (9.7-13.0)
[2021-07-26] MEDS ORDERED: MAG HYDROX/AL HYDROX/SIMETH 30 ML UNIT-DOSE CUP PO ONE (02:09)
[2021-07-26 02:10] LABS: CALCIUM 8.6 mg/dL (8.5-10.1)
[2021-07-26 02:11] LABS: ALBUMIN 4.1 g/dl (3.4-5.0); BLOOD UREA NITROGEN 11.7 mg/dL (7-18)
[2021-07-26 02:14] LABS: CREATININE 0.6 mg/dL (0.55-1.3)
[2021-07-26 02:16] LABS: BILIRUBIN,TOTAL 1.2 mg/dL (0.2-1); TOT PROT 7.8 g/dl (6.4-8.2)
[2021-07-26] MEDS ORDERED: FAMOTIDINE 20 MG TABLET ONE (02:27)
[2021-07-26] MEDS ORDERED: levETIRAcetam 500 MG TABLET (FP) PO ONE ×2 (02:27→10:41)
[2021-07-26] MEDS: PANTOPRAZOLE 20 MG TABLET PO SCH ×2 (02:34→10:50)
[2021-07-26] MEDS ORDERED: LORazepam 1 MG TABLET ONE ×2 (04:54→10:42)
[2021-07-26] MEDS: LORazepam 2 MG TABLET PO SCH ×2 (05:00→10:50)
[2021-07-26] MEDS ORDERED: LORazepam 1 MG TABLET PO SCH (05:00)
[2021-07-26 08:27] LABS: BASO % 0.7 % (0-2.0); EOS % 0.1 % (0-4.5); HEMATOCRIT 30.1 % (32.4-45.2); HEMOGLOBIN 9.7 GM/dL (10.7-15.3); LYMPH % 18.1 % (8-40); MCH 28.7 pg (25.7-33.7); MCHC 32.1 g/dl (32.0-36.0); MEAN CELL VOLUME 89.3 fl (80-96); MONO % 9.5 % (3.8-10.2); NEUT % 71.6 % (42.8-82.8); PLATELET COUNT 151 10^3/uL (134-434); RBC 3.37 M/mm3 (3.60-5.2); RDW 19.6 % (11.6-15.6); WHITE BLOOD COUNT 6.2 K/mm3 (4.0-10.0)
[2021-07-26 08:50] LABS: BLOOD UREA NITROGEN 9.6 mg/dL (7-18)
[2021-07-26 08:51] LABS: MAGNESIUM 2.1 mg/dL (1.8-2.4)
[2021-07-26 08:53] LABS: PHOSPHOROUS 2.3 mg/dL (2.5-4.9)
[2021-07-26 08:54] LABS: CREATININE 0.4 mg/dL (0.55-1.3)
[2021-07-26 08:55] LABS: BILIRUBIN,TOTAL 1.6 mg/dL (0.2-1)
[2021-07-26 08:58] LABS: ALBUMIN 3.6 g/dl (3.4-5.0); CALCIUM 8.1 mg/dL (8.5-10.1); TOT PROT 6.6 g/dl (6.4-8.2)
[2021-07-26] MEDS ORDERED: THIAMINE HCL 100 MG TABLET (FP) ONE (10:40)
[2021-07-26] MEDS ORDERED: FOLIC ACID 1 MG TABLET (FP) ONE (10:41)
[2021-07-26] MEDS ORDERED: PANTOPRAZOLE 20 MG TABLET PO ONE (10:41)
[2021-07-26] MEDS ORDERED: ENOXAPARIN NA (PORCINE) 40 MG/0.4 ML DISP.SYRIN SQ ONE (10:42)
[2021-07-26] MEDS: FOLIC ACID 1 MG TABLET (FP) PO SCH (10:49)
[2021-07-26] MEDS: levETIRAcetam 500 MG TABLET (FP) PO SCH ×2 (10:49→21:54)
[2021-07-26] MEDS: ENOXAPARIN NA (PORCINE) 40 MG/0.4 ML DISP.SYRIN SQ SCH (10:49)
[2021-07-26] MEDS: THIAMINE HCL 100 MG TABLET (FP) PO SCH (10:50)
[2021-07-26] MEDS ORDERED: NAPH,MB-DB/K PH,MBDB POWDER PACKET PO ONE (11:57)
[2021-07-26] MEDS ORDERED: SODIUM PHOSPHATE - 30 MM in SODIUM CHLORIDE 500 ML IVPB ONE (13:00)
[2021-07-26] MEDS ORDERED: NAPH,MB-DB/K PH,MBDB POWDER PACKET ONE (13:14)
[2021-07-26] MEDS: LORazepam 1 MG TABLET PO SCH ×2 (16:45→22:47)
[2021-07-26] MEDS ORDERED: diazePAM CARPU-JECT 10 MG/2 ML DISP.SYRIN IVPUSH ONE (19:56)
[2021-07-26 23:12] LABS: EPI CELLS 28 /uL (0-25.1); HYALINE CASTS 1 /uL (0-3.1); URINE APPEARANCE CLOUDY; URINE BACTERIA 5230 /uL (0-1359); URINE BILIRUBIN NEGATIVE (NEGATIVE); URINE COLOR ORANGE; URINE GLUCOSE (UA) NEGATIVE (NEGATIVE); URINE KETONE 2+ (NEGATIVE); URINE LEUK ESTERASE TRACE (NEGATIVE); URINE NITRITE POSITIVE (NEGATIVE); URINE PROTEIN 2+ (NEGATIVE); URINE RBC 704 /uL (0-23.9); URINE WBC 25 /uL (0-25.8)
[2021-07-27] MEDS ORDERED: LORazepam 0.5 MG TABLET PO PRN
[2021-07-27] MEDS: SODIUM CHLORIDE 1,000 ML IV SCH (02:00)
[2021-07-27] MEDS: LORazepam 1 MG TABLET PO PRN ×2 (03:29→10:04)
[2021-07-27] MEDS: MULTIVITAMINS (DAILY MVI) TABLET (FP) PO SCH ×2 (03:30→10:04)
[2021-07-27] MEDS ORDERED: LORazepam 0.5 MG TABLET PO SCH (05:00)
[2021-07-27] MEDS: LORazepam 1 MG TABLET PO SCH ×2 (06:11→12:57)
[2021-07-27 06:29] VITALS: TEMP 99
[2021-07-27 08:31] LABS: BASO % 0.8 % (0-2.0); EOS % 0.6 % (0-4.5); HEMATOCRIT 32.9 % (32.4-45.2); HEMOGLOBIN 10.8 GM/dL (10.7-15.3); LYMPH % 29.5 % (8-40); MCH 29.3 pg (25.7-33.7); MCHC 32.8 g/dl (32.0-36.0); MEAN CELL VOLUME 89.4 fl (80-96); MEAN PLT VOLUME 8.3 fl (7.5-11.1); MONO % 12.2 % (3.8-10.2); NEUT % 56.9 % (42.8-82.8); PLATELET COUNT 125 10^3/uL (134-434); RBC 3.68 M/mm3 (3.60-5.2); WHITE BLOOD COUNT 3.1 K/mm3 (4.0-10.0)
[2021-07-27 08:42] LABS: ALBUMIN 3.6 g/dl (3.4-5.0); BLOOD UREA NITROGEN 4.7 mg/dL (7-18); PHOSPHOROUS 2.8 mg/dL (2.5-4.9)
[2021-07-27 08:43] LABS: TOT PROT 6.8 g/dl (6.4-8.2)
[2021-07-27 08:44] LABS: CALCIUM 8.9 mg/dL (8.5-10.1); CREATININE 0.3 mg/dL (0.55-1.3)
[2021-07-27 08:45] LABS: MAGNESIUM 1.8 mg/dL (1.8-2.4)
[2021-07-27 08:51] LABS: BILIRUBIN,TOTAL 1.4 mg/dL (0.2-1)
[2021-07-27] MEDS ORDERED: POTASSIUM CHLORIDE ORAL LIQUID 20 MEQ/15 ML PO SCH (09:45)
[2021-07-27] MEDS: THIAMINE HCL 100 MG TABLET (FP) PO SCH (10:03)
[2021-07-27] MEDS: PANTOPRAZOLE 20 MG TABLET PO SCH (10:04)
[2021-07-27] MEDS: FOLIC ACID 1 MG TABLET (FP) PO SCH (10:04)
[2021-07-27] MEDS: ENOXAPARIN NA (PORCINE) 40 MG/0.4 ML DISP.SYRIN SQ SCH (10:04)
[2021-07-27] MEDS: levETIRAcetam 500 MG TABLET (FP) PO SCH (10:04)
[2021-07-27 10:11] VITALS: BP 131/102; PULSE 97
[2021-07-28] MEDS ORDERED: LORazepam 0.5 MG TABLET PO PRN
[2021-07-28] MEDS ORDERED: LORazepam 0.5 MG TABLET PO SCH (05:00)
[2021-07-28] MEDS ORDERED: LORazepam 0.5 MG TABLET PO ONE (05:00)
[2021-07-29] MEDS ORDERED: LORazepam 0.5 MG TABLET PO ONE (05:00)
== END 2021-07-27 11:43 | disposition left against medical advice (07) | DRG 770 ==
LOC: JER 18:43 → JERBED 22:07 → J4W 07-26 14:35
PROVIDERS: ADMIT Hospitalist; ATTEND Internal Medicine
PROC: HZ2ZZZZ Detoxification Services for Substance Abuse Treatment (ICD-10-PCS; principal; 2021-07-25)
DX: F10.230 Alcohol dependence with withdrawal, uncomplicated (principal); E87.2 Acidosis; K21.9 Gastro-esophageal reflux disease without esophagitis; R74.01 Elevation of levels of liver transaminase levels; K76.0 Fatty (change of) liver, not elsewhere classified; E86.0 Dehydration; F17.210 Nicotine dependence, cigarettes, uncomplicated; K70.40 Alcoholic hepatic failure without coma; R00.0 Tachycardia, unspecified; R11.2 Nausea with vomiting, unspecified; R80.9 Proteinuria, unspecified
CPT/HCPCS: 36415; 71045-TC-FY; 76700-TC; 80053; 80307; 81003; 82010; 82570; 82803; 83690; 83735; 84100; 84155; 84156; 84165; 84484; 84703; 85025; 85610; 87077; 87086; 93005; 93010; 99285-25; C9803-CS; U0003; U0005

== ENCOUNTER 2021-08-11 02:57 | Emergency (ER) | payer OTHER ==
[2021-08-11 03:21] VITALS: BP 132/99; TEMP 98.1; BMI 20.1
[2021-08-11 03:41] VITALS: PULSE 88
[2021-08-11] MEDS ORDERED: SODIUM CHLORIDE 0.9% 500 ML INFUS.BAG IV ONE (03:54)
[2021-08-11 06:51] LABS: EOS % 0.3 % (0-4.5); HEMATOCRIT 34.4 % (32.4-45.2); HEMOGLOBIN 11.3 GM/dL (10.7-15.3); INR 0.98 (0.83-1.09); LYMPH % 24.6 % (8-40); MCH 29.7 pg (25.7-33.7); MCHC 32.8 g/dl (32.0-36.0); MEAN CELL VOLUME 90.5 fl (80-96); MEAN PLT VOLUME 6.9 fl (7.5-11.1); MONO % 8.6 % (3.8-10.2); NEUT % 64.5 % (42.8-82.8); PLATELET COUNT 358 10^3/uL (134-434); PROTHROMBIN TIME (PATIENT) 11.3 SEC (9.7-13.0); RDW 19.4 % (11.6-15.6); WHITE BLOOD COUNT 6.4 K/mm3 (4.0-10.0)
[2021-08-11 06:54] LABS: ACTIVATED PTT 35.8 SECONDS (25.2-36.5)
[2021-08-11 07:00] LABS: ALBUMIN 4.2 g/dl (3.4-5.0); BLOOD UREA NITROGEN 7.8 mg/dL (7-18); CALCIUM 8.7 mg/dL (8.5-10.1); MAGNESIUM 2.1 mg/dL (1.8-2.4)
[2021-08-11 07:04] LABS: CREATININE 0.5 mg/dL (0.55-1.3)
[2021-08-11 07:06] LABS: BILIRUBIN,TOTAL 0.4 mg/dL (0.2-1); TOT PROT 8.7 g/dl (6.4-8.2)
== END 2021-08-11 06:31 | disposition left against medical advice (07) ==
LOC: JER 02:57
DX: F10.10 Alcohol abuse, uncomplicated (principal)
CPT/HCPCS: 36415; 80053; 80307; 83690; 83735; 85025; 85610; 85730; 93005; 93010; 99284-25

== ENCOUNTER 2021-11-11 18:37 | Inpatient (IN) | payer OTHER ==
[2021-11-11] MEDS ORDERED: BISMUTH SUBSALICYLATE 524 MG/30 ML PO PRN (21:56)
[2021-11-11] MEDS ORDERED: MAGNESIUM HYDROX 2400MG/30ML ORAL SUSPENSION 30 ML CUP PO PRN (21:56)
[2021-11-11] MEDS ORDERED: ONDANSETRON *ODT* 4 MG TABLET SL PRN (21:56)
[2021-11-11] MEDS ORDERED: LOPERAMIDE HCL 2 MG CAPSULE PO PRN (21:56)
[2021-11-11] MEDS ORDERED: BENZOCAINE/MENTHOL (CHLORASEPTIC ) LOZENGE MM PRN (21:56)
[2021-11-11] MEDS ORDERED: IBUPROFEN 600 MG TABLET (FP) PO PRN (21:56)
[2021-11-11] MEDS ORDERED: IBUPROFEN 400 MG TABLET (FP) PO PRN (21:56)
[2021-11-11] MEDS ORDERED: P-EPHED 60MG/TRIPROLIDI 2.5MG TABLET PO PRN (21:56)
[2021-11-11] MEDS ORDERED: DICYCLOMINE HCL 10 MG CAPSULE PO PRN (21:56)
[2021-11-11] MEDS ORDERED: MELATONIN 5 MG TABLETS PO PRN (21:56)
[2021-11-11] MEDS ORDERED: MAGNESIUM CITRATE 300 ML BOTTLE PO PRN (21:56)
[2021-11-11] MEDS ORDERED: MAG HYDROX/AL HYDROX/SIMETH 30 ML UNIT-DOSE CUP PO PRN (21:56)
[2021-11-11] MEDS ORDERED: ACETAMINOPHEN 325 MG TABLET (FP) PO PRN ×2 (21:56)
[2021-11-11] MEDS ORDERED: NICOTINE POLACRILEX 2 MG GUM BUC PRN (21:56)
[2021-11-11] MEDS ORDERED: guaiFENesin 200 MG/10 ML 10 ML UNIT-DOSE CUPS PO PRN (21:56)
[2021-11-11 22:47] VITALS: BMI 20.1
[2021-11-12] MEDS: chlordiazePOXIDE HCL 25 MG CAPSULE PO SCH ×5 (01:00→22:33)
[2021-11-12] MEDS: GABAPENTIN 300 MG CAPSULE PO SCH ×3 (01:00→22:32)
[2021-11-12] MEDS ORDERED: chlordiazePOXIDE HCL 25 MG CAPSULE ONE ×2 (01:28→06:16)
[2021-11-12] MEDS ORDERED: GABAPENTIN 100 MG CAPSULE ONE (01:28)
[2021-11-12] MEDS: THIAMINE HCL 100 MG TABLET (FP) PO SCH ×2 (02:19→22:32)
[2021-11-12] MEDS: PRENATAL VITAMINS W/ FOLIC ACID TABLET (FP) PO SCH (10:01)
[2021-11-12] MEDS: hydrOXYzine PAMOATE 25 MG CAPSULE (FP) PO PRN ×3 (10:06→22:32)
[2021-11-12] MEDS: amLODIPine BESYLATE 5 MG TABLET (FP) PO SCH (10:54)
[2021-11-12] MEDS: NICOTINE 7 MG/24 HOURS TOPICAL PATCH TD PRN (10:55)
[2021-11-12 12:43] LABS: MCH 30.2 pg (25.7-33.7); MCHC 32.5 g/dl (32.0-36.0); MEAN CELL VOLUME 92.9 fl (80-96); MEAN PLT VOLUME 7.6 fl (7.5-11.1); PLATELET COUNT 274 10^3/uL (134-434); RBC 3.98 M/mm3 (3.60-5.2); RDW 20.5 % (11.6-15.6); WHITE BLOOD COUNT 5.3 K/mm3 (4.0-10.0)
[2021-11-12 12:48] LABS: CALCIUM 9.8 mg/dL (8.5-10.1)
[2021-11-12 12:49] LABS: ALBUMIN 4.1 g/dl (3.4-5.0); BLOOD UREA NITROGEN 4.2 mg/dL (7-18)
[2021-11-12 12:52] LABS: CREATININE 0.7 mg/dL (0.55-1.3)
[2021-11-12 12:53] LABS: BILIRUBIN,TOTAL 0.9 mg/dL (0.2-1); TOT PROT 8.1 g/dl (6.4-8.2)
[2021-11-12] MEDS: chlordiazePOXIDE HCL 25 MG CAPSULE PO PRN ×2 (13:26→20:32)
[2021-11-12] MEDS: METHOCARBAMOL 500 MG TABLET PO PRN (18:10)
[2021-11-13] MEDS: ARTIFICIAL TEARS (POLYVINYL ALCOHOL) OPTH DROPS OU SCH ×3 (00:13→23:14)
[2021-11-13] MEDS: chlordiazePOXIDE HCL 25 MG CAPSULE PO SCH ×4 (05:36→22:14)
[2021-11-13] MEDS: PRENATAL VITAMINS W/ FOLIC ACID TABLET (FP) PO SCH (10:24)
[2021-11-13] MEDS: amLODIPine BESYLATE 5 MG TABLET (FP) PO SCH (10:25)
[2021-11-13] MEDS: GABAPENTIN 300 MG CAPSULE PO SCH ×2 (10:25→22:14)
[2021-11-13] MEDS: NICOTINE 7 MG/24 HOURS TOPICAL PATCH TD PRN (10:38)
[2021-11-13] MEDS: NICOTINE 10 MG CARTRIDGE (INHALER) IH PRN ×2 (10:38→22:13)
[2021-11-13] MEDS: METHOCARBAMOL 500 MG TABLET PO PRN ×2 (10:38→18:09)
[2021-11-13] MEDS ORDERED: POTASSIUM CHLORIDE ORAL LIQUID 20 MEQ/15 ML PO ONE (11:30)
[2021-11-13] MEDS: chlordiazePOXIDE HCL 25 MG CAPSULE PO PRN ×2 (13:04→20:09)
[2021-11-13] MEDS: hydrOXYzine PAMOATE 25 MG CAPSULE (FP) PO PRN ×2 (18:06→22:14)
[2021-11-13] MEDS: THIAMINE HCL 100 MG TABLET (FP) PO SCH (22:14)
[2021-11-13] MEDS: traZODone HCL 100 MG TABLET (FP) PO SCH (22:14)
[2021-11-14] MEDS: chlordiazePOXIDE HCL 10 MG CAPSULE PO SCH ×4 (05:48→22:21)
[2021-11-14] MEDS: NICOTINE 10 MG CARTRIDGE (INHALER) IH PRN ×2 (08:06→10:23)
[2021-11-14] MEDS: chlordiazePOXIDE HCL 10 MG CAPSULE PO PRN ×2 (08:06→13:30)
[2021-11-14] MEDS: ARTIFICIAL TEARS (POLYVINYL ALCOHOL) OPTH DROPS OU SCH ×2 (10:12→22:57)
[2021-11-14] MEDS: amLODIPine BESYLATE 5 MG TABLET (FP) PO SCH (10:12)
[2021-11-14] MEDS: GABAPENTIN 300 MG CAPSULE PO SCH ×2 (10:12→22:21)
[2021-11-14] MEDS: PRENATAL VITAMINS W/ FOLIC ACID TABLET (FP) PO SCH (10:14)
[2021-11-14] MEDS: NICOTINE 7 MG/24 HOURS TOPICAL PATCH TD PRN (10:23)
[2021-11-14] MEDS: hydrOXYzine PAMOATE 25 MG CAPSULE (FP) PO PRN ×2 (13:29→22:23)
[2021-11-14] MEDS: traZODone HCL 100 MG TABLET (FP) PO SCH (22:21)
[2021-11-14] MEDS: THIAMINE HCL 100 MG TABLET (FP) PO SCH (22:21)
[2021-11-15] MEDS ORDERED: chlordiazePOXIDE HCL 10 MG CAPSULE PO SCH (05:00)
[2021-11-15] MEDS: hydrOXYzine PAMOATE 25 MG CAPSULE (FP) PO PRN (09:31)
[2021-11-15] MEDS: GABAPENTIN 300 MG CAPSULE PO SCH (09:31)
[2021-11-15] MEDS: METHOCARBAMOL 500 MG TABLET PO PRN (09:31)
[2021-11-15] MEDS: PRENATAL VITAMINS W/ FOLIC ACID TABLET (FP) PO SCH (09:32)
[2021-11-15] MEDS: ARTIFICIAL TEARS (POLYVINYL ALCOHOL) OPTH DROPS OU SCH (09:32)
[2021-11-15 09:58] VITALS: BP 117/78; PULSE 115; RESP 17; TEMP 97.7
[2021-11-15] MEDS ORDERED: POTASSIUM CHLORIDE ORAL LIQUID 20 MEQ/15 ML PO SCH (22:00)
[2021-11-16] MEDS ORDERED: chlordiazePOXIDE HCL 10 MG CAPSULE PO ONE (05:00)
== END 2021-11-15 09:50 | disposition home or self-care (01) | DRG 775 ==
LOC: YASAS 18:37 → Y6N 11-12 07:40
PROVIDERS: ADMIT Allergy & Immunology; ATTEND Surgery
PROC: HZ2ZZZZ Detoxification Services for Substance Abuse Treatment (ICD-10-PCS; principal; 2021-11-12)
DX: F10.230 Alcohol dependence with withdrawal, uncomplicated (principal); F12.20 Cannabis dependence, uncomplicated; F17.210 Nicotine dependence, cigarettes, uncomplicated; F41.9 Anxiety disorder, unspecified; E87.6 Hypokalemia; K21.9 Gastro-esophageal reflux disease without esophagitis; F10.280 Alcohol dependence with alcohol-induced anxiety disorder; F10.282 Alcohol dependence with alcohol-induced sleep disorder; Z62.810 Personal history of physical and sexual abuse in childhood; Z91.410 Personal history of adult physical and sexual abuse; Z88.0 Allergy status to penicillin; Z91.018 Allergy to other foods
CPT/HCPCS: 36415; 80053; 81025; 85027; 86780; C9803-CS; U0003; U0005

== ENCOUNTER 2021-11-19 17:29 | Emergency (ER) | payer OTHER ==
[2021-11-19 17:47] VITALS: BP 126/87; PULSE 93; RESP 16; TEMP 97.6; BMI 19.7
== END 2021-11-19 20:21 | disposition home or self-care (01) ==
LOC: FER 17:29
PROC: 0JQ10ZZ Repair Face Subcutaneous Tissue and Fascia, Open Approach (ICD-10-PCS; principal; 2021-11-19)
DX: S09.90XA Unspecified injury of head, initial encounter (principal); S01.01XA Laceration without foreign body of scalp, initial encounter; S01.81XA Laceration without foreign body of other part of head, initial encounter; W19.XXXA Unspecified fall, initial encounter; Y92.89 Other specified places as the place of occurrence of the external cause
CPT/HCPCS: 70450-TC; 72125-TC; 81025; 99284-25

== ENCOUNTER 2021-12-04 00:35 | Inpatient (IN) | payer OTHER ==
[2021-12-04] MEDS ORDERED: chlordiazePOXIDE HCL 25 MG CAPSULE PO ONE (00:57)
[2021-12-04] MEDS ORDERED: diazePAM CARPU-JECT 10 MG/2 ML DISP.SYRIN IVPUSH ONE ×4 (00:57→04:56)
[2021-12-04] MEDS ORDERED: ONDANSETRON 4 MG/2 ML VIAL IVPUSH ONE (01:09)
[2021-12-04] MEDS ORDERED: THIAMINE HCL 200 MG/2 ML VIAL IVPB ONE (01:10)
[2021-12-04] MEDS ORDERED: SODIUM CHLORIDE 1,000 ML IV STA ×3 (01:10→04:50)
[2021-12-04 01:14] LABS: HEMATOCRIT 36.3 % (32.4-45.2); HEMOGLOBIN 11.8 GM/dL (10.7-15.3); MCH 32.1 pg (25.7-33.7); MCHC 32.5 g/dl (32.0-36.0); MEAN CELL VOLUME 98.9 fl (80-96); MEAN PLT VOLUME 6.8 fl (7.5-11.1); PLATELET COUNT 166 10^3/uL (134-434); RBC 3.67 M/mm3 (3.60-5.2); RDW 19.2 % (11.6-15.6)
[2021-12-04] MEDS ORDERED: diazePAM CARPU-JECT 10 MG/2 ML DISP.SYRIN ONE ×3 (01:19→05:02)
[2021-12-04] MEDS ORDERED: chlordiazePOXIDE HCL 25 MG CAPSULE ONE (01:19)
[2021-12-04] MEDS ORDERED: ONDANSETRON 4 MG/2 ML VIAL ONE ×2 (01:20→03:36)
[2021-12-04 01:33] LABS: CHLORIDE 99 mmol/L (98-107); SODIUM 138 mmol/L (136-145)
[2021-12-04 01:35] LABS: ANION GAP 27 MMOL/L (8-16); CALCIUM 8.5 mg/dL (8.5-10.1); CO2 13 mmol/L (21-32); GLUCOSE,RANDOM 92 mg/dL (74-106)
[2021-12-04 01:36] LABS: ALBUMIN 4.4 g/dl (3.4-5.0); BLOOD UREA NITROGEN 10.6 mg/dL (7-18)
[2021-12-04 01:38] LABS: SGPT/ALT 35 U/L (13-61)
[2021-12-04 01:39] LABS: CREATININE 0.7 mg/dL (0.55-1.3); SGOT/AST 94 U/L (15-37)
[2021-12-04 01:40] LABS: BILIRUBIN,TOTAL 0.6 mg/dL (0.2-1); TOT PROT 8.7 g/dl (6.4-8.2)
[2021-12-04 01:41] LABS: ALK PHOS 137 U/L (45-117)
[2021-12-04] MEDS ORDERED: ACETAMINOPHEN 1000 MG/100 ML BAG IVPB ONE (02:06)
[2021-12-04 02:58] LABS: VENOUS BASE EXCESS -16.5 mmol/L (-2-2); VENOUS O2 SATURATION 46.4 % (70-80)
[2021-12-04 03:03] LABS: VENOUS PH 7.117 (7.310-7.410)
[2021-12-04 03:07] LABS: ANISOCYTOSIS 1+; MACROCYTOSIS 1+; TEAR DROP CELLS 1+
[2021-12-04] MEDS ORDERED: FAMOTIDINE 20 MG/50 ML IVPB 20 MG/50 ML MG IVPB ONE ×2 (03:36)
[2021-12-04 04:16] LABS: EPI CELLS 22 /uL (0-25.1); HYALINE CASTS 0 /uL (0-3.1); PH,URINE 5.5 (5.0-8.0); URINE APPEARANCE CLEAR; URINE BACTERIA 342 /uL (0-1359); URINE BILIRUBIN NEGATIVE (NEGATIVE); URINE COLOR ORANGE; URINE GLUCOSE (UA) NEGATIVE (NEGATIVE); URINE KETONE 4+ (NEGATIVE); URINE LEUK ESTERASE NEGATIVE (NEGATIVE); URINE NITRITE NEGATIVE (NEGATIVE); URINE PROTEIN 2+ (NEGATIVE); URINE RBC 104 /uL (0-23.9); URINE UROBILINOGEN 0.2 mg/dL (0.2-1.0); URINE WBC 13 /uL (0-25.8)
[2021-12-04 04:22] LABS: OPIATES, URI NEGATIVE (NEGATIVE); URINE BARBITURATES NEGATIVE (NEGATIVE)
[2021-12-04 04:23] LABS: COCAINE, UR NEGATIVE (NEGATIVE); METHADONE, UR NEGATIVE (NEGATIVE); PHENCYCLIDINE,URINE NEGATIVE (NEGATIVE)
[2021-12-04 04:36] LABS: URINE AMPHETAMINES NEGATIVE (NEGATIVE); URINE BENZODIAZEPINES POSITIVE (NEGATIVE)
[2021-12-04] MEDS ORDERED: DEXTROSE 50%-WATER - 25 GM/50 ML VIAL IVPUSH ONE (04:38)
[2021-12-04] MEDS ORDERED: SODIUM CHLORIDE 500 ML IV STA (04:52)
[2021-12-04 04:55] LABS: LIPASE 135 U/L (73-393); MAGNESIUM 1.8 mg/dL (1.8-2.4)
[2021-12-04 04:58] LABS: PHOSPHOROUS 4.8 mg/dL (2.5-4.9)
[2021-12-04] MEDS ORDERED: DEXTROSE 5%-NORMAL SALINE 1,000 ML IV SCH (05:00)
[2021-12-04] MEDS ORDERED: THIAMINE HCL 200 MG/2 ML VIAL ONE (05:26)
[2021-12-04] MEDS ORDERED: ACETAMINOPHEN INJECTION 100 ML IVPB ONE (05:33)
[2021-12-04] MEDS ORDERED: LORazepam 2 MG/ML SDV VIAL IVPUSH PRN (06:22)
[2021-12-04] MEDS ORDERED: PROCHLORPERAZINE INJECTION 10 MG/2 ML VIAL IVPB PRN (07:05)
[2021-12-04 07:06] LABS: VENOUS BASE EXCESS -14.8 mmol/L (-2-2); VENOUS O2 SATURATION 97.5 % (70-80); VENOUS PCO2 22.6 mmHg (38-52); VENOUS PH 7.274 (7.310-7.410)
[2021-12-04 07:43] LABS: CALCIUM 7.5 mg/dL (8.5-10.1)
[2021-12-04 07:44] LABS: ALBUMIN 3.7 g/dl (3.4-5.0); MAGNESIUM 1.4 mg/dL (1.8-2.4)
[2021-12-04 07:46] LABS: PHOSPHOROUS 1.6 mg/dL (2.5-4.9)
[2021-12-04 07:47] LABS: CREATININE 0.6 mg/dL (0.55-1.3)
[2021-12-04] MEDS ORDERED: MAGNESIUM SULFATE IN WATER 2 GM/50 ML IVPB IVPB ONE ×2 (07:47→09:38)
[2021-12-04 07:48] LABS: BILIRUBIN,TOTAL 0.7 mg/dL (0.2-1); BLOOD UREA NITROGEN 6.8 mg/dL (7-18); TOT PROT 7.4 g/dl (6.4-8.2)
[2021-12-04] MEDS ORDERED: CALCIUM GLUCONATE 10% - 1,000 MG/10 ML VIAL IVPB ONE (07:48)
[2021-12-04] MEDS ORDERED: chlordiazePOXIDE HCL 25 MG CAPSULE PO PRN (09:30)
[2021-12-04] MEDS ORDERED: THIAMINE HCL 100 MG TABLET (FP) ONE (09:35)
[2021-12-04] MEDS ORDERED: FOLIC ACID 1 MG TABLET (FP) ONE (09:35)
[2021-12-04] MEDS ORDERED: MULTIVITAMINS (DAILY MVI) TABLET (FP) ONE (09:36)
[2021-12-04] MEDS ORDERED: CALCIUM GLUCONATE 10% - 1,000 MG/10 ML VIAL ONE (09:36)
[2021-12-04] MEDS ORDERED: ENOXAPARIN NA (PORCINE) 40 MG/0.4 ML DISP.SYRIN SQ ONE (09:38)
[2021-12-04] MEDS ORDERED: PANTOPRAZOLE SODIUM 40 MG VIAL ONE (09:38)
[2021-12-04] MEDS ORDERED: TRIMETHOBENZAMIDE HCL 200MG/2ML INJ IM ONE (10:10)
[2021-12-04] MEDS ORDERED: PROCHLORPERAZINE INJECTION 10 MG/2 ML VIAL ONE (10:13)
[2021-12-04 10:16] LABS: BASO % 0.1 % (0-2.0); HEMATOCRIT 31.5 % (32.4-45.2); HEMOGLOBIN 10.1 GM/dL (10.7-15.3); LYMPH % 5.7 % (8-40); MCH 31.8 pg (25.7-33.7); MCHC 32.2 g/dl (32.0-36.0); MEAN CELL VOLUME 98.8 fl (80-96); MEAN PLT VOLUME 7.5 fl (7.5-11.1); MONO % 8.5 % (3.8-10.2); NEUT % 85.7 % (42.8-82.8); PLATELET COUNT 130 10^3/uL (134-434); RBC 3.19 M/mm3 (3.60-5.2); RDW 19.2 % (11.6-15.6); WHITE BLOOD COUNT 8.3 K/mm3 (4.0-10.0)
[2021-12-04] MEDS: FOLIC ACID 1 MG TABLET (FP) PO SCH (10:40)
[2021-12-04] MEDS: THIAMINE HCL 100 MG TABLET (FP) PO SCH (10:40)
[2021-12-04] MEDS: PANTOPRAZOLE SODIUM 40 MG VIAL IVPUSH SCH (10:40)
[2021-12-04] MEDS: MULTIVITAMINS (DAILY MVI) TABLET (FP) PO SCH (10:40)
[2021-12-04 10:42] LABS: CALCIUM 7.6 mg/dL (8.5-10.1); MAGNESIUM 1.5 mg/dL (1.8-2.4)
[2021-12-04 10:45] LABS: CREATININE 0.6 mg/dL (0.55-1.3); PHOSPHOROUS 1.5 mg/dL (2.5-4.9)
[2021-12-04] MEDS ORDERED: chlordiazePOXIDE HCL 25 MG CAPSULE PO SCH (11:00)
[2021-12-04] MEDS ORDERED: POTASSIUM PHOSPHATE IVPB ONE (11:03)
[2021-12-04] MEDS ORDERED: SODIUM CHLORIDE IVPB ONE (11:03)
[2021-12-04] MEDS: LORazepam 2 MG/ML SDV VIAL IVPUSH PRN ×2 (11:30→17:55)
[2021-12-04] MEDS: DEXTROSE 5%-NORMAL SALINE 1,000 ML IV SCH (11:40)
[2021-12-04] MEDS: MAG HYDROX/AL HYDROX/SIMETH 30 ML UNIT-DOSE CUP PO SCH ×2 (11:40→17:40)
[2021-12-04] MEDS: ENOXAPARIN NA (PORCINE) 40 MG/0.4 ML DISP.SYRIN SQ SCH (12:08)
[2021-12-04] MEDS ORDERED: MAG HYDROX/AL HYDROX/SIMETH 30 ML UNIT-DOSE CUP ONE (17:06)
[2021-12-04 21:06] LABS: CHLORIDE 106 mmol/L (98-107); SODIUM 137 mmol/L (136-145)
[2021-12-04 21:08] LABS: ANION GAP 15 MMOL/L (8-16); BLOOD UREA NITROGEN 4.1 mg/dL (7-18); CALCIUM 7.9 mg/dL (8.5-10.1); CO2 17 mmol/L (21-32); GLUCOSE,RANDOM 113 mg/dL (74-106); MAGNESIUM 1.9 mg/dL (1.8-2.4)
[2021-12-04 21:12] LABS: CREATININE 0.7 mg/dL (0.55-1.3)
[2021-12-04] MEDS ORDERED: NAPH,MB-DB/K PH,MBDB POWDER PACKET PO ONE (23:14)
[2021-12-04] MEDS ORDERED: POTASSIUM CHLORIDE ORAL LIQUID 20 MEQ/15 ML PO ONE (23:54)
[2021-12-04] MEDS ORDERED: MAGNESIUM SULF 50% (8.12 MEQ/2 ML-1 GM VIAL) IVPB ONE (23:55)
[2021-12-05] MEDS: MAG HYDROX/AL HYDROX/SIMETH 30 ML UNIT-DOSE CUP PO SCH ×2 (00:11→05:20)
[2021-12-05 01:49] VITALS: BMI 19.6
[2021-12-05] MEDS: LORazepam 2 MG/ML SDV VIAL IVPUSH PRN ×3 (02:25→12:48)
[2021-12-05] MEDS: NAPH,MB-DB/K PH,MBDB POWDER PACKET PO SCH ×2 (05:19→15:21)
[2021-12-05] MEDS ORDERED: POTASSIUM PHOSPHATE 15 MM in SODIUM CHLORIDE 250 ML IVPB ONE (08:18)
[2021-12-05] MEDS ORDERED: DEXTROSE 5%-0.45% SALINE 1,000 ML IV SCH (08:30)
[2021-12-05 08:54] LABS: BASO % 0.4 % (0-2.0); EOS % 0.7 % (0-4.5); HEMATOCRIT 32.8 % (32.4-45.2); HEMOGLOBIN 10.7 GM/dL (10.7-15.3); LYMPH % 14.4 % (8-40); MCH 31.6 pg (25.7-33.7); MCHC 32.6 g/dl (32.0-36.0); MEAN PLT VOLUME 8.1 fl (7.5-11.1); MONO % 10.8 % (3.8-10.2); NEUT % 73.7 % (42.8-82.8); PLATELET COUNT 107 10^3/uL (134-434); RBC 3.38 M/mm3 (3.60-5.2); RDW 18.5 % (11.6-15.6); WHITE BLOOD COUNT 4.7 K/mm3 (4.0-10.0)
[2021-12-05 09:15] LABS: CHLORIDE 101 mmol/L (98-107); SODIUM 137 mmol/L (136-145)
[2021-12-05 09:16] LABS: CALCIUM 8.2 mg/dL (8.5-10.1)
[2021-12-05 09:17] LABS: ALBUMIN 3.6 g/dl (3.4-5.0); ANION GAP 11 MMOL/L (8-16); CO2 24 mmol/L (21-32); GLUCOSE,RANDOM 120 mg/dL (74-106); MAGNESIUM 2.3 mg/dL (1.8-2.4)
[2021-12-05 09:20] LABS: CREATININE 0.5 mg/dL (0.55-1.3); SGOT/AST 40 U/L (15-37); SGPT/ALT 25 U/L (13-61)
[2021-12-05 09:22] LABS: BILIRUBIN,TOTAL 0.6 mg/dL (0.2-1); TOT PROT 7.1 g/dl (6.4-8.2)
[2021-12-05 09:58] LABS: BLOOD UREA NITROGEN 2.4 mg/dL (7-18); PHOSPHOROUS 0.8 mg/dL (2.5-4.9)
[2021-12-05] MEDS: FOLIC ACID 1 MG TABLET (FP) PO SCH (10:16)
[2021-12-05] MEDS: PANTOPRAZOLE SODIUM 40 MG VIAL IVPUSH SCH (10:16)
[2021-12-05] MEDS: THIAMINE HCL 100 MG TABLET (FP) PO SCH (10:16)
[2021-12-05] MEDS: MULTIVITAMINS (DAILY MVI) TABLET (FP) PO SCH (10:16)
[2021-12-05] MEDS: ENOXAPARIN NA (PORCINE) 40 MG/0.4 ML DISP.SYRIN SQ SCH (10:23)
[2021-12-05] MEDS: DEXTROSE 5%-NORMAL SALINE 1,000 ML IV SCH (10:38)
[2021-12-05] MEDS ORDERED: LORazepam 2 MG TABLET PO SCH (11:00)
[2021-12-05] MEDS ORDERED: SUCRALFATE 1 GM TABLET (FP) PO SCH (11:00)
[2021-12-05 11:38] LABS: ALK PHOS 103 U/L (45-117)
[2021-12-05] MEDS ORDERED: LORazepam 1 MG TABLET PO PRN (13:02)
[2021-12-05] MEDS ORDERED: LORazepam 1 MG TABLET PO SCH (13:20)
[2021-12-05 15:14] VITALS: BP 129/89; PULSE 101; RESP 20; TEMP 100
[2021-12-06] MEDS ORDERED: chlordiazePOXIDE HCL 25 MG CAPSULE PO SCH (05:00)
[2021-12-07] MEDS ORDERED: LORazepam 1 MG TABLET PO SCH (05:00)
[2021-12-07] MEDS ORDERED: chlordiazePOXIDE HCL 10 MG CAPSULE PO SCH (05:00)
[2021-12-08] MEDS ORDERED: chlordiazePOXIDE HCL 10 MG CAPSULE PO SCH (05:00)
[2021-12-09] MEDS ORDERED: chlordiazePOXIDE HCL 10 MG CAPSULE PO ONE (05:00)
== END 2021-12-05 16:27 | disposition left against medical advice (07) | DRG 770 ==
LOC: JER 00:35 → JERBED 04:38 → J4W 23:54
PROVIDERS: ADMIT Internal Medicine; ATTEND Internal Medicine
PROC: HZ2ZZZZ Detoxification Services for Substance Abuse Treatment (ICD-10-PCS; principal; 2021-12-04)
DX: F10.239 Alcohol dependence with withdrawal, unspecified (principal); R11.2 Nausea with vomiting, unspecified; K29.20 Alcoholic gastritis without bleeding; F41.9 Anxiety disorder, unspecified; K21.9 Gastro-esophageal reflux disease without esophagitis; F12.90 Cannabis use, unspecified, uncomplicated; D72.829 Elevated white blood cell count, unspecified; R45.1 Restlessness and agitation; E83.42 Hypomagnesemia; E83.51 Hypocalcemia; E83.39 Other disorders of phosphorus metabolism; E87.2 Acidosis; E86.0 Dehydration; Z88.0 Allergy status to penicillin
CPT/HCPCS: 36415; 71045-TC-FY; 80048; 80053; 80307; 81003; 82010; 82607; 82803; 83605; 83690; 83735; 84100; 84484; 84703; 85025; 87086; 87186; 93005; 93010; 99285-25; C9803-CS; U0003; U0005

== ENCOUNTER 2022-02-21 18:55 | Inpatient (IN) | payer OTHER ==
[~2022-02-21 18:55] MED LIST changes: +LORazepam 1 MG TABLET PO SCH; -LORazepam 2 MG TABLET PO SCH
[2022-02-21 19:13] VITALS: BMI 21.0
[2022-02-21] MEDS ORDERED: FOLIC ACID 1 MG TABLET (FP) PO ONE (19:28)
[2022-02-21] MEDS ORDERED: PHENobarbital SODIUM 65 MG/1 ML VIAL IVPUSH ONE ×2 (19:28→22:19)
[2022-02-21] MEDS ORDERED: THIAMINE HCL 100 MG TABLET (FP) PO ONE (19:29)
[2022-02-21] MEDS ORDERED: LACTATED RINGERS SOLUTION 1000 ML INFUS.BAG IV ONE (19:29)
[2022-02-21] MEDS ORDERED: MULTIVITAMINS (DAILY MVI) TABLET (FP) PO ONE (19:29)
[2022-02-21] MEDS ORDERED: ONDANSETRON 4 MG/2 ML VIAL IVPUSH ONE (19:51)
[2022-02-21 19:52] LABS: VENOUS BASE EXCESS -10.9 mmol/L (-2-2); VENOUS O2 SATURATION 83.9 % (70-80); VENOUS PCO2 44.2 mmHg (38-52); VENOUS PH 7.201 (7.310-7.410)
[2022-02-21 19:57] LABS: BASO % 1.9 % (0-2.0); EOS % 0.1 % (0-4.5); HEMOGLOBIN 13.2 GM/dL (10.7-15.3); LYMPH % 18.4 % (8-40); MCH 33.2 pg (25.7-33.7); MCHC 32.3 g/dl (32.0-36.0); MEAN CELL VOLUME 102.8 fl (80-96); MEAN PLT VOLUME 7.8 fl (7.5-11.1); MONO % 14.3 % (3.8-10.2); NEUT % 65.3 % (42.8-82.8); PLATELET COUNT 162 10^3/uL (134-434); RBC 3.98 M/mm3 (3.60-5.2); RDW 16.8 % (11.6-15.6); WHITE BLOOD COUNT 6.5 K/mm3 (4.0-10.0)
[2022-02-21] MEDS ORDERED: PHENobarbital SODIUM 65 MG/1 ML VIAL ONE ×2 (20:01→23:45)
[2022-02-21] MEDS ORDERED: ONDANSETRON 4 MG/2 ML VIAL ONE (20:02)
[2022-02-21 20:06] LABS: INR 1.06 (0.83-1.09); PROTHROMBIN TIME (PATIENT) 12.2 SEC (9.7-13.0)
[2022-02-21 20:09] LABS: ACTIVATED PTT 31.9 SECONDS (25.2-36.5)
[2022-02-21] MEDS ORDERED: MAGNESIUM SULF 50% (8.12 MEQ/2 ML-1 GM VIAL) IVPB ONE (20:12)
[2022-02-21 20:15] LABS: ALBUMIN 4.6 g/dl (3.4-5.0); BLOOD UREA NITROGEN 10.7 mg/dL (7-18); MAGNESIUM 1.6 mg/dL (1.8-2.4)
[2022-02-21] MEDS ORDERED: MAGNESIUM SULFATE IN WATER 2 GM/50 ML IVPB IVPB ONE (20:15)
[2022-02-21 20:18] LABS: CREATININE 0.9 mg/dL (0.55-1.3)
[2022-02-21] MEDS ORDERED: FOLIC ACID INJECTION - 1 MG, THIAMINE HCL 100 MG, MULTIVIT INJECTION ADULT 10 ML in SOD... IVPB ONE (20:20)
[2022-02-21 20:33] LABS: LACTIC ACID > 15.0 mmol/L (0.4-2.0)
[2022-02-21 21:03] LABS: EPI CELLS >36 /uL (0-25.1); HYALINE CASTS 14 /uL (0-3.1); PH,URINE 6.5 (5.0-8.0); URINE APPEARANCE CLOUDY; URINE BACTERIA >9,000 /uL (0-1359); URINE BILIRUBIN NEGATIVE (NEGATIVE); URINE COLOR DK YELLOW; URINE GLUCOSE (UA) NEGATIVE (NEGATIVE); URINE KETONE 2+ (NEGATIVE); URINE LEUK ESTERASE TRACE (NEGATIVE); URINE NITRITE POSITIVE (NEGATIVE); URINE PROTEIN 3+ (NEGATIVE); URINE WBC 924 /uL (0-25.8)
[2022-02-21] MEDS ORDERED: CEFTRIAXONE 1 GM in DEXTROSE 5%-WATER - 100 ML IVPB ONE (21:23)
[2022-02-21 21:35] LABS: URINE RBC 160.1 /uL (0-23.9)
[2022-02-21] MEDS ORDERED: KCL 10 MEQ IVPB 30 MEQ/300 ML INFUS.BAG IVPB ONE (21:40)
[2022-02-21] MEDS: KCL 10 MEQ IVPB 10 MEQ/100 ML INFUS.BAG IVPB SCH ×3 (22:04→23:56)
[2022-02-21 22:49] LABS: LACTIC ACID 2.7 mmol/L (0.4-2.0)
[2022-02-21] MEDS ORDERED: TRIMETHOBENZAMIDE HCL 200MG/2ML INJ IM PRN (23:31)
[2022-02-21] MEDS ORDERED: LORazepam 1 MG TABLET PO PRN (23:38)
[2022-02-21] MEDS ORDERED: LORazepam 2 MG/ML SDV VIAL IVPUSH ONE (23:43)
[2022-02-21] MEDS ORDERED: CEFTRIAXONE 1 GM in DEXTROSE 5%-WATER - 50 ML IVPB ONE (23:45)
[2022-02-21] MEDS ORDERED: SODIUM CHLORIDE 1,000 ML IV SCH (23:45)
[2022-02-22] MEDS ORDERED: LORazepam 1 MG TABLET PO PRN (00:26)
[2022-02-22 00:55] LABS: COCAINE, UR NEGATIVE (NEGATIVE); OPIATES, URI NEGATIVE (NEGATIVE); URINE AMPHETAMINES NEGATIVE (NEGATIVE)
[2022-02-22 00:56] LABS: METHADONE, UR NEGATIVE (NEGATIVE); PHENCYCLIDINE,URINE NEGATIVE (NEGATIVE); URINE BENZODIAZEPINES NEGATIVE (NEGATIVE)
[2022-02-22 01:16] LABS: URINE BARBITURATES POSITIVE (NEGATIVE)
[2022-02-22] MEDS ORDERED: CEFTRIAXONE 1 GM/50 ML BAG ONE (01:32)
[2022-02-22] MEDS ORDERED: LORazepam 1 MG TABLET PO SCH (05:00)
[2022-02-22] MEDS ORDERED: LORazepam 1 MG TABLET ONE ×4 (05:29→22:16)
[2022-02-22] MEDS: LORazepam 1 MG TABLET PO SCH ×4 (05:35→22:18)
[2022-02-22 07:35] LABS: BASO % 1.1 % (0-2.0); HEMATOCRIT 35.2 % (32.4-45.2); HEMOGLOBIN 11.4 GM/dL (10.7-15.3); LYMPH % 12.9 % (8-40); MCH 32.7 pg (25.7-33.7); MCHC 32.4 g/dl (32.0-36.0); MEAN CELL VOLUME 101.1 fl (80-96); MEAN PLT VOLUME 8.2 fl (7.5-11.1); MONO % 14.5 % (3.8-10.2); NEUT % 71.5 % (42.8-82.8); PLATELET COUNT 107 10^3/uL (134-434); RBC 3.48 M/mm3 (3.60-5.2); WHITE BLOOD COUNT 7.1 K/mm3 (4.0-10.0)
[2022-02-22 08:05] LABS: ALBUMIN 3.7 g/dl (3.4-5.0); CALCIUM 8.3 mg/dL (8.5-10.1)
[2022-02-22 08:06] LABS: BLOOD UREA NITROGEN 5.8 mg/dL (7-18)
[2022-02-22 08:07] LABS: CREATININE 0.4 mg/dL (0.55-1.3)
[2022-02-22 08:09] LABS: PHOSPHOROUS 2.5 mg/dL (2.5-4.9); TOT PROT 7.2 g/dl (6.4-8.2)
[2022-02-22] MEDS ORDERED: ENOXAPARIN NA (PORCINE) 40 MG/0.4 ML DISP.SYRIN SQ SCH (10:00)
[2022-02-22] MEDS ORDERED: THIAMINE HCL 100 MG TABLET (FP) PO SCH (10:00)
[2022-02-22] MEDS ORDERED: FOLIC ACID 1 MG TABLET (FP) PO SCH (10:00)
[2022-02-22] MEDS ORDERED: THIAMINE HCL 100 MG TABLET (FP) ONE (10:03)
[2022-02-22] MEDS ORDERED: ENOXAPARIN NA (PORCINE) 40 MG/0.4 ML DISP.SYRIN SQ ONE (10:04)
[2022-02-22] MEDS ORDERED: FOLIC ACID 1 MG TABLET (FP) ONE (10:04)
[2022-02-22] MEDS: chlordiazePOXIDE HCL 25 MG CAPSULE PO SCH ×2 (13:34→22:18)
[2022-02-22] MEDS ORDERED: chlordiazePOXIDE HCL 25 MG CAPSULE ONE ×2 (13:37→22:15)
[2022-02-22 15:37] VITALS: TEMP 98.3
[2022-02-22 19:52] VITALS: BP 121/77; PULSE 110; RESP 16
[2022-02-23] MEDS ORDERED: LORazepam 0.5 MG TABLET PO PRN
[2022-02-23] MEDS ORDERED: LORazepam 1 MG TABLET PO SCH (05:00)
[2022-02-23] MEDS ORDERED: LORazepam 0.5 MG TABLET PO SCH (05:00)
[2022-02-24] MEDS ORDERED: LORazepam 0.5 MG TABLET PO PRN
[2022-02-24] MEDS ORDERED: LORazepam 0.5 MG TABLET PO SCH (05:00)
[2022-02-24] MEDS ORDERED: LORazepam 0.5 MG TABLET PO ONE (05:00)
[2022-02-25] MEDS ORDERED: LORazepam 0.5 MG TABLET PO ONE (05:00)
== END 2022-02-23 01:00 | disposition left against medical advice (07) | DRG 770 ==
LOC: JER 18:55 → JERBED 20:27
PROVIDERS: ADMIT Internal Medicine; ATTEND Internal Medicine
PROC: HZ2ZZZZ Detoxification Services for Substance Abuse Treatment (ICD-10-PCS; principal; 2022-02-21)
DX: F10.239 Alcohol dependence with withdrawal, unspecified (principal); E87.20 Acidosis, unspecified; I42.8 Other cardiomyopathies; R56.9 Unspecified convulsions; N39.0 Urinary tract infection, site not specified; F17.210 Nicotine dependence, cigarettes, uncomplicated; F41.9 Anxiety disorder, unspecified; B95.2 Enterococcus as the cause of diseases classified elsewhere; E87.6 Hypokalemia
CPT/HCPCS: 0241U-QW; 36415; 80053; 80307; 81003; 82803; 82962; 83605; 83735; 84100; 84703; 85025; 85610; 85730; 86850; 86900; 86901; 87040; 87076; 87086; 87186; 93005; 93010; 99285-25

== ENCOUNTER 2022-04-06 04:37 | Emergency (ER) | payer OTHER ==
[2022-04-06 04:57] VITALS: BP 136/91; PULSE 96; RESP 18; TEMP 98.1; BMI 21.9
[2022-04-06] MEDS ORDERED: chlordiazePOXIDE HCL 25 MG CAPSULE PO ONE (05:36)
[2022-04-06] MEDS ORDERED: chlordiazePOXIDE HCL 25 MG CAPSULE ONE (05:49)
== END 2022-04-06 06:21 | disposition home or self-care (01) ==
LOC: JER 04:37
DX: F10.239 Alcohol dependence with withdrawal, unspecified (principal)
CPT/HCPCS: 99283-25

== ENCOUNTER 2022-04-09 02:17 | Inpatient (IN) | payer OTHER ==
[2022-04-09 02:58] VITALS: BMI 19.7
[2022-04-09] MEDS ORDERED: DICYCLOMINE HCL 10 MG CAPSULE PO PRN (03:13)
[2022-04-09] MEDS ORDERED: MAG HYDROX/AL HYDROX/SIMETH 30 ML UNIT-DOSE CUP PO PRN (03:13)
[2022-04-09] MEDS ORDERED: IBUPROFEN 400 MG TABLET (FP) PO PRN (03:13)
[2022-04-09] MEDS ORDERED: ONDANSETRON *ODT* 4 MG TABLET SL PRN (03:13)
[2022-04-09] MEDS ORDERED: ACETAMINOPHEN 325 MG TABLET (FP) PO PRN ×2 (03:13)
[2022-04-09] MEDS ORDERED: P-EPHED 60MG/TRIPROLIDI 2.5MG TABLET PO PRN (03:13)
[2022-04-09] MEDS ORDERED: LOPERAMIDE HCL 2 MG CAPSULE PO PRN (03:13)
[2022-04-09] MEDS ORDERED: NICOTINE POLACRILEX 2 MG GUM BUC PRN (03:13)
[2022-04-09] MEDS ORDERED: MAGNESIUM HYDROX 2400MG/30ML ORAL SUSPENSION 30 ML CUP PO PRN (03:13)
[2022-04-09] MEDS ORDERED: MELATONIN 5 MG TABLETS PO PRN (03:13)
[2022-04-09] MEDS ORDERED: IBUPROFEN 600 MG TABLET (FP) PO PRN (03:13)
[2022-04-09] MEDS ORDERED: BENZOCAINE/MENTHOL (CHLORASEPTIC ) LOZENGE MM PRN (03:13)
[2022-04-09] MEDS ORDERED: guaiFENesin 200 MG/10 ML 10 ML UNIT-DOSE CUPS PO PRN (03:13)
[2022-04-09] MEDS ORDERED: POLYETHYLENE GLYCOL (HEALTHYLAX) 3350 17 GM PACKET PO PRN (03:13)
[2022-04-09] MEDS ORDERED: BISMUTH SUBSALICYLATE 524 MG/30 ML PO PRN (03:13)
[2022-04-09] MEDS ORDERED: METOPROLOL TARTRATE 25 MG TABLET (FP) PO ONE (03:15)
[2022-04-09] MEDS ORDERED: chlordiazePOXIDE HCL 25 MG CAPSULE PO ONE (03:15)
[2022-04-09] MEDS ORDERED: METOPROLOL TARTRATE 25 MG TABLET (FP) ONE (03:26)
[2022-04-09] MEDS ORDERED: chlordiazePOXIDE HCL 25 MG CAPSULE ONE (03:27)
[2022-04-09] MEDS: chlordiazePOXIDE HCL 25 MG CAPSULE PO SCH ×4 (05:52→22:14)
[2022-04-09] MEDS: levETIRAcetam 500 MG TABLET (FP) PO SCH ×2 (10:15→22:13)
[2022-04-09] MEDS: PRENATAL VITAMINS W/ FOLIC ACID TABLET (FP) PO SCH (10:15)
[2022-04-09] MEDS: FAMOTIDINE 20 MG TABLET PO SCH ×2 (10:16→22:13)
[2022-04-09] MEDS: METOPROLOL TARTRATE 25 MG TABLET (FP) PO SCH ×2 (10:16→22:13)
[2022-04-09] MEDS: chlordiazePOXIDE HCL 25 MG CAPSULE PO PRN (14:07)
[2022-04-09] MEDS: SUVOREXANT 10 MG TABLET PO PRN (22:16)
[2022-04-09] MEDS: THIAMINE HCL 100 MG TABLET (FP) PO SCH (22:18)
[2022-04-10] MEDS: chlordiazePOXIDE HCL 25 MG CAPSULE PO SCH ×4 (05:39→22:19)
[2022-04-10] MEDS: FAMOTIDINE 20 MG TABLET PO SCH ×2 (10:34→22:19)
[2022-04-10] MEDS: levETIRAcetam 500 MG TABLET (FP) PO SCH ×2 (10:34→22:19)
[2022-04-10] MEDS: PRENATAL VITAMINS W/ FOLIC ACID TABLET (FP) PO SCH (10:34)
[2022-04-10] MEDS: METOPROLOL TARTRATE 25 MG TABLET (FP) PO SCH ×2 (10:54→22:20)
[2022-04-10] MEDS: chlordiazePOXIDE HCL 25 MG CAPSULE PO PRN ×2 (13:20→20:08)
[2022-04-10] MEDS ORDERED: COLLOIDAL OATMEAL 1 BAR EACH TP PRN (21:19)
[2022-04-10] MEDS: THIAMINE HCL 100 MG TABLET (FP) PO SCH (22:19)
[2022-04-10] MEDS: SUVOREXANT 10 MG TABLET PO PRN (22:22)
[2022-04-11] MEDS: chlordiazePOXIDE HCL 10 MG CAPSULE PO PRN ×2 (03:02→12:49)
[2022-04-11] MEDS: chlordiazePOXIDE HCL 10 MG CAPSULE PO SCH ×4 (05:30→22:12)
[2022-04-11] MEDS: METHOCARBAMOL 500 MG TABLET PO PRN (10:36)
[2022-04-11] MEDS: FAMOTIDINE 20 MG TABLET PO SCH ×2 (10:36→22:12)
[2022-04-11] MEDS: PRENATAL VITAMINS W/ FOLIC ACID TABLET (FP) PO SCH (10:36)
[2022-04-11] MEDS: levETIRAcetam 500 MG TABLET (FP) PO SCH ×2 (10:36→22:10)
[2022-04-11] MEDS: METOPROLOL TARTRATE 25 MG TABLET (FP) PO SCH ×2 (10:37→22:10)
[2022-04-11 20:56] VITALS: RESP 18
[2022-04-11] MEDS: SUVOREXANT 10 MG TABLET PO PRN (22:09)
[2022-04-11] MEDS: THIAMINE HCL 100 MG TABLET (FP) PO SCH (22:15)
[2022-04-12] MEDS: METHOCARBAMOL 500 MG TABLET PO PRN (02:47)
[2022-04-12] MEDS ORDERED: chlordiazePOXIDE HCL 10 MG CAPSULE PO SCH (05:00)
[2022-04-12] MEDS ORDERED: hydrOXYzine PAMOATE 25 MG CAPSULE (FP) PO PRN (08:32)
[2022-04-12 09:27] VITALS: BP 99/62; PULSE 87; TEMP 97.8
[2022-04-12] MEDS: levETIRAcetam 500 MG TABLET (FP) PO SCH (10:10)
[2022-04-12] MEDS: METOPROLOL TARTRATE 25 MG TABLET (FP) PO SCH (10:10)
[2022-04-12] MEDS: FAMOTIDINE 20 MG TABLET PO SCH (10:10)
[2022-04-12] MEDS: PRENATAL VITAMINS W/ FOLIC ACID TABLET (FP) PO SCH (10:10)
[2022-04-12] MEDS ORDERED: SUVOREXANT 15 MG TABLET PO PRN (22:00)
[2022-04-13] MEDS ORDERED: chlordiazePOXIDE HCL 10 MG CAPSULE PO ONE (05:00)
== END 2022-04-12 11:15 | disposition home or self-care (01) | DRG 775 ==
LOC: YASAS 02:17 → Y6N 03:13
PROVIDERS: ADMIT Allergy & Immunology; ATTEND Family Medicine
PROC: HZ2ZZZZ Detoxification Services for Substance Abuse Treatment (ICD-10-PCS; principal; 2022-04-09)
DX: F10.230 Alcohol dependence with withdrawal, uncomplicated (principal); F12.20 Cannabis dependence, uncomplicated; F17.210 Nicotine dependence, cigarettes, uncomplicated; F10.282 Alcohol dependence with alcohol-induced sleep disorder; F10.280 Alcohol dependence with alcohol-induced anxiety disorder; F41.9 Anxiety disorder, unspecified; I42.6 Alcoholic cardiomyopathy; Z62.810 Personal history of physical and sexual abuse in childhood; Z91.410 Personal history of adult physical and sexual abuse; Z88.0 Allergy status to penicillin
CPT/HCPCS: 36415; 80053; 80307; 81025; 85025; 93005; 93010; 99283-25; C9803-CS; U0003; U0005

== ENCOUNTER 2022-04-13 16:05 | Emergency (ER) | payer OTHER ==
[2022-04-13] MEDS ORDERED: IBUPROFEN 400 MG TABLET (FP) PO ONE ×2 (16:27→16:42)
[2022-04-13 16:35] VITALS: BP 119/84; PULSE 94; RESP 18; TEMP 97.7; BMI 19.7
== END 2022-04-13 19:10 | disposition home or self-care (01) ==
LOC: FER 16:05
DX: S99.912A Unspecified injury of left ankle, initial encounter (principal); W10.1XXA Fall (on)(from) sidewalk curb, initial encounter; X50.0XXA Overexertion from strenuous movement or load, initial encounter
CPT/HCPCS: 73610-TC-LT-FY; 73630-TC-LT; 99284-25

== ENCOUNTER 2022-04-26 19:34 | Emergency (ER) | payer OTHER ==
[2022-04-26 19:47] VITALS: TEMP 98.1; BMI 19.7
[2022-04-26] MEDS ORDERED: THIAMINE HCL 100 MG TABLET (FP) PO ONE (20:47)
[2022-04-26] MEDS ORDERED: MULTIVITAMINS (DAILY MVI) TABLET (FP) PO ONE (20:47)
[2022-04-26] MEDS ORDERED: FOLIC ACID 1 MG TABLET (FP) PO ONE (20:47)
[2022-04-26] MEDS ORDERED: LACTATED RINGERS SOLUTION 1000 ML INFUS.BAG IV ONE (20:47)
[2022-04-26] MEDS ORDERED: levETIRAcetam 500 MG TABLET (FP) PO ONE ×2 (20:48→20:56)
[2022-04-26] MEDS ORDERED: THIAMINE HCL 100 MG TABLET (FP) ONE (20:56)
[2022-04-26] MEDS ORDERED: FOLIC ACID 1 MG TABLET (FP) ONE (20:56)
[2022-04-26] MEDS ORDERED: MULTIVITAMINS (DAILY MVI) TABLET (FP) ONE (20:57)
[2022-04-26 21:25] LABS: HEMATOCRIT 33.3 % (32.4-45.2); HEMOGLOBIN 11.2 GM/dL (10.7-15.3); MCHC 33.8 g/dl (32.0-36.0); MEAN CELL VOLUME 97.6 fl (80-96); MEAN PLT VOLUME 6.9 fl (7.5-11.1); PLATELET COUNT 244 10^3/uL (134-434); RBC 3.41 M/mm3 (3.60-5.2); RDW 16.8 % (11.6-15.6); WHITE BLOOD COUNT 3.2 K/mm3 (4.0-10.0)
[2022-04-26 21:38] LABS: ALBUMIN 4.3 g/dl (3.4-5.0); BLOOD UREA NITROGEN 11.6 mg/dL (7-18); CALCIUM 8.9 mg/dL (8.5-10.1); MAGNESIUM 1.7 mg/dL (1.8-2.4)
[2022-04-26 21:42] LABS: CREATININE 0.5 mg/dL (0.55-1.3)
[2022-04-26 21:43] LABS: BILIRUBIN,TOTAL 0.6 mg/dL (0.2-1); TOT PROT 7.7 g/dl (6.4-8.2)
[2022-04-26 23:12] VITALS: BP 131/65; PULSE 93; RESP 16
[2022-04-26 23:19] LABS: ANISOCYTOSIS 0; MACROCYTOSIS 0
== END 2022-04-26 23:39 | disposition home or self-care (01) ==
LOC: JER 19:34
DX: F10.920 Alcohol use, unspecified with intoxication, uncomplicated (principal); M25.572 Pain in left ankle and joints of left foot
CPT/HCPCS: 36415; 73610-TC-LT-FY; 73630-TC-LT; 80053; 83735; 84703; 85025; 85730; 99284-25

== ENCOUNTER 2022-04-28 22:41 | Emergency (ER) | payer OTHER ==
[2022-04-28 22:48] VITALS: BP 138/94; PULSE 110; RESP 18; TEMP 97.6; BMI 19.7
[2022-04-29] MEDS ORDERED: chlordiazePOXIDE HCL 25 MG CAPSULE PO ONE (00:49)
[2022-04-29] MEDS ORDERED: chlordiazePOXIDE HCL 25 MG CAPSULE ONE (00:56)
== END 2022-04-29 06:01 | disposition home or self-care (01) ==
LOC: JER 22:41
DX: F10.929 Alcohol use, unspecified with intoxication, unspecified (principal)
CPT/HCPCS: 82962; 99283-25

== ENCOUNTER 2022-05-06 15:23 | Inpatient (IN) | payer OTHER ==
[2022-05-06] MEDS ORDERED: diazePAM CARPU-JECT 10 MG/2 ML DISP.SYRIN IVPUSH ONE ×4 (15:57→20:14)
[2022-05-06] MEDS ORDERED: diazePAM CARPU-JECT 10 MG/2 ML DISP.SYRIN ONE ×4 (16:01→20:19)
[2022-05-06 16:33] LABS: BASO % 0.8 % (0-2.0); EOS % 0.3 % (0-4.5); HEMOGLOBIN 10.5 GM/dL (10.7-15.3); LYMPH % 16.1 % (8-40); MCHC 33.9 g/dl (32.0-36.0); MEAN CELL VOLUME 97.6 fl (80-96); MONO % 12.8 % (3.8-10.2); PLATELET COUNT 92 10^3/uL (134-434); RBC 3.17 M/mm3 (3.60-5.2); RDW 18.5 % (11.6-15.6); WHITE BLOOD COUNT 3.5 K/mm3 (4.0-10.0)
[2022-05-06 16:56] LABS: CALCIUM 8.6 mg/dL (8.5-10.1)
[2022-05-06 16:57] LABS: ALBUMIN 3.8 g/dl (3.4-5.0)
[2022-05-06 17:00] LABS: CREATININE 0.5 mg/dL (0.55-1.3)
[2022-05-06 17:01] LABS: BILIRUBIN,TOTAL 0.4 mg/dL (0.2-1); TOT PROT 7.4 g/dl (6.4-8.2)
[2022-05-06] MEDS ORDERED: IBUPROFEN 400 MG TABLET (FP) PO ONE ×2 (17:02→17:50)
[2022-05-06] MEDS ORDERED: ACETAMINOPHEN 1000 MG/100 ML BAG IVPB ONE (17:02)
[2022-05-06 17:05] LABS: BLOOD UREA NITROGEN 4.7 mg/dL (7-18)
[2022-05-06] MEDS ORDERED: TRIMETHOBENZAMIDE HCL 200MG/2ML INJ IM ONE ×2 (17:05→17:52)
[2022-05-06] MEDS ORDERED: ACETAMINOPHEN INJECTION 100 ML IVPB ONE (17:50)
[2022-05-06] MEDS ORDERED: MULTIVITAMINS (DAILY MVI) TABLET (FP) PO ONE (19:18)
[2022-05-06] MEDS ORDERED: FOLIC ACID 1 MG TABLET (FP) PO ONE (19:18)
[2022-05-06] MEDS ORDERED: THIAMINE HCL 100 MG TABLET (FP) PO ONE (19:18)
[2022-05-06] MEDS ORDERED: THIAMINE HCL 100 MG TABLET (FP) ONE (20:04)
[2022-05-06] MEDS ORDERED: FOLIC ACID 1 MG TABLET (FP) ONE (20:05)
[2022-05-06] MEDS ORDERED: MULTIVITAMINS (DAILY MVI) TABLET (FP) ONE (20:05)
[2022-05-06] MEDS ORDERED: LIDOCAINE 5% TOPICAL PATCH TP ONE ×2 (20:16→20:17)
[2022-05-06] MEDS ORDERED: LIDOCAINE 5% TOPICAL PATCH ONE (20:19)
[2022-05-06] MEDS ORDERED: LORazepam 1 MG TABLET PO PRN (22:05)
[2022-05-06] MEDS ORDERED: FOLIC ACID INJECTION - 1 MG, THIAMINE HCL 100 MG, MULTIVIT INJECTION ADULT 10 ML in SOD... IVPB ONE (22:11)
[2022-05-06] MEDS ORDERED: MULTIVITAMINS (DAILY MVI) TABLET (FP) PO SCH (22:18)
[2022-05-06] MEDS: LORazepam 2 MG TABLET PO SCH ×2 (22:37→22:38)
[2022-05-06] MEDS ORDERED: TRIMETHOBENZAMIDE HCL 200MG/2ML INJ IM PRN (22:38)
[2022-05-06] MEDS ORDERED: levETIRAcetam 500 MG TABLET (FP) PO ONE (22:48)
[2022-05-06] MEDS ORDERED: LORazepam 1 MG TABLET ONE (22:49)
[2022-05-06] MEDS: LORazepam 1 MG TABLET PO SCH ×2 (22:58→23:52)
[2022-05-06] MEDS: levETIRAcetam 500 MG TABLET (FP) PO SCH (22:58)
[2022-05-06 23:08] LABS: EPI CELLS 11 /uL (0-25.1); HYALINE CASTS 1 /uL (0-3.1); URINE APPEARANCE CLEAR; URINE BACTERIA 229 /uL (0-1359); URINE BILIRUBIN NEGATIVE (NEGATIVE); URINE COLOR YELLOW; URINE GLUCOSE (UA) NEGATIVE (NEGATIVE); URINE KETONE 2+ (NEGATIVE); URINE LEUK ESTERASE 1+ (NEGATIVE); URINE NITRITE NEGATIVE (NEGATIVE); URINE PROTEIN NEGATIVE (NEGATIVE); URINE RBC 19 /uL (0-23.9); URINE UROBILINOGEN 0.2 mg/dL (0.2-1.0); URINE WBC 182 /uL (0-25.8)
[2022-05-06 23:17] LABS: OPIATES, URI NEGATIVE (NEGATIVE)
[2022-05-06 23:18] LABS: COCAINE, UR NEGATIVE (NEGATIVE); METHADONE, UR NEGATIVE (NEGATIVE); PHENCYCLIDINE,URINE NEGATIVE (NEGATIVE); URINE BARBITURATES NEGATIVE (NEGATIVE)
[2022-05-06 23:27] LABS: URINE AMPHETAMINES NEGATIVE (NEGATIVE); URINE BENZODIAZEPINES POSITIVE (NEGATIVE)
[2022-05-07] MEDS ORDERED: LORazepam 1 MG TABLET ONE ×5 (05:02→16:40)
[2022-05-07] MEDS: LORazepam 1 MG TABLET PO SCH ×4 (05:16→22:43)
[2022-05-07 07:23] LABS: HEMATOCRIT 31.2 % (32.4-45.2); HEMOGLOBIN 10.6 GM/dL (10.7-15.3); MCH 32.8 pg (25.7-33.7); MEAN CELL VOLUME 96.7 fl (80-96); MEAN PLT VOLUME 7.8 fl (7.5-11.1); PLATELET COUNT 98 10^3/uL (134-434); RBC 3.22 M/mm3 (3.60-5.2); RDW 18.2 % (11.6-15.6); RETICULOCYTES 2.53 % (0.5-1.5); WHITE BLOOD COUNT 2.5 K/mm3 (4.0-10.0)
[2022-05-07 07:44] LABS: CHLORIDE 95 mmol/L (98-107); SODIUM 135 mmol/L (136-145)
[2022-05-07 07:53] LABS: BLOOD UREA NITROGEN 6.4 mg/dL (7-18); CALCIUM 7.8 mg/dL (8.5-10.1)
[2022-05-07 07:54] LABS: ALBUMIN 3.3 g/dl (3.4-5.0); ANION GAP 11 MMOL/L (8-16); CO2 28 mmol/L (21-32); GLUCOSE,RANDOM 77 mg/dL (74-106)
[2022-05-07 07:55] LABS: CREATININE 0.4 mg/dL (0.55-1.3); PHOSPHOROUS 4.7 mg/dL (2.5-4.9); SGPT/ALT 28 U/L (13-61)
[2022-05-07 07:56] LABS: IRON SERUM 95 ug/dL (50-175); SGOT/AST 56 U/L (15-37); TOTAL IRON BINDING CAPACITY 320 ug/dL (250-450)
[2022-05-07 07:57] LABS: BILIRUBIN,TOTAL 0.6 mg/dL (0.2-1); TOT PROT 6.5 g/dl (6.4-8.2)
[2022-05-07 07:58] LABS: ALK PHOS 86 U/L (45-117)
[2022-05-07 08:25] LABS: MAGNESIUM 0.9 mg/dL (1.8-2.4)
[2022-05-07] MEDS ORDERED: MAGNESIUM SULF 50% (8.12 MEQ/2 ML-1 GM VIAL) IVPB ONE ×2 (08:39→21:15)
[2022-05-07] MEDS ORDERED: MAGNESIUM SULFATE IN WATER 2 GM/50 ML IVPB IVPB ONE (08:47)
[2022-05-07] MEDS ORDERED: THIAMINE HCL 200 MG/2 ML VIAL ONE (09:56)
[2022-05-07] MEDS ORDERED: FOLIC ACID 1 MG TABLET (FP) ONE (09:57)
[2022-05-07] MEDS ORDERED: levETIRAcetam 500 MG TABLET (FP) PO ONE (09:57)
[2022-05-07] MEDS ORDERED: MULTIVITAMINS (DAILY MVI) TABLET (FP) ONE (09:57)
[2022-05-07] MEDS ORDERED: SULFAMETHOXAZOLE/TRIMETHOPRIM 800MG/160MG D.S. TABLET ONE (09:57)
[2022-05-07] MEDS ORDERED: ENOXAPARIN NA (PORCINE) 40 MG/0.4 ML DISP.SYRIN SQ ONE (09:58)
[2022-05-07] MEDS ORDERED: NICOTINE 14 MG/24 HOURS TOPICAL PATCH TD ONE (09:58)
[2022-05-07] MEDS ORDERED: POTASSIUM CHLORIDE TABS 20 MEQ TABLET.ER (FP) PO ONE (09:59)
[2022-05-07] MEDS: levETIRAcetam 500 MG TABLET (FP) PO SCH ×2 (10:23→21:27)
[2022-05-07] MEDS: MULTIVITAMINS (DAILY MVI) TABLET (FP) PO SCH (10:23)
[2022-05-07] MEDS: POTASSIUM CHLORIDE TABS 20 MEQ TABLET.ER (FP) PO SCH ×2 (10:23→21:27)
[2022-05-07] MEDS: FOLIC ACID 1 MG TABLET (FP) PO SCH (10:23)
[2022-05-07] MEDS: NICOTINE 14 MG/24 HOURS TOPICAL PATCH TD SCH (10:23)
[2022-05-07] MEDS: ENOXAPARIN NA (PORCINE) 40 MG/0.4 ML DISP.SYRIN SQ SCH (10:23)
[2022-05-07] MEDS: SULFAMETHOXAZOLE/TRIMETHOPRIM 800MG/160MG D.S. TABLET PO SCH ×2 (10:23→21:28)
[2022-05-07] MEDS: THIAMINE HCL 200 MG/2 ML VIAL IVPB SCH (10:24)
[2022-05-07] MEDS: LIDOCAINE PATCH REMOVAL MC SCH ×4 (13:26→21:28)
[2022-05-07] MEDS: LORazepam 1 MG TABLET PO PRN ×2 (14:31→19:51)
[2022-05-07 20:32] LABS: CALCIUM 8.7 mg/dL (8.5-10.1)
[2022-05-07 20:33] LABS: BLOOD UREA NITROGEN 6.6 mg/dL (7-18); MAGNESIUM 1.7 mg/dL (1.8-2.4)
[2022-05-07 20:36] LABS: CREATININE 0.6 mg/dL (0.55-1.3); PHOSPHOROUS 2.6 mg/dL (2.5-4.9)
[2022-05-08] MEDS: LORazepam 1 MG TABLET PO PRN ×2 (00:53→13:40)
[2022-05-08] MEDS ORDERED: LORazepam 1 MG TABLET PO SCH (05:00)
[2022-05-08] MEDS: LORazepam 1 MG TABLET PO SCH ×3 (05:18→16:57)
[2022-05-08 09:04] LABS: BASO % 0.6 % (0-2.0); HEMATOCRIT 33.3 % (32.4-45.2); LYMPH % 22.5 % (8-40); MCH 32.1 pg (25.7-33.7); MCHC 33.2 g/dl (32.0-36.0); MEAN CELL VOLUME 96.7 fl (80-96); MEAN PLT VOLUME 8.1 fl (7.5-11.1); MONO % 19.1 % (3.8-10.2); NEUT % 56.8 % (42.8-82.8); PLATELET COUNT 111 10^3/uL (134-434); RBC 3.44 M/mm3 (3.60-5.2); RDW 17.9 % (11.6-15.6); WHITE BLOOD COUNT 3.5 K/mm3 (4.0-10.0)
[2022-05-08 09:10] LABS: ALBUMIN 3.7 g/dl (3.4-5.0); MAGNESIUM 2.3 mg/dL (1.8-2.4)
[2022-05-08 09:13] LABS: CREATININE 0.6 mg/dL (0.55-1.3); PHOSPHOROUS 3.2 mg/dL (2.5-4.9)
[2022-05-08 09:14] LABS: BILIRUBIN,TOTAL 0.5 mg/dL (0.2-1)
[2022-05-08 09:15] LABS: TOT PROT 7.3 g/dl (6.4-8.2)
[2022-05-08] MEDS: THIAMINE HCL 200 MG/2 ML VIAL IVPB SCH (10:01)
[2022-05-08] MEDS: MULTIVITAMINS (DAILY MVI) TABLET (FP) PO SCH (10:02)
[2022-05-08] MEDS: ENOXAPARIN NA (PORCINE) 40 MG/0.4 ML DISP.SYRIN SQ SCH (10:02)
[2022-05-08] MEDS: SULFAMETHOXAZOLE/TRIMETHOPRIM 800MG/160MG D.S. TABLET PO SCH (10:02)
[2022-05-08] MEDS: FOLIC ACID 1 MG TABLET (FP) PO SCH (10:02)
[2022-05-08] MEDS: levETIRAcetam 500 MG TABLET (FP) PO SCH ×2 (10:02→21:16)
[2022-05-08] MEDS: NICOTINE 14 MG/24 HOURS TOPICAL PATCH TD SCH (10:02)
[2022-05-08] MEDS: POTASSIUM CHLORIDE TABS 20 MEQ TABLET.ER (FP) PO SCH ×2 (10:02→21:16)
[2022-05-08] MEDS ORDERED: LORazepam 1 MG TABLET PO PRN (15:25)
[2022-05-08] MEDS ORDERED: MELATONIN 5 MG TABLETS PO PRN (16:18)
[2022-05-08] MEDS ORDERED: hydrOXYzine PAMOATE 25 MG CAPSULE (FP) PO ONE (16:18)
[2022-05-08] MEDS: LIDOCAINE PATCH REMOVAL MC SCH ×2 (21:17→21:19)
[2022-05-08] MEDS ORDERED: POTASSIUM CHLORIDE ORAL LIQUID 20 MEQ/15 ML GT SCH (22:00)
[2022-05-08 22:29] VITALS: BMI 19.3
[2022-05-09] MEDS ORDERED: LORazepam 0.5 MG TABLET PO PRN ×3
[2022-05-09] MEDS: LORazepam 1 MG TABLET PO SCH (04:24)
[2022-05-09] MEDS ORDERED: LORazepam 0.5 MG TABLET PO SCH (05:00)
[2022-05-09] MEDS: LORazepam 0.5 MG TABLET PO SCH ×2 (05:11→11:15)
[2022-05-09] MEDS: levETIRAcetam 500 MG TABLET (FP) PO SCH (09:10)
[2022-05-09] MEDS: POTASSIUM CHLORIDE TABS 20 MEQ TABLET.ER (FP) PO SCH (09:10)
[2022-05-09] MEDS: NICOTINE 14 MG/24 HOURS TOPICAL PATCH TD SCH (09:10)
[2022-05-09] MEDS: MULTIVITAMINS (DAILY MVI) TABLET (FP) PO SCH (09:10)
[2022-05-09] MEDS: ENOXAPARIN NA (PORCINE) 40 MG/0.4 ML DISP.SYRIN SQ SCH (09:16)
[2022-05-09] MEDS: THIAMINE HCL 200 MG/2 ML VIAL IVPB SCH (09:19)
[2022-05-09 09:29] VITALS: BP 108/71; PULSE 98; RESP 18; TEMP 98.2
[2022-05-09] MEDS ORDERED: FOLIC ACID 1 MG TABLET (FP) GT SCH (10:00)
[2022-05-09] MEDS ORDERED: FOLIC ACID 1 MG TABLET (FP) PO SCH (10:00)
[2022-05-09 10:12] LABS: HEMATOCRIT 32.8 % (32.4-45.2); HEMOGLOBIN 10.8 GM/dL (10.7-15.3); MCH 32.6 pg (25.7-33.7); MCHC 32.9 g/dl (32.0-36.0); MEAN CELL VOLUME 99.1 fl (80-96); MEAN PLT VOLUME 8.5 fl (7.5-11.1); PLATELET COUNT 142 10^3/uL (134-434); RBC 3.31 M/mm3 (3.60-5.2); RDW 17.7 % (11.6-15.6); WHITE BLOOD COUNT 3.9 K/mm3 (4.0-10.0)
[2022-05-09 10:37] LABS: CALCIUM 9.3 mg/dL (8.5-10.1)
[2022-05-09 10:38] LABS: ALBUMIN 3.7 g/dl (3.4-5.0); MAGNESIUM 2.1 mg/dL (1.8-2.4)
[2022-05-09 10:41] LABS: CREATININE 0.6 mg/dL (0.55-1.3)
[2022-05-09 10:43] LABS: BILIRUBIN,TOTAL 0.6 mg/dL (0.2-1); TOT PROT 7.3 g/dl (6.4-8.2)
[2022-05-10] MEDS ORDERED: LORazepam 0.5 MG TABLET PO ONE ×2 (05:00)
== END 2022-05-09 13:34 | disposition left against medical advice (07) | DRG 770 ==
LOC: JER 15:23 → JERBED 19:26 → J6S 05-07 16:56
PROVIDERS: ADMIT Internal Medicine; ATTEND Internal Medicine
PROC: HZ2ZZZZ Detoxification Services for Substance Abuse Treatment (ICD-10-PCS; principal; 2022-05-06)
DX: F10.239 Alcohol dependence with withdrawal, unspecified (principal); D61.818 Other pancytopenia; I42.9 Cardiomyopathy, unspecified; E83.39 Other disorders of phosphorus metabolism; E83.42 Hypomagnesemia; R56.9 Unspecified convulsions; E87.6 Hypokalemia; K21.9 Gastro-esophageal reflux disease without esophagitis
CPT/HCPCS: 0241U-QW; 36415; 73700-TC-RT; 80048; 80053; 80307; 81003; 82607; 82728; 82746; 83540; 83550; 83735; 84100; 84466; 84703; 85025; 85027; 85045; 87086; 93005; 93010; 97116-GP; 97161-GP; 99285-25

== ENCOUNTER 2022-06-08 12:29 | Inpatient (IN) | payer OTHER ==
[2022-06-08] MEDS ORDERED: FOLIC ACID 1 MG TABLET (FP) PO ONE (13:14)
[2022-06-08] MEDS ORDERED: LACTATED RINGERS SOLUTION 1000 ML INFUS.BAG IV ONE (13:14)
[2022-06-08] MEDS ORDERED: ONDANSETRON 4 MG/2 ML VIAL IVPUSH ONE ×2 (13:14→17:17)
[2022-06-08] MEDS ORDERED: THIAMINE HCL 100 MG TABLET (FP) PO ONE (13:22)
[2022-06-08] MEDS ORDERED: diazePAM CARPU-JECT 10 MG/2 ML DISP.SYRIN IVPUSH ONE ×3 (13:23→22:45)
[2022-06-08] MEDS ORDERED: diazePAM CARPU-JECT 10 MG/2 ML DISP.SYRIN ONE ×2 (13:36→14:54)
[2022-06-08] MEDS ORDERED: ONDANSETRON 4 MG/2 ML VIAL ONE ×2 (13:37→17:20)
[2022-06-08 15:34] LABS: VENOUS BASE EXCESS -21.8 mmol/L (-2-2); VENOUS O2 SATURATION 80.8 % (70-80); VENOUS PCO2 29.3 mmHg (38-52)
[2022-06-08 15:39] LABS: BASO % 0.2 % (0-2.0); HEMATOCRIT 37.5 % (32.4-45.2); HEMOGLOBIN 11.8 GM/dL (10.7-15.3); LYMPH % 4.6 % (8-40); MCH 29.8 pg (25.7-33.7); MCHC 31.5 g/dl (32.0-36.0); MEAN CELL VOLUME 94.6 fl (80-96); MEAN PLT VOLUME 7.9 fl (7.5-11.1); MONO % 8.7 % (3.8-10.2); NEUT % 86.5 % (42.8-82.8); PLATELET COUNT 353 10^3/uL (134-434); RBC 3.97 M/mm3 (3.60-5.2); RDW 18.8 % (11.6-15.6); WHITE BLOOD COUNT 18.1 K/mm3 (4.0-10.0)
[2022-06-08] MEDS ORDERED: SODIUM CHLORIDE 0.9% 1000 ML INFUS.BAG IV ONE ×2 (15:39→19:14)
[2022-06-08 15:42] LABS: VENOUS PH 7.039 (7.310-7.410)
[2022-06-08] MEDS ORDERED: DEXTROSE 5%-0.45% SALINE 1,000 ML IV SCH (15:45)
[2022-06-08 15:46] LABS: PROTHROMBIN TIME (PATIENT) 11.6 SEC (9.7-13.0)
[2022-06-08 15:49] LABS: ACTIVATED PTT 32.8 SECONDS (25.2-36.5)
[2022-06-08] MEDS ORDERED: TRIMETHOBENZAMIDE HCL 200MG/2ML INJ IM ONE ×2 (15:50→16:10)
[2022-06-08] MEDS ORDERED: FOLIC ACID 1 MG TABLET (FP) ONE ×2 (16:03→22:15)
[2022-06-08] MEDS ORDERED: THIAMINE HCL 100 MG TABLET (FP) ONE (16:03)
[2022-06-08 16:07] LABS: POTASSIUM 4.8 mmol/L (3.5-5.1)
[2022-06-08 16:09] LABS: CALCIUM 9.7 mg/dL (8.5-10.1)
[2022-06-08 16:10] LABS: ALBUMIN 4.8 g/dl (3.4-5.0); BLOOD UREA NITROGEN 14.5 mg/dL (7-18)
[2022-06-08 16:13] LABS: PHOSPHOROUS 5.7 mg/dL (2.5-4.9)
[2022-06-08 16:14] LABS: BILIRUBIN,TOTAL 0.4 mg/dL (0.2-1); TOT PROT 9.7 g/dl (6.4-8.2)
[2022-06-08] MEDS ORDERED: PANTOPRAZOLE SODIUM 40 MG VIAL IVPUSH ONE (17:16)
[2022-06-08] MEDS ORDERED: PANTOPRAZOLE SODIUM 40 MG VIAL ONE (17:20)
[2022-06-08] MEDS ORDERED: ACETAMINOPHEN INJECTION 100 ML IVPB ONE (17:28)
[2022-06-08] MEDS ORDERED: ACETAMINOPHEN 1000 MG/100 ML BAG IVPB ONE (17:28)
[2022-06-08] MEDS ORDERED: LORazepam 2 MG/ML SDV VIAL IVPUSH ONE (17:28)
[2022-06-08 17:52] LABS: EPI CELLS 20 /uL (0-25.1); HYALINE CASTS 0 /uL (0-3.1); PH,URINE 5.5 (5.0-8.0); URINE APPEARANCE CLEAR; URINE BACTERIA 295 /uL (0-1359); URINE BILIRUBIN NEGATIVE (NEGATIVE); URINE COLOR YELLOW; URINE GLUCOSE (UA) NEGATIVE (NEGATIVE); URINE KETONE 3+ (NEGATIVE); URINE LEUK ESTERASE NEGATIVE (NEGATIVE); URINE NITRITE NEGATIVE (NEGATIVE); URINE PROTEIN 3+ (NEGATIVE); URINE RBC 17 /uL (0-23.9); URINE UROBILINOGEN 0.2 mg/dL (0.2-1.0); URINE WBC 11 /uL (0-25.8)
[2022-06-08 19:07] LABS: VENOUS BASE EXCESS -19.1 mmol/L (-2-2); VENOUS O2 SATURATION 72.5 % (70-80); VENOUS PCO2 25.8 mmHg (38-52)
[2022-06-08 19:08] LABS: VENOUS PH 7.133 (7.310-7.410)
[2022-06-08 20:24] LABS: POTASSIUM 4.6 mmol/L (3.5-5.1)
[2022-06-08 20:25] LABS: CALCIUM 8.3 mg/dL (8.5-10.1)
[2022-06-08 20:26] LABS: BLOOD UREA NITROGEN 9.9 mg/dL (7-18)
[2022-06-08 20:29] LABS: CREATININE 0.9 mg/dL (0.55-1.3)
[2022-06-08 20:44] LABS: LACTIC ACID 2.9 mmol/L (0.4-2.0)
[2022-06-08] MEDS ORDERED: TRIMETHOBENZAMIDE HCL 200MG/2ML INJ IM PRN (20:57)
[2022-06-08] MEDS ORDERED: chlordiazePOXIDE HCL 25 MG CAPSULE PO PRN (21:04)
[2022-06-08] MEDS ORDERED: PHENobarbital SODIUM 65 MG/1 ML VIAL IVPUSH ONE (21:15)
[2022-06-08] MEDS: LACTATED RINGERS SOLUTION 1,000 ML IV SCH (21:22)
[2022-06-08] MEDS ORDERED: PHENobarbital SODIUM 65 MG/1 ML VIAL ONE (21:24)
[2022-06-08] MEDS ORDERED: traZODone HCL 50 MG TABLET (FP) PO PRN ×2 (21:26→22:03)
[2022-06-08] MEDS ORDERED: hydrOXYzine PAMOATE 50 MG CAPSULE (FP) PO PRN (21:26)
[2022-06-08] MEDS ORDERED: LORazepam 2 MG/ML SDV VIAL IVPB PRN (21:27)
[2022-06-08] MEDS ORDERED: FOLIC ACID 1 MG TABLET (FP) PO SCH (22:00)
[2022-06-08] MEDS ORDERED: GABAPENTIN 300 MG CAPSULE PO SCH (22:00)
[2022-06-08] MEDS ORDERED: GABAPENTIN 300 MG CAPSULE ONE (22:15)
[2022-06-08] MEDS ORDERED: levETIRAcetam 500 MG TABLET (FP) PO ONE (22:15)
[2022-06-08] MEDS: levETIRAcetam 500 MG TABLET (FP) PO SCH (22:23)
[2022-06-08] MEDS: ACAMPROSATE CALCIUM 333 MG TABLET.DR PO SCH (22:23)
[2022-06-08 22:59] LABS: COCAINE, UR NEGATIVE (NEGATIVE); OPIATES, URI NEGATIVE (NEGATIVE); PHENCYCLIDINE,URINE NEGATIVE (NEGATIVE); URINE BARBITURATES NEGATIVE (NEGATIVE)
[2022-06-08 23:00] LABS: METHADONE, UR NEGATIVE (NEGATIVE)
[2022-06-08 23:03] LABS: URINE AMPHETAMINES NEGATIVE (NEGATIVE); URINE BENZODIAZEPINES POSITIVE (NEGATIVE)
[2022-06-08] MEDS ORDERED: chlordiazePOXIDE HCL 25 MG CAPSULE ONE (23:18)
[2022-06-08] MEDS: chlordiazePOXIDE HCL 25 MG CAPSULE PO SCH (23:21)
[2022-06-09] MEDS: PHENobarbital SODIUM 65 MG/1 ML VIAL IVPUSH SCH ×3 (01:49→14:24)
[2022-06-09 02:43] VITALS: BMI 20.5
[2022-06-09] MEDS: ACAMPROSATE CALCIUM 333 MG TABLET.DR PO SCH ×3 (05:32→21:25)
[2022-06-09] MEDS: chlordiazePOXIDE HCL 25 MG CAPSULE PO SCH ×4 (05:33→23:19)
[2022-06-09] MEDS: LACTATED RINGERS SOLUTION 1,000 ML IV SCH ×2 (07:46→21:00)
[2022-06-09 08:30] LABS: HEMOGLOBIN 9.1 GM/dL (10.7-15.3); MCH 30.3 pg (25.7-33.7); MCHC 33.7 g/dl (32.0-36.0); MEAN PLT VOLUME 7.5 fl (7.5-11.1); PLATELET COUNT 179 10^3/uL (134-434); RBC 3.01 M/mm3 (3.60-5.2); RDW 18.2 % (11.6-15.6); WHITE BLOOD COUNT 8.1 K/mm3 (4.0-10.0)
[2022-06-09 08:50] LABS: POTASSIUM 3.4 mmol/L (3.5-5.1)
[2022-06-09 08:53] LABS: BLOOD UREA NITROGEN 6.6 mg/dL (7-18); CALCIUM 8.9 mg/dL (8.5-10.1); MAGNESIUM 1.4 mg/dL (1.8-2.4)
[2022-06-09 08:57] LABS: CREATININE 0.6 mg/dL (0.55-1.3); PHOSPHOROUS 1.4 mg/dL (2.5-4.9)
[2022-06-09 08:58] LABS: BILIRUBIN,TOTAL 1.1 mg/dL (0.2-1)
[2022-06-09 09:06] LABS: ALBUMIN 3.4 g/dl (3.4-5.0)
[2022-06-09 09:23] LABS: MEAN CELL VOLUME 89.8 fl (80-96)
[2022-06-09 09:50] LABS: HIV INTERPRETATION NEGATIVE (NEGATIVE)
[2022-06-09 09:59] LABS: ARTERIAL BLD GAS O2 SATURATION 95.5 % (95-98); ARTERIAL BLOOD GAS PO2 75.3 mmHg (80-100); ARTERIAL BLOOD GAS pH 7.424 (7.350-7.450)
[2022-06-09 10:00] LABS: ALLENS TEST POSITIVE
[2022-06-09] MEDS ORDERED: FOLIC ACID 1 MG TABLET (FP) PO SCH (10:00)
[2022-06-09] MEDS: THIAMINE HCL 100 MG TABLET (FP) PO SCH (10:16)
[2022-06-09] MEDS: FOLIC ACID 1 MG TABLET (FP) PO SCH (10:16)
[2022-06-09] MEDS: levETIRAcetam 500 MG TABLET (FP) PO SCH ×2 (10:16→21:25)
[2022-06-09] MEDS: ENOXAPARIN NA (PORCINE) 40 MG/0.4 ML DISP.SYRIN SQ SCH (10:16)
[2022-06-09] MEDS: CYANOCOBALAMIN 1,000 MCG TABLET (FP) PO SCH (10:17)
[2022-06-09 10:26] LABS: OPIATES, URI NEGATIVE (NEGATIVE)
[2022-06-09 10:27] LABS: COCAINE, UR NEGATIVE (NEGATIVE); METHADONE, UR NEGATIVE (NEGATIVE); PHENCYCLIDINE,URINE NEGATIVE (NEGATIVE)
[2022-06-09 10:34] LABS: URINE AMPHETAMINES NEGATIVE (NEGATIVE); URINE BARBITURATES POSITIVE (NEGATIVE); URINE BENZODIAZEPINES POSITIVE (NEGATIVE)
[2022-06-09] MEDS ORDERED: POTASSIUM CHLORIDE ORAL LIQUID 20 MEQ/15 ML PO ONE ×2 (12:50)
[2022-06-09] MEDS ORDERED: MAGNESIUM SULF 50% (8.12 MEQ/2 ML-1 GM VIAL) IVPB ONE (12:50)
[2022-06-09] MEDS: NAPH,MB-DB/K PH,MBDB POWDER PACKET PO SCH ×2 (14:25→21:25)
[2022-06-09] MEDS ORDERED: FAMOTIDINE 20 MG/50 ML IVPB 20 MG/50 ML MG IVPB ONE (21:40)
[2022-06-10] MEDS: chlordiazePOXIDE HCL 25 MG CAPSULE PO SCH ×4 (05:10→22:25)
[2022-06-10] MEDS: ACAMPROSATE CALCIUM 333 MG TABLET.DR PO SCH ×3 (05:59→22:25)
[2022-06-10] MEDS: CYANOCOBALAMIN 1,000 MCG TABLET (FP) PO SCH (10:37)
[2022-06-10] MEDS: NAPH,MB-DB/K PH,MBDB POWDER PACKET PO SCH ×2 (10:37→22:24)
[2022-06-10] MEDS: ENOXAPARIN NA (PORCINE) 40 MG/0.4 ML DISP.SYRIN SQ SCH (10:37)
[2022-06-10] MEDS: levETIRAcetam 500 MG TABLET (FP) PO SCH ×2 (10:37→22:25)
[2022-06-10] MEDS: THIAMINE HCL 100 MG TABLET (FP) PO SCH (10:37)
[2022-06-10] MEDS: FOLIC ACID 1 MG TABLET (FP) PO SCH (10:37)
[2022-06-10] MEDS: LACTATED RINGERS SOLUTION 1,000 ML IV SCH (12:17)
[2022-06-11] MEDS ORDERED: chlordiazePOXIDE HCL 10 MG CAPSULE PO PRN
[2022-06-11] MEDS: ACAMPROSATE CALCIUM 333 MG TABLET.DR PO SCH (05:57)
[2022-06-11] MEDS: chlordiazePOXIDE HCL 10 MG CAPSULE PO SCH ×2 (05:57→10:47)
[2022-06-11] MEDS: LACTATED RINGERS SOLUTION 1,000 ML IV SCH (06:00)
[2022-06-11 07:15] VITALS: RESP 18
[2022-06-11 08:10] LABS: HEMOGLOBIN 11.2 GM/dL (10.7-15.3); MCH 30.5 pg (25.7-33.7); MCHC 34.1 g/dl (32.0-36.0); MEAN CELL VOLUME 89.4 fl (80-96); PLATELET COUNT 185 10^3/uL (134-434); RBC 3.69 M/mm3 (3.60-5.2); RDW 18.4 % (11.6-15.6)
[2022-06-11 09:02] LABS: CHLORIDE 96 mmol/L (98-107); SODIUM 136 mmol/L (136-145)
[2022-06-11 09:30] LABS: CALCIUM 9.4 mg/dL (8.5-10.1); GLUCOSE,RANDOM 85 mg/dL (74-106)
[2022-06-11 09:31] LABS: BLOOD UREA NITROGEN 3.6 mg/dL (7-18); CO2 28 mmol/L (21-32); MAGNESIUM 1.6 mg/dL (1.8-2.4)
[2022-06-11 09:33] LABS: PHOSPHOROUS 1.7 mg/dL (2.5-4.9); SGPT/ALT 16 U/L (13-61)
[2022-06-11 09:34] LABS: BILIRUBIN,TOTAL 0.7 mg/dL (0.2-1); CREATININE 0.6 mg/dL (0.55-1.3)
[2022-06-11 09:36] LABS: ALK PHOS 86 U/L (45-117)
[2022-06-11] MEDS ORDERED: NAPH,MB-DB/K PH,MBDB POWDER PACKET PO ONE (09:46)
[2022-06-11] MEDS ORDERED: LORazepam 2 MG/ML SDV VIAL IVPB PRN (09:46)
[2022-06-11] MEDS ORDERED: MAGNESIUM 1GM/D5W 100ML - 100 ML IVPB IVPB ONE (10:00)
[2022-06-11 10:07] LABS: ANION GAP 12 MMOL/L (8-16); POTASSIUM 2.6 mmol/L (3.5-5.1); SGOT/AST 14 U/L (15-37)
[2022-06-11] MEDS ORDERED: LACTATED RINGERS SOLUTION 1000 ML INFUS.BAG IV ONE (10:33)
[2022-06-11] MEDS ORDERED: PANTOPRAZOLE 20 MG TABLET PO SCH (10:45)
[2022-06-11] MEDS ORDERED: KCL 10 MEQ IVPB 10 MEQ/100 ML INFUS.BAG IVPB SCH (10:45)
[2022-06-11] MEDS: levETIRAcetam 500 MG TABLET (FP) PO SCH (10:46)
[2022-06-11] MEDS: THIAMINE HCL 100 MG TABLET (FP) PO SCH (10:46)
[2022-06-11] MEDS: ENOXAPARIN NA (PORCINE) 40 MG/0.4 ML DISP.SYRIN SQ SCH (10:46)
[2022-06-11] MEDS: CYANOCOBALAMIN 1,000 MCG TABLET (FP) PO SCH (10:46)
[2022-06-11] MEDS: FOLIC ACID 1 MG TABLET (FP) PO SCH (10:47)
[2022-06-11] MEDS: NAPH,MB-DB/K PH,MBDB POWDER PACKET PO SCH (10:48)
[2022-06-11] MEDS ORDERED: MAGNESIUM 2GM/50ML STERILE WATER IVPB IVPB ONE (11:00)
[2022-06-11] MEDS ORDERED: POTASSIUM CHLORIDE ORAL LIQUID 20 MEQ/15 ML PO ONE (11:00)
[2022-06-11 12:18] VITALS: BP 126/68; PULSE 102; TEMP 98.2
[2022-06-12] MEDS ORDERED: chlordiazePOXIDE HCL 10 MG CAPSULE PO SCH (05:00)
[2022-06-12 20:12] LABS: ATYPICAL pANCA <1:20 titer (Neg:<1:20); C-ANCA <1:20 titer (Neg:<1:20)
[2022-06-13] MEDS ORDERED: chlordiazePOXIDE HCL 10 MG CAPSULE PO ONE (05:00)
== END 2022-06-11 11:39 | disposition left against medical advice (07) | DRG 422 ==
LOC: JER 12:29 → JERBED 18:24 → J4S 06-09 00:37
PROVIDERS: ADMIT Internal Medicine; ATTEND Internal Medicine
PROC: HZ2ZZZZ Detoxification Services for Substance Abuse Treatment (ICD-10-PCS; principal; 2022-06-08)
DX: E87.29 Other acidosis (principal); F10.239 Alcohol dependence with withdrawal, unspecified; E86.0 Dehydration; K21.9 Gastro-esophageal reflux disease without esophagitis; I42.6 Alcoholic cardiomyopathy; D64.9 Anemia, unspecified; D72.829 Elevated white blood cell count, unspecified; D75.89 Other specified diseases of blood and blood-forming organs; F12.90 Cannabis use, unspecified, uncomplicated; F17.210 Nicotine dependence, cigarettes, uncomplicated; F41.9 Anxiety disorder, unspecified; G40.909 Epilepsy, unspecified, not intractable, without status epilepticus; I10 Essential (primary) hypertension; N18.9 Chronic kidney disease, unspecified; R11.2 Nausea with vomiting, unspecified; R80.9 Proteinuria, unspecified
CPT/HCPCS: 0241U-QW; 36415; 36600; 71045-TC-FY; 76937; 80048; 80053; 80307; 81003; 82010; 82436; 82550; 82575; 82803; 83036; 83520; 83605; 83690; 83735; 83930; 83935; 84100; 84133; 84156; 84300; 84484; 84703; 85025; 85027; 85610; 85730; 86038; 86256; 86705; 86708; 86850; 86900; 86901; 87040; 87086; 87340; 87389; 87517; 87522; 93005; 93010; 93308; 99285-25

== ENCOUNTER 2022-08-08 06:51 | Inpatient (IN) | payer OTHER ==
[2022-08-08] MEDS ORDERED: PANTOPRAZOLE SODIUM 40 MG VIAL IVPUSH ONE (07:03)
[2022-08-08] MEDS ORDERED: LACTATED RINGERS SOLUTION 1,000 ML/1,000 ML INFUS.BAG IV STA ×2 (07:03→09:49)
[2022-08-08] MEDS ORDERED: THIAMINE HCL 200 MG/2 ML VIAL IVPB ONE (07:04)
[2022-08-08] MEDS ORDERED: METOCLOPRAMIDE HCL INJECTION 10 MG/2 ML VIAL IVPUSH ONE ×3 (07:06→15:42)
[2022-08-08] MEDS ORDERED: THIAMINE HCL 200 MG/2 ML VIAL ONE (07:14)
[2022-08-08 07:15] VITALS: BMI 21.5
[2022-08-08] MEDS ORDERED: METOCLOPRAMIDE HCL INJECTION 10 MG/2 ML VIAL ONE ×2 (07:15→09:08)
[2022-08-08] MEDS ORDERED: PANTOPRAZOLE SODIUM 40 MG VIAL ONE (07:15)
[2022-08-08] MEDS ORDERED: LIDOCAINE HCL 2% (20ML MULTI-DOSE VIAL) ONE (07:46)
[2022-08-08] MEDS ORDERED: LORazepam 2 MG/ML SDV VIAL IVPUSH ONE ×3 (07:59→10:01)
[2022-08-08 08:19] LABS: BASO % 0.3 % (0-2.0); HEMATOCRIT 33.7 % (32.4-45.2); HEMOGLOBIN 10.9 GM/dL (10.7-15.3); LYMPH % 8.1 % (8-40); MCH 30.2 pg (25.7-33.7); MCHC 32.3 g/dl (32.0-36.0); MEAN CELL VOLUME 93.5 fl (80-96); MEAN PLT VOLUME 6.8 fl (7.5-11.1); MONO % 7.4 % (3.8-10.2); NEUT % 84.2 % (42.8-82.8); PLATELET COUNT 266 10^3/uL (134-434); RDW 23.4 % (11.6-15.6); WHITE BLOOD COUNT 14.5 K/mm3 (4.0-10.0)
[2022-08-08 08:25] LABS: INR 0.98 (0.83-1.09); PROTHROMBIN TIME (PATIENT) 11.4 SEC (9.7-13.0)
[2022-08-08] MEDS ORDERED: levETIRAcetam 500 MG/5 ML INJECTION VIAL IVPB ONE ×2 (08:35→08:44)
[2022-08-08 09:24] LABS: POTASSIUM 3.6 mmol/L (3.5-5.1)
[2022-08-08 09:26] LABS: BLOOD UREA NITROGEN 9.8 mg/dL (7-18); CALCIUM 8.9 mg/dL (8.5-10.1)
[2022-08-08 09:27] LABS: MAGNESIUM 1.6 mg/dL (1.8-2.4)
[2022-08-08 09:29] LABS: CREATININE 0.7 mg/dL (0.55-1.3)
[2022-08-08 09:31] LABS: BILIRUBIN,TOTAL 0.5 mg/dL (0.2-1); TOT PROT 7.7 g/dl (6.4-8.2)
[2022-08-08] MEDS ORDERED: MAGNESIUM SULF 50% (8.12 MEQ/2 ML-1 GM VIAL) IVPB ONE (09:50)
[2022-08-08] MEDS ORDERED: OCTREOTIDE ACETATE 50 MCG/1 ML - 1 ML VIAL IVPUSH ONE (10:36)
[2022-08-08] MEDS ORDERED: OCTREOTIDE ACETATE 200 MCG, OCTREOTIDE ACETATE 1,000 MCG in DEXTROSE 5%-WATER - 496 ML IVPB SCH (10:45)
[2022-08-08] MEDS ORDERED: TRIMETHOBENZAMIDE HCL 200MG/2ML INJ IM PRN (10:51)
[2022-08-08] MEDS ORDERED: FOLIC ACID 1 MG TABLET (FP) PO ONE (10:51)
[2022-08-08] MEDS ORDERED: hydrOXYzine PAMOATE 50 MG CAPSULE (FP) PO PRN (10:57)
[2022-08-08] MEDS ORDERED: traZODone HCL 50 MG TABLET (FP) PO PRN (10:57)
[2022-08-08] MEDS ORDERED: ONDANSETRON 4 MG/2 ML VIAL IVPUSH ONE (10:59)
[2022-08-08 11:04] LABS: ANISOCYTOSIS 2+; MACROCYTOSIS 0; TARGET CELLS 1+; TEAR DROP CELLS 1+
[2022-08-08] MEDS ORDERED: MAGNESIUM SULFATE IN WATER 2 GM/50 ML IVPB IVPB ONE (11:10)
[2022-08-08] MEDS ORDERED: LORazepam 2 MG/ML SDV VIAL IVPUSH PRN (11:12)
[2022-08-08] MEDS ORDERED: ONDANSETRON 4 MG/2 ML VIAL ONE (13:48)
[2022-08-08] MEDS: LACTATED RINGERS SOLUTION 1,000 ML/1,000 ML INFUS.BAG IV SCH (14:04)
[2022-08-08] MEDS: LORazepam 2 MG/ML SDV VIAL IVPUSH SCH ×3 (14:05→23:20)
[2022-08-08 14:38] LABS: VENOUS BASE EXCESS -15.2 mmol/L (-2-2); VENOUS O2 SATURATION 92.9 % (70-80); VENOUS PCO2 26.2 mmHg (38-52); VENOUS PH 7.232 (7.310-7.410)
[2022-08-08 14:47] LABS: BASO % 0.2 % (0-2.0); HEMATOCRIT 29.2 % (32.4-45.2); HEMOGLOBIN 9.6 GM/dL (10.7-15.3); LYMPH % 5.2 % (8-40); MCH 30.9 pg (25.7-33.7); MEAN CELL VOLUME 93.5 fl (80-96); MEAN PLT VOLUME 7.3 fl (7.5-11.1); MONO % 5.9 % (3.8-10.2); NEUT % 88.7 % (42.8-82.8); PLATELET COUNT 196 10^3/uL (134-434); RBC 3.12 M/mm3 (3.60-5.2); RDW 22.8 % (11.6-15.6); WHITE BLOOD COUNT 10.1 K/mm3 (4.0-10.0)
[2022-08-08] MEDS ORDERED: LACTATED RINGERS SOLUTION 1,000 ML/1,000 ML INFUS.BAG IV SCH (15:45)
[2022-08-08] MEDS: levETIRAcetam 500 MG/5 ML INJECTION VIAL IVPB SCH (21:16)
[2022-08-08] MEDS: PANTOPRAZOLE SODIUM 40 MG VIAL IVPUSH SCH (21:16)
[2022-08-09] MEDS: LORazepam 2 MG/ML SDV VIAL IVPUSH SCH ×3 (06:28→18:01)
[2022-08-09 07:22] LABS: BASO % 0.3 % (0-2.0); EOS % 0.1 % (0-4.5); HEMATOCRIT 29.4 % (32.4-45.2); HEMOGLOBIN 9.9 GM/dL (10.7-15.3); LYMPH % 16.9 % (8-40); MCH 30.9 pg (25.7-33.7); MCHC 33.7 g/dl (32.0-36.0); MEAN CELL VOLUME 91.6 fl (80-96); MEAN PLT VOLUME 7.6 fl (7.5-11.1); MONO % 7.6 % (3.8-10.2); NEUT % 75.1 % (42.8-82.8); PLATELET COUNT 160 10^3/uL (134-434); RDW 22.7 % (11.6-15.6); WHITE BLOOD COUNT 5.7 K/mm3 (4.0-10.0)
[2022-08-09 07:38] LABS: INR 1.02 (0.83-1.09); PROTHROMBIN TIME (PATIENT) 11.8 SEC (9.7-13.0)
[2022-08-09 07:41] LABS: CHLORIDE 98 mmol/L (98-107); POTASSIUM 4.1 mmol/L (3.5-5.1); SODIUM 134 mmol/L (136-145)
[2022-08-09 07:43] LABS: ALBUMIN 3.5 g/dl (3.4-5.0); ANION GAP 11 MMOL/L (8-16); CALCIUM 9.3 mg/dL (8.5-10.1); CO2 25 mmol/L (21-32); GLUCOSE,RANDOM 103 mg/dL (74-106); MAGNESIUM 1.9 mg/dL (1.8-2.4)
[2022-08-09 07:46] LABS: PHOSPHOROUS 1.6 mg/dL (2.5-4.9); SGPT/ALT 21 U/L (13-61)
[2022-08-09 07:47] LABS: CREATININE 0.7 mg/dL (0.55-1.3); SGOT/AST 56 U/L (15-37)
[2022-08-09 07:48] LABS: BILIRUBIN,TOTAL 1.4 mg/dL (0.2-1); TOT PROT 6.7 g/dl (6.4-8.2)
[2022-08-09 07:49] LABS: ALK PHOS 77 U/L (45-117)
[2022-08-09 07:57] LABS: BLOOD UREA NITROGEN 2.4 mg/dL (7-18)
[2022-08-09 09:24] LABS: URINE APPEARANCE CLEAR; URINE BILIRUBIN NEGATIVE (NEGATIVE); URINE COLOR YELLOW; URINE GLUCOSE (UA) NEGATIVE (NEGATIVE)
[2022-08-09 09:25] LABS: EPI CELLS 1 /uL (0-25.1); HYALINE CASTS 0 /uL (0-3.1); URINE BACTERIA 10 /uL (0-1359); URINE KETONE 3+ (NEGATIVE); URINE LEUK ESTERASE NEGATIVE (NEGATIVE); URINE NITRITE NEGATIVE (NEGATIVE); URINE PROTEIN NEGATIVE (NEGATIVE); URINE RBC 29 /uL (0-23.9); URINE UROBILINOGEN 0.2 mg/dL (0.2-1.0); URINE WBC 1 /uL (0-25.8)
[2022-08-09] MEDS: PANTOPRAZOLE SODIUM 40 MG VIAL IVPUSH SCH (09:43)
[2022-08-09] MEDS: levETIRAcetam 500 MG/5 ML INJECTION VIAL IVPB SCH (09:43)
[2022-08-09] MEDS: LACTATED RINGERS SOLUTION 1,000 ML/1,000 ML INFUS.BAG IV SCH ×2 (09:44→12:27)
[2022-08-09] MEDS ORDERED: CYANOCOBALAMIN 1,000 MCG TABLET (FP) PO SCH (10:00)
[2022-08-09] MEDS ORDERED: THIAMINE HCL 100 MG TABLET (FP) PO SCH (10:00)
[2022-08-09 10:17] LABS: OPIATES, URI NEGATIVE (NEGATIVE); PHENCYCLIDINE,URINE NEGATIVE (NEGATIVE); URINE BARBITURATES NEGATIVE (NEGATIVE)
[2022-08-09 10:18] LABS: COCAINE, UR NEGATIVE (NEGATIVE); METHADONE, UR NEGATIVE (NEGATIVE); URINE BENZODIAZEPINES NEGATIVE (NEGATIVE)
[2022-08-09 10:19] LABS: URINE AMPHETAMINES NEGATIVE (NEGATIVE)
[2022-08-09] MEDS ORDERED: NAPH,MB-DB/K PH,MBDB POWDER PACKET PO SCH (14:00)
[2022-08-09] MEDS ORDERED: MAG HYDROX/AL HYDROX/SIMETH 30 ML UNIT-DOSE CUP PO SCH (14:00)
[2022-08-09 15:28] VITALS: RESP 18
[2022-08-09] MEDS ORDERED: SODIUM PHOSPHATE - 30 MM in SODIUM CHLORIDE 500 ML IVPB ONE (16:41)
[2022-08-09 19:06] VITALS: BP 133/98; PULSE 116; TEMP 99.2
[2022-08-10] MEDS ORDERED: LORazepam 2 MG/ML SDV VIAL IVPUSH SCH (11:00)
== END 2022-08-09 20:30 | disposition left against medical advice (07) | DRG 243 ==
LOC: JER 06:51 → JERBED 10:24 → J4W 14:27
PROVIDERS: ADMIT Internal Medicine; ATTEND Internal Medicine
PROC: 0DB68ZX Excision of Stomach, Via Natural or Artificial Opening Endoscopic, Diagnostic (ICD-10-PCS; 2022-08-09)
PROC: 0DB58ZX Excision of Esophagus, Via Natural or Artificial Opening Endoscopic, Diagnostic (ICD-10-PCS; 2022-08-09)
PROC: 0DB98ZX Excision of Duodenum, Via Natural or Artificial Opening Endoscopic, Diagnostic (ICD-10-PCS; principal; 2022-08-09 13:00)
DX: K21.01 Gastro-esophageal reflux disease with esophagitis, with bleeding (principal); I42.9 Cardiomyopathy, unspecified; E83.39 Other disorders of phosphorus metabolism; E83.42 Hypomagnesemia; K76.6 Portal hypertension; K92.0 Hematemesis; E86.0 Dehydration; F10.239 Alcohol dependence with withdrawal, unspecified; F17.210 Nicotine dependence, cigarettes, uncomplicated; I10 Essential (primary) hypertension; K31.89 Other diseases of stomach and duodenum; K44.9 Diaphragmatic hernia without obstruction or gangrene; K92.2 Gastrointestinal hemorrhage, unspecified; R11.0 Nausea; F12.90 Cannabis use, unspecified, uncomplicated; F41.9 Anxiety disorder, unspecified
CPT/HCPCS: 36415; 71045-TC-FY; 74177-TC; 80053; 80307; 81003; 82803; 83690; 83735; 84100; 84703; 85025; 85610; 86850; 86900; 86901; 88305-TC; 93005; 93010; 93306-TC; 99285-25; C9803-CS; Q9967; U0003; U0005

== ENCOUNTER 2022-10-06 02:05 | Inpatient (IN) | payer OTHER ==
[2022-10-06 02:29] VITALS: BMI 20.6
[2022-10-06] MEDS ORDERED: BENZONATATE 200 MG CAPSULE PO PRN (02:48)
[2022-10-06] MEDS ORDERED: ACETAMINOPHEN 325 MG TABLET (FP) PO PRN (02:48)
[2022-10-06] MEDS ORDERED: MAG HYDROX/AL HYDROX/SIMETH 30 ML UNIT-DOSE CUP PO PRN (02:48)
[2022-10-06] MEDS ORDERED: NICOTINE POLACRILEX 2 MG GUM BUC PRN (02:48)
[2022-10-06] MEDS ORDERED: IBUPROFEN 400 MG TABLET (FP) PO PRN (02:48)
[2022-10-06] MEDS ORDERED: BISMUTH SUBSALICYLATE 524 MG/30 ML PO PRN (02:48)
[2022-10-06] MEDS ORDERED: LOPERAMIDE HCL 2 MG CAPSULE PO PRN (02:48)
[2022-10-06] MEDS ORDERED: POLYETHYLENE GLYCOL (HEALTHYLAX) 3350 17 GM PACKET PO PRN (02:48)
[2022-10-06] MEDS ORDERED: NALOXONE HCL (KLOXXADO) 8 MG SPRAY NS PRN (02:48)
[2022-10-06] MEDS ORDERED: DICYCLOMINE HCL 10 MG CAPSULE PO PRN (02:48)
[2022-10-06] MEDS ORDERED: ONDANSETRON *ODT* 4 MG TABLET SL PRN (02:48)
[2022-10-06] MEDS ORDERED: IBUPROFEN 600 MG TABLET (FP) PO PRN (02:48)
[2022-10-06] MEDS ORDERED: MAGNESIUM HYDROX 2400MG/30ML ORAL SUSPENSION 30 ML CUP PO PRN (02:48)
[2022-10-06] MEDS ORDERED: BENZOCAINE/MENTHOL (CHLORASEPTIC ) LOZENGE MM PRN (02:48)
[2022-10-06] MEDS ORDERED: guaiFENesin 600 MG TABLET.ER (FP) PO PRN (02:48)
[2022-10-06] MEDS ORDERED: NALOXONE HCL 0.4 MG/ML VIAL IM PRN (02:48)
[2022-10-06] MEDS ORDERED: TRIMETHOBENZAMIDE HCL 200MG/2ML INJ IM ONE (04:00)
[2022-10-06] MEDS: LORazepam 2 MG TABLET PO SCH ×4 (04:29→22:10)
[2022-10-06] MEDS: LORazepam 1 MG TABLET PO PRN ×2 (07:25→14:37)
[2022-10-06] MEDS: NICOTINE 14 MG/24 HOURS TOPICAL PATCH TD SCH (10:32)
[2022-10-06] MEDS: levETIRAcetam 500 MG TABLET (FP) PO SCH ×2 (10:32→22:10)
[2022-10-06] MEDS: PRENATAL VITAMINS W/ FOLIC ACID TABLET (FP) PO SCH (10:34)
[2022-10-06] MEDS ORDERED: COLLOIDAL OATMEAL 1 BAR EACH TP PRN (13:37)
[2022-10-06] MEDS ORDERED: MELATONIN 5 MG TABLETS PO SCH (22:00)
[2022-10-06] MEDS: THIAMINE HCL 100 MG TABLET (FP) PO SCH (22:10)
[2022-10-06] MEDS: METHOCARBAMOL 500 MG TABLET PO PRN (23:27)
[2022-10-07] MEDS: LORazepam 1 MG TABLET PO SCH ×4 (05:45→22:28)
[2022-10-07] MEDS ORDERED: FAMOTIDINE 20 MG TABLET PO PRN (09:26)
[2022-10-07] MEDS: levETIRAcetam 500 MG TABLET (FP) PO SCH ×2 (10:31→22:27)
[2022-10-07] MEDS: FAMOTIDINE 20 MG TABLET PO SCH (10:31)
[2022-10-07] MEDS: PRENATAL VITAMINS W/ FOLIC ACID TABLET (FP) PO SCH (10:31)
[2022-10-07] MEDS: NICOTINE 14 MG/24 HOURS TOPICAL PATCH TD SCH (10:33)
[2022-10-07] MEDS: LORazepam 1 MG TABLET PO PRN ×2 (12:39→19:34)
[2022-10-07] MEDS: METHOCARBAMOL 500 MG TABLET PO PRN (18:19)
[2022-10-07] MEDS: THIAMINE HCL 100 MG TABLET (FP) PO SCH (22:27)
[2022-10-07] MEDS: MELATONIN 5 MG TABLETS PO SCH (22:27)
[2022-10-08] MEDS: LORazepam 0.5 MG TABLET PO PRN ×2 (01:50→19:15)
[2022-10-08] MEDS: METHOCARBAMOL 500 MG TABLET PO PRN ×2 (01:52→10:17)
[2022-10-08] MEDS: LORazepam 0.5 MG TABLET PO SCH ×4 (05:39→22:20)
[2022-10-08] MEDS ORDERED: LORazepam 0.5 MG TABLET PO SCH (10:00)
[2022-10-08] MEDS: PRENATAL VITAMINS W/ FOLIC ACID TABLET (FP) PO SCH (10:14)
[2022-10-08] MEDS: levETIRAcetam 500 MG TABLET (FP) PO SCH ×2 (10:17→22:20)
[2022-10-08] MEDS: NICOTINE 14 MG/24 HOURS TOPICAL PATCH TD SCH (10:18)
[2022-10-08] MEDS: FAMOTIDINE 20 MG TABLET PO SCH (10:18)
[2022-10-08] MEDS: GABAPENTIN 400 MG CAPSULE PO SCH ×2 (13:18→22:19)
[2022-10-08] MEDS ORDERED: LORazepam 1 MG TABLET PO ONE (13:30)
[2022-10-08] MEDS: propRANOLol HCL 10 MG TABLET PO SCH ×2 (16:37→22:20)
[2022-10-08] MEDS ORDERED: traZODone HCL 100 MG TABLET (FP) PO SCH (22:00)
[2022-10-08] MEDS: THIAMINE HCL 100 MG TABLET (FP) PO SCH (22:20)
[2022-10-08] MEDS: MELATONIN 5 MG TABLETS PO SCH (22:21)
[2022-10-09] MEDS: propRANOLol HCL 10 MG TABLET PO SCH ×2 (04:21→10:04)
[2022-10-09] MEDS: LORazepam 0.5 MG TABLET PO SCH ×2 (04:22→09:27)
[2022-10-09] MEDS ORDERED: LORazepam 0.5 MG TABLET PO ONE (05:00)
[2022-10-09] MEDS: GABAPENTIN 400 MG CAPSULE PO SCH (05:24)
[2022-10-09] MEDS: METHOCARBAMOL 500 MG TABLET PO PRN (09:26)
[2022-10-09] MEDS: PRENATAL VITAMINS W/ FOLIC ACID TABLET (FP) PO SCH (09:26)
[2022-10-09] MEDS: FAMOTIDINE 20 MG TABLET PO SCH (09:26)
[2022-10-09] MEDS: levETIRAcetam 500 MG TABLET (FP) PO SCH (09:26)
[2022-10-09] MEDS: NICOTINE 14 MG/24 HOURS TOPICAL PATCH TD SCH (09:29)
[2022-10-09 09:48] VITALS: BP 120/79; PULSE 102; RESP 16; TEMP 97.1
[2022-10-09] MEDS ORDERED: FERROUS SO4 325 MG TABLET (FP) PO SCH (12:00)
[2022-10-10] MEDS ORDERED: LORazepam 0.5 MG TABLET PO ONE (05:00)
== END 2022-10-09 10:05 | disposition home or self-care (01) | DRG 775 ==
LOC: YASAS 02:05 → Y6N 02:42
PROVIDERS: ADMIT Allergy & Immunology; ATTEND Allergy & Immunology
PROC: HZ2ZZZZ Detoxification Services for Substance Abuse Treatment (ICD-10-PCS; principal; 2022-10-06)
DX: F10.230 Alcohol dependence with withdrawal, uncomplicated (principal); F12.20 Cannabis dependence, uncomplicated; F17.210 Nicotine dependence, cigarettes, uncomplicated; F19.282 Other psychoactive substance dependence with psychoactive substance-induced sleep disorder; F32.A Depression, unspecified; F41.9 Anxiety disorder, unspecified; D50.9 Iron deficiency anemia, unspecified; K74.60 Unspecified cirrhosis of liver; K21.9 Gastro-esophageal reflux disease without esophagitis; Z62.810 Personal history of physical and sexual abuse in childhood; R94.31 Abnormal electrocardiogram [ECG] [EKG]; Z91.410 Personal history of adult physical and sexual abuse; Z88.0 Allergy status to penicillin
CPT/HCPCS: 81025; 87635; 87811; 93005; 93010

== ENCOUNTER 2022-11-11 18:31 | Inpatient (IN) | payer OTHER ==
[2022-11-11 19:08] VITALS: BMI 21.2
[2022-11-11] MEDS ORDERED: MAG HYDROX/AL HYDROX/SIMETH 30 ML UNIT-DOSE CUP PO PRN (19:19)
[2022-11-11] MEDS ORDERED: ACETAMINOPHEN 325 MG TABLET (FP) PO PRN (19:19)
[2022-11-11] MEDS ORDERED: MAGNESIUM HYDROX 2400MG/30ML ORAL SUSPENSION 30 ML CUP PO PRN (19:19)
[2022-11-11] MEDS ORDERED: NALOXONE HCL 0.4 MG/ML VIAL IM PRN (19:19)
[2022-11-11] MEDS ORDERED: ONDANSETRON *ODT* 4 MG TABLET SL PRN (19:19)
[2022-11-11] MEDS ORDERED: LOPERAMIDE HCL 2 MG CAPSULE PO PRN (19:19)
[2022-11-11] MEDS ORDERED: guaiFENesin 600 MG TABLET.ER (FP) PO PRN (19:19)
[2022-11-11] MEDS ORDERED: NALOXONE HCL (KLOXXADO) 8 MG SPRAY NS PRN (19:19)
[2022-11-11] MEDS ORDERED: BENZOCAINE/MENTHOL (CHLORASEPTIC ) LOZENGE MM PRN (19:19)
[2022-11-11] MEDS ORDERED: BISMUTH SUBSALICYLATE 524 MG/30 ML PO PRN (19:19)
[2022-11-11] MEDS ORDERED: DICYCLOMINE HCL 10 MG CAPSULE PO PRN (19:19)
[2022-11-11] MEDS ORDERED: IBUPROFEN 400 MG TABLET (FP) PO PRN (19:19)
[2022-11-11] MEDS ORDERED: IBUPROFEN 600 MG TABLET (FP) PO PRN (19:19)
[2022-11-11] MEDS ORDERED: BENZONATATE 200 MG CAPSULE PO PRN (19:19)
[2022-11-11] MEDS ORDERED: POLYETHYLENE GLYCOL (HEALTHYLAX) 3350 17 GM PACKET PO PRN (19:19)
[2022-11-11] MEDS: chlordiazePOXIDE HCL 25 MG CAPSULE PO SCH (22:08)
[2022-11-11] MEDS: METHOCARBAMOL 500 MG TABLET PO PRN (22:08)
[2022-11-11] MEDS: MELATONIN 5 MG TABLETS PO SCH (22:08)
[2022-11-11] MEDS: THIAMINE HCL 100 MG TABLET (FP) PO SCH (22:08)
[2022-11-11] MEDS: hydrOXYzine PAMOATE 25 MG CAPSULE (FP) PO PRN (22:09)
[2022-11-11] MEDS: levETIRAcetam 500 MG TABLET (FP) PO SCH (23:34)
[2022-11-12] MEDS: chlordiazePOXIDE HCL 25 MG CAPSULE PO PRN ×4 (00:39→19:57)
[2022-11-12] MEDS: chlordiazePOXIDE HCL 25 MG CAPSULE PO SCH ×4 (05:24→22:08)
[2022-11-12] MEDS: FERROUS SO4 325 MG TABLET (FP) PO SCH ×3 (05:24→22:08)
[2022-11-12] MEDS: PRENATAL VITAMINS W/ FOLIC ACID TABLET (FP) PO SCH (10:12)
[2022-11-12] MEDS: FAMOTIDINE 20 MG TABLET PO SCH (10:12)
[2022-11-12] MEDS: levETIRAcetam 500 MG TABLET (FP) PO SCH ×2 (10:12→22:08)
[2022-11-12] MEDS: hydrOXYzine PAMOATE 25 MG CAPSULE (FP) PO PRN (13:51)
[2022-11-12] MEDS ORDERED: NICOTINE POLACRILEX 2 MG GUM BUC PRN (13:57)
[2022-11-12] MEDS: NICOTINE 14 MG/24 HOURS TOPICAL PATCH TD SCH (14:46)
[2022-11-12] MEDS ORDERED: COLLOIDAL OATMEAL 1 BAR EACH TP PRN (19:07)
[2022-11-12] MEDS: THIAMINE HCL 100 MG TABLET (FP) PO SCH (22:08)
[2022-11-12] MEDS: GABAPENTIN 100 MG CAPSULE PO SCH (22:08)
[2022-11-12] MEDS: MELATONIN 5 MG TABLETS PO SCH (22:08)
[2022-11-12] MEDS: METHOCARBAMOL 500 MG TABLET PO PRN (22:12)
[2022-11-13] MEDS: GABAPENTIN 100 MG CAPSULE PO SCH (05:35)
[2022-11-13] MEDS: FERROUS SO4 325 MG TABLET (FP) PO SCH ×2 (05:35→13:01)
[2022-11-13] MEDS: chlordiazePOXIDE HCL 25 MG CAPSULE PO SCH ×3 (05:35→17:18)
[2022-11-13] MEDS: hydrOXYzine PAMOATE 25 MG CAPSULE (FP) PO PRN (05:35)
[2022-11-13] MEDS: chlordiazePOXIDE HCL 25 MG CAPSULE PO PRN ×2 (07:38→13:39)
[2022-11-13] MEDS ORDERED: propRANOLol HCL 10 MG TABLET PO PRN (10:00)
[2022-11-13] MEDS: NICOTINE 14 MG/24 HOURS TOPICAL PATCH TD SCH (10:01)
[2022-11-13] MEDS: levETIRAcetam 500 MG TABLET (FP) PO SCH (10:01)
[2022-11-13] MEDS: FAMOTIDINE 20 MG TABLET PO SCH (10:01)
[2022-11-13] MEDS: PRENATAL VITAMINS W/ FOLIC ACID TABLET (FP) PO SCH (10:02)
[2022-11-13 10:29] LABS: POTASSIUM 3.8 mmol/L (3.5-5.1)
[2022-11-13 10:34] LABS: HEMATOCRIT 36.5 % (32.4-45.2); MCHC 32.8 g/dl (32.0-36.0); MEAN CELL VOLUME 94.7 fl (80-96); MEAN PLT VOLUME 8.5 fl (7.5-11.1); PLATELET COUNT 167 10^3/uL (134-434); RBC 3.85 M/mm3 (3.60-5.2); WHITE BLOOD COUNT 4.7 K/mm3 (4.0-10.0)
[2022-11-13 10:37] LABS: ALBUMIN 4.3 g/dl (3.4-5.0); BLOOD UREA NITROGEN 5.3 mg/dL (7-18)
[2022-11-13 10:40] LABS: CREATININE 0.9 mg/dL (0.55-1.3)
[2022-11-13 10:42] LABS: BILIRUBIN,TOTAL 0.5 mg/dL (0.2-1); TOT PROT 8.2 g/dl (6.4-8.2)
[2022-11-13] MEDS ORDERED: GABAPENTIN 400 MG CAPSULE PO SCH (14:00)
[2022-11-13 17:12] VITALS: BP 114/81; PULSE 108; RESP 18; TEMP 96.9
[2022-11-13] MEDS ORDERED: traZODone HCL 50 MG TABLET (FP) PO SCH (22:00)
[2022-11-14] MEDS ORDERED: chlordiazePOXIDE HCL 10 MG CAPSULE PO PRN
[2022-11-14] MEDS ORDERED: chlordiazePOXIDE HCL 10 MG CAPSULE PO SCH (05:00)
[2022-11-15] MEDS ORDERED: chlordiazePOXIDE HCL 10 MG CAPSULE PO SCH (05:00)
[2022-11-16] MEDS ORDERED: chlordiazePOXIDE HCL 10 MG CAPSULE PO ONE (05:00)
== END 2022-11-13 19:13 | disposition left against medical advice (07) | DRG 770 ==
LOC: YASAS 18:31 → Y3N 19:44
PROVIDERS: ADMIT Allergy & Immunology; ATTEND Surgery
PROC: HZ2ZZZZ Detoxification Services for Substance Abuse Treatment (ICD-10-PCS; principal; 2022-11-11)
DX: F10.230 Alcohol dependence with withdrawal, uncomplicated (principal); F12.20 Cannabis dependence, uncomplicated; F17.210 Nicotine dependence, cigarettes, uncomplicated; G47.00 Insomnia, unspecified; K21.9 Gastro-esophageal reflux disease without esophagitis; F41.9 Anxiety disorder, unspecified; F32.A Depression, unspecified; R94.31 Abnormal electrocardiogram [ECG] [EKG]; Z86.59 Personal history of other mental and behavioral disorders; Z86.69 Personal history of other diseases of the nervous system and sense organs; Z88.0 Allergy status to penicillin
CPT/HCPCS: 36415; 80053; 81025; 85027; 86780; 87635; 87811; 93005; 93010

== ENCOUNTER 2022-12-13 22:47 | Observation (INO) | payer OTHER ==
[2022-12-13 23:27] VITALS: BMI 21.5
[2022-12-14] MEDS ORDERED: METOCLOPRAMIDE HCL INJECTION 10 MG/2 ML VIAL IVPB ONE (00:15)
[2022-12-14] MEDS ORDERED: ACETAMINOPHEN 1000 MG/100 ML BAG IVPB ONE (00:15)
[2022-12-14] MEDS ORDERED: ACETAMINOPHEN INJECTION 100 ML IVPB ONE (00:25)
[2022-12-14] MEDS ORDERED: METOCLOPRAMIDE HCL INJECTION 10 MG/2 ML VIAL ONE ×2 (00:25→15:32)
[2022-12-14 00:55] LABS: BASO % 1.3 % (0-2.0); EOS % 0.1 % (0-4.5); HEMATOCRIT 38.7 % (32.4-45.2); HEMOGLOBIN 12.8 GM/dL (10.7-15.3); LYMPH % 20.6 % (8-40); MCH 30.3 pg (25.7-33.7); MCHC 33.2 g/dl (32.0-36.0); MEAN CELL VOLUME 91.2 fl (80-96); MEAN PLT VOLUME 7.3 fl (7.5-11.1); MONO % 3.5 % (3.8-10.2); NEUT % 74.5 % (42.8-82.8); PLATELET COUNT 286 10^3/uL (134-434); RBC 4.24 M/mm3 (3.60-5.2); RDW 16.1 % (11.6-15.6); WHITE BLOOD COUNT 7.5 K/mm3 (4.0-10.0)
[2022-12-14 01:07] LABS: POTASSIUM 4.4 mmol/L (3.5-5.1)
[2022-12-14 01:09] LABS: CALCIUM 8.6 mg/dL (8.5-10.1)
[2022-12-14 01:10] LABS: ALBUMIN 4.2 g/dl (3.4-5.0); BLOOD UREA NITROGEN 12.3 mg/dL (7-18); MAGNESIUM 1.9 mg/dL (1.8-2.4)
[2022-12-14 01:13] LABS: CREATININE 0.6 mg/dL (0.55-1.3); PHOSPHOROUS 3.8 mg/dL (2.5-4.9)
[2022-12-14 01:14] LABS: BILIRUBIN,TOTAL 0.2 mg/dL (0.2-1)
[2022-12-14 01:15] LABS: TOT PROT 8.4 g/dl (6.4-8.2)
[2022-12-14] MEDS ORDERED: chlordiazePOXIDE HCL 25 MG CAPSULE PO ONE (05:59)
[2022-12-14] MEDS ORDERED: chlordiazePOXIDE HCL 25 MG CAPSULE ONE ×3 (06:19→16:15)
[2022-12-14] MEDS ORDERED: TRIMETHOBENZAMIDE HCL 200MG/2ML INJ IM PRN (10:16)
[2022-12-14] MEDS ORDERED: MELATONIN 5 MG TABLETS PO PRN (10:19)
[2022-12-14] MEDS ORDERED: ACETAMINOPHEN 1000 MG/100 ML BAG IVPB PRN (10:19)
[2022-12-14] MEDS: THIAMINE HCL 200 MG/2 ML VIAL IVPB SCH (10:55)
[2022-12-14] MEDS: FOLIC ACID 1 MG TABLET (FP) PO SCH (10:55)
[2022-12-14] MEDS: chlordiazePOXIDE HCL 25 MG CAPSULE PO SCH ×2 (10:56→16:17)
[2022-12-14] MEDS: LACTATED RINGERS SOLUTION 1,000 ML/1,000 ML INFUS.BAG IV SCH (10:56)
[2022-12-14] MEDS ORDERED: PANTOPRAZOLE 40 MG TABLET PO ONE (13:47)
[2022-12-14] MEDS: PANTOPRAZOLE 40 MG TABLET PO SCH (13:51)
[2022-12-14] MEDS: chlordiazePOXIDE HCL 25 MG CAPSULE PO PRN ×2 (14:12→21:20)
[2022-12-14] MEDS ORDERED: METOCLOPRAMIDE HCL INJECTION 10 MG/2 ML VIAL IVPUSH ONE (15:28)
[2022-12-14] MEDS ORDERED: hydrOXYzine PAMOATE 25 MG CAPSULE (FP) PO PRN (16:28)
[2022-12-14] MEDS ORDERED: BENZOCAINE/MENTHOL (CHLORASEPTIC ) LOZENGE MM PRN (16:28)
[2022-12-14] MEDS ORDERED: NICOTINE POLACRILEX 2 MG GUM BUC PRN (16:28)
[2022-12-14] MEDS ORDERED: IBUPROFEN 600 MG TABLET (FP) PO PRN (16:28)
[2022-12-14] MEDS ORDERED: MAG HYDROX/AL HYDROX/SIMETH 30 ML UNIT-DOSE CUP PO PRN (16:28)
[2022-12-14] MEDS ORDERED: METHOCARBAMOL 500 MG TABLET PO PRN (16:28)
[2022-12-14] MEDS ORDERED: BISMUTH SUBSALICYLATE 524 MG/30 ML PO PRN (16:28)
[2022-12-14] MEDS ORDERED: LOPERAMIDE HCL 2 MG CAPSULE PO PRN (16:28)
[2022-12-14] MEDS ORDERED: IBUPROFEN 400 MG TABLET (FP) PO PRN (16:28)
[2022-12-14] MEDS ORDERED: guaiFENesin 600 MG TABLET.ER (FP) PO PRN (16:28)
[2022-12-14] MEDS ORDERED: MAGNESIUM HYDROX 2400MG/30ML ORAL SUSPENSION 30 ML CUP PO PRN (16:28)
[2022-12-14] MEDS ORDERED: BENZONATATE 200 MG CAPSULE PO PRN (16:28)
[2022-12-14] MEDS ORDERED: POLYETHYLENE GLYCOL (HEALTHYLAX) 3350 17 GM PACKET PO PRN (16:28)
[2022-12-14] MEDS ORDERED: DICYCLOMINE HCL 10 MG CAPSULE PO PRN (16:28)
[2022-12-14] MEDS ORDERED: hydrOXYzine PAMOATE 25 MG CAPSULE (FP) PO ONE (17:41)
[2022-12-14] MEDS ORDERED: IBUPROFEN 600 MG TABLET (FP) PO ONE (17:41)
[2022-12-14] MEDS: ONDANSETRON *ODT* 4 MG TABLET SL PRN (21:18)
[2022-12-14] MEDS ORDERED: THIAMINE HCL 100 MG TABLET (FP) PO SCH (22:00)
[2022-12-15] MEDS: chlordiazePOXIDE HCL 25 MG CAPSULE PO PRN ×3 (03:35→18:29)
[2022-12-15] MEDS: chlordiazePOXIDE HCL 25 MG CAPSULE PO SCH ×4 (05:44→16:59)
[2022-12-15 08:09] LABS: METHADONE, UR NEGATIVE (NEGATIVE); PHENCYCLIDINE,URINE NEGATIVE (NEGATIVE)
[2022-12-15 08:10] LABS: OPIATES, URI NEGATIVE (NEGATIVE); URINE BARBITURATES NEGATIVE (NEGATIVE)
[2022-12-15 08:37] LABS: COCAINE, UR NEGATIVE (NEGATIVE); URINE AMPHETAMINES NEGATIVE (NEGATIVE); URINE BENZODIAZEPINES POSITIVE (NEGATIVE)
[2022-12-15] MEDS: FOLIC ACID 1 MG TABLET (FP) PO SCH (09:06)
[2022-12-15] MEDS: ONDANSETRON *ODT* 4 MG TABLET SL PRN (09:06)
[2022-12-15] MEDS: THIAMINE HCL 200 MG/2 ML VIAL IVPB SCH (09:06)
[2022-12-15] MEDS: PANTOPRAZOLE 40 MG TABLET PO SCH (09:06)
[2022-12-15 09:39] LABS: BASO % 0.5 % (0-2.0); EOS % 0.1 % (0-4.5); HEMATOCRIT 35.7 % (32.4-45.2); HEMOGLOBIN 11.6 GM/dL (10.7-15.3); LYMPH % 13.8 % (8-40); MCH 29.9 pg (25.7-33.7); MCHC 32.5 g/dl (32.0-36.0); MEAN CELL VOLUME 91.8 fl (80-96); MEAN PLT VOLUME 7.7 fl (7.5-11.1); MONO % 11.9 % (3.8-10.2); NEUT % 73.7 % (42.8-82.8); PLATELET COUNT 244 10^3/uL (134-434); RDW 15.7 % (11.6-15.6); WHITE BLOOD COUNT 8.4 K/mm3 (4.0-10.0)
[2022-12-15 09:41] LABS: INR 1.03 (0.83-1.09)
[2022-12-15 09:54] LABS: POTASSIUM 4.1 mmol/L (3.5-5.1)
[2022-12-15] MEDS ORDERED: ENOXAPARIN NA (PORCINE) 40 MG/0.4 ML DISP.SYRIN SQ SCH (10:00)
[2022-12-15] MEDS ORDERED: PRENATAL VITAMINS W/ FOLIC ACID TABLET (FP) PO SCH (10:00)
[2022-12-15 10:03] LABS: TOT PROT 8.1 g/dl (6.4-8.2)
[2022-12-15 10:04] LABS: BILIRUBIN,TOTAL 1.1 mg/dL (0.2-1)
[2022-12-15 10:05] LABS: CALCIUM 9.3 mg/dL (8.5-10.1); CREATININE 0.7 mg/dL (0.55-1.3)
[2022-12-15 10:06] LABS: ALBUMIN 4.1 g/dl (3.4-5.0); BLOOD UREA NITROGEN 10.7 mg/dL (7-18); MAGNESIUM 2.1 mg/dL (1.8-2.4)
[2022-12-15] MEDS: LACTATED RINGERS SOLUTION 1,000 ML/1,000 ML INFUS.BAG IV SCH (11:56)
[2022-12-15 19:22] VITALS: BP 110/73; PULSE 104; RESP 18; TEMP 98.5
[2022-12-16] MEDS ORDERED: chlordiazePOXIDE HCL 25 MG CAPSULE PO SCH (05:00)
[2022-12-17] MEDS ORDERED: chlordiazePOXIDE HCL 10 MG CAPSULE PO PRN
[2022-12-17] MEDS ORDERED: chlordiazePOXIDE HCL 10 MG CAPSULE PO SCH (05:00)
[2022-12-18] MEDS ORDERED: chlordiazePOXIDE HCL 10 MG CAPSULE PO SCH (05:00)
[2022-12-19] MEDS ORDERED: chlordiazePOXIDE HCL 10 MG CAPSULE PO ONE (05:00)
== END 2022-12-15 20:03 | disposition left against medical advice (07) ==
LOC: JER 22:47 → JERBED 12-14 06:05 → J5S 12-14 19:03
PROVIDERS: ADMIT Internal Medicine; ATTEND Internal Medicine
PROC: 3E033NZ Introduction of Analgesics, Hypnotics, Sedatives into Peripheral Vein, Percutaneous Approach (ICD-10-PCS; principal; 2022-12-14)
PROC: 3E0337Z Introduction of Electrolytic and Water Balance Substance into Peripheral Vein, Percutaneous Approach (ICD-10-PCS; 2022-12-14)
PROC: 3E033GC Introduction of Other Therapeutic Substance into Peripheral Vein, Percutaneous Approach (ICD-10-PCS; 2022-12-14)
PROC: 3E023GC Introduction of Other Therapeutic Substance into Muscle, Percutaneous Approach (ICD-10-PCS; 2022-12-14)
DX: S09.90XA Unspecified injury of head, initial encounter (principal); F10.939 Alcohol use, unspecified with withdrawal, unspecified; I42.9 Cardiomyopathy, unspecified; Z90.49 Acquired absence of other specified parts of digestive tract; W18.39XA Other fall on same level, initial encounter; Y93.89 Activity, other specified; Y92.89 Other specified places as the place of occurrence of the external cause; K76.0 Fatty (change of) liver, not elsewhere classified; K29.70 Gastritis, unspecified, without bleeding; Z88.8 Allergy status to other drugs, medicaments and biological substances; Z91.018 Allergy to other foods
CPT/HCPCS: 36415; 70450-TC; 71045-TC-FY; 72125-TC; 80053; 80307; 82140; 82607; 82746; 83690; 83735; 84100; 84484; 84703; 85025; 85610; 93005; 93010; 96361; 96372; 96374; 96375; 99285-25; G0378; Q0162

== ENCOUNTER 2023-02-19 12:37 | Observation (INO) | payer OTHER ==
[2023-02-19] MEDS ORDERED: PANTOPRAZOLE SODIUM 40 MG VIAL IVPUSH ONE (13:32)
[2023-02-19] MEDS ORDERED: chlordiazePOXIDE HCL 25 MG CAPSULE PO ONE (13:46)
[2023-02-19] MEDS ORDERED: SODIUM CHLORIDE 0.9% 500 ML INFUS.BAG IV ONE (13:46)
[2023-02-19] MEDS ORDERED: METOCLOPRAMIDE HCL INJECTION 10 MG/2 ML VIAL IVPUSH ONE (13:50)
[2023-02-19] MEDS ORDERED: FAMOTIDINE 20 MG/50 ML IVPB 20 MG in PREMIX 50 IVPB ONE (13:50)
[2023-02-19] MEDS ORDERED: PANTOPRAZOLE SODIUM 80 MG/200 ML BAG IVPB ONE (14:17)
[2023-02-19] MEDS ORDERED: METOCLOPRAMIDE HCL INJECTION 10 MG/2 ML VIAL ONE (14:17)
[2023-02-19] MEDS ORDERED: FAMOTIDINE 20 MG/50 ML IVPB 20 MG/50 ML MG IVPB ONE (14:17)
[2023-02-19 14:24] LABS: VENOUS O2 SATURATION 60.8 % (70-80); VENOUS PCO2 30.6 mmHg (38-52); VENOUS PH 7.062 (7.310-7.410)
[2023-02-19 14:26] LABS: BASO % 0.6 % (0-2.0); HEMATOCRIT 36.9 % (32.4-45.2); HEMOGLOBIN 11.5 GM/dL (10.7-15.3); LYMPH % 4.9 % (8-40); MCH 30.8 pg (25.7-33.7); MCHC 31.2 g/dl (32.0-36.0); MEAN CELL VOLUME 98.7 fl (80-96); MEAN PLT VOLUME 7.6 fl (7.5-11.1); MONO % 6.2 % (3.8-10.2); NEUT % 88.3 % (42.8-82.8); PLATELET COUNT 246 10^3/uL (134-434); RBC 3.74 M/mm3 (3.60-5.2); RDW 16.3 % (11.6-15.6); WHITE BLOOD COUNT 12.6 K/mm3 (4.0-10.0)
[2023-02-19 14:30] LABS: VENOUS BASE EXCESS -20.6 mmol/L (-2-2)
[2023-02-19 14:35] LABS: INR 0.97 (0.83-1.09); PROTHROMBIN TIME (PATIENT) 11.2 SEC (9.7-13.0)
[2023-02-19 14:38] LABS: ACTIVATED PTT 26.3 SECONDS (25.2-36.5)
[2023-02-19 14:45] LABS: POTASSIUM 4.7 mmol/L (3.5-5.1)
[2023-02-19 14:47] LABS: ALBUMIN 4.4 g/dl (3.4-5.0); BLOOD UREA NITROGEN 9.3 mg/dL (7-18); CALCIUM 8.8 mg/dL (8.5-10.1); MAGNESIUM 1.8 mg/dL (1.8-2.4)
[2023-02-19 14:50] LABS: CREATININE 0.7 mg/dL (0.55-1.3)
[2023-02-19 14:52] LABS: BILIRUBIN,TOTAL 0.3 mg/dL (0.2-1); TOT PROT 8.4 g/dl (6.4-8.2)
[2023-02-19] MEDS ORDERED: chlordiazePOXIDE HCL 25 MG CAPSULE ONE (15:01)
[2023-02-19] MEDS ORDERED: FOLIC ACID INJECTION - 1 MG, THIAMINE HCL 100 MG, MULTIVIT INJECTION ADULT 10 ML in SOD... IVPB ONE (15:03)
[2023-02-19] MEDS ORDERED: DEXTROSE 5%-WATER - 1,000 ML IV SCH (15:45)
[2023-02-19 16:14] LABS: EPI CELLS 10 /uL (0-25.1); HYALINE CASTS 0 /uL (0-3.1); PH,URINE 5.5 (5.0-8.0); URINE APPEARANCE CLEAR; URINE BACTERIA 166 /uL (0-1359); URINE BILIRUBIN NEGATIVE (NEGATIVE); URINE COLOR YELLOW; URINE GLUCOSE (UA) NEGATIVE (NEGATIVE); URINE KETONE 4+ (NEGATIVE); URINE LEUK ESTERASE NEGATIVE (NEGATIVE); URINE NITRITE NEGATIVE (NEGATIVE); URINE PROTEIN 2+ (NEGATIVE); URINE RBC 144 /uL (0-23.9); URINE UROBILINOGEN 0.2 mg/dL (0.2-1.0); URINE WBC 4 /uL (0-25.8)
[2023-02-19] MEDS ORDERED: ACETAMINOPHEN 325 MG TABLET (FP) PO ONE (16:19)
[2023-02-19] MEDS ORDERED: ACETAMINOPHEN 325 MG TABLET (FP) ONE (16:24)
[2023-02-19 16:46] LABS: METHADONE, UR NEGATIVE (NEGATIVE); PHENCYCLIDINE,URINE NEGATIVE (NEGATIVE); URINE BARBITURATES NEGATIVE (NEGATIVE); URINE BENZODIAZEPINES NEGATIVE (NEGATIVE)
[2023-02-19 16:47] LABS: COCAINE, UR NEGATIVE (NEGATIVE); OPIATES, URI NEGATIVE (NEGATIVE)
[2023-02-19 16:57] LABS: URINE AMPHETAMINES NEGATIVE (NEGATIVE)
[2023-02-19] MEDS: DEXTROSE 5%-LACTATED RINGERS 1,000 ML IV SCH (17:04)
[2023-02-19] MEDS: GABAPENTIN 400 MG CAPSULE PO SCH (23:36)
[2023-02-19] MEDS: PANTOPRAZOLE SODIUM 40 MG VIAL IVPUSH SCH (23:36)
[2023-02-19] MEDS: levETIRAcetam 500 MG TABLET (FP) PO SCH (23:36)
[2023-02-19] MEDS: THIAMINE HCL 100 MG TABLET (FP) PO SCH (23:36)
[2023-02-20 00:11] VITALS: BMI 21.4
[2023-02-20] MEDS: GABAPENTIN 400 MG CAPSULE PO SCH ×3 (06:20→22:06)
[2023-02-20] MEDS: DEXTROSE 5%-LACTATED RINGERS 1,000 ML IV SCH (07:39)
[2023-02-20 09:08] LABS: BASO % 0.8 % (0-2.0); EOS % 0.1 % (0-4.5); HEMATOCRIT 34.3 % (32.4-45.2); HEMOGLOBIN 11.3 GM/dL (10.7-15.3); LYMPH % 14.4 % (8-40); MCH 31.4 pg (25.7-33.7); MCHC 33.1 g/dl (32.0-36.0); MEAN CELL VOLUME 94.9 fl (80-96); MONO % 9.5 % (3.8-10.2); NEUT % 75.2 % (42.8-82.8); PLATELET COUNT 158 10^3/uL (134-434); RBC 3.61 M/mm3 (3.60-5.2); RDW 16.2 % (11.6-15.6); WHITE BLOOD COUNT 5.7 K/mm3 (4.0-10.0)
[2023-02-20 09:24] LABS: POTASSIUM 3.5 mmol/L (3.5-5.1)
[2023-02-20 09:32] LABS: CALCIUM 8.9 mg/dL (8.5-10.1)
[2023-02-20 09:33] LABS: BLOOD UREA NITROGEN 4.8 mg/dL (7-18)
[2023-02-20 09:36] LABS: CREATININE 0.5 mg/dL (0.55-1.3)
[2023-02-20] MEDS: FOLIC ACID 1 MG TABLET (FP) PO SCH (10:06)
[2023-02-20] MEDS: levETIRAcetam 500 MG TABLET (FP) PO SCH ×2 (10:06→22:05)
[2023-02-20] MEDS: PANTOPRAZOLE SODIUM 40 MG VIAL IVPUSH SCH ×2 (10:06→23:08)
[2023-02-20] MEDS: chlordiazePOXIDE HCL 25 MG CAPSULE PO SCH (18:33)
[2023-02-20] MEDS: THIAMINE HCL 100 MG TABLET (FP) PO SCH (22:04)
[2023-02-21] MEDS ORDERED: SODIUM CHLORIDE 1,000 ML IV SCH (00:01)
[2023-02-21] MEDS ORDERED: DEXTROSE 5%-LACTATED RINGERS 1,000 ML IV SCH (00:01)
[2023-02-21] MEDS: chlordiazePOXIDE HCL 25 MG CAPSULE PO SCH ×3 (02:18→10:13)
[2023-02-21] MEDS: GABAPENTIN 400 MG CAPSULE PO SCH ×2 (06:30→14:30)
[2023-02-21] MEDS ORDERED: LORazepam 1 MG TABLET PO ONE (08:51)
[2023-02-21] MEDS: levETIRAcetam 500 MG TABLET (FP) PO SCH (08:59)
[2023-02-21] MEDS: FOLIC ACID 1 MG TABLET (FP) PO SCH (08:59)
[2023-02-21] MEDS: PANTOPRAZOLE SODIUM 40 MG VIAL IVPUSH SCH (09:01)
[2023-02-21 09:03] LABS: INR 0.88 (0.83-1.09); PROTHROMBIN TIME (PATIENT) 10.2 SEC (9.7-13.0)
[2023-02-21 09:44] LABS: CALCIUM 9.4 mg/dL (8.5-10.1)
[2023-02-21 09:45] LABS: BLOOD UREA NITROGEN 4.4 mg/dL (7-18); MAGNESIUM 1.4 mg/dL (1.8-2.4)
[2023-02-21 09:48] LABS: CREATININE 0.6 mg/dL (0.55-1.3)
[2023-02-21 10:10] LABS: BASO % 2.1 % (0-2.0); HEMATOCRIT 35.6 % (32.4-45.2); HEMOGLOBIN 11.8 GM/dL (10.7-15.3); LYMPH % 33.2 % (8-40); MCH 31.4 pg (25.7-33.7); MCHC 33.2 g/dl (32.0-36.0); MEAN CELL VOLUME 94.5 fl (80-96); MEAN PLT VOLUME 8.2 fl (7.5-11.1); MONO % 13.7 % (3.8-10.2); PLATELET COUNT 143 10^3/uL (134-434); RBC 3.77 M/mm3 (3.60-5.2); RDW 16.5 % (11.6-15.6)
[2023-02-21 11:57] VITALS: TEMP 97.5
[2023-02-21] MEDS ORDERED: POTASSIUM CHLORIDE ORAL LIQUID 20 MEQ/15 ML PO ONE (12:01)
[2023-02-21 12:13] VITALS: BP 100/76; PULSE 100; RESP 18
[2023-02-21] MEDS ORDERED: LORazepam 1 MG TABLET PO PRN (14:29)
[2023-02-21] MEDS ORDERED: hydrOXYzine PAMOATE 25 MG CAPSULE (FP) PO PRN (14:31)
[2023-02-22] MEDS ORDERED: PANTOPRAZOLE 40 MG TABLET PO SCH (10:00)
== END 2023-02-21 18:58 | disposition left against medical advice (07) ==
LOC: JER 12:37 → UNDOADMOB 15:45 → JERBED 15:45 → OBSVTOIN 16:55 → INTOOBSV 16:55 → JERBED 19:28 → J5S 19:28 → JERBED 02-21 08:47
PROVIDERS: ADMIT Internal Medicine; ATTEND Internal Medicine
PROC: 3E033GC Introduction of Other Therapeutic Substance into Peripheral Vein, Percutaneous Approach (ICD-10-PCS; 2023-02-21)
PROC: 0DB38ZX Excision of Lower Esophagus, Via Natural or Artificial Opening Endoscopic, Diagnostic (ICD-10-PCS; 2023-02-21)
PROC: 0DB68ZX Excision of Stomach, Via Natural or Artificial Opening Endoscopic, Diagnostic (ICD-10-PCS; 2023-02-21)
PROC: 3E0337Z Introduction of Electrolytic and Water Balance Substance into Peripheral Vein, Percutaneous Approach (ICD-10-PCS; principal; 2023-02-21 11:00)
DX: E87.29 Other acidosis (principal); F10.139 Alcohol abuse with withdrawal, unspecified; K92.0 Hematemesis; K21.9 Gastro-esophageal reflux disease without esophagitis; F12.20 Cannabis dependence, uncomplicated; R56.9 Unspecified convulsions; Z88.0 Allergy status to penicillin; Z90.49 Acquired absence of other specified parts of digestive tract; F41.8 Other specified anxiety disorders; F43.10 Post-traumatic stress disorder, unspecified; F17.210 Nicotine dependence, cigarettes, uncomplicated
CPT/HCPCS: 0241U-QW; 36415; 71046-TC-FY; 80048; 80053; 80307; 81003; 82010; 82803; 83690; 83735; 84100; 84703; 85025; 85610; 85730; 86850; 86900; 86901; 87086; 88305-TC; 93005; 93010; 96361; 96365; 96367; 96375; 96376; 99291; G0378

== ENCOUNTER 2023-04-01 23:46 | Inpatient (IN) | payer OTHER ==
[2023-04-02] MEDS ORDERED: ONDANSETRON 4 MG/2 ML VIAL ONE ×2 (00:14→01:21)
[2023-04-02] MEDS ORDERED: chlordiazePOXIDE HCL 25 MG CAPSULE ONE (00:14)
[2023-04-02] MEDS ORDERED: FAMOTIDINE 20 MG/50 ML IVPB 20 MG/50 ML MG IVPB ONE (00:14)
[2023-04-02] MEDS: SODIUM CHLORIDE 0.9% 500 ML INFUS.BAG IV ONE (00:18)
[2023-04-02] MEDS: FAMOTIDINE 20 MG/50 ML IVPB 20 MG/50 ML MG IVPB ONE (00:19)
[2023-04-02] MEDS: ONDANSETRON 4 MG/2 ML VIAL IVPUSH ONE ×2 (00:19→01:25)
[2023-04-02] MEDS: chlordiazePOXIDE HCL 25 MG CAPSULE PO ONE (00:50)
[2023-04-02 00:53] LABS: VENOUS BASE EXCESS -17.9 mmol/L (-2-2); VENOUS O2 SATURATION 47.3 % (70-80)
[2023-04-02 01:03] LABS: BASO % 0.8 % (0-2.0); HEMOGLOBIN 12.7 GM/dL (10.7-15.3); LYMPH % 3.6 % (8-40); MCH 31.5 pg (25.7-33.7); MCHC 31.6 g/dl (32.0-36.0); MEAN CELL VOLUME 99.5 fl (80-96); MEAN PLT VOLUME 7.5 fl (7.5-11.1); MONO % 7.7 % (3.8-10.2); NEUT % 87.9 % (42.8-82.8); PLATELET COUNT 183 10^3/uL (134-434); RBC 4.02 M/mm3 (3.60-5.2)
[2023-04-02 01:06] LABS: VENOUS PH 7.1 (7.310-7.410)
[2023-04-02] MEDS ORDERED: THIAMINE HCL 200 MG/2 ML VIAL ONE (01:11)
[2023-04-02] MEDS: THIAMINE HCL 200 MG/2 ML VIAL IVPB ONE (01:24)
[2023-04-02 01:38] LABS: HCG,QUALITATIVE URINE Negative
[2023-04-02 01:43] LABS: POTASSIUM 4.4 mmol/L (3.5-5.1)
[2023-04-02 01:45] LABS: ALBUMIN 4.7 g/dl (3.4-5.0); CALCIUM 9.2 mg/dL (8.5-10.1)
[2023-04-02 01:46] LABS: BLOOD UREA NITROGEN 7.1 mg/dL (7-18)
[2023-04-02 01:48] LABS: CREATININE 0.8 mg/dL (0.55-1.3)
[2023-04-02 01:50] LABS: BILIRUBIN,TOTAL 0.5 mg/dL (0.2-1); TOT PROT 9.6 g/dl (6.4-8.2)
[2023-04-02] MEDS ORDERED: ACETAMINOPHEN INJECTION 100 ML IVPB ONE (01:54)
[2023-04-02] MEDS: ACETAMINOPHEN 1000 MG/100 ML BAG IVPB ONE (02:00)
[2023-04-02 02:20] VITALS: BMI 20.1
[2023-04-02 03:17] LABS: EPI CELLS 25 /uL (0-25.1); HYALINE CASTS 1 /uL (0-3.1); URINE APPEARANCE Clear; URINE BACTERIA 191 /uL (0-1359); URINE BILIRUBIN Negative (NEGATIVE); URINE COLOR Yellow; URINE GLUCOSE (UA) Negative (NEGATIVE); URINE KETONE >=160 (NEGATIVE); URINE LEUK ESTERASE Negative (NEGATIVE); URINE NITRITE Negative (NEGATIVE); URINE PROTEIN >=1000 (NEGATIVE); URINE RBC 26 /uL (0-23.9); URINE UROBILINOGEN 0.2 mg/dL (0.2-1.0); URINE WBC 3 /uL (0-25.8)
[2023-04-02] MEDS ORDERED: chlordiazePOXIDE HCL 25 MG CAPSULE PO PRN (03:18)
[2023-04-02] MEDS: DEXTROSE 5%-WATER - 1,000 ML IV SCH (05:05)
[2023-04-02] MEDS: chlordiazePOXIDE HCL 25 MG CAPSULE PO SCH (05:06)
[2023-04-02] MEDS: ACETAMINOPHEN 1000 MG/100 ML BAG IVPB PRN (08:18)
[2023-04-02] MEDS: ONDANSETRON 4 MG/2 ML VIAL IVPUSH PRN (08:19)
[2023-04-02 08:20] LABS: HEMATOCRIT 33.4 % (32.4-45.2); HEMOGLOBIN 10.4 G/dL (10.7-15.3); MCH 30.9 pg (25.7-33.7); MCHC 31.3 g/dl (32.0-36.0); MEAN CELL VOLUME 98.7 fl (80-96); MEAN PLT VOLUME 8.4 fl (7.5-11.1); PLATELET COUNT 117.3 10^3/uL (134-434); RBC 3.38 10^6/uL (3.60-5.2); RDW 14.4 % (11.6-15.6); WHITE BLOOD COUNT 5.9 10^3/uL (4.0-10.8)
[2023-04-02] MEDS: LORazepam 1 MG TABLET PO PRN (08:21)
[2023-04-02] MEDS: LACTATED RINGERS SOLUTION 1,000 ML/1,000 ML INFUS.BAG IV SCH (08:30)
[2023-04-02 09:25] LABS: EPITHELIAL CELLS 0-5 /hpf
[2023-04-02] MEDS: FOLIC ACID 1 MG TABLET (FP) PO SCH (09:29)
[2023-04-02] MEDS: SODIUM BICARBONATE 650 MG TABLET PO SCH (09:30)
[2023-04-02] MEDS: MULTIVITAMINS (DAILY MVI) TABLET (FP) PO SCH (09:30)
[2023-04-02] MEDS: HEPARIN NA (PORCINE) 5,000 UNITS/ML 1ML VIAL SQ SCH (09:30)
[2023-04-02 09:39] LABS: CALCIUM 8.5 mg/dl (8.5-10.1); CREATININE 0.7 mg/dl (0.6-1.3); MAGNESIUM 1.4 mg/dL (1.8-2.4); PHOSPHOROUS 1.6 (2.5-4.9); POTASSIUM 4.3 mmol/L (3.5-5.1)
[2023-04-02 09:44] LABS: INR 1.03 (0.83-1.09); PROTHROMBIN TIME (PATIENT) 11.9 SEC (9.7-13.0)
[2023-04-02 09:47] LABS: ACTIVATED PTT 27.3 SECONDS (25.2-36.5)
[2023-04-02] MEDS ORDERED: MAGNESIUM SULF 50% (8.12 MEQ/2 ML-1 GM VIAL) IVPB ONE (10:46)
[2023-04-02] MEDS: MAGNESIUM SULFATE IN WATER 2 GM/50 ML IVPB IVPB ONE (11:00)
[2023-04-02] MEDS: SODIUM PHOSPHATE - 15 MM in SODIUM CHLORIDE 250 ML IVPB ONE (12:12)
[2023-04-02 12:15] LABS: VENOUS O2 SATURATION 86.7 % (70-80); VENOUS PCO2 39.8 mmHg (38-52); VENOUS PH 7.408 (7.310-7.410)
[2023-04-02] MEDS: LORazepam 2 MG/ML SDV VIAL IVPUSH PRN (12:54)
[2023-04-02] MEDS: busPIRone HCL 5 MG TABLET PO PRN (12:54)
[2023-04-02] MEDS: GABAPENTIN 400 MG CAPSULE PO SCH (17:21)
[2023-04-03] MEDS ORDERED: chlordiazePOXIDE HCL 25 MG CAPSULE PO SCH (05:00)
[2023-04-03] MEDS ORDERED: ACETAMINOPHEN 325 MG TABLET (FP) PO PRN ×2 (08:00)
[2023-04-03 08:22] LABS: HEMATOCRIT 36.3 % (32.4-45.2); HEMOGLOBIN 11.4 G/dL (10.7-15.3); MCH 30.7 pg (25.7-33.7); MCHC 31.3 g/dl (32.0-36.0); MEAN CELL VOLUME 97.9 fl (80-96); MEAN PLT VOLUME 8.3 fl (7.5-11.1); PLATELET COUNT 105.6 10^3/uL (134-434); RBC 3.71 10^6/uL (3.60-5.2); RDW 14.7 % (11.6-15.6); WHITE BLOOD COUNT 3.4 10^3/uL (4.0-10.8)
[2023-04-03 08:55] LABS: ALBUMIN 4.3 g/dl (3.4-5.0); BILIRUBIN,TOTAL 0.6 mg/dl (0.2-1); CALCIUM 9.3 mg/dl (8.5-10.1); CREATININE 0.5 mg/dl (0.6-1.3); MAGNESIUM 1.7 mg/dL (1.8-2.4); PHOSPHOROUS 1.4 (2.5-4.9); POTASSIUM 3.3 mmol/L (3.5-5.1); TOT PROT 6.9 g/dl (6.4-8.2)
[2023-04-03] MEDS: THIAMINE HCL 100 MG TABLET (FP) PO SCH (09:12)
[2023-04-03] MEDS: FAMOTIDINE 20 MG TABLET PO SCH (09:12)
[2023-04-03] MEDS: busPIRone HCL 5 MG TABLET PO SCH (09:12)
[2023-04-03] MEDS: ENOXAPARIN NA (PORCINE) 40 MG/0.4 ML DISP.SYRIN SQ SCH (09:13)
[2023-04-03] MEDS ORDERED: MAGNESIUM SULF 50% (8.12 MEQ/2 ML-1 GM VIAL) IVPB ONE (09:40)
[2023-04-03] MEDS: LORazepam 1 MG TABLET PO PRN (11:15)
[2023-04-03] MEDS: NICOTINE 14 MG/24 HOURS TOPICAL PATCH TD SCH (11:15)
[2023-04-03] MEDS: POTASSIUM PHOSPHATE 30 MM in SODIUM CHLORIDE 500 ML IVPB ONE (11:15)
[2023-04-03] MEDS: MAGNESIUM SULFATE IN WATER 2 GM/50 ML IVPB IVPB ONE (11:21)
[2023-04-03] MEDS: traZODone HCL 100 MG TABLET (FP) PO SCH (21:01)
[2023-04-04] MEDS ORDERED: chlordiazePOXIDE HCL 10 MG CAPSULE PO PRN
[2023-04-04] MEDS ORDERED: LORazepam 0.5 MG TABLET ONE ×2 (00:27→05:56)
[2023-04-04] MEDS: hydrOXYzine PAMOATE 25 MG CAPSULE (FP) PO PRN (04:24)
[2023-04-04] MEDS ORDERED: chlordiazePOXIDE HCL 10 MG CAPSULE PO SCH (05:00)
[2023-04-04 08:27] LABS: HEMATOCRIT 29.7 % (32.4-45.2); HEMOGLOBIN 9.4 G/dL (10.7-15.3); MCHC 31.8 g/dl (32.0-36.0); MEAN CELL VOLUME 97.3 fl (80-96); MEAN PLT VOLUME 9.1 fl (7.5-11.1); PLATELET COUNT 101.8 10^3/uL (134-434); RBC 3.05 10^6/uL (3.60-5.2); RDW 14.2 % (11.6-15.6); WHITE BLOOD COUNT 3.2 10^3/uL (4.0-10.8)
[2023-04-04 09:27] LABS: ALBUMIN 3.8 g/dl (3.4-5.0); BILIRUBIN,TOTAL 0.4 mg/dl (0.2-1); CREATININE 0.5 mg/dl (0.6-1.3); MAGNESIUM 1.6 mg/dL (1.8-2.4); PHOSPHOROUS 2.5 (2.5-4.9); POTASSIUM 3.1 mmol/L (3.5-5.1); TOT PROT 5.8 g/dl (6.4-8.2)
[2023-04-04] MEDS: MAGNESIUM OXIDE 400 MG TABLET (FP) PO ONE (12:06)
[2023-04-04] MEDS: POTASSIUM CHLORIDE ORAL LIQUID 20 MEQ/15 ML PO ONE (12:06)
[2023-04-05 00:10] VITALS: RESP 18
[2023-04-05] MEDS ORDERED: chlordiazePOXIDE HCL 10 MG CAPSULE PO SCH (05:00)
[2023-04-05 08:10] LABS: HEMATOCRIT 36.8 % (32.4-45.2); HEMOGLOBIN 12.1 G/dL (10.7-15.3); MCH 32.2 pg (25.7-33.7); MCHC 32.8 g/dl (32.0-36.0); MEAN CELL VOLUME 98.1 fl (80-96); MEAN PLT VOLUME 9.3 fl (7.5-11.1); PLATELET COUNT 162.5 10^3/uL (134-434); RBC 3.75 10^6/uL (3.60-5.2); RDW 14.5 % (11.6-15.6); WHITE BLOOD COUNT 3.2 10^3/uL (4.0-10.8)
[2023-04-05 09:22] LABS: CALCIUM 9.9 mg/dl (8.5-10.1); CREATININE 0.7 mg/dl (0.6-1.3); MAGNESIUM 1.5 mg/dL (1.8-2.4); PHOSPHOROUS 2.4 (2.5-4.9); POTASSIUM 3.5 mmol/L (3.5-5.1)
[2023-04-05] MEDS: NAPH,MB-DB/K PH,MBDB POWDER PACKET PO ONE (10:12)
[2023-04-05] MEDS: MAGNESIUM OXIDE 400 MG TABLET (FP) PO ONE (10:13)
[2023-04-05 12:38] VITALS: BP 126/82; PULSE 97; TEMP 98.6
[2023-04-06] MEDS ORDERED: chlordiazePOXIDE HCL 10 MG CAPSULE PO ONE (05:00)
== END 2023-04-05 12:58 | disposition home or self-care (01) | DRG 775 ==
LOC: FER 23:46 → FM/S 04-02 03:27
PROVIDERS: ADMIT Internal Medicine; ATTEND Internal Medicine
PROC: HZ2ZZZZ Detoxification Services for Substance Abuse Treatment (ICD-10-PCS; principal; 2023-04-02)
DX: F10.239 Alcohol dependence with withdrawal, unspecified (principal); E87.20 Acidosis, unspecified; E83.39 Other disorders of phosphorus metabolism; E83.42 Hypomagnesemia; E87.1 Hypo-osmolality and hyponatremia; E87.6 Hypokalemia; F41.1 Generalized anxiety disorder
CPT/HCPCS: 36415; 71045-TC-FY; 80048; 80053; 81003; 81015; 82010; 82803; 83690; 83735; 84100; 84703; 85025; 85027; 85610; 85730; 93005; 99285-25; J0131; J1644

== ENCOUNTER 2023-06-09 09:06 | Inpatient (IN) | payer OTHER ==
[2023-06-09 09:32] VITALS: BMI 21.7
[2023-06-09] MEDS ORDERED: BENZONATATE 200 MG CAPSULE PO PRN (10:04)
[2023-06-09] MEDS ORDERED: BISMUTH SUBSALICYLATE 524 MG/30 ML PO PRN (10:04)
[2023-06-09] MEDS ORDERED: DICYCLOMINE HCL 10 MG CAPSULE PO PRN (10:04)
[2023-06-09] MEDS ORDERED: POLYETHYLENE GLYCOL (HEALTHYLAX) 3350 17 GM PACKET PO PRN (10:04)
[2023-06-09] MEDS ORDERED: guaiFENesin 600 MG TABLET.ER (FP) PO PRN (10:04)
[2023-06-09] MEDS ORDERED: BENZOCAINE/MENTHOL (CHLORASEPTIC ) LOZENGE MM PRN (10:04)
[2023-06-09] MEDS ORDERED: LOPERAMIDE HCL 2 MG CAPSULE PO PRN (10:04)
[2023-06-09] MEDS ORDERED: MAG HYDROX/AL HYDROX/SIMETH 30 ML UNIT-DOSE CUP PO PRN (10:04)
[2023-06-09] MEDS ORDERED: ACETAMINOPHEN 325 MG TABLET (FP) PO PRN (10:04)
[2023-06-09] MEDS ORDERED: hydrOXYzine PAMOATE 25 MG CAPSULE (FP) PO PRN (10:04)
[2023-06-09] MEDS ORDERED: NICOTINE POLACRILEX 2 MG LOZENGE BC PRN (10:04)
[2023-06-09] MEDS ORDERED: MAGNESIUM HYDROX 2400MG/30ML ORAL SUSPENSION 30 ML CUP PO PRN (10:04)
[2023-06-09] MEDS: chlordiazePOXIDE HCL 25 MG CAPSULE PO PRN (10:26)
[2023-06-09] MEDS: levETIRAcetam 500 MG TABLET (FP) PO SCH (10:27)
[2023-06-09] MEDS: NICOTINE 7 MG/24 HOURS TOPICAL PATCH TD SCH (10:27)
[2023-06-09] MEDS ORDERED: NICOTINE 7 MG/24 HOURS TOPICAL PATCH TD ONE (10:32)
[2023-06-09] MEDS ORDERED: chlordiazePOXIDE HCL 25 MG CAPSULE ONE (10:32)
[2023-06-09] MEDS ORDERED: levETIRAcetam 500 MG TABLET (FP) PO ONE (10:32)
[2023-06-09] MEDS: chlordiazePOXIDE HCL 25 MG CAPSULE PO SCH (11:30)
[2023-06-09] MEDS: GABAPENTIN 100 MG CAPSULE PO SCH (13:24)
[2023-06-09] MEDS: IBUPROFEN 400 MG TABLET (FP) PO PRN (13:26)
[2023-06-09] MEDS: ONDANSETRON *ODT* 4 MG TABLET SL PRN (17:17)
[2023-06-09] MEDS: IBUPROFEN 600 MG TABLET (FP) PO PRN (19:34)
[2023-06-09] MEDS ORDERED: MELATONIN 5 MG TABLETS PO SCH (22:00)
[2023-06-09] MEDS: traZODone HCL 100 MG TABLET (FP) PO SCH (22:34)
[2023-06-09] MEDS: THIAMINE HCL 100 MG TABLET (FP) PO SCH (22:34)
[2023-06-10] MEDS: PRENATAL VITAMINS W/ FOLIC ACID TABLET (FP) PO SCH (10:11)
[2023-06-10 11:58] LABS: HEMATOCRIT 31.4 % (32.4-45.2); HEMOGLOBIN 10.1 GM/dL (10.7-15.3); MCHC 32.2 g/dl (32.0-36.0); MEAN CELL VOLUME 93.3 fl (80-96); MEAN PLT VOLUME 7.9 fl (7.5-11.1); PLATELET COUNT 196 10^3/uL (134-434); RBC 3.36 M/mm3 (3.60-5.2)
[2023-06-10 12:01] LABS: POTASSIUM 3.1 mmol/L (3.5-5.1)
[2023-06-10 12:09] LABS: ALBUMIN 3.4 g/dl (3.4-5.0); BLOOD UREA NITROGEN 8.6 mg/dL (7-18)
[2023-06-10 12:14] LABS: CREATININE 0.7 mg/dL (0.55-1.3)
[2023-06-10 12:16] LABS: BILIRUBIN,TOTAL 0.9 mg/dL (0.2-1); TOT PROT 6.9 g/dl (6.4-8.2)
[2023-06-10] MEDS: METHOCARBAMOL 500 MG TABLET PO PRN (13:22)
[2023-06-10] MEDS: POTASSIUM CHLORIDE ORAL LIQUID 20 MEQ/15 ML PO ONE (14:42)
[2023-06-10] MEDS: hydrOXYzine PAMOATE 25 MG CAPSULE (FP) PO PRN (16:32)
[2023-06-10] MEDS: NICOTINE POLACRILEX 2 MG GUM BUC PRN (16:36)
[2023-06-11] MEDS: chlordiazePOXIDE HCL 25 MG CAPSULE PO SCH (05:39)
[2023-06-11] MEDS: POTASSIUM CHLORIDE ORAL LIQUID 20 MEQ/15 ML PO SCH (11:22)
[2023-06-11 11:52] LABS: POTASSIUM 4.3 mmol/L (3.5-5.1)
[2023-06-11 12:14] LABS: CALCIUM 9.1 mg/dL (8.5-10.1)
[2023-06-11 12:17] LABS: CREATININE 0.6 mg/dL (0.55-1.3)
[2023-06-11] MEDS: LIDOCAINE 5% TOPICAL PATCH TP SCH (19:28)
[2023-06-11] MEDS: METHYL SALICYLATE/MENTHOL OINT 30 GM TUBE TP SCH (22:16)
[2023-06-11] MEDS: LIDOCAINE PATCH REMOVAL MC SCH (23:42)
[2023-06-12] MEDS: chlordiazePOXIDE HCL 10 MG CAPSULE PO SCH (05:36)
[2023-06-12] MEDS: chlordiazePOXIDE HCL 10 MG CAPSULE PO PRN (15:10)
[2023-06-12] MEDS: METHOCARBAMOL 500 MG TABLET PO PRN (22:49)
[2023-06-13] MEDS: chlordiazePOXIDE HCL 10 MG CAPSULE PO SCH (05:38)
[2023-06-14] MEDS: chlordiazePOXIDE HCL 10 MG CAPSULE PO ONE (05:45)
[2023-06-14 09:56] VITALS: BP 113/82; PULSE 102; RESP 16; TEMP 97.8
== END 2023-06-14 12:22 | disposition home or self-care (01) | DRG 775 ==
LOC: YASAS 09:06 → Y6N 10:12
PROVIDERS: ADMIT Allergy & Immunology; ATTEND Surgery
PROC: HZ2ZZZZ Detoxification Services for Substance Abuse Treatment (ICD-10-PCS; principal; 2023-06-09)
DX: F10.230 Alcohol dependence with withdrawal, uncomplicated (principal); F12.20 Cannabis dependence, uncomplicated; F17.210 Nicotine dependence, cigarettes, uncomplicated; F19.282 Other psychoactive substance dependence with psychoactive substance-induced sleep disorder; F19.24 Other psychoactive substance dependence with psychoactive substance-induced mood disorder; E87.6 Hypokalemia; G47.00 Insomnia, unspecified; K21.9 Gastro-esophageal reflux disease without esophagitis; Z87.19 Personal history of other diseases of the digestive system; Z86.59 Personal history of other mental and behavioral disorders; Z86.69 Personal history of other diseases of the nervous system and sense organs; Z62.810 Personal history of physical and sexual abuse in childhood; Z63.8 Other specified problems related to primary support group; Z91.410 Personal history of adult physical and sexual abuse; Z63.0 Problems in relationship with spouse or partner; Z88.0 Allergy status to penicillin
CPT/HCPCS: 36415; 80048; 80053; 80305; 81025; 83036; 84132; 85027; 86780; Q0162

== ENCOUNTER 2023-07-24 15:44 | Observation (INO) | payer OTHER ==
[2023-07-24 16:10] VITALS: BMI 22.8
[2023-07-24] MEDS ORDERED: diazePAM CARPU-JECT 10 MG/2 ML DISP.SYRIN ONE (16:20)
[2023-07-24] MEDS: diazePAM CARPU-JECT 10 MG/2 ML DISP.SYRIN IVPUSH ONE (16:35)
[2023-07-24 16:48] LABS: VENOUS BASE EXCESS -18.1 mmol/L (-2-2); VENOUS PCO2 28.7 mmHg (38-52)
[2023-07-24 16:50] LABS: BASO % 0.3 % (0-2.0); HEMATOCRIT 38.4 % (32.4-45.2); HEMOGLOBIN 12.5 GM/dL (10.7-15.3); LYMPH % 4.6 % (8-40); MCH 31.2 pg (25.7-33.7); MCHC 32.6 g/dl (32.0-36.0); MEAN CELL VOLUME 95.6 fl (80-96); MEAN PLT VOLUME 8.9 fl (7.5-11.1); MONO % 2.7 % (3.8-10.2); NEUT % 92.4 % (42.8-82.8); PLATELET COUNT 265 10^3/uL (134-434); RBC 4.02 M/mm3 (3.60-5.2); RDW 16.1 % (11.6-15.6)
[2023-07-24 16:54] LABS: VENOUS PH 7.139 (7.310-7.410)
[2023-07-24] MEDS ORDERED: FAMOTIDINE 20 MG/50 ML IVPB 20 MG/50 ML MG IVPB ONE (16:55)
[2023-07-24] MEDS ORDERED: ACETAMINOPHEN INJECTION 100 ML IVPB ONE (17:02)
[2023-07-24] MEDS ORDERED: ONDANSETRON 4 MG/2 ML VIAL ONE (17:10)
[2023-07-24] MEDS ORDERED: PANTOPRAZOLE SODIUM 40 MG VIAL ONE ×2 (17:10→18:34)
[2023-07-24 17:13] LABS: POTASSIUM 4.6 mmol/L (3.5-5.1)
[2023-07-24 17:15] LABS: CALCIUM 9.2 mg/dL (8.5-10.1)
[2023-07-24 17:16] LABS: ALBUMIN 4.6 g/dl (3.4-5.0); MAGNESIUM 1.6 mg/dL (1.8-2.4)
[2023-07-24 17:18] LABS: ANISOCYTOSIS 1+; MACROCYTOSIS 0; TEAR DROP CELLS 1+
[2023-07-24 17:19] LABS: CREATININE 0.7 mg/dL (0.55-1.3)
[2023-07-24 17:20] LABS: BILIRUBIN,TOTAL 0.4 mg/dL (0.2-1); TOT PROT 9.1 g/dl (6.4-8.2)
[2023-07-24 17:31] LABS: LACTIC ACID 4.2 mmol/L (0.4-2.0)
[2023-07-24] MEDS: FAMOTIDINE 20 MG/50 ML IVPB 20 MG/50 ML MG IVPB ONE (17:32)
[2023-07-24] MEDS: ONDANSETRON 4 MG/2 ML VIAL IVPUSH ONE (17:32)
[2023-07-24] MEDS: LACTATED RINGERS SOLUTION 1000 ML INFUS.BAG IV ONE ×2 (17:32→18:40)
[2023-07-24] MEDS: ACETAMINOPHEN 1000 MG/100 ML BAG IVPB ONE (17:32)
[2023-07-24] MEDS ORDERED: MAGNESIUM SULFATE IN WATER 2 GM/50 ML IVPB IVPB ONE (18:33)
[2023-07-24] MEDS: PANTOPRAZOLE SODIUM 40 MG VIAL IVPUSH ONE (18:34)
[2023-07-24] MEDS: MAGNESIUM SULF 50% (8.12 MEQ/2 ML-1 GM VIAL) IVPB ONE (18:40)
[2023-07-24] MEDS ORDERED: ONDANSETRON 4 MG/2 ML VIAL IVPUSH PRN (19:00)
[2023-07-24] MEDS ORDERED: chlordiazePOXIDE HCL 25 MG CAPSULE PO PRN (19:02)
[2023-07-24 19:20] LABS: LACTIC ACID 4.3 mmol/L (0.4-2.0)
[2023-07-24] MEDS ORDERED: chlordiazePOXIDE HCL 25 MG CAPSULE ONE (19:30)
[2023-07-24] MEDS ORDERED: THIAMINE 100 MG TABLET ONE (19:31)
[2023-07-24] MEDS ORDERED: FOLIC ACID 1 MG TABLET (FP) ONE (19:31)
[2023-07-24] MEDS: LACTATED RINGERS SOLUTION 1,000 ML/1,000 ML INFUS.BAG IV SCH (19:40)
[2023-07-24] MEDS: THIAMINE 100 MG TABLET PO SCH (19:40)
[2023-07-24] MEDS: FOLIC ACID 1 MG TABLET (FP) PO SCH (19:40)
[2023-07-24] MEDS: chlordiazePOXIDE HCL 25 MG CAPSULE PO SCH (19:40)
[2023-07-24 20:09] VITALS: RESP 18
[2023-07-24] MEDS: ACETAMINOPHEN 325 MG TABLET (FP) PO PRN (21:18)
[2023-07-24] MEDS: GABAPENTIN 100 MG CAPSULE PO SCH (21:18)
[2023-07-24] MEDS: levETIRAcetam 500 MG TABLET (FP) PO SCH (21:19)
[2023-07-24] MEDS: FOLIC ACID INJECTION - 1 MG, THIAMINE HCL 100 MG, MULTIVIT INJECTION ADULT 10 ML in SOD... IVPB ONE (21:19)
[2023-07-24 22:02] LABS: LACTIC ACID 2.2 mmol/L (0.4-2.0)
[2023-07-25] MEDS: hydrOXYzine PAMOATE 25 MG CAPSULE (FP) PO PRN (01:55)
[2023-07-25] MEDS: ENOXAPARIN NA (PORCINE) 40 MG/0.4 ML DISP.SYRIN SQ SCH (09:30)
[2023-07-25 09:37] LABS: BASO % 0.5 % (0-2.0); HEMATOCRIT 37.6 % (32.4-45.2); HEMOGLOBIN 12.1 GM/dL (10.7-15.3); LYMPH % 19.4 % (8-40); MCH 30.9 pg (25.7-33.7); MCHC 32.2 g/dl (32.0-36.0); MEAN CELL VOLUME 96.2 fl (80-96); MEAN PLT VOLUME 8.3 fl (7.5-11.1); MONO % 7.1 % (3.8-10.2); PLATELET COUNT 193 10^3/uL (134-434); RBC 3.91 M/mm3 (3.60-5.2); RDW 15.4 % (11.6-15.6); WHITE BLOOD COUNT 6.8 K/mm3 (4.0-10.0)
[2023-07-25 09:55] LABS: POTASSIUM 3.7 mmol/L (3.5-5.1)
[2023-07-25 10:03] LABS: CALCIUM 9.3 mg/dL (8.5-10.1)
[2023-07-25 10:04] LABS: ALBUMIN 4.3 g/dl (3.4-5.0); BLOOD UREA NITROGEN 3.9 mg/dL (7-18)
[2023-07-25 10:07] LABS: CREATININE 0.7 mg/dL (0.55-1.3); PHOSPHOROUS 1.8 mg/dL (2.5-4.9)
[2023-07-25 10:08] LABS: BILIRUBIN,TOTAL 1.2 mg/dL (0.2-1); TOT PROT 8.2 g/dl (6.4-8.2)
[2023-07-25] MEDS: diazePAM CARPU-JECT 10 MG/2 ML DISP.SYRIN IVPUSH PRN (11:06)
[2023-07-25] MEDS: chlordiazePOXIDE HCL 25 MG CAPSULE PO SCH (13:28)
[2023-07-25] MEDS: NICOTINE 21 MG/24 HOURS TOPICAL PATCH TD SCH (17:02)
[2023-07-25 22:40] LABS: EPI CELLS 6 /uL (0-25.1); HYALINE CASTS 1 /uL (0-3.1); URINE APPEARANCE CLEAR; URINE BACTERIA 588 /uL (0-1359); URINE BILIRUBIN NEGATIVE (NEGATIVE); URINE COLOR YELLOW; URINE GLUCOSE (UA) NEGATIVE (NEGATIVE); URINE KETONE NEGATIVE (NEGATIVE); URINE LEUK ESTERASE 3+ (NEGATIVE); URINE NITRITE NEGATIVE (NEGATIVE); URINE PROTEIN NEGATIVE (NEGATIVE); URINE UROBILINOGEN 0.2 mg/dL (0.2-1.0); URINE WBC 261 /uL (0-25.8)
[2023-07-25 23:08] LABS: URINE RBC 21.3 /uL (0-23.9)
[2023-07-25] MEDS: traZODone HCL 100 MG TABLET (FP) PO PRN (23:25)
[2023-07-26 06:28] VITALS: BP 105/72; PULSE 96; TEMP 98.4
[2023-07-26 09:11] LABS: HEMATOCRIT 33.1 % (32.4-45.2); HEMOGLOBIN 11.2 GM/dL (10.7-15.3); MCH 31.4 pg (25.7-33.7); MCHC 33.8 g/dl (32.0-36.0); MEAN PLT VOLUME 8.3 fl (7.5-11.1); PLATELET COUNT 158 10^3/uL (134-434); RBC 3.56 M/mm3 (3.60-5.2); RDW 15.7 % (11.6-15.6); WHITE BLOOD COUNT 5.8 K/mm3 (4.0-10.0)
[2023-07-26 09:30] LABS: POTASSIUM 3.3 mmol/L (3.5-5.1)
[2023-07-26 09:35] LABS: BLOOD UREA NITROGEN 5.8 mg/dL (7-18); CALCIUM 9.4 mg/dL (8.5-10.1); MAGNESIUM 1.7 mg/dL (1.8-2.4)
[2023-07-26 09:38] LABS: CREATININE 0.5 mg/dL (0.55-1.3); PHOSPHOROUS 2.4 mg/dL (2.5-4.9)
[2023-07-26] MEDS: NAPH,MB-DB/K PH,MBDB POWDER PACKET PO ONE (09:40)
[2023-07-26] MEDS: chlordiazePOXIDE HCL 25 MG CAPSULE PO SCH (13:58)
== END 2023-07-26 15:20 | disposition home or self-care (01) ==
LOC: JER 15:44 → JERBED 17:37 → J5S 20:18
PROVIDERS: ADMIT Internal Medicine; ATTEND Internal Medicine
PROC: 3E033NZ Introduction of Analgesics, Hypnotics, Sedatives into Peripheral Vein, Percutaneous Approach (ICD-10-PCS; principal; 2023-07-24)
PROC: 3E023GC Introduction of Other Therapeutic Substance into Muscle, Percutaneous Approach (ICD-10-PCS; 2023-07-24)
PROC: 3E033GC Introduction of Other Therapeutic Substance into Peripheral Vein, Percutaneous Approach (ICD-10-PCS; 2023-07-24)
PROC: 3E0337Z Introduction of Electrolytic and Water Balance Substance into Peripheral Vein, Percutaneous Approach (ICD-10-PCS; 2023-07-24)
DX: F10.939 Alcohol use, unspecified with withdrawal, unspecified (principal); F10.929 Alcohol use, unspecified with intoxication, unspecified; E87.29 Other acidosis; F41.9 Anxiety disorder, unspecified; K92.0 Hematemesis; K29.70 Gastritis, unspecified, without bleeding; R06.89 Other abnormalities of breathing; F17.210 Nicotine dependence, cigarettes, uncomplicated; Z88.8 Allergy status to other drugs, medicaments and biological substances; Z91.018 Allergy to other foods
CPT/HCPCS: 36415; 71045-TC-FY; 80048; 80053; 81003; 82010; 82803; 83605; 83690; 83735; 84100; 84703; 85025; 85027; 85730; 87086; 93005; 93010; 96361; 96365; 96367; 96372; 96375; 96376; 99285-25; G0378; J0131

== ENCOUNTER 2023-08-19 21:54 | Inpatient (IN) | payer OTHER ==
[2023-08-19] MEDS ORDERED: chlordiazePOXIDE HCL 25 MG CAPSULE ONE (23:18)
[2023-08-19] MEDS: chlordiazePOXIDE HCL 25 MG CAPSULE PO ONE (23:21)
[2023-08-19] MEDS: SODIUM CHLORIDE 0.9% 500 ML INFUS.BAG IV ONE (23:49)
[2023-08-19 23:54] LABS: VENOUS BASE EXCESS -5.3 mmol/L (-2-2); VENOUS O2 SATURATION 22.9 % (70-80); VENOUS PCO2 48.3 mmHg (38-52); VENOUS PH 7.271 (7.310-7.410)
[2023-08-19 23:55] LABS: BASO % 0.8 % (0-2.0); EOS % 1.8 % (0-4.5); HEMATOCRIT 39.5 % (32.4-45.2); HEMOGLOBIN 13.3 GM/dL (10.7-15.3); MCHC 33.6 g/dl (32.0-36.0); MEAN CELL VOLUME 92.4 fl (80-96); MEAN PLT VOLUME 7.2 fl (7.5-11.1); NEUT % 75.4 % (42.8-82.8); PLATELET COUNT 278 10^3/uL (134-434); RBC 4.27 M/mm3 (3.60-5.2); RDW 16.2 % (11.6-15.6); WHITE BLOOD COUNT 5.4 K/mm3 (4.0-10.0)
[2023-08-20 00:20] LABS: CHLORIDE 102 mmol/L (98-107); SODIUM 139 mmol/L (136-145)
[2023-08-20 00:23] LABS: ALBUMIN 4.3 g/dl (3.4-5.0); BLOOD UREA NITROGEN 8.3 mg/dL (7-18); CALCIUM 8.8 mg/dL (8.5-10.1); CO2 20 mmol/L (21-32); GLUCOSE,RANDOM 64 mg/dL (74-106); MAGNESIUM 2.2 mg/dL (1.8-2.4)
[2023-08-20 00:26] LABS: CREATININE 0.7 mg/dL (0.55-1.3); SGOT/AST 74 U/L (15-37); SGPT/ALT 18 U/L (13-61)
[2023-08-20 00:27] LABS: TOT PROT 9.8 g/dl (6.4-8.2)
[2023-08-20 00:28] LABS: BILIRUBIN,TOTAL 0.4 mg/dL (0.2-1)
[2023-08-20 00:29] LABS: ALK PHOS 125 U/L (45-117)
[2023-08-20 01:06] LABS: LACTIC ACID 3.2 mmol/L (0.4-2.0)
[2023-08-20] MEDS: LACTATED RINGERS SOLUTION 1000 ML INFUS.BAG IV ONE (02:57)
[2023-08-20 03:17] LABS: ANION GAP 16 mmol/L (4-13); POTASSIUM 6.5 mmol/L (3.5-5.1)
[2023-08-20 05:19] LABS: LACTIC ACID 3.3 mmol/L (0.4-2.0)
[2023-08-20] MEDS ORDERED: THIAMINE HCL 200 MG/2 ML VIAL ONE (05:43)
[2023-08-20] MEDS: THIAMINE HCL 200 MG/2 ML VIAL IVPB ONE (05:47)
[2023-08-20] MEDS: LACTATED RINGERS SOLUTION 1,000 ML/1,000 ML INFUS.BAG IV STA (05:50)
[2023-08-20] MEDS ORDERED: chlordiazePOXIDE HCL 25 MG CAPSULE ONE (06:04)
[2023-08-20] MEDS: chlordiazePOXIDE HCL 25 MG CAPSULE PO SCH (06:13)
[2023-08-20] MEDS ORDERED: LACTATED RINGERS SOLUTION 1,000 ML/1,000 ML INFUS.BAG IV SCH (06:15)
[2023-08-20] MEDS ORDERED: MAGNESIUM SULFATE IN WATER 2 GM/50 ML IVPB IVPB ONE (07:47)
[2023-08-20] MEDS: MAGNESIUM SULF 50% (8.12 MEQ/2 ML-1 GM VIAL) IVPB ONE (07:50)
[2023-08-20 07:52] LABS: EPI CELLS 21 /uL (0-25.1); HYALINE CASTS 0 /uL (0-3.1); PH,URINE 6.5 (5.0-8.0); URINE APPEARANCE CLEAR; URINE BACTERIA 480 /uL (0-1359); URINE BILIRUBIN NEGATIVE (NEGATIVE); URINE COLOR YELLOW; URINE GLUCOSE (UA) NEGATIVE (NEGATIVE); URINE KETONE 1+ (NEGATIVE); URINE LEUK ESTERASE 1+ (NEGATIVE); URINE NITRITE NEGATIVE (NEGATIVE); URINE PROTEIN NEGATIVE (NEGATIVE); URINE RBC 8 /uL (0-23.9); URINE UROBILINOGEN 0.2 mg/dL (0.2-1.0); URINE WBC 123 /uL (0-25.8)
[2023-08-20] MEDS: INSULIN ASPART SLIDING SCALE (NOVOLOG) 1 VIAL SQ SCH (07:56)
[2023-08-20] MEDS: LACTATED RINGERS SOLUTION 1,000 ML/1,000 ML INFUS.BAG IV SCH ×2 (08:00→15:52)
[2023-08-20 08:19] LABS: HEMATOCRIT 31.2 % (32.4-45.2); HEMOGLOBIN 10.6 GM/dL (10.7-15.3); MCH 31.4 pg (25.7-33.7); MEAN CELL VOLUME 92.4 fl (80-96); PLATELET COUNT 211 10^3/uL (134-434); RBC 3.37 M/mm3 (3.60-5.2); RDW 15.8 % (11.6-15.6); WHITE BLOOD COUNT 4.5 K/mm3 (4.0-10.0)
[2023-08-20 08:38] LABS: BLOOD UREA NITROGEN 5.7 mg/dL (7-18); CALCIUM 8.1 mg/dL (8.5-10.1); MAGNESIUM 1.6 mg/dL (1.8-2.4)
[2023-08-20 08:39] LABS: ALBUMIN 3.6 g/dl (3.4-5.0)
[2023-08-20 08:42] LABS: CREATININE 0.5 mg/dL (0.55-1.3)
[2023-08-20 08:43] LABS: BILIRUBIN,TOTAL 0.7 mg/dL (0.2-1)
[2023-08-20 09:01] LABS: TOT PROT 7.4 g/dl (6.4-8.2)
[2023-08-20] MEDS: THIAMINE 100 MG TABLET PO SCH (10:39)
[2023-08-20] MEDS: ENOXAPARIN NA (PORCINE) 40 MG/0.4 ML DISP.SYRIN SQ SCH (10:40)
[2023-08-20] MEDS: FOLIC ACID 1 MG TABLET (FP) PO SCH (10:40)
[2023-08-20 11:01] VITALS: BMI 22.4
[2023-08-20] MEDS: chlordiazePOXIDE HCL 25 MG CAPSULE PO PRN (15:49)
[2023-08-21] MEDS: chlordiazePOXIDE HCL 25 MG CAPSULE PO SCH (05:02)
[2023-08-21 09:01] LABS: BASO % 1.2 % (0-2.0); EOS % 2.8 % (0-4.5); HEMATOCRIT 35.8 % (32.4-45.2); HEMOGLOBIN 12.1 GM/dL (10.7-15.3); MCH 31.4 pg (25.7-33.7); MCHC 33.7 g/dl (32.0-36.0); MEAN CELL VOLUME 92.9 fl (80-96); MEAN PLT VOLUME 7.5 fl (7.5-11.1); MONO % 13.9 % (3.8-10.2); NEUT % 57.1 % (42.8-82.8); PLATELET COUNT 189 10^3/uL (134-434); RBC 3.85 M/mm3 (3.60-5.2); RDW 15.6 % (11.6-15.6); RETICULOCYTES 1.28 % (0.5-1.5); WHITE BLOOD COUNT 3.5 K/mm3 (4.0-10.0)
[2023-08-21 09:17] LABS: POTASSIUM 3.8 mmol/L (3.5-5.1)
[2023-08-21 09:20] LABS: ALBUMIN 3.5 g/dl (3.4-5.0); CALCIUM 9.3 mg/dL (8.5-10.1)
[2023-08-21 09:21] LABS: BLOOD UREA NITROGEN 4.1 mg/dL (7-18)
[2023-08-21 09:23] LABS: CREATININE 0.5 mg/dL (0.55-1.3)
[2023-08-21 09:25] LABS: BILIRUBIN,TOTAL 1.1 mg/dL (0.2-1); TOT PROT 7.7 g/dl (6.4-8.2)
[2023-08-21] MEDS: DEXTROSE 5%-0.45% SALINE 1,000 ML IV SCH (10:38)
[2023-08-21] MEDS ORDERED: hydrOXYzine PAMOATE 25 MG CAPSULE (FP) PO PRN (11:58)
[2023-08-21] MEDS ORDERED: traZODone HCL 50 MG TABLET (FP) PO PRN (11:58)
[2023-08-21] MEDS ORDERED: GABAPENTIN 400 MG CAPSULE PO SCH (14:00)
[2023-08-21 15:07] VITALS: BP 123/73; PULSE 79; RESP 16; TEMP 96.4
[2023-08-22] MEDS ORDERED: chlordiazePOXIDE HCL 10 MG CAPSULE PO PRN
[2023-08-22] MEDS ORDERED: chlordiazePOXIDE HCL 10 MG CAPSULE PO SCH (05:00)
[2023-08-23] MEDS ORDERED: chlordiazePOXIDE HCL 10 MG CAPSULE PO SCH (05:00)
[2023-08-24] MEDS ORDERED: chlordiazePOXIDE HCL 10 MG CAPSULE PO ONE (05:00)
== END 2023-08-20 08:23 | disposition home or self-care (01) | DRG 775 ==
LOC: JER 21:54 → JERBED 21:55 → UNDOADMOB 08-20 05:34 → INTOOBSV 08-20 05:34 → J5S 08-20 08:40 → JERBED 08-20 08:40 → UNDODISOB 08-21 15:00
PROVIDERS: ADMIT Internal Medicine; ATTEND Internal Medicine
PROC: HZ2ZZZZ Detoxification Services for Substance Abuse Treatment (ICD-10-PCS; principal; 2023-08-19)
DX: F10.229 Alcohol dependence with intoxication, unspecified (principal); E87.29 Other acidosis; F10.239 Alcohol dependence with withdrawal, unspecified; F43.10 Post-traumatic stress disorder, unspecified; K44.9 Diaphragmatic hernia without obstruction or gangrene; G47.00 Insomnia, unspecified; R80.9 Proteinuria, unspecified; I42.8 Other cardiomyopathies; E86.0 Dehydration; F41.8 Other specified anxiety disorders; K21.00 Gastro-esophageal reflux disease with esophagitis, without bleeding; K76.0 Fatty (change of) liver, not elsewhere classified; F17.200 Nicotine dependence, unspecified, uncomplicated; Y90.8 Blood alcohol level of 240 mg/100 ml or more
CPT/HCPCS: 36415; 80053; 80307; 81003; 82010; 82728; 82803; 82962; 83540; 83550; 83605; 83615; 83690; 83735; 84132; 84703; 85025; 85027; 85045; 87086; 93005; 93010; 99285-25; G0378

== ENCOUNTER 2023-12-08 09:50 | Inpatient (IN) | payer OTHER ==
[2023-12-08 10:04] VITALS: BMI 21.9
[2023-12-08] MEDS ORDERED: ONDANSETRON 4 MG/2 ML VIAL ONE (11:29)
[2023-12-08] MEDS ORDERED: diazePAM CARPU-JECT 10 MG/2 ML DISP.SYRIN ONE (11:29)
[2023-12-08] MEDS ORDERED: ACETAMINOPHEN INJECTION 100 ML ONE ×2 (11:29→20:53)
[2023-12-08] MEDS: diazePAM CARPU-JECT 10 MG/2 ML DISP.SYRIN IVPUSH ONE (11:42)
[2023-12-08] MEDS: ONDANSETRON 4 MG/2 ML VIAL IVPB ONE (11:42)
[2023-12-08] MEDS: ACETAMINOPHEN 1000 MG/100 ML BAG IVPB ONE ×2 (11:42→21:00)
[2023-12-08] MEDS: LACTATED RINGERS SOLUTION 1000 ML INFUS.BAG IV ONE (11:42)
[2023-12-08 11:43] LABS: VENOUS BASE EXCESS -16.6 mmol/L (-2-2); VENOUS O2 SATURATION 74.3 % (70-80); VENOUS PCO2 29.1 mmHg (38-52)
[2023-12-08 11:45] LABS: VENOUS PH 7.172 (7.310-7.410)
[2023-12-08 11:47] LABS: BASO % 0.5 % (0-2.0); HEMATOCRIT 37.6 % (32.4-45.2); HEMOGLOBIN 12.1 GM/dL (10.7-15.3); LYMPH % 3.9 % (8-40); MCH 28.5 pg (25.7-33.7); MCHC 32.1 g/dl (32.0-36.0); MEAN CELL VOLUME 88.8 fl (80-96); MEAN PLT VOLUME 7.6 fl (7.5-11.1); MONO % 5.3 % (3.8-10.2); NEUT % 90.3 % (42.8-82.8); PLATELET COUNT 396 10^3/uL (134-434); RBC 4.24 M/mm3 (3.60-5.2); RDW 19.4 % (11.6-15.6); WHITE BLOOD COUNT 13.3 K/mm3 (4.0-10.0)
[2023-12-08 12:16] LABS: POTASSIUM 4.5 mmol/L (3.5-5.1)
[2023-12-08 12:19] LABS: CALCIUM 10.2 mg/dL (8.5-10.1); MAGNESIUM 1.8 mg/dL (1.8-2.4)
[2023-12-08 12:20] LABS: ALBUMIN 4.8 g/dl (3.4-5.0); BLOOD UREA NITROGEN 7.6 mg/dL (7-18)
[2023-12-08 12:22] LABS: CREATININE 0.7 mg/dL (0.55-1.3)
[2023-12-08 12:23] LABS: PHOSPHOROUS 5.4 mg/dL (2.5-4.9); TOT PROT 9.4 g/dl (6.4-8.2)
[2023-12-08 12:25] LABS: BILIRUBIN,TOTAL 0.7 mg/dL (0.2-1)
[2023-12-08] MEDS ORDERED: THIAMINE HCL 200 MG/2 ML VIAL ONE (13:09)
[2023-12-08 13:13] LABS: HIV INTERPRETATION NEGATIVE (NEGATIVE)
[2023-12-08] MEDS: THIAMINE HCL 200 MG/2 ML VIAL IVPB ONE (13:13)
[2023-12-08] MEDS: DEXTROSE 5%-NORMAL SALINE 1,000 ML IV ONE (13:14)
[2023-12-08] MEDS: DEXTROSE 5%-NORMAL SALINE 500 ML IV ONE (13:14)
[2023-12-08] MEDS ORDERED: hydrOXYzine PAMOATE 50 MG CAPSULE (FP) PO PRN (13:51)
[2023-12-08] MEDS ORDERED: ONDANSETRON 4 MG/2 ML VIAL IVPUSH PRN (13:53)
[2023-12-08] MEDS ORDERED: chlordiazePOXIDE HCL 25 MG CAPSULE ONE ×2 (15:40→22:06)
[2023-12-08] MEDS ORDERED: GABAPENTIN 400 MG CAPSULE ONE ×2 (15:40→22:07)
[2023-12-08] MEDS ORDERED: NICOTINE 14 MG/24 HOURS TOPICAL PATCH TD ONE (15:40)
[2023-12-08] MEDS: NICOTINE 14 MG/24 HOURS TOPICAL PATCH TD SCH (15:45)
[2023-12-08] MEDS: chlordiazePOXIDE HCL 25 MG CAPSULE PO SCH (15:45)
[2023-12-08] MEDS: GABAPENTIN 400 MG CAPSULE PO SCH (15:45)
[2023-12-08 15:59] LABS: EPI CELLS 12 /uL (0-25.1); HYALINE CASTS 0 /uL (0-3.1); PH,URINE 5.5 (5.0-8.0); URINE APPEARANCE CLEAR; URINE BACTERIA 397 /uL (0-1359); URINE BILIRUBIN NEGATIVE (NEGATIVE); URINE COLOR YELLOW; URINE GLUCOSE (UA) TRACE (NEGATIVE); URINE KETONE 4+ (NEGATIVE); URINE LEUK ESTERASE NEGATIVE (NEGATIVE); URINE NITRITE NEGATIVE (NEGATIVE); URINE PROTEIN 1+ (NEGATIVE); URINE RBC 12 /uL (0-23.9); URINE UROBILINOGEN 0.2 mg/dL (0.2-1.0); URINE WBC 4 /uL (0-25.8)
[2023-12-08] MEDS: LACTATED RINGERS SOLUTION 1,000 ML/1,000 ML INFUS.BAG IV SCH (17:56)
[2023-12-08] MEDS ORDERED: FAMOTIDINE 20 MG TABLET ONE (17:58)
[2023-12-08] MEDS: FAMOTIDINE 20 MG TABLET PO SCH (18:14)
[2023-12-08] MEDS ORDERED: MAG HYDROX/AL HYDROX/SIMETH 30 ML UNIT-DOSE CUP ONE (20:20)
[2023-12-08] MEDS ORDERED: traZODone HCL 100 MG TABLET (FP) ONE (22:07)
[2023-12-08] MEDS ORDERED: THIAMINE 100 MG TABLET ONE (22:07)
[2023-12-08] MEDS ORDERED: traZODone HCL 50 MG TABLET (FP) ONE (22:07)
[2023-12-08] MEDS ORDERED: HEPARIN NA (PORCINE) 5,000 UNITS/ML 1ML VIAL ONE (22:08)
[2023-12-08] MEDS: traZODone HCL 50 MG TABLET (FP) PO SCH (22:15)
[2023-12-08] MEDS: HEPARIN NA (PORCINE) 5,000 UNITS/ML 1ML VIAL SQ SCH (22:15)
[2023-12-08] MEDS: THIAMINE 100 MG TABLET PO SCH (22:15)
[2023-12-09] MEDS ORDERED: chlordiazePOXIDE HCL 25 MG CAPSULE ONE ×2 (06:06→14:01)
[2023-12-09] MEDS ORDERED: GABAPENTIN 400 MG CAPSULE ONE ×2 (06:07→14:02)
[2023-12-09] MEDS ORDERED: MAG HYDROX/AL HYDROX/SIMETH 30 ML UNIT-DOSE CUP ONE (06:11)
[2023-12-09] MEDS: MAG HYDROX/AL HYDROX/SIMETH 30 ML UNIT-DOSE CUP PO PRN (06:13)
[2023-12-09 09:10] LABS: POTASSIUM 3.6 mmol/L (3.5-5.1)
[2023-12-09] MEDS ORDERED: HEPARIN NA (PORCINE) 5,000 UNITS/ML 1ML VIAL ONE (09:15)
[2023-12-09 09:17] LABS: BLOOD UREA NITROGEN 5.2 mg/dL (7-18); CALCIUM 9.9 mg/dL (8.5-10.1)
[2023-12-09 09:21] LABS: CREATININE 0.6 mg/dL (0.55-1.3)
[2023-12-09 09:30] LABS: BASO % 1.1 % (0-2.0); EOS % 0.1 % (0-4.5); HEMOGLOBIN 10.1 GM/dL (10.7-15.3); LYMPH % 20.2 % (8-40); MCH 29.1 pg (25.7-33.7); MCHC 32.5 g/dl (32.0-36.0); MEAN CELL VOLUME 89.7 fl (80-96); MONO % 12.2 % (3.8-10.2); NEUT % 66.4 % (42.8-82.8); RBC 3.46 M/mm3 (3.60-5.2); RDW 18.7 % (11.6-15.6); WHITE BLOOD COUNT 6.9 K/mm3 (4.0-10.0)
[2023-12-09] MEDS ORDERED: NICOTINE 14 MG/24 HOURS TOPICAL PATCH TD SCH (11:06)
[2023-12-09 12:07] VITALS: TEMP 98.7
[2023-12-09] MEDS: SUCRALFATE 1 GM/10 ML UNIT DOSE CUPS PO SCH (14:07)
[2023-12-09] MEDS: LACTATED RINGERS SOLUTION 1,000 ML/1,000 ML INFUS.BAG IV SCH (14:18)
[2023-12-09 16:19] VITALS: BP 128/72; PULSE 84; RESP 18
== END 2023-12-09 16:20 | disposition home or self-care (01) | DRG 775 ==
LOC: JER 09:50 → JERBED 13:34
PROVIDERS: ADMIT Internal Medicine; ATTEND Internal Medicine
DX: F10.239 Alcohol dependence with withdrawal, unspecified (principal); K92.0 Hematemesis; E87.20 Acidosis, unspecified; E86.0 Dehydration; F12.90 Cannabis use, unspecified, uncomplicated; K29.70 Gastritis, unspecified, without bleeding; R25.1 Tremor, unspecified; F17.210 Nicotine dependence, cigarettes, uncomplicated; K44.9 Diaphragmatic hernia without obstruction or gangrene; K76.0 Fatty (change of) liver, not elsewhere classified; F41.8 Other specified anxiety disorders
CPT/HCPCS: 36415; 71045-TC-FY; 80048; 80053; 80307; 81003; 82010; 82803; 83690; 83735; 84100; 84703; 85025; 86803; 87086; 87389; 93005; 93010; 99285-25; J0131; J1644

== ENCOUNTER 2024-01-07 11:17 | Emergency (ER) | payer OTHER ==
[2024-01-07] MEDS ORDERED: chlordiazePOXIDE HCL 10 MG CAPSULE ONE (12:25)
[2024-01-07] MEDS ORDERED: MAG HYDROX/AL HYDROX/SIMETH 30 ML UNIT-DOSE CUP ONE (12:25)
[2024-01-07] MEDS ORDERED: FAMOTIDINE 10 MG TABLET ONE (12:25)
[2024-01-07] MEDS: chlordiazePOXIDE HCL 10 MG CAPSULE PO ONE (12:30)
[2024-01-07] MEDS: MAG HYDROX/AL HYDROX/SIMETH 30 ML UNIT-DOSE CUP PO ONE (12:30)
[2024-01-07] MEDS: FAMOTIDINE 10 MG TABLET PO ONE (12:30)
[2024-01-07 12:54] LABS: EOS % 0.5 % (0-4.5); HEMATOCRIT 35.1 % (32.4-45.2); HEMOGLOBIN 11.4 GM/dL (10.7-15.3); LYMPH % 27.4 % (8-40); MCH 28.7 pg (25.7-33.7); MCHC 32.6 g/dl (32.0-36.0); MEAN CELL VOLUME 88.1 fl (80-96); MEAN PLT VOLUME 8.3 fl (7.5-11.1); MONO % 5.1 % (3.8-10.2); PLATELET COUNT 229 10^3/uL (134-434); RBC 3.99 M/mm3 (3.60-5.2); RDW 17.8 % (11.6-15.6); WHITE BLOOD COUNT 5.6 K/mm3 (4.0-10.0)
[2024-01-07 12:59] LABS: EPI CELLS 14 /uL (0-25.1); HYALINE CASTS 0 /uL (0-3.1); PH,URINE 6.5 (5.0-8.0); URINE APPEARANCE CLEAR; URINE BACTERIA 199 /uL (0-1359); URINE BILIRUBIN NEGATIVE (NEGATIVE); URINE COLOR YELLOW; URINE GLUCOSE (UA) NEGATIVE (NEGATIVE); URINE KETONE NEGATIVE (NEGATIVE); URINE LEUK ESTERASE 2+ (NEGATIVE); URINE NITRITE NEGATIVE (NEGATIVE); URINE PROTEIN NEGATIVE (NEGATIVE); URINE RBC 10 /uL (0-23.9); URINE UROBILINOGEN 0.2 mg/dL (0.2-1.0); URINE WBC 30 /uL (0-25.8)
[2024-01-07 13:00] LABS: HCG,QUALITATIVE URINE Negative
[2024-01-07 13:11] LABS: POTASSIUM 4.1 mmol/L (3.5-5.1)
[2024-01-07 13:16] LABS: CALCIUM 8.8 mg/dL (8.5-10.1)
[2024-01-07 13:17] LABS: ALBUMIN 4.1 g/dl (3.4-5.0); BLOOD UREA NITROGEN 6.2 mg/dL (7-18); MAGNESIUM 1.9 mg/dL (1.8-2.4)
[2024-01-07 13:20] LABS: BILIRUBIN,TOTAL 0.2 mg/dL (0.2-1); CREATININE 0.6 mg/dL (0.55-1.3)
[2024-01-07 13:21] LABS: TOT PROT 7.7 g/dl (6.4-8.2)
[2024-01-07 13:28] VITALS: BP 129/79; PULSE 99; RESP 16; TEMP 98.1; BMI 21.9
== END 2024-01-07 16:04 | disposition left against medical advice (07) ==
LOC: JER 11:17
DX: R10.31 Right lower quadrant pain (principal); F10.239 Alcohol dependence with withdrawal, unspecified
CPT/HCPCS: 36415; 76830-TC; 80053; 81003; 83735; 84703; 85025; 87086; 87491; 87591; 93005; 93010; 99285-25

== ENCOUNTER 2024-02-18 15:56 | Inpatient (IN) | payer OTHER ==
[2024-02-18] MEDS ORDERED: diazePAM CARPU-JECT 10 MG/2 ML DISP.SYRIN IVPUSH ONE (16:20)
[2024-02-18] MEDS ORDERED: chlordiazePOXIDE HCL 25 MG CAPSULE ONE (16:50)
[2024-02-18] MEDS ORDERED: FAMOTIDINE 20 MG/50 ML IVPB 20 MG/50 ML MG IVPB ONE (16:50)
[2024-02-18] MEDS ORDERED: ONDANSETRON 4 MG/2 ML VIAL ONE (16:50)
[2024-02-18] MEDS: chlordiazePOXIDE HCL 25 MG CAPSULE PO ONE (17:13)
[2024-02-18] MEDS: SODIUM CHLORIDE 0.9% 500 ML INFUS.BAG IV ONE (17:43)
[2024-02-18] MEDS: ONDANSETRON 4 MG/2 ML VIAL IVPUSH ONE (17:44)
[2024-02-18] MEDS: FAMOTIDINE 20 MG/50 ML IVPB 20 MG/50 ML MG IVPB ONE (17:44)
[2024-02-18 17:45] LABS: HEMOGLOBIN 11.3 G/dL (10.7-15.3); MCH 30.9 pg (25.7-33.7); MCHC 33.1 g/dl (32.0-36.0); MEAN CELL VOLUME 93.5 fl (80-96); MEAN PLT VOLUME 7.8 fl (7.5-11.1); PLATELET COUNT 187.4 10^3/uL (134-434); RBC 3.64 10^6/uL (3.60-5.2); RDW 16.1 % (11.6-15.6)
[2024-02-18 17:58] LABS: ALBUMIN 4.4 g/dl (3.4-5.0); BILIRUBIN,TOTAL 0.5 mg/dl (0.2-1); CREATININE 0.6 mg/dl (0.6-1.3); MAGNESIUM 1.7 mg/dL (1.8-2.4); PHOSPHOROUS 3.8 (2.5-4.9); POTASSIUM 3.9 mmol/L (3.5-5.1); TOT PROT 7.3 g/dl (6.4-8.2)
[2024-02-18 18:09] LABS: PLATELET ESTIMATE ADEQUATE
[2024-02-18 18:42] LABS: VENOUS BASE EXCESS -0.7 mmol/L (-2-2); VENOUS O2 SATURATION 74.9 % (70-80); VENOUS PCO2 45.9 mmHg (38-52); VENOUS PH 7.356 (7.310-7.410)
[2024-02-18] MEDS ORDERED: MAGNESIUM 1GM/D5W - 2 GM/200 ML IVPB IVPB ONE (19:16)
[2024-02-18] MEDS: MAGNESIUM SULFATE IN WATER 2 GM/50 ML IVPB IVPB ONE (19:21)
[2024-02-18 19:35] LABS: HIV INTERPRETATION NEGATIVE (NEGATIVE)
[2024-02-18] MEDS ORDERED: FOLIC ACID 5 MG/1 ML ONE (20:41)
[2024-02-18] MEDS ORDERED: MULTIVIT INJ. ADULT COMBO WITH VIT K 1 COMBO 10 ML VIAL IV ONE (20:43)
[2024-02-18] MEDS ORDERED: chlordiazePOXIDE HCL 25 MG CAPSULE PO PRN (20:44)
[2024-02-18] MEDS ORDERED: hydrOXYzine HCL 10 MG/5 ML UNIT DOSE CUPS PO PRN (20:46)
[2024-02-18] MEDS ORDERED: LOPERAMIDE HCL 2 MG CAPSULE PO PRN (20:46)
[2024-02-18] MEDS: FOLIC ACID INJECTION - 1 MG, THIAMINE HCL 100 MG, MULTIVIT INJECTION ADULT 10 ML in SOD... IVPB ONE (20:57)
[2024-02-18] MEDS ORDERED: TRIMETHOBENZAMIDE HCL 200MG/2ML INJ IM PRN (21:04)
[2024-02-18] MEDS: chlordiazePOXIDE HCL 25 MG CAPSULE PO SCH (22:28)
[2024-02-18 23:15] VITALS: BMI 21.7
[2024-02-18] MEDS ORDERED: ONDANSETRON 4 MG/2 ML VIAL IVPUSH PRN (23:45)
[2024-02-19] MEDS: chlordiazePOXIDE HCL 25 MG CAPSULE PO PRN (00:08)
[2024-02-19] MEDS: ACETAMINOPHEN 325 MG TABLET (FP) PO PRN (00:09)
[2024-02-19] MEDS ORDERED: ACETAMINOPHEN 325 MG TABLET (FP) PO PRN (07:16)
[2024-02-19 08:34] LABS: INR 0.92 (0.83-1.09); PROTHROMBIN TIME (PATIENT) 10.5 SEC (9.7-13.0)
[2024-02-19 08:37] LABS: ACTIVATED PTT 32.1 SECONDS (25.2-36.5)
[2024-02-19] MEDS: THIAMINE 100 MG TABLET PO SCH (09:19)
[2024-02-19] MEDS: ENOXAPARIN NA (PORCINE) 40 MG/0.4 ML DISP.SYRIN SQ SCH (09:20)
[2024-02-19] MEDS: FOLIC ACID 1 MG TABLET (FP) PO SCH (09:20)
[2024-02-19] MEDS: MULTIVITAMINS (DAILY MVI) TABLET (FP) PO SCH (09:20)
[2024-02-19] MEDS: DEXTROSE 5%-NORMAL SALINE 1,000 ML IV SCH (09:20)
[2024-02-19] MEDS: FAMOTIDINE 20 MG TABLET PO SCH (09:20)
[2024-02-19] MEDS: NICOTINE 14 MG/24 HOURS TOPICAL PATCH TD SCH (09:20)
[2024-02-19 09:41] LABS: CALCIUM 9.2 mg/dl (8.5-10.1); CREATININE 0.6 mg/dl (0.6-1.3); MAGNESIUM 1.9 mg/dL (1.8-2.4); PHOSPHOROUS 3.2 (2.5-4.9); POTASSIUM 3.8 mmol/L (3.5-5.1)
[2024-02-19 11:02] LABS: EOS % 1.4 % (0-4.5); HEMATOCRIT 35.4 % (32.4-45.2); HEMOGLOBIN 11.5 GM/dL (10.7-15.3); MCH 30.4 pg (25.7-33.7); MCHC 32.6 g/dl (32.0-36.0); MEAN CELL VOLUME 93.1 fl (80-96); MEAN PLT VOLUME 7.7 fl (7.5-11.1); MONO % 8.2 % (3.8-10.2); NEUT % 52.4 % (42.8-82.8); PLATELET COUNT 164 10^3/uL (134-434); RDW 17.8 % (11.6-15.6); WHITE BLOOD COUNT 3.4 K/mm3 (4.0-10.0)
[2024-02-19] MEDS: LORazepam 2 MG/ML SDV VIAL IVPUSH PRN (14:32)
[2024-02-19] MEDS: hydrOXYzine PAMOATE 25 MG CAPSULE (FP) PO PRN (21:43)
[2024-02-20] MEDS ORDERED: chlordiazePOXIDE HCL 25 MG CAPSULE PO SCH (05:00)
[2024-02-20] MEDS: DEXTROSE 5%-NORMAL SALINE 1,000 ML IV SCH (09:51)
[2024-02-20 10:10] VITALS: RESP 18
[2024-02-20] MEDS: LORazepam 1 MG TABLET PO PRN (13:37)
[2024-02-20 14:13] VITALS: BP 115/83; PULSE 109; TEMP 99.3
[2024-02-20 14:47] LABS: HEMATOCRIT 35.8 % (32.4-45.2); HEMOGLOBIN 11.8 G/dL (10.7-15.3); MCH 30.8 pg (25.7-33.7); MEAN CELL VOLUME 93.3 fl (80-96); MEAN PLT VOLUME 8.6 fl (7.5-11.1); PLATELET COUNT 169.6 10^3/uL (134-434); RBC 3.84 10^6/uL (3.60-5.2); RDW 15.8 % (11.6-15.6); WHITE BLOOD COUNT 4.5 10^3/uL (4.0-10.8)
[2024-02-20 14:49] LABS: ALBUMIN 4.4 g/dl (3.4-5.0); BILIRUBIN,TOTAL 0.5 mg/dl (0.2-1); CALCIUM 9.9 mg/dl (8.5-10.1); CREATININE 0.6 mg/dl (0.6-1.3); POTASSIUM 4.2 mmol/L (3.5-5.1)
[2024-02-20 14:57] LABS: PLATELET ESTIMATE ADEQUATE
[2024-02-21] MEDS ORDERED: chlordiazePOXIDE HCL 10 MG CAPSULE PO PRN
[2024-02-21] MEDS ORDERED: chlordiazePOXIDE HCL 10 MG CAPSULE PO SCH (05:00)
[2024-02-22] MEDS ORDERED: chlordiazePOXIDE HCL 10 MG CAPSULE PO SCH (05:00)
[2024-02-23] MEDS ORDERED: chlordiazePOXIDE HCL 10 MG CAPSULE PO ONE (05:00)
== END 2024-02-20 16:05 | disposition home or self-care (01) | DRG 775 ==
LOC: FER 15:56 → FM/S 20:19
PROVIDERS: ADMIT Internal Medicine; ATTEND Internal Medicine
DX: F10.239 Alcohol dependence with withdrawal, unspecified (principal); E87.29 Other acidosis
CPT/HCPCS: 36415; 71045-TC-FY; 80048; 80053; 81003; 81015; 82010; 82607; 82746; 82803; 83690; 83735; 84100; 84703; 85025; 85027; 85610; 85730; 86803; 87389; 93005; 99285-25

== ENCOUNTER 2024-05-13 09:01 | Inpatient (IN) | payer OTHER ==
[2024-05-13] MEDS ORDERED: FAMOTIDINE 20 MG/50 ML IVPB 20 MG/50 ML MG IVPB ONE (09:50)
[2024-05-13] MEDS ORDERED: MAGNESIUM SULFATE IN WATER 2 GM/50 ML IVPB IVPB ONE (09:50)
[2024-05-13] MEDS ORDERED: diazePAM CARPU-JECT 10 MG/2 ML DISP.SYRIN ONE ×4 (09:50→13:52)
[2024-05-13 09:53] LABS: EOS % 0.1 % (0-4.5); HEMATOCRIT 33.5 % (32.4-45.2); HEMOGLOBIN 10.9 GM/dL (10.7-15.3); LYMPH % 9.8 % (8-40); MCH 28.3 pg (25.7-33.7); MCHC 32.6 g/dl (32.0-36.0); MEAN CELL VOLUME 86.7 fl (80-96); MEAN PLT VOLUME 7.3 fl (7.5-11.1); MONO % 2.8 % (3.8-10.2); NEUT % 86.3 % (42.8-82.8); PLATELET COUNT 271 10^3/uL (134-434); RBC 3.86 M/mm3 (3.60-5.2); RDW 21.9 % (11.6-15.6); WHITE BLOOD COUNT 9.4 K/mm3 (4.0-10.0)
[2024-05-13] MEDS: diazePAM CARPU-JECT 10 MG/2 ML DISP.SYRIN IVPUSH ONE ×4 (09:59→13:57)
[2024-05-13] MEDS: LACTATED RINGERS SOLUTION 1000 ML INFUS.BAG IV ONE (09:59)
[2024-05-13] MEDS: FAMOTIDINE 20 MG/50 ML IVPB 20 MG/50 ML MG IVPB ONE (09:59)
[2024-05-13 10:12] LABS: POTASSIUM 4.4 mmol/L (3.5-5.1)
[2024-05-13 10:15] LABS: CALCIUM 8.5 mg/dL (8.5-10.1)
[2024-05-13 10:16] LABS: BLOOD UREA NITROGEN 16.3 mg/dL (7-18)
[2024-05-13 10:18] LABS: PHOSPHOROUS 5.2 mg/dL (2.5-4.9)
[2024-05-13 10:19] LABS: CREATININE 0.6 mg/dL (0.55-1.3)
[2024-05-13 10:20] LABS: BILIRUBIN,TOTAL 0.4 mg/dL (0.2-1); TOT PROT 8.3 g/dl (6.4-8.2)
[2024-05-13] MEDS: FOLIC ACID 5 MG/1 ML SQ ONE (10:28)
[2024-05-13] MEDS: THIAMINE HCL 200 MG/2 ML VIAL IVPB ONE (10:29)
[2024-05-13 10:48] LABS: VENOUS BASE EXCESS -15.7 mmol/L (-2-2); VENOUS O2 SATURATION 96.4 % (70-80); VENOUS PCO2 31.5 mmHg (38-52)
[2024-05-13] MEDS ORDERED: ACETAMINOPHEN INJECTION 100 ML ONE (10:52)
[2024-05-13] MEDS: ACETAMINOPHEN 1000 MG/100 ML BAG IVPB ONE (11:16)
[2024-05-13] MEDS: MAGNESIUM 1GM/D5W - 1 GM/100 ML IVPB IVPB ONE (11:16)
[2024-05-13 11:21] LABS: VENOUS PH 7.179 (7.310-7.410)
[2024-05-13] MEDS: DEXTROSE 5%-LACTATED RINGERS 1,000 ML IV SCH (11:34)
[2024-05-13 11:45] LABS: ANISOCYTOSIS 2+; MACROCYTOSIS 1+
[2024-05-13 11:47] LABS: EPI CELLS 25 /uL (0-25.1); HYALINE CASTS 0 /uL (0-3.1); PH,URINE 5.5 (5.0-8.0); URINE APPEARANCE CLEAR; URINE BACTERIA 411 /uL (0-1359); URINE BILIRUBIN NEGATIVE (NEGATIVE); URINE COLOR YELLOW; URINE GLUCOSE (UA) NEGATIVE (NEGATIVE); URINE KETONE 4+ (NEGATIVE); URINE LEUK ESTERASE NEGATIVE (NEGATIVE); URINE NITRITE NEGATIVE (NEGATIVE); URINE PROTEIN 2+ (NEGATIVE); URINE RBC 18 /uL (0-23.9); URINE UROBILINOGEN 0.2 mg/dL (0.2-1.0); URINE WBC 9 /uL (0-25.8)
[2024-05-13 12:00] LABS: COCAINE, UR NEGATIVE (NEGATIVE); METHADONE, UR NEGATIVE (NEGATIVE); URINE BARBITURATES NEGATIVE (NEGATIVE)
[2024-05-13 12:01] LABS: PHENCYCLIDINE,URINE NEGATIVE (NEGATIVE)
[2024-05-13 12:04] LABS: OPIATES, URI NEGATIVE (NEGATIVE); URINE AMPHETAMINES NEGATIVE (NEGATIVE); URINE BENZODIAZEPINES POSITIVE (NEGATIVE)
[2024-05-13] MEDS: FOLIC ACID INJECTION - 1 MG, THIAMINE HCL 100 MG, MULTIVIT INJECTION ADULT 10 ML in SOD... IVPB ONE (13:45)
[2024-05-13] MEDS ORDERED: DEXTROSE 5%-LACTATED RINGERS 1,000 ML IV SCH (14:34)
[2024-05-13] MEDS: chlordiazePOXIDE HCL 25 MG CAPSULE PO PRN (15:44)
[2024-05-13] MEDS: ACETAMINOPHEN 1000 MG/100 ML BAG IVPB PRN (15:45)
[2024-05-13] MEDS: THIAMINE HCL 200 MG/2 ML VIAL IVPB SCH (15:46)
[2024-05-13] MEDS: chlordiazePOXIDE HCL 25 MG CAPSULE PO SCH (17:45)
[2024-05-13] MEDS: DEXTROSE 5%-NORMAL SALINE 1,000 ML IV SCH (17:51)
[2024-05-13 21:28] LABS: BASO % 0.7 % (0-2.0); EOS % 0.4 % (0-4.5); HEMATOCRIT 28.4 % (32.4-45.2); HEMOGLOBIN 9.1 GM/dL (10.7-15.3); LYMPH % 20.6 % (8-40); MCHC 32.1 g/dl (32.0-36.0); MEAN CELL VOLUME 84.2 fl (80-96); MEAN PLT VOLUME 6.9 fl (7.5-11.1); MONO % 13.3 % (3.8-10.2); PLATELET COUNT 151 10^3/uL (134-434); RBC 3.38 M/mm3 (3.60-5.2); RDW 21.3 % (11.6-15.6); WHITE BLOOD COUNT 6.3 K/mm3 (4.0-10.0)
[2024-05-13 21:32] LABS: VENOUS BASE EXCESS 0.9 mmol/L (-2-2); VENOUS O2 SATURATION 52.3 % (70-80); VENOUS PCO2 40.4 mmHg (38-52); VENOUS PH 7.418 (7.310-7.410)
[2024-05-13 21:48] LABS: MAGNESIUM 1.8 mg/dL (1.8-2.4)
[2024-05-13 21:54] LABS: PHOSPHOROUS 1.1 mg/dL (2.5-4.9)
[2024-05-14] MEDS: SODIUM PHOSPHATE - 15 MM in DEXTROSE 5%-WATER - 250 ML IVPB ONE (00:22)
[2024-05-14 07:27] LABS: EOS % 0.8 % (0-4.5); HEMATOCRIT 28.8 % (32.4-45.2); HEMOGLOBIN 9.4 GM/dL (10.7-15.3); LYMPH % 22.2 % (8-40); MCH 28.1 pg (25.7-33.7); MCHC 32.7 g/dl (32.0-36.0); MEAN PLT VOLUME 7.6 fl (7.5-11.1); MONO % 7.6 % (3.8-10.2); NEUT % 68.4 % (42.8-82.8); PLATELET COUNT 149 10^3/uL (134-434); RBC 3.34 M/mm3 (3.60-5.2); RDW 21.1 % (11.6-15.6); WHITE BLOOD COUNT 4.9 K/mm3 (4.0-10.0)
[2024-05-14 07:41] LABS: CHLORIDE 98 mmol/L (98-107); SODIUM 135 mmol/L (136-145)
[2024-05-14 07:43] LABS: CALCIUM 8.4 mg/dL (8.5-10.1)
[2024-05-14 07:44] LABS: ALBUMIN 3.2 g/dl (3.4-5.0); BLOOD UREA NITROGEN 5.2 mg/dL (7-18); CO2 27 mmol/L (21-32); GLUCOSE,RANDOM 144 mg/dL (74-106); MAGNESIUM 1.4 mg/dL (1.8-2.4)
[2024-05-14 07:47] LABS: CREATININE 0.5 mg/dL (0.55-1.3); PHOSPHOROUS 2.6 mg/dL (2.5-4.9); SGOT/AST 38 U/L (15-37); SGPT/ALT 12 U/L (13-61)
[2024-05-14 07:49] LABS: BILIRUBIN,TOTAL 1.8 mg/dL (0.2-1); TOT PROT 6.4 g/dl (6.4-8.2)
[2024-05-14 07:50] LABS: ALK PHOS 110 U/L (45-117); ANION GAP 10 mmol/L (4-13); POTASSIUM 2.8 mmol/L (3.5-5.1)
[2024-05-14] MEDS ORDERED: POTASSIUM CHLORIDE ORAL LIQUID 20 MEQ/15 ML GT ONE (07:56)
[2024-05-14] MEDS: MAGNESIUM 2GM/50ML STERILE WATER IVPB IVPB ONE ×2 (08:38→14:53)
[2024-05-14] MEDS: POTASSIUM CHLORIDE ORAL LIQUID 20 MEQ/15 ML PO ONE ×2 (08:39→12:04)
[2024-05-14] MEDS: KCL 10 MEQ IVPB 10 MEQ/100 ML INFUS.BAG IVPB SCH (08:39)
[2024-05-14] MEDS: ENOXAPARIN NA (PORCINE) 40 MG/0.4 ML DISP.SYRIN SQ SCH (09:06)
[2024-05-14] MEDS: FOLIC ACID 1 MG TABLET (FP) PO SCH (09:07)
[2024-05-14] MEDS: MULTIVITAMINS (DAILY MVI) TABLET (FP) PO SCH (09:07)
[2024-05-14] MEDS ORDERED: SIMETHICONE 80 MG TAB.CHEW (FP) PO PRN ×2 (09:13→15:25)
[2024-05-14] MEDS: TRIMETHOBENZAMIDE HCL 200MG/2ML INJ IM PRN (09:27)
[2024-05-14 13:20] VITALS: BMI 19.2
[2024-05-14] MEDS ORDERED: DEXTROSE 5%-NORMAL SALINE 1,000 ML IV SCH (15:25)
[2024-05-14] MEDS: chlordiazePOXIDE HCL 25 MG CAPSULE PO SCH (17:42)
[2024-05-14] MEDS ORDERED: LORazepam 2 MG/ML SDV VIAL IVPUSH PRN (20:32)
[2024-05-14] MEDS: chlordiazePOXIDE HCL 25 MG CAPSULE PO PRN (20:55)
[2024-05-14] MEDS: LOPERAMIDE HCL 2 MG CAPSULE PO PRN (23:12)
[2024-05-15] MEDS: MELATONIN 5 MG TABLETS PO PRN (01:47)
[2024-05-15] MEDS ORDERED: chlordiazePOXIDE HCL 25 MG CAPSULE PO SCH (05:00)
[2024-05-15] MEDS: chlordiazePOXIDE HCL 25 MG CAPSULE PO SCH (05:28)
[2024-05-15 08:59] LABS: BASO % 1.3 % (0-2.0); EOS % 1.8 % (0-4.5); HEMATOCRIT 36.8 % (32.4-45.2); HEMOGLOBIN 12.1 GM/dL (10.7-15.3); LYMPH % 26.2 % (8-40); MCH 27.9 pg (25.7-33.7); MCHC 32.8 g/dl (32.0-36.0); MEAN CELL VOLUME 85.2 fl (80-96); MEAN PLT VOLUME 7.7 fl (7.5-11.1); MONO % 11.5 % (3.8-10.2); NEUT % 59.2 % (42.8-82.8); PLATELET COUNT 148 10^3/uL (134-434); RBC 4.32 M/mm3 (3.60-5.2); RDW 21.4 % (11.6-15.6); WHITE BLOOD COUNT 4.3 K/mm3 (4.0-10.0)
[2024-05-15 09:20] LABS: POTASSIUM 3.3 mmol/L (3.5-5.1)
[2024-05-15 09:23] LABS: CALCIUM 9.5 mg/dL (8.5-10.1)
[2024-05-15 09:24] LABS: ALBUMIN 3.8 g/dl (3.4-5.0); BLOOD UREA NITROGEN 5.4 mg/dL (7-18)
[2024-05-15 09:27] LABS: CREATININE 0.6 mg/dL (0.55-1.3); PHOSPHOROUS 2.2 mg/dL (2.5-4.9)
[2024-05-15 09:28] LABS: BILIRUBIN,TOTAL 0.6 mg/dL (0.2-1); TOT PROT 7.6 g/dl (6.4-8.2)
[2024-05-15] MEDS ORDERED: THIAMINE 100 MG TABLET PO SCH (10:00)
[2024-05-15] MEDS: POTASSIUM CHLORIDE ORAL LIQUID 20 MEQ/15 ML PO ONE (10:35)
[2024-05-15] MEDS: ENOXAPARIN NA (PORCINE) 40 MG/0.4 ML DISP.SYRIN SQ SCH (10:35)
[2024-05-15] MEDS: PANTOPRAZOLE 40 MG TABLET PO SCH (10:36)
[2024-05-15] MEDS: THIAMINE HCL 200 MG/2 ML VIAL IVPB SCH (10:36)
[2024-05-15] MEDS: MULTIVITAMINS (DAILY MVI) TABLET (FP) PO SCH (10:36)
[2024-05-15] MEDS: FOLIC ACID 1 MG TABLET (FP) PO SCH (10:36)
[2024-05-15] MEDS: LACTATED RINGERS SOLUTION 1,000 ML/1,000 ML INFUS.BAG IV SCH (10:48)
[2024-05-15] MEDS: MELATONIN 5 MG TABLETS PO ONE (23:46)
[2024-05-16] MEDS ORDERED: chlordiazePOXIDE HCL 10 MG CAPSULE PO PRN
[2024-05-16] MEDS: ACETAMINOPHEN 1000 MG/100 ML BAG IVPB ONE (02:02)
[2024-05-16] MEDS: chlordiazePOXIDE HCL 10 MG CAPSULE PO PRN (03:07)
[2024-05-16] MEDS ORDERED: chlordiazePOXIDE HCL 10 MG CAPSULE PO SCH (05:00)
[2024-05-16] MEDS: chlordiazePOXIDE HCL 10 MG CAPSULE PO SCH (06:07)
[2024-05-16 08:24] LABS: POTASSIUM 3.9 mmol/L (3.5-5.1)
[2024-05-16 08:26] LABS: CALCIUM 9.4 mg/dL (8.5-10.1)
[2024-05-16 08:27] LABS: ALBUMIN 3.6 g/dl (3.4-5.0); BLOOD UREA NITROGEN 8.4 mg/dL (7-18); MAGNESIUM 1.6 mg/dL (1.8-2.4)
[2024-05-16 08:30] LABS: CREATININE 0.5 mg/dL (0.55-1.3)
[2024-05-16 08:31] LABS: BASO % 1.1 % (0-2.0); EOS % 1.8 % (0-4.5); HEMATOCRIT 30.5 % (32.4-45.2); HEMOGLOBIN 9.8 GM/dL (10.7-15.3); MCH 28.2 pg (25.7-33.7); MCHC 32.1 g/dl (32.0-36.0); MEAN CELL VOLUME 87.8 fl (80-96); MEAN PLT VOLUME 7.7 fl (7.5-11.1); MONO % 9.7 % (3.8-10.2); NEUT % 57.4 % (42.8-82.8); PLATELET COUNT 127 10^3/uL (134-434); RBC 3.47 M/mm3 (3.60-5.2); RDW 21.1 % (11.6-15.6); WHITE BLOOD COUNT 4.3 K/mm3 (4.0-10.0)
[2024-05-16 08:32] LABS: BILIRUBIN,TOTAL 0.5 mg/dL (0.2-1); TOT PROT 6.8 g/dl (6.4-8.2)
[2024-05-16 09:25] LABS: PHOSPHOROUS 2.5 mg/dL (2.5-4.9)
[2024-05-16] MEDS: TRIMETHOBENZAMIDE HCL 200MG/2ML INJ IM PRN (09:32)
[2024-05-16] MEDS: MAGNESIUM OXIDE 400 MG TABLET (FP) PO ONE (09:37)
[2024-05-16 09:49] VITALS: TEMP 98.2
[2024-05-16 14:09] VITALS: BP 122/94; PULSE 126; RESP 24
[2024-05-17] MEDS ORDERED: chlordiazePOXIDE HCL 10 MG CAPSULE PO SCH ×2 (05:00)
[2024-05-18] MEDS ORDERED: chlordiazePOXIDE HCL 10 MG CAPSULE PO ONE ×2 (05:00)
== END 2024-05-16 16:11 | disposition left against medical advice (07) | DRG 425 ==
LOC: JER 09:01 → JERBED 11:54 → JICU 14:47 → J7W 05-14 13:57
PROVIDERS: ADMIT Internal Medicine Pulmonary Disease
PROC: HZ2ZZZZ Detoxification Services for Substance Abuse Treatment (ICD-10-PCS; principal; 2024-05-13)
DX: E87.29 Other acidosis (principal); I42.6 Alcoholic cardiomyopathy; F10.239 Alcohol dependence with withdrawal, unspecified; F17.200 Nicotine dependence, unspecified, uncomplicated; F41.8 Other specified anxiety disorders
CPT/HCPCS: 0241U-QW; 36415; 71045-TC-FY; 80053; 80307; 81003; 82010; 82803; 82962; 83690; 83735; 84100; 84484; 84703; 85025; 87086; 93005; 93010; 97116-GP; 97162-GP; 99291; J0131

== ENCOUNTER 2024-05-30 12:57 | Inpatient (IN) | payer OTHER ==
[2024-05-30] MEDS ORDERED: PANTOPRAZOLE SODIUM 40 MG VIAL ONE (13:57)
[2024-05-30] MEDS ORDERED: THIAMINE HCL 200 MG/2 ML VIAL ONE ×2 (13:57→14:09)
[2024-05-30 14:13] LABS: ABSOLUTE IMMATURE GRANULOCYTES 0.07 x10^3/uL (0.0-0.031); BASOPHILS # 0.14 x10^3/uL (0.01-0.08); HEMATOCRIT 43.3 % (34.1-44.9); HEMOGLOBIN 13.1 g/dL (11.2-15.7); MCHC 30.3 g/dl (32.2-35.5); MEAN CELL VOLUME 92.7 fl (79.4-94.8); MEAN PLT VOLUME 9.2 fl (9.4-12.3); MONOCYTE # 0.33 x10^3/uL (0.24-0.86); MONOCYTE % 2.9 % (4.7-12.5); PLATELET COUNT # 255 x10^3/uL (182-369); RDW 18.8 % (12.1-16.8)
[2024-05-30] MEDS: LACTATED RINGERS SOLUTION 1000 ML INFUS.BAG IV ONE (14:14)
[2024-05-30] MEDS: PANTOPRAZOLE SODIUM 40 MG VIAL IVPUSH ONE ×2 (14:27→15:08)
[2024-05-30] MEDS: THIAMINE HCL 200 MG/2 ML VIAL IVPB ONE (14:27)
[2024-05-30 14:29] LABS: VENOUS BASE EXCESS -15.4 mmol/L (-2-2); VENOUS O2 SATURATION 59.1 % (70-80); VENOUS PCO2 39.4 mmHg (38-52)
[2024-05-30] MEDS ORDERED: LORazepam 2 MG/ML SDV VIAL ONE ×3 (14:31→15:43)
[2024-05-30] MEDS ORDERED: METOCLOPRAMIDE HCL INJECTION 10 MG/2 ML VIAL ONE ×2 (14:31→15:55)
[2024-05-30] MEDS ORDERED: OCTREOTIDE ACETATE 100 MCG/1 ML ONE (14:32)
[2024-05-30 14:39] LABS: BLOOD UREA NITROGEN 11.8 mg/dL (7-18); CALCIUM 9.5 mg/dL (8.5-10.1); LACTIC ACID 5.4 mmol/L (0.4-2.0)
[2024-05-30 14:40] LABS: ALBUMIN 4.8 g/dl (3.4-5.0); MAGNESIUM 1.9 mg/dL (1.8-2.4)
[2024-05-30 14:40] LABS: VENOUS PH 7.136 (7.310-7.410)
[2024-05-30 14:42] LABS: CREATININE 0.9 mg/dL (0.55-1.3)
[2024-05-30 14:43] LABS: INR 0.97 (0.83-1.09); PROTHROMBIN TIME (PATIENT) 10.7 SEC (9.7-13.0)
[2024-05-30 14:44] LABS: BILIRUBIN,TOTAL 0.5 mg/dL (0.2-1); TOT PROT 9.4 g/dl (6.4-8.2)
[2024-05-30 14:45] LABS: ACTIVATED PTT 28.5 SECONDS (25.2-36.5)
[2024-05-30] MEDS: OCTREOTIDE ACETATE 50 MCG/1 ML - 1 ML VIAL IVPUSH ONE (14:45)
[2024-05-30] MEDS: METOCLOPRAMIDE HCL INJECTION 10 MG/2 ML VIAL IVPUSH ONE (14:46)
[2024-05-30] MEDS: LORazepam 2 MG/ML SDV VIAL IM ONE (14:49)
[2024-05-30] MEDS: DEXTROSE 5%-LACTATED RINGERS 1,000 ML IV SCH (15:06)
[2024-05-30] MEDS: OCTREOTIDE ACETATE 200 MCG, OCTREOTIDE ACETATE 1,000 MCG in DEXTROSE 5%-WATER - 496 ML IVPB SCH (15:22)
[2024-05-30] MEDS: METOCLOPRAMIDE HCL INJECTION 10 MG/2 ML VIAL IVPB ONE (16:00)
[2024-05-30] MEDS: INSULIN ASPART SLIDING SCALE (NOVOLOG) 1 VIAL SQ SCH (16:04)
[2024-05-30] MEDS: METOCLOPRAMIDE HCL INJECTION 10 MG/2 ML VIAL IVPUSH SCH (16:06)
[2024-05-30 16:27] LABS: EPI CELLS >36 /uL (0-25.1); HYALINE CASTS 2 /uL (0-3.1); PH,URINE 5.5 (5.0-8.0); URINE APPEARANCE CLOUDY; URINE BACTERIA 3931 /uL (0-1359); URINE BILIRUBIN NEGATIVE (NEGATIVE); URINE COLOR YELLOW; URINE GLUCOSE (UA) NEGATIVE (NEGATIVE); URINE KETONE 4+ (NEGATIVE); URINE LEUK ESTERASE TRACE (NEGATIVE); URINE NITRITE NEGATIVE (NEGATIVE); URINE PROTEIN 2+ (NEGATIVE); URINE UROBILINOGEN 0.2 mg/dL (0.2-1.0); URINE WBC 92 /uL (0-25.8)
[2024-05-30] MEDS: SODIUM CHLORIDE 1,000 ML IV STA (16:57)
[2024-05-30] MEDS: CEFTRIAXONE 1 G/50 ML PREMIX 50 ML IVPB ONE (17:15)
[2024-05-30] MEDS: PANTOPRAZOLE SODIUM 80 MG in SODIUM CHLORIDE 100 ML IVPB SCH (17:32)
[2024-05-30] MEDS: ACETAMINOPHEN 1000 MG/100 ML BAG IVPB PRN (17:44)
[2024-05-30] MEDS: AZITHROMYCIN IVPB 500 MG/250 ML BAG IVPB ONE (17:51)
[2024-05-30 17:59] LABS: METHADONE, UR NEGATIVE (NEGATIVE); PHENCYCLIDINE,URINE NEGATIVE (NEGATIVE)
[2024-05-30 18:01] LABS: COCAINE, UR NEGATIVE (NEGATIVE); OPIATES, URI NEGATIVE (NEGATIVE); URINE AMPHETAMINES NEGATIVE (NEGATIVE); URINE BENZODIAZEPINES POSITIVE (NEGATIVE)
[2024-05-30 18:07] LABS: URINE BARBITURATES NEGATIVE (NEGATIVE)
[2024-05-30 18:19] VITALS: BMI 17.2
[2024-05-30] MEDS: LORazepam 2 MG/ML SDV VIAL IVPUSH PRN (19:41)
[2024-05-30] MEDS: MUPIROCIN 2% TOPICAL OINTMENT FOR DECOLONIZATION NS SCH (21:13)
[2024-05-30] MEDS: CHLORHEXIDINE GLUCONATE 4% CLEANSER FOR DECOLONIZATION TP SCH (21:14)
[2024-05-30 21:25] LABS: ABSOLUTE IMMATURE GRANULOCYTES 0.04 x10^3/uL (0.0-0.031); BASOPHILS # 0.06 x10^3/uL (0.01-0.08); HEMATOCRIT 32.4 % (34.1-44.9); HEMOGLOBIN 9.7 g/dL (11.2-15.7); MCHC 29.9 g/dl (32.2-35.5); MEAN CELL VOLUME 94.2 fl (79.4-94.8); MEAN PLT VOLUME 9.1 fl (9.4-12.3); MONOCYTE % 6.8 % (4.7-12.5); PLATELET COUNT # 149 x10^3/uL (182-369); RDW 18.3 % (12.1-16.8)
[2024-05-30 21:49] LABS: POTASSIUM 4.9 mmol/L (3.5-5.1)
[2024-05-30 21:50] LABS: MAGNESIUM 1.3 mg/dL (1.8-2.4)
[2024-05-30 21:52] LABS: BLOOD UREA NITROGEN 7.6 mg/dL (7-18)
[2024-05-30 21:54] LABS: PHOSPHOROUS 2.3 mg/dL (2.5-4.9)
[2024-05-30 21:55] LABS: CREATININE 0.8 mg/dL (0.55-1.3)
[2024-05-30 21:56] LABS: BILIRUBIN,TOTAL 0.6 mg/dL (0.2-1)
[2024-05-30 21:58] LABS: ALBUMIN 3.5 g/dl (3.4-5.0); CALCIUM 7.8 mg/dL (8.5-10.1); TOT PROT 7.2 g/dl (6.4-8.2)
[2024-05-30] MEDS: MAGNESIUM SULFATE IN WATER 2 GM/50 ML IVPB IVPB ONE (22:04)
[2024-05-30] MEDS: LACTATED RINGERS SOLUTION 1,000 ML/1,000 ML INFUS.BAG IV SCH (22:06)
[2024-05-30 22:29] LABS: LACTIC ACID 2.2 mmol/L (0.4-2.0)
[2024-05-30 22:45] LABS: HIV INTERPRETATION NEGATIVE (NEGATIVE)
[2024-05-30 23:59] LABS: URINE RBC 66.9 /uL (0-23.9)
[2024-05-31] LABS: YEAST NONE SEEN (NEGATIVE)
[2024-05-31 07:48] LABS: ABSOLUTE IMMATURE GRANULOCYTES 0.02 x10^3/uL (0.0-0.031); BASOPHILS # 0.05 x10^3/uL (0.01-0.08); HEMATOCRIT 27.6 % (34.1-44.9); HEMOGLOBIN 8.8 g/dL (11.2-15.7); MCHC 31.9 g/dl (32.2-35.5); MEAN CELL VOLUME 90.5 fl (79.4-94.8); MEAN PLT VOLUME 9.5 fl (9.4-12.3); MONOCYTE # 0.58 x10^3/uL (0.24-0.86); MONOCYTE % 12.5 % (4.7-12.5); PLATELET COUNT # 133 x10^3/uL (182-369); RDW 17.6 % (12.1-16.8)
[2024-05-31 08:12] LABS: POTASSIUM 3.5 mmol/L (3.5-5.1)
[2024-05-31 08:14] LABS: CALCIUM 8.4 mg/dL (8.5-10.1)
[2024-05-31 08:15] LABS: ALBUMIN 3.2 g/dl (3.4-5.0); BLOOD UREA NITROGEN 6.3 mg/dL (7-18)
[2024-05-31 08:18] LABS: CREATININE 0.7 mg/dL (0.55-1.3); PHOSPHOROUS 1.4 mg/dL (2.5-4.9)
[2024-05-31 08:19] LABS: BILIRUBIN,TOTAL 0.9 mg/dL (0.2-1); TOT PROT 6.3 g/dl (6.4-8.2)
[2024-05-31 08:25] LABS: INR 1.07 (0.83-1.09); PROTHROMBIN TIME (PATIENT) 11.7 SEC (9.7-13.0)
[2024-05-31] MEDS: CEFTRIAXONE 1 G/50 ML PREMIX 50 ML IVPB SCH (09:31)
[2024-05-31] MEDS: THIAMINE HCL 200 MG/2 ML VIAL IVPB SCH (09:31)
[2024-05-31] MEDS: POTASSIUM PHOSPHATE 30 MM in SODIUM CHLORIDE 500 ML IVPB ONE (10:06)
[2024-05-31] MEDS: AZITHROMYCIN IVPB 250 MG in DEXTROSE 5%-WATER - 250 ML IVPB SCH (10:07)
[2024-05-31 11:13] LABS: MAGNESIUM 1.9 mg/dL (1.8-2.4)
[2024-05-31 16:31] LABS: ABSOLUTE IMMATURE GRANULOCYTES 0.02 x10^3/uL (0.0-0.031); BASOPHILS # 0.06 x10^3/uL (0.01-0.08); EOSINOPHIL % 0.3 % (0.7-5.8); EOSINOPHILS # 0.01 x10^3/uL (0.04-0.36); HEMATOCRIT 31.9 % (34.1-44.9); HEMOGLOBIN 10.2 g/dL (11.2-15.7); MEAN CELL VOLUME 87.9 fl (79.4-94.8); MONOCYTE # 0.51 x10^3/uL (0.24-0.86); MONOCYTE % 14.2 % (4.7-12.5); PLATELET COUNT # 130 x10^3/uL (182-369); RDW 17.1 % (12.1-16.8)
[2024-05-31] MEDS: MAG HYDROX/AL HYDROX/SIMETH 30 ML UNIT-DOSE CUP PO SCH (18:42)
[2024-05-31] MEDS: LORazepam 2 MG/ML SDV VIAL IVPUSH ONE (21:00)
[2024-05-31] MEDS: PANTOPRAZOLE 40 MG TABLET PO SCH (21:18)
[2024-05-31] MEDS: MELATONIN 5 MG TABLETS PO ONE (22:35)
[2024-06-01 06:47] LABS: ABSOLUTE IMMATURE GRANULOCYTES 0.01 x10^3/uL (0.0-0.031); BASOPHILS # 0.04 x10^3/uL (0.01-0.08); EOSINOPHIL % 0.3 % (0.7-5.8); EOSINOPHILS # 0.01 x10^3/uL (0.04-0.36); HEMATOCRIT 34.8 % (34.1-44.9); HEMOGLOBIN 11.3 g/dL (11.2-15.7); MCHC 32.5 g/dl (32.2-35.5); MEAN CELL VOLUME 87.4 fl (79.4-94.8); MEAN PLT VOLUME 9.8 fl (9.4-12.3); MONOCYTE # 0.53 x10^3/uL (0.24-0.86); MONOCYTE % 13.5 % (4.7-12.5); PLATELET COUNT # 128 x10^3/uL (182-369); RDW 16.7 % (12.1-16.8)
[2024-06-01 07:13] LABS: MAGNESIUM 1.2 mg/dL (1.8-2.4)
[2024-06-01 07:22] LABS: CHLORIDE 93 mmol/L (98-107); SODIUM 136 mmol/L (136-145)
[2024-06-01 07:25] LABS: ALBUMIN 3.4 g/dl (3.4-5.0); BLOOD UREA NITROGEN 4.5 mg/dL (7-18); CALCIUM 8.6 mg/dL (8.5-10.1); CO2 30 mmol/L (21-32)
[2024-06-01 07:26] LABS: GLUCOSE,RANDOM 113 mg/dL (74-106)
[2024-06-01 07:28] LABS: CREATININE 0.5 mg/dL (0.55-1.3); IRON SERUM 29 ug/dL (50-175); SGOT/AST 43 U/L (15-37); SGPT/ALT 19 U/L (13-61)
[2024-06-01 07:29] LABS: BILIRUBIN,TOTAL 0.6 mg/dL (0.2-1); TOT PROT 6.8 g/dl (6.4-8.2); TOTAL IRON BINDING CAPACITY 229 ug/dL (250-450)
[2024-06-01 07:31] LABS: ALK PHOS 116 U/L (45-117)
[2024-06-01 07:37] LABS: ANION GAP 12 mmol/L (4-13); POTASSIUM 2.7 mmol/L (3.5-5.1)
[2024-06-01] MEDS: MAGNESIUM SULFATE IN WATER 2 GM/50 ML IVPB IVPB ONE (08:27)
[2024-06-01] MEDS: KCL 10 MEQ IVPB 10 MEQ/100 ML INFUS.BAG IVPB SCH (09:00)
[2024-06-01] MEDS: LIDOCAINE 5% TOPICAL PATCH TP ONE (11:25)
[2024-06-01 11:52] VITALS: RESP 18
[2024-06-01 12:37] VITALS: BP 115/88; PULSE 120; TEMP 98.1
[2024-06-01] MEDS: POTASSIUM CHLORIDE ORAL LIQUID 20 MEQ/15 ML PO ONE (14:44)
[2024-06-01] MEDS ORDERED: LORazepam 2 MG/ML SDV VIAL IVPUSH PRN (15:10)
[2024-06-01 15:45] LABS: ABSOLUTE IMMATURE GRANULOCYTES 0.03 x10^3/uL (0.0-0.031); BASOPHILS # 0.05 x10^3/uL (0.01-0.08); HEMATOCRIT 37.7 % (34.1-44.9); HEMOGLOBIN 12.1 g/dL (11.2-15.7); MCHC 32.1 g/dl (32.2-35.5); MEAN CELL VOLUME 87.9 fl (79.4-94.8); MEAN PLT VOLUME 9.6 fl (9.4-12.3); MONOCYTE # 0.53 x10^3/uL (0.24-0.86); MONOCYTE % 13.4 % (4.7-12.5); PLATELET COUNT # 141 x10^3/uL (182-369); RDW 16.9 % (12.1-16.8)
[2024-06-01 16:07] LABS: BLOOD UREA NITROGEN 3.7 mg/dL (7-18); CALCIUM 9.2 mg/dL (8.5-10.1); MAGNESIUM 2.2 mg/dL (1.8-2.4)
[2024-06-01 16:10] LABS: CREATININE 0.6 mg/dL (0.55-1.3)
[2024-06-01] MEDS ORDERED: POTASSIUM CHLORIDE ORAL LIQUID 20 MEQ/15 ML PO ONE ×2 (16:22→17:06)
[2024-06-01] MEDS: NICOTINE 7 MG/24 HOURS TOPICAL PATCH TD SCH (16:53)
[2024-06-01] MEDS: MULTIVITAMINS (DAILY MVI) TABLET (FP) PO SCH (16:53)
[2024-06-01] MEDS: FOLIC ACID 1 MG TABLET (FP) PO SCH (16:53)
[2024-06-01] MEDS: LORazepam 1 MG TABLET PO ONE (17:24)
[2024-06-01] MEDS ORDERED: MAG HYDROX/AL HYDROX/SIMETH 30 ML UNIT-DOSE CUP PO SCH ×2 (18:00)
[2024-06-01] MEDS ORDERED: PANTOPRAZOLE 40 MG TABLET PO SCH (22:00)
[2024-06-01] MEDS ORDERED: LIDOCAINE PATCH REMOVAL MC ONE (22:00)
[2024-06-02] MEDS ORDERED: THIAMINE HCL 200 MG/2 ML VIAL IVPB SCH (10:00)
== END 2024-06-01 18:10 | disposition left against medical advice (07) | DRG 253 ==
LOC: JER 12:57 → JERBED 14:58 → JICU 17:08 → J7W 06-01 12:32
PROVIDERS: ADMIT Internal Medicine Pulmonary Disease; ATTEND Internal Medicine
DX: K92.2 Gastrointestinal hemorrhage, unspecified (principal); I42.6 Alcoholic cardiomyopathy; F10.239 Alcohol dependence with withdrawal, unspecified; K70.40 Alcoholic hepatic failure without coma; D62 Acute posthemorrhagic anemia; K22.10 Ulcer of esophagus without bleeding; K21.9 Gastro-esophageal reflux disease without esophagitis; D69.6 Thrombocytopenia, unspecified; E87.29 Other acidosis; F19.982 Other psychoactive substance use, unspecified with psychoactive substance-induced sleep disorder; K76.0 Fatty (change of) liver, not elsewhere classified; F41.8 Other specified anxiety disorders; F43.10 Post-traumatic stress disorder, unspecified; G47.00 Insomnia, unspecified; E87.6 Hypokalemia; E83.42 Hypomagnesemia; F17.200 Nicotine dependence, unspecified, uncomplicated; R94.31 Abnormal electrocardiogram [ECG] [EKG]; M41.9 Scoliosis, unspecified; R56.9 Unspecified convulsions; K44.9 Diaphragmatic hernia without obstruction or gangrene; E43 Unspecified severe protein-calorie malnutrition; Z68.1 Body mass index [BMI] 19.9 or less, adult; Z91.199 Patient's noncompliance with other medical treatment and regimen due to unspecified reason
CPT/HCPCS: 0241U-QW; 36415; 71045-TC-FY; 76700-TC; 80048; 80053; 80307; 81003; 82010; 82150; 82728; 82803; 82962; 83540; 83550; 83605; 83690; 83735; 84100; 84436; 84443; 84703; 85025; 85610; 85730; 86803; 86850; 86900; 86901; 87040; 87086; 87389; 93005; 93010; 99291; J0131

== ENCOUNTER 2024-07-10 19:30 | Emergency (ER) | payer OTHER ==
[2024-07-10 19:55] VITALS: BP 128/66; PULSE 90; RESP 16; TEMP 98.2; BMI 20.1
[2024-07-10] MEDS ORDERED: ONDANSETRON 4 MG/2 ML VIAL ONE (20:02)
[2024-07-10] MEDS ORDERED: ACETAMINOPHEN INJECTION 100 ML ONE (20:02)
[2024-07-10] MEDS ORDERED: FAMOTIDINE 20 MG/50 ML IVPB 20 MG/50 ML MG IVPB ONE (20:02)
[2024-07-10] MEDS: ONDANSETRON 4 MG/2 ML VIAL IVPUSH ONE (20:45)
[2024-07-10 21:29] LABS: HEMOGLOBIN 7.5 g/dL (11.2-15.7)
[2024-07-10 21:31] LABS: HEMATOCRIT 24.1 % (34.1-44.9); MCHC 31.1 g/dl (32.2-35.5); MEAN CELL VOLUME 93.8 fl (79.4-94.8); RDW 16.9 % (12.1-16.8)
[2024-07-10 21:37] LABS: ACTIVATED PTT 22.6 SECONDS (25.2-36.5)
[2024-07-10] MEDS ORDERED: diazePAM CARPU-JECT 10 MG/2 ML DISP.SYRIN ONE (21:39)
[2024-07-10] MEDS ORDERED: THIAMINE 100 MG TABLET ONE (21:39)
[2024-07-10] MEDS: ACETAMINOPHEN 1000 MG/100 ML BAG IVPB ONE (21:49)
[2024-07-10] MEDS: LACTATED RINGERS SOLUTION 1000 ML INFUS.BAG IV ONE (21:49)
[2024-07-10] MEDS: diazePAM CARPU-JECT 10 MG/2 ML DISP.SYRIN IVPUSH ONE (21:50)
[2024-07-10] MEDS ORDERED: FOLIC ACID 1 MG TABLET (FP) ONE (21:51)
[2024-07-10 21:57] LABS: PH,URINE 5.5 (5.0-8.0); URINE APPEARANCE CLEAR; URINE BILIRUBIN NEGATIVE (NEGATIVE); URINE COLOR YELLOW; URINE GLUCOSE (UA) NEGATIVE (NEGATIVE); URINE KETONE 2+ (NEGATIVE); URINE LEUK ESTERASE NEGATIVE (NEGATIVE); URINE NITRITE NEGATIVE (NEGATIVE); URINE PROTEIN NEGATIVE (NEGATIVE); URINE UROBILINOGEN 0.2 mg/dL (0.2-1.0)
[2024-07-10] MEDS: THIAMINE 100 MG TABLET PO ONE (21:59)
[2024-07-10] MEDS: FOLIC ACID 1 MG TABLET (FP) PO ONE (21:59)
[2024-07-10 22:05] LABS: COCAINE, UR NEGATIVE (NEGATIVE); URINE AMPHETAMINES NEGATIVE (NEGATIVE); URINE BARBITURATES NEGATIVE (NEGATIVE)
[2024-07-10 22:05] LABS: INR 1.07 (0.83-1.09); PROTHROMBIN TIME (PATIENT) 11.8 SEC (9.7-13.0)
[2024-07-10 22:06] LABS: METHADONE, UR NEGATIVE (NEGATIVE); PHENCYCLIDINE,URINE NEGATIVE (NEGATIVE)
[2024-07-10 22:09] LABS: PLATELET COUNT 126 x10^3/uL (182-369)
[2024-07-10 22:12] LABS: OPIATES, URI NEGATIVE (NEGATIVE); URINE BENZODIAZEPINES POSITIVE (NEGATIVE)
[2024-07-10 22:22] LABS: POTASSIUM 4.6 mmol/L (3.5-5.1)
[2024-07-10 22:24] LABS: CALCIUM 8.7 mg/dL (8.5-10.1)
[2024-07-10 22:25] LABS: BLOOD UREA NITROGEN 8.7 mg/dL (7-18); MAGNESIUM 1.9 mg/dL (1.8-2.4)
[2024-07-10 22:28] LABS: CREATININE 0.5 mg/dL (0.55-1.3)
[2024-07-10 22:29] LABS: BILIRUBIN,TOTAL 0.3 mg/dL (0.2-1)
[2024-07-10 22:30] LABS: TOT PROT 7.9 g/dl (6.4-8.2)
[2024-07-10 22:31] LABS: ALBUMIN 3.8 g/dl (3.4-5.0)
[2024-07-10] MEDS: FAMOTIDINE 20 MG/50 ML IVPB 20 MG/50 ML MG IVPB ONE (22:31)
[2024-07-10 23:07] LABS: Reticulocyte % 1.33 % (0.5-1.7)
[2024-07-10] MEDS: LIDOCAINE PATCH REMOVAL MC SCH (23:31)
[2024-07-10] MEDS ORDERED: LIDOCAINE 4% PATCH TP ONE (23:46)
[2024-07-10] MEDS ORDERED: KETOROLAC TROMETHAMINE 15 MG/ML VIAL ONE (23:47)
[2024-07-10] MEDS: KETOROLAC TROMETHAMINE 15 MG/ML VIAL IM ONE (23:55)
[2024-07-10] MEDS: LIDOCAINE 4% PATCH TP ONE (23:55)
[2024-07-11] MEDS ORDERED: CYANOCOBALAMIN 1,000 MCG TABLET (FP) PO ONE (20:13)
== END 2024-07-11 00:08 | disposition home or self-care (01) ==
LOC: JER 19:30
PROC: 3E033GC Introduction of Other Therapeutic Substance into Peripheral Vein, Percutaneous Approach (ICD-10-PCS; principal; 2024-07-10)
PROC: 3E033GC Introduction of Other Therapeutic Substance into Peripheral Vein, Percutaneous Approach (ICD-10-PCS; 2024-07-10)
PROC: 3E033NZ Introduction of Analgesics, Hypnotics, Sedatives into Peripheral Vein, Percutaneous Approach (ICD-10-PCS; 2024-07-10)
PROC: 3E0233Z Introduction of Anti-inflammatory into Muscle, Percutaneous Approach (ICD-10-PCS; 2024-07-10)
DX: S22.42XA Multiple fractures of ribs, left side, initial encounter for closed fracture (principal); F10.929 Alcohol use, unspecified with intoxication, unspecified; R11.0 Nausea; Y90.8 Blood alcohol level of 240 mg/100 ml or more; W19.XXXA Unspecified fall, initial encounter
CPT/HCPCS: 36415; 71046-TC-FY; 80053; 80307; 81003; 83690; 83735; 85025; 85610; 85730; 87086; 93005; 93010; 99285-25; J0131

== ENCOUNTER 2024-08-10 13:37 | Inpatient (IN) | payer OTHER ==
[2024-08-10 14:02] VITALS: BMI 19.3
[2024-08-10] MEDS ORDERED: LOPERAMIDE HCL 2 MG CAPSULE PO PRN (14:33)
[2024-08-10] MEDS ORDERED: MAGNESIUM HYDROX 2400MG/30ML ORAL SUSPENSION 30 ML CUP PO PRN (14:33)
[2024-08-10] MEDS ORDERED: guaiFENesin 600 MG TABLET.ER (FP) PO PRN (14:33)
[2024-08-10] MEDS ORDERED: DICYCLOMINE HCL 10 MG CAPSULE PO PRN (14:33)
[2024-08-10] MEDS ORDERED: NALOXONE (NARCAN) HCL 4 MG/0.1 ML SPRAY NS PRN (14:33)
[2024-08-10] MEDS ORDERED: IBUPROFEN 400 MG TABLET (FP) PO PRN (14:33)
[2024-08-10] MEDS ORDERED: MAG HYDROX/AL HYDROX/SIMETH 30 ML UNIT-DOSE CUP PO PRN (14:33)
[2024-08-10] MEDS ORDERED: BENZOCAINE/MENTHOL (CHLORASEPTIC ) LOZENGE MM PRN (14:33)
[2024-08-10] MEDS ORDERED: POLYETHYLENE GLYCOL (HEALTHYLAX) 3350 17 GM PACKET PO PRN (14:33)
[2024-08-10] MEDS ORDERED: BENZONATATE 200 MG CAPSULE PO PRN (14:33)
[2024-08-10] MEDS ORDERED: ONDANSETRON *ODT* 4 MG TABLET SL PRN (14:33)
[2024-08-10] MEDS ORDERED: DICLOFENAC SODIUM 25 MG TABLET.DR PO PRN ×2 (14:40→15:12)
[2024-08-10] MEDS ORDERED: FAMOTIDINE 20 MG TABLET PO PRN (14:40)
[2024-08-10] MEDS: chlordiazePOXIDE HCL 10 MG CAPSULE PO SCH (17:21)
[2024-08-10] MEDS: hydrOXYzine PAMOATE 25 MG CAPSULE (FP) PO PRN (17:22)
[2024-08-10] MEDS: METHOCARBAMOL 500 MG TABLET PO PRN (17:22)
[2024-08-10] MEDS: chlordiazePOXIDE HCL 25 MG CAPSULE PO PRN (20:37)
[2024-08-10] MEDS: IBUPROFEN 600 MG TABLET (FP) PO PRN (20:37)
[2024-08-10] MEDS: MELATONIN 5 MG TABLETS PO SCH (22:25)
[2024-08-10] MEDS: THIAMINE 100 MG TABLET PO SCH (22:26)
[2024-08-10] MEDS: levETIRAcetam 500 MG TABLET (FP) PO SCH (22:26)
[2024-08-10] MEDS: GABAPENTIN 400 MG CAPSULE PO PRN (22:29)
[2024-08-11 06:02] VITALS: RESP 16
[2024-08-11] MEDS: PRENATAL VITAMINS W/ FOLIC ACID TABLET (FP) PO SCH (10:01)
[2024-08-11] MEDS: NICOTINE 14 MG/24 HOURS TOPICAL PATCH TD SCH (10:03)
[2024-08-11] MEDS: ACETAMINOPHEN 325 MG TABLET (FP) PO PRN (10:04)
[2024-08-11] MEDS: hydrOXYzine PAMOATE 50 MG CAPSULE (FP) PO PRN (13:55)
[2024-08-11] MEDS: NICOTINE POLACRILEX 2 MG LOZENGE BC SCH (13:58)
[2024-08-11] MEDS ORDERED: NICOTINE POLACRILEX 2 MG LOZENGE BC PRN (15:11)
[2024-08-11 17:04] VITALS: BP 123/86; PULSE 85; TEMP 97.7
[2024-08-11] MEDS: BISMUTH SUBSALICYLATE 524 MG/30 ML PO PRN (18:23)
[2024-08-11] MEDS ORDERED: traZODone HCL 50 MG TABLET (FP) PO SCH (22:00)
[2024-08-12] MEDS ORDERED: chlordiazePOXIDE HCL 10 MG CAPSULE PO SCH (06:00)
[2024-08-13] MEDS ORDERED: chlordiazePOXIDE HCL 10 MG CAPSULE PO PRN
[2024-08-13] MEDS ORDERED: chlordiazePOXIDE HCL 10 MG CAPSULE PO ONE (05:00)
== END 2024-08-11 18:55 | disposition left against medical advice (07) | DRG 770 ==
LOC: YASAS 13:37 → Y3N 15:28
PROVIDERS: ADMIT Allergy & Immunology; ATTEND Allergy & Immunology
PROC: HZ2ZZZZ Detoxification Services for Substance Abuse Treatment (ICD-10-PCS; principal; 2024-08-10)
DX: F10.230 Alcohol dependence with withdrawal, uncomplicated (principal); F12.20 Cannabis dependence, uncomplicated; F17.210 Nicotine dependence, cigarettes, uncomplicated; F10.280 Alcohol dependence with alcohol-induced anxiety disorder; F10.282 Alcohol dependence with alcohol-induced sleep disorder; K21.9 Gastro-esophageal reflux disease without esophagitis; M41.9 Scoliosis, unspecified; G89.29 Other chronic pain; Z62.810 Personal history of physical and sexual abuse in childhood; Z91.410 Personal history of adult physical and sexual abuse
CPT/HCPCS: 36415; 80177; 80305; 80307; 81025; 99283-25

== ENCOUNTER 2024-10-23 07:56 | Observation (INO) | payer OTHER ==
[2024-10-23] MEDS ORDERED: ONDANSETRON 4 MG/2 ML VIAL ONE (08:21)
[2024-10-23] MEDS ORDERED: diazePAM CARPU-JECT 10 MG/2 ML DISP.SYRIN ONE (08:21)
[2024-10-23] MEDS ORDERED: DEXTROSE 50%-WATER 25 GM/50 ML DISP.SYRIN ONE (08:21)
[2024-10-23 08:54] LABS: ABSOLUTE IMMATURE GRANULOCYTES 0.07 x10^3/uL (0.0-0.031); BASOPHILS # 0.10 x10^3/uL (0.01-0.08); EOSINOPHIL % 0.0 % (0.7-5.8); EOSINOPHILS # 0.00 x10^3/uL (0.04-0.36); MCHC 32.1 g/dl (32.2-35.5); MEAN CELL VOLUME 98.1 fl (79.4-94.8); MEAN PLT VOLUME 9.6 fl (9.4-12.3); MONOCYTE # 0.67 x10^3/uL (0.24-0.86); MONOCYTE % 5.9 % (4.7-12.5); RDW 13.9 % (12.1-16.8)
[2024-10-23 08:55] LABS: BG HCT 39.0 % (32.4-45.2); VENOUS BASE EXCESS -14.5 mmol/L (-2-2); VENOUS O2 SATURATION 81.0 % (70-80); VENOUS PCO2 25.9 mmHg (38-52); VENOUS PH 7.247 (7.310-7.410)
[2024-10-23] MEDS: diazePAM CARPU-JECT 10 MG/2 ML DISP.SYRIN IVPUSH ONE ×3 (08:59→10:07)
[2024-10-23] MEDS: ONDANSETRON 4 MG/2 ML VIAL IVPUSH ONE (08:59)
[2024-10-23] MEDS: DEXTROSE 50%-WATER 25 GM/50 ML DISP.SYRIN IVPUSH ONE (08:59)
[2024-10-23] MEDS: SODIUM CHLORIDE 0.9% 500 ML INFUS.BAG IV ONE ×2 (08:59→10:08)
[2024-10-23] MEDS: THIAMINE 100 MG TABLET PO ONE (09:00)
[2024-10-23] MEDS ORDERED: THIAMINE HCL 200 MG/2 ML VIAL ONE (09:01)
[2024-10-23] MEDS: THIAMINE HCL 200 MG/2 ML VIAL IVPB ONE (09:04)
[2024-10-23] MEDS: DEXTROSE 5%-LACTATED RINGERS 1,000 ML IV SCH (09:11)
[2024-10-23] MEDS ORDERED: HALOPERIDOL LACTATE 5 MG/ML ONE (09:42)
[2024-10-23] MEDS: HALOPERIDOL LACTATE 5 MG/ML IVPUSH ONE ×2 (09:49→10:26)
[2024-10-23 10:36] LABS: GLUCOSE,RANDOM 69.0 mg/dL (74-106); TOT PROT 8.3 g/dl (6.4-8.2)
[2024-10-23 10:37] LABS: CO2 9.0 mmol/L (21-32)
[2024-10-23 10:39] LABS: ALK PHOS 107.0 U/L (40-150)
[2024-10-23 10:42] LABS: CREATININE 0.59 mg/dL (0.55-1.3); SGOT/AST 43.0 U/L (5-34); SGPT/ALT 6.0 U/L (0-55)
[2024-10-23 12:59] LABS: EPI CELLS >36 /uL (0-25.1); HYALINE CASTS 0 /uL (0-3.1); URINE APPEARANCE CLOUDY; URINE BACTERIA 1700 /uL (0-1359); URINE BILIRUBIN NEGATIVE (NEGATIVE); URINE COLOR YELLOW; URINE GLUCOSE (UA) 2+ (NEGATIVE); URINE KETONE 4+ (NEGATIVE); URINE LEUK ESTERASE TRACE (NEGATIVE); URINE NITRITE NEGATIVE (NEGATIVE); URINE PROTEIN 1+ (NEGATIVE); URINE RBC 23 /uL (0-23.9); URINE UROBILINOGEN 0.2 mg/dL (0.2-1.0); URINE WBC 53 /uL (0-25.8)
[2024-10-23 13:02] LABS: GLUCOSE,RANDOM 134.0 mg/dL (74-106); TOT PROT 7.1 g/dl (6.4-8.2)
[2024-10-23 13:03] LABS: CO2 14.0 mmol/L (21-32)
[2024-10-23 13:03] LABS: COCAINE, UR NEGATIVE (NEGATIVE)
[2024-10-23 13:04] LABS: METHADONE, UR NEGATIVE (NEGATIVE); OPIATES, URI NEGATIVE (NEGATIVE); PHENCYCLIDINE,URINE NEGATIVE (NEGATIVE); URINE AMPHETAMINES NEGATIVE (NEGATIVE); URINE BARBITURATES NEGATIVE (NEGATIVE); URINE BENZODIAZEPINES NEGATIVE (NEGATIVE)
[2024-10-23 13:07] LABS: SGOT/AST 42.0 U/L (5-34); SGPT/ALT 10.0 U/L (0-55)
[2024-10-23 13:08] LABS: CREATININE 0.54 mg/dL (0.55-1.3)
[2024-10-23 13:14] LABS: ALK PHOS 87.0 U/L (40-150)
[2024-10-23 16:47] LABS: HIV INTERPRETATION NEGATIVE (NEGATIVE)
[2024-10-23 16:49] LABS: HCV DIAGNOSTIC IN-HOUSE W/RFLX NON-REACTIVE (NONREACTIVE)
[2024-10-23] MEDS: MAGNESIUM SULFATE IN WATER 2 GM/50 ML IVPB IVPB ONE (17:32)
[2024-10-23] MEDS: SODIUM CHLORIDE 1,000 ML IV SCH (17:32)
[2024-10-23] MEDS ORDERED: PANTOPRAZOLE 40 MG TABLET PO PRN (18:11)
[2024-10-23] MEDS ORDERED: METOCLOPRAMIDE HCL 10 MG TABLET (FP) PO PRN (18:16)
[2024-10-23] MEDS: POTASSIUM CHLORIDE 10 MEQ in DEXTROSE 5%-NORMAL SALINE 1,000 ML IVPB SCH (19:40)
[2024-10-23 19:44] VITALS: BMI 17.6
[2024-10-24 06:58] LABS: ABSOLUTE IMMATURE GRANULOCYTES 0.02 x10^3/uL (0.0-0.031); BASOPHILS # 0.03 x10^3/uL (0.01-0.08); EOSINOPHIL % 0.5 % (0.7-5.8); EOSINOPHILS # 0.03 x10^3/uL (0.04-0.36); MCHC 32.6 g/dl (32.2-35.5); MEAN CELL VOLUME 95.6 fl (79.4-94.8); MEAN PLT VOLUME 9.7 fl (9.4-12.3); MONOCYTE # 0.62 x10^3/uL (0.24-0.86); MONOCYTE % 10.1 % (4.7-12.5); RDW 13.2 % (12.1-16.8)
[2024-10-24 07:34] LABS: GLUCOSE,RANDOM 78.0 mg/dL (74-106); TOT PROT 7.0 g/dl (6.4-8.2)
[2024-10-24 07:36] LABS: CO2 19.0 mmol/L (21-32)
[2024-10-24 07:37] LABS: ALK PHOS 88.0 U/L (40-150)
[2024-10-24 07:40] LABS: CREATININE 0.49 mg/dL (0.55-1.3); SGOT/AST 42.0 U/L (5-34); SGPT/ALT 12.0 U/L (0-55)
[2024-10-24] MEDS: PANTOPRAZOLE 40 MG TABLET PO SCH (09:37)
[2024-10-24] MEDS: FOLIC ACID 1 MG TABLET (FP) PO SCH (09:37)
[2024-10-24] MEDS: ENOXAPARIN NA (PORCINE) 40 MG/0.4 ML DISP.SYRIN SQ SCH (09:37)
[2024-10-24] MEDS: THIAMINE 100 MG TABLET PO SCH (09:37)
[2024-10-24] MEDS: NAPH,MB-DB/K PH,MBDB POWDER PACKET PO ONE (11:52)
[2024-10-24] MEDS: MAGNESIUM OXIDE 400 MG TABLET (FP) PO ONE (11:52)
[2024-10-24] MEDS ORDERED: METOPROLOL TARTRATE 5 MG/5 ML VIAL IVPUSH PRN (21:28)
[2024-10-24] MEDS: MELATONIN 5 MG TABLETS PO ONE (21:30)
[2024-10-24] MEDS: METOPROLOL TARTRATE 5 MG/5 ML VIAL IVPUSH ONE (21:50)
[2024-10-25] MEDS: ARTIFICIAL TEARS OPHTHALMIC DROPS OU PRN (04:51)
[2024-10-25 08:07] LABS: MCHC 33.2 g/dl (32.2-35.5); MEAN CELL VOLUME 93.4 fl (79.4-94.8); MEAN PLT VOLUME 10.4 fl (9.4-12.3); RDW 13.0 % (12.1-16.8)
[2024-10-25 09:55] VITALS: BP 113/88; PULSE 106; RESP 18; TEMP 98.8
[2024-10-25] MEDS: MAGNESIUM SULFATE IN WATER 2 GM/50 ML IVPB IVPB ONE (09:57)
[2024-10-25 12:39] LABS: GLUCOSE,RANDOM 105.0 mg/dL (74-106)
[2024-10-25 12:40] LABS: CO2 27.0 mmol/L (21-32)
[2024-10-25 12:45] LABS: CREATININE 0.5 mg/dL (0.55-1.3)
[2024-10-25] MEDS ORDERED: NAPH,MB-DB/K PH,MBDB POWDER PACKET PO SCH (14:00)
== END 2024-10-25 12:09 | disposition left against medical advice (07) ==
LOC: JER 07:56 → JERBED 11:24 → J4W 16:48
PROVIDERS: ADMIT Student in an Organized Health Care Education/Training Program; ATTEND Student in an Organized Health Care Education/Training Program
PROC: 3E033GC Introduction of Other Therapeutic Substance into Peripheral Vein, Percutaneous Approach (ICD-10-PCS; principal; 2024-10-23)
PROC: 3E0337Z Introduction of Electrolytic and Water Balance Substance into Peripheral Vein, Percutaneous Approach (ICD-10-PCS; 2024-10-23)
PROC: 3E033NZ Introduction of Analgesics, Hypnotics, Sedatives into Peripheral Vein, Percutaneous Approach (ICD-10-PCS; 2024-10-23)
PROC: 3E023GC Introduction of Other Therapeutic Substance into Muscle, Percutaneous Approach (ICD-10-PCS; 2024-10-23)
DX: F10.239 Alcohol dependence with withdrawal, unspecified (principal); F12.188 Cannabis abuse with other cannabis-induced disorder; K21.9 Gastro-esophageal reflux disease without esophagitis; D64.9 Anemia, unspecified; F41.9 Anxiety disorder, unspecified; I42.9 Cardiomyopathy, unspecified; E16.2 Hypoglycemia, unspecified; R00.0 Tachycardia, unspecified
CPT/HCPCS: 36415; 70450-TC; 70486-TC; 71045-TC-FY; 80048; 80053; 80307; 81003; 82010; 82803; 82962; 83605; 83690; 83735; 84100; 84484; 84703; 85025; 85027; 86803; 87389; 93005; 93010; 96361; 96365; 96366; 96372; 96375; 96376; 99291; G0378

== ENCOUNTER 2024-12-16 02:10 | Inpatient (IN) | payer OTHER ==
[2024-12-16 02:16] VITALS: BMI 17.5
[2024-12-16] MEDS ORDERED: DICYCLOMINE HCL 10 MG CAPSULE PO PRN (02:20)
[2024-12-16] MEDS ORDERED: ACETAMINOPHEN 325 MG TABLET (FP) PO PRN (02:20)
[2024-12-16] MEDS ORDERED: NALOXONE (NARCAN) HCL 4 MG/0.1 ML SPRAY NS PRN (02:20)
[2024-12-16] MEDS ORDERED: IBUPROFEN 400 MG TABLET (FP) PO PRN (02:20)
[2024-12-16] MEDS ORDERED: guaiFENesin 600 MG TABLET.ER (FP) PO PRN (02:20)
[2024-12-16] MEDS ORDERED: MAGNESIUM HYDROX 2400MG/30ML ORAL SUSPENSION 30 ML CUP PO PRN (02:20)
[2024-12-16] MEDS ORDERED: MAG HYDROX/AL HYDROX/SIMETH 30 ML UNIT-DOSE CUP PO PRN (02:20)
[2024-12-16] MEDS ORDERED: BENZOCAINE/MENTHOL (CHLORASEPTIC ) LOZENGE MM PRN (02:20)
[2024-12-16] MEDS ORDERED: BENZONATATE 200 MG CAPSULE PO PRN (02:20)
[2024-12-16] MEDS ORDERED: BISMUTH SUBSALICYLATE 524 MG/30 ML PO PRN (02:20)
[2024-12-16] MEDS ORDERED: POLYETHYLENE GLYCOL (HEALTHYLAX) 3350 17 GM PACKET PO PRN (02:20)
[2024-12-16] MEDS: ONDANSETRON *ODT* 4 MG TABLET SL PRN (03:55)
[2024-12-16] MEDS: levETIRAcetam 500 MG TABLET (FP) PO SCH (09:04)
[2024-12-16] MEDS: PRENATAL VITAMINS W/ FOLIC ACID TABLET (FP) PO SCH (09:05)
[2024-12-16] MEDS: NICOTINE 14 MG/24 HOURS TOPICAL PATCH TD SCH (09:05)
[2024-12-16] MEDS: IBUPROFEN 600 MG TABLET (FP) PO PRN (17:08)
[2024-12-16] MEDS: METHOCARBAMOL 500 MG TABLET PO PRN (22:05)
[2024-12-16] MEDS: traZODone HCL 50 MG TABLET (FP) PO SCH (22:05)
[2024-12-16] MEDS: THIAMINE 100 MG TABLET PO SCH (22:06)
[2024-12-16] MEDS: MELATONIN 5 MG TABLETS PO SCH (22:06)
[2024-12-17 11:36] LABS: MCHC 31.9 g/dl (32.2-35.5); MEAN CELL VOLUME 96.0 fl (79.4-94.8); MEAN PLT VOLUME 9.8 fl (9.4-12.3); RDW 13.6 % (12.1-16.8)
[2024-12-17 11:55] LABS: GLUCOSE,RANDOM 75.0 mg/dL (74-106); TOT PROT 6.5 g/dl (6.4-8.2)
[2024-12-17 11:56] LABS: CO2 23.0 mmol/L (21-32)
[2024-12-17 11:57] LABS: ALK PHOS 94.0 U/L (40-150)
[2024-12-17 12:00] LABS: SGPT/ALT 12.0 U/L (0-55)
[2024-12-17 12:01] LABS: CREATININE 0.51 mg/dL (0.55-1.3); SGOT/AST 54.0 U/L (5-34)
[2024-12-17] MEDS: NICOTINE POLACRILEX 2 MG LOZENGE BC PRN (15:22)
[2024-12-17] MEDS: LOPERAMIDE HCL 2 MG CAPSULE PO PRN (20:13)
[2024-12-18] MEDS: hydrOXYzine PAMOATE 25 MG CAPSULE (FP) PO PRN (14:58)
[2024-12-20 09:25] VITALS: BP 98/69; PULSE 79; RESP 16; TEMP 97.3
[2024-12-20 11:10] LABS: MCHC 32.4 g/dl (32.2-35.5); MEAN CELL VOLUME 98.3 fl (79.4-94.8); MEAN PLT VOLUME 10.5 fl (9.4-12.3); RDW 12.9 % (12.1-16.8)
== END 2024-12-20 11:40 | disposition home or self-care (01) | DRG 775 ==
LOC: YASAS 02:10 → Y3N 03:40
PROVIDERS: ADMIT Allergy & Immunology; ATTEND Allergy & Immunology
PROC: HZ2ZZZZ Detoxification Services for Substance Abuse Treatment (ICD-10-PCS; principal; 2024-12-16)
DX: F10.230 Alcohol dependence with withdrawal, uncomplicated (principal); F17.210 Nicotine dependence, cigarettes, uncomplicated; M41.9 Scoliosis, unspecified; G40.909 Epilepsy, unspecified, not intractable, without status epilepticus; K21.9 Gastro-esophageal reflux disease without esophagitis; I42.9 Cardiomyopathy, unspecified; G89.29 Other chronic pain; F12.20 Cannabis dependence, uncomplicated; F41.8 Other specified anxiety disorders; F43.10 Post-traumatic stress disorder, unspecified; G47.00 Insomnia, unspecified
CPT/HCPCS: 36415; 80053; 80307; 85027; 86780; Q0162